=== PATIENT | female | born 1980 | race Caucasian/White ===

== ENCOUNTER → 2020-11-01 15:54 | Outpatient (BNVA) | payer BC, SELFPAY | PROVIDERS: PCP Internal Medicine; Referring Provider Internal Medicine; Visit Provider Nurse Practitioner | DX: Z76.89 Persons encountering health services in other specified circumstances (principal) ==

== ENCOUNTER 2021-01-25 07:08 | Outpatient (REF) | payer BC, SELFPAY ==
[2021-01-25 11:29] LABS: Hematocrit 40.6 % (37-47); Hemoglobin 13.5 g/dl (12.0-16.0); Mean Corpuscular HGB Conc 33.3 g/dl (31.0-35.0); Mean Corpuscular Hemoglobin 28.2 pg (27.0-33.0); Mean Corpuscular Volume 84.8 fL (80-98); Mean Platelet Volume 9.1 fL (9.4-12.3); Platelet Count 399 X10*3/uL (160-400); Red Blood Count 4.79 X10*6/uL (4.20-5.50); Red Cell Distribution Width 12.7 % (11.0-16.0); White Blood Count 7.1 X10*3/uL (4.8-10.8)
[2021-01-25 11:34] LABS: Glucose Urine UA NEG (NEG); Leukocyte Esterase Urine NEG (NEG); Nitrite Urine NEG (NEG); PH 7.5 (5.0-8.0); Urine Blood NEG (NEG); Urine Ketones NEG (NEG); Urine Protein NEG (NEG-TRACE)
[2021-01-25 11:39] LABS: Appearance Urine CLOUDY; Color Urine YELLOW
[2021-01-25 11:47] LABS: RBC Urine 0-2 /HPF (0); Squamous Epithelial Cell Urine 3+ /LPF; WBC Urine 0-2 /HPF (0-4)
[2021-01-25 11:55] LABS: Alanine Aminotransferase 22 U/L (0-31); Albumin Level 4.1 g/dL (3.5-5.0); Alkaline Phosphatase 72 U/L (39-117); Anion Gap 12 (12-20); Aspartate Amino Transferase 14 U/L (5-31); Bilirubin Total 0.5 mg/dL (0.0-1.0); Blood Urea Nitrogen 12 mg/dL (9-16); Calcium 8.7 mg/dL (8.4-10.2); Carbon Dioxide 26 mmol/L (22-29); Chloride 105 mmol/L (96-108); Cholesterol 183 mg/dL; Estimated Glomerular Filt Rate > 60; Glucose Fasting 90 mg/dL (60-99); HDL Cholesterol 41 mg/dL; LDL Cholesterol Calculated 126 mg/dl; Potassium 4.6 mmol/L (3.3-5.1); Sodium 138 mmol/L (135-145); Total Protein 6.8 g/dL (6.5-8.0); Triglycerides 82 mg/dL
[2021-01-25 12:00] LABS: Thyroid Stimulating Hormone 1.64 uIU/mL (0.32-4.0)
== END 2021-01-25 07:09 | disposition home or self-care (01) ==
LOC: HO.HMGCLDS 07:08
PROVIDERS: PCP Internal Medicine; Visit Provider Internal Medicine
DX: I10 Essential (primary) hypertension (principal); J45.909 Unspecified asthma, uncomplicated
CPT/HCPCS: 36415; 80053; 80061; 81001; 84443; 85027

== ENCOUNTER 2021-03-20 16:26 | Outpatient (REF) | payer BC, SELFPAY ==
--- NOTE | ~2021-03-20 | US_ITS ---
EXAMINATION: US RETROPERITONEAL LIMITED (RENAL ONLY) CLINICAL INFORMATION: Unspecified hydronephrosis. COMPARISON: Ultrasound abdomen 04/07/2020. Renal ultrasound 12/11/2017. TECHNIQUE: Real-time imaging of the kidneys. FINDINGS: RIGHT KIDNEY: 12.1 x 5.6 x 5.3 cm (SAG x AP x TRV). The kidney is normal in size, contour, and echogenicity. Renal cortical thickness is normal. No calculi or focal parenchymal lesions. There is mild right hydronephrosis. This is new or increased from previous abdominal ultrasound March 2020 LEFT KIDNEY: 12.0 x 5.3 x 4.5 cm (SAG x AP x TRV). The kidney is normal in size, contour, and echogenicity. Renal cortical thickness is normal. No calculi or focal parenchymal lesions. No hydronephrosis. US/US renal BI IMPRESSION: Mild right hydronephrosis.
== END 2021-03-20 16:27 | disposition home or self-care (01) ==
LOC: HO.US 16:26
PROVIDERS: PCP Internal Medicine; Visit Provider Internal Medicine
DX: N13.30 Unspecified hydronephrosis (principal)
CPT/HCPCS: 76775

== ENCOUNTER 2022-01-25 07:31 | Outpatient (REF) | payer BC, SELFPAY ==
[2022-01-25 11:52] LABS: Hematocrit 39.6 % (37.0-47.0); Hemoglobin 12.8 g/dl (12.0-16.0); Mean Corpuscular HGB Conc 32.3 g/dl (31.0-35.0); Mean Corpuscular Hemoglobin 27.6 pg (27.0-33.0); Mean Corpuscular Volume 85.3 fL (80.0-98.0); Mean Platelet Volume 9.2 fL (9.4-12.3); Platelet Count 385 X10*3/uL (160-400); Red Blood Count 4.64 X10*6/uL (4.20-5.50); Red Cell Distribution Width 12.6 % (11.0-16.0); White Blood Count 6.4 X10*3/uL (4.8-10.8)
[2022-01-25 12:06] LABS: Appearance Urine CLOUDY; Color Urine YELLOW; Glucose Urine UA NEG (NEG); Leukocyte Esterase Urine NEG (NEG); Nitrite Urine NEG (NEG); Specific Gravity - Urine 1.025 (1.005-1.025); Urine Blood TRACE (NEG); Urine Ketones NEG (NEG); Urine Protein NEG (NEG-TRACE)
[2022-01-25 12:08] LABS: Alanine Aminotransferase 11 U/L (0-31); Alkaline Phosphatase 67 U/L (39-117); Anion Gap 8 (12-20); Aspartate Amino Transferase 11 U/L (5-31); Bilirubin Total 0.5 mg/dL (0.0-1.0); Blood Urea Nitrogen 13 mg/dL (9-16); Calcium 8.7 mg/dL (8.4-10.2); Carbon Dioxide 26 mmol/L (22-29); Chloride 107 mmol/L (96-108); Cholesterol 154 mg/dL; Estimated Glomerular Filt Rate > 60; Glucose Fasting 97 mg/dL (60-99); HDL Cholesterol 38 mg/dL; LDL Cholesterol Calculated 102 mg/dl; Potassium 4.4 mmol/L (3.3-5.1); Sodium 137 mmol/L (135-145); Total Protein 6.6 g/dL (6.5-8.0); Triglycerides 73 mg/dL
[2022-01-25 12:25] LABS: Amorphous Sediment Urine 2+ /LPF; Bacteria Urine 1+ /LPF; RBC Urine 0-2 /HPF (0); Squamous Epithelial Cell Urine 3+ /LPF; WBC Urine 0-2 /HPF (0-4)
[2022-01-25 12:30] LABS: TSH reflex Free T4 1.17 uIU/mL (0.32-4.0)
== END 2022-01-25 07:32 | disposition home or self-care (01) ==
LOC: HO.HMGCLDS 07:31
PROVIDERS: Visit Provider Internal Medicine
DX: Z00.00 Encounter for general adult medical examination without abnormal findings (principal); I10 Essential (primary) hypertension
CPT/HCPCS: 36415; 80053; 80061; 81001; 84443; 85027

== ENCOUNTER → 2023-01-10 08:29 | Outpatient (BNVA) | payer BC, SELFPAY | PROVIDERS: PCP Internal Medicine; Visit Provider Student in an Organized Health Care Education/Training Program | DX: Z13.89 Encounter for screening for other disorder (principal) ==

== ENCOUNTER 2023-01-10 09:55 | Outpatient (REF) | payer BC, SELFPAY ==
--- NOTE | ~2023-01-10 | XR_ITS ---
EXAMINATION: XR SACROILIAC JOINTS CLINICAL INFORMATION: Arthropathic psoriasis. COMPARISON: None TECHNIQUE: AP and bilateral Judet views of the sacroiliac joints FINDINGS: Bones and soft tissues are normal. No fracture. Alignment is anatomic. Sacroiliac joint spaces are well-maintained without erosions or surrounding sclerosis. XR/XR sacroiliac joint min 3V IMPRESSION: Normal sacroiliac joints.
--- NOTE | ~2023-01-10 | XR_ITS ---
EXAMINATION: XR SHOULDER, LEFT CLINICAL INFORMATION: Arthropathic psoriasis. COMPARISON: None TECHNIQUE: AP external rotation, Grashey, scapular Y, and axillary views of the left shoulder. FINDINGS: Bony alignment and mineralization are normal. The glenohumeral joint is intact. A small accessory ossification center is seen at the lower glenoid margin. The acromioclavicular and coracoclavicular intervals are normal. There is coarse calcific tendinitis of the left rotator cuff insertion. No fracture or dislocation is seen. There is no foreign body. No bone erosion is noted. No left pneumothorax is seen. XR/XR shoulder LT min 2V IMPRESSION: 1. There is calcific tendinitis of the left rotator cuff insertion. 2. No fracture or dislocation is seen. 3. There is no abnormal bony erosive change. EXAMINATION: XR LUMBOSACRAL SPINE CLINICAL INFORMATION: Arthropathic psoriasis. COMPARISON: None TECHNIQUE: AP, bilateral oblique and lateral views of the lumbar spine and lateral view of the lumbosacral junction. FINDINGS: Vertebral body heights are normal. There is a mild thoracolumbar levoscoliosis. At T11-T12, there is mild anterior disc space narrowing, with slight vacuum disc phenomenon. The lumbar disc spaces are well-maintained. No acute fracture or spondylolisthesis is seen. There is mild anterior spondylosis at T11-T12, L3-L4 and L4-L5. The posterior elements are intact. The paravertebral soft tissues are unremarkable. IMPRESSION: 1. There is mild degenerative disc disease at T11-T12. 2. There is multi-level mild thoracolumbar spondylosis. 3. There is a mild thoracolumbar levoscoliosis.
--- NOTE | ~2023-01-10 | XR_ITS ---
EXAMINATION: XR HAND/WRIST, RIGHT XR HAND/WRIST, LEFT CLINICAL INFORMATION: Psoriatic arthritis. COMPARISON: None TECHNIQUE: PA, lateral, and oblique views of the each hand and wrist. FINDINGS: RIGHT HAND/WRIST: Bony alignment and mineralization are normal. There is a mild ulnar minus variance. No fracture or dislocation is seen. The joint spaces are maintained. There is minimal osteoarthritic change of the interphalangeal joint of the thumb and of the first carpometacarpal joint. No erosions or soft tissue calcifications. LEFT HAND/WRIST: Bony alignment and mineralization are normal. There is a mild ulnar minus variance. No fracture or dislocation is seen. The joint spaces are maintained. There is minimal osteoarthritic change of the interphalangeal joint of the thumb and of the first carpometacarpal joint. No erosions or soft tissue calcifications. XR/XR hand wrist LT IMPRESSION: There is minimal osteoarthritic change of the interphalangeal joints of the thumb and of the bilateral first carpometacarpal joints. No fracture or dislocation is seen. There is no abnormal bony erosive change.
--- NOTE | ~2023-01-10 | XR_ITS ---
EXAMINATION: XR HAND/WRIST, RIGHT XR HAND/WRIST, LEFT CLINICAL INFORMATION: Psoriatic arthritis. COMPARISON: None TECHNIQUE: PA, lateral, and oblique views of the each hand and wrist. FINDINGS: RIGHT HAND/WRIST: Bony alignment and mineralization are normal. There is a mild ulnar minus variance. No fracture or dislocation is seen. The joint spaces are maintained. There is minimal osteoarthritic change of the interphalangeal joint of the thumb and of the first carpometacarpal joint. No erosions or soft tissue calcifications. LEFT HAND/WRIST: Bony alignment and mineralization are normal. There is a mild ulnar minus variance. No fracture or dislocation is seen. The joint spaces are maintained. There is minimal osteoarthritic change of the interphalangeal joint of the thumb and of the first carpometacarpal joint. No erosions or soft tissue calcifications. XR/XR hand wrist RT IMPRESSION: There is minimal osteoarthritic change of the interphalangeal joints of the thumb and of the bilateral first carpometacarpal joints. No fracture or dislocation is seen. There is no abnormal bony erosive change.
--- NOTE | ~2023-01-10 | XR_ITS ---
EXAMINATION: XR SHOULDER, LEFT CLINICAL INFORMATION: Arthropathic psoriasis. COMPARISON: None TECHNIQUE: AP external rotation, Grashey, scapular Y, and axillary views of the left shoulder. FINDINGS: Bony alignment and mineralization are normal. The glenohumeral joint is intact. A small accessory ossification center is seen at the lower glenoid margin. The acromioclavicular and coracoclavicular intervals are normal. There is coarse calcific tendinitis of the left rotator cuff insertion. No fracture or dislocation is seen. There is no foreign body. No bone erosion is noted. No left pneumothorax is seen. XR/XR lumbar spine 4V min IMPRESSION: 1. There is calcific tendinitis of the left rotator cuff insertion. 2. No fracture or dislocation is seen. 3. There is no abnormal bony erosive change. EXAMINATION: XR LUMBOSACRAL SPINE CLINICAL INFORMATION: Arthropathic psoriasis. COMPARISON: None TECHNIQUE: AP, bilateral oblique and lateral views of the lumbar spine and lateral view of the lumbosacral junction. FINDINGS: Vertebral body heights are normal. There is a mild thoracolumbar levoscoliosis. At T11-T12, there is mild anterior disc space narrowing, with slight vacuum disc phenomenon. The lumbar disc spaces are well-maintained. No acute fracture or spondylolisthesis is seen. There is mild anterior spondylosis at T11-T12, L3-L4 and L4-L5. The posterior elements are intact. The paravertebral soft tissues are unremarkable. IMPRESSION: 1. There is mild degenerative disc disease at T11-T12. 2. There is multi-level mild thoracolumbar spondylosis. 3. There is a mild thoracolumbar levoscoliosis.
[2023-01-10 10:54] LABS: MANUAL DIFF FLAG NO
[2023-01-10 11:28] LABS: Basophils Percent Auto 0.5 % (0-2); Eosinophils Absolute Auto 0.1 X10*3/uL (0.0-0.4); Eosinophils Percent Auto 1.5 % (0-4); Hematocrit 42.6 % (37.0-47.0); Hemoglobin 14.1 g/dl (12.0-16.0); Imm Gran Abs Auto 0.01 X10*3/uL (0.00-0.03); Imm Gran Pct Auto 0.2 % (0.0-0.4); Lymphocytes Absolute Auto 2.7 X10*3/uL (1.2-4.9); Lymphocytes Percent Auto 43.6 % (20-40); Mean Corpuscular HGB Conc 33.1 g/dl (31.0-35.0); Mean Corpuscular Hemoglobin 27.6 pg (27.0-33.0); Mean Corpuscular Volume 83.4 fL (80.0-98.0); Mean Platelet Volume 8.9 fL (9.4-12.3); Monocytes Absolute Auto 0.3 X10*3/uL (0.1-1.2); Monocytes Percent Auto 4.5 % (2-11); Neutrophils Absolute Auto 3.1 x10*3/uL (2.0-8.3); Neutrophils Percent Auto 49.7 % (45-73); Platelet Count 426 X10*3/uL (160-400); Red Blood Count 5.11 X10*6/uL (4.20-5.50); Red Cell Distribution Width 12.4 % (11.0-16.0); White Blood Count 6.2 X10*3/uL (4.8-10.8)
[2023-01-10 11:58] LABS: Alanine Aminotransferase 16 U/L (0-31); Albumin Level 4.6 g/dL (3.5-5.0); Alkaline Phosphatase 75 U/L (39-117); Anion Gap 15 (12-20); Aspartate Amino Transferase 13 U/L (5-31); Bilirubin Total 0.6 mg/dL (0.0-1.0); Blood Urea Nitrogen 10 mg/dL (9-16); C Reactive Protein 0.45 mg/dL (< or = 0.50); Calcium 9.5 mg/dL (8.4-10.2); Carbon Dioxide 23 mmol/L (22-29); Chloride 107 mmol/L (96-108); Estimated Glomerular Filt Rate > 60; Glucose Random 89 mg/dL (60-115); Potassium 4.4 mmol/L (3.3-5.1); Sodium 141 mmol/L (135-145); Total Protein 7.3 g/dL (6.5-8.0)
[2023-01-10 12:04] LABS: Erythrocyte Sedimentation Rate 5 MM/HR (0-20)
[2023-01-10 14:27] LABS: Appearance Urine Cloudy; Color Urine Yellow; Glucose Urine UA Negative (Negative); Leukocyte Esterase Urine Negative (Negative); Nitrite Urine Negative (Negative); Specific Gravity - Urine 1.015 (1.005-1.025); Urine Blood Negative (Negative); Urine Ketones Negative (Negative); Urine Protein Negative (Neg-Trace)
[2023-01-10 14:33] LABS: Bacteria Urine 1+ (None Seen); Hyaline Casts Urine 0-2 /LPF (0-2); RBC Urine 0-2 /HPF (0-2); Squamous Epithelial Cell Urine >20 /HPF (0-2); WBC Urine 0-5 /HPF (0-5)
[2023-01-10 15:12] LABS: Creatinine Urine 85.27 mg/dL; Total Protein Urine Random < 7 mg/dL (<12)
[2023-01-11 07:01] LABS: HBS Num1 50.41 mIU/mL (0-7.99); HBc Num1 0.05 S/CO (0.00-0.79); HBsAGNum1 0.32 S/CO (0.00-0.99); Hepatitis A Antibody IgM 0.13 Index (0-0.79); Hepatitis B Core Antibody Nonreactive (Nonreactive); Hepatitis B Surface Antigen Negative (Negative); ~HepC Num1 0.06 S/CO (0.00-0.79); ~Hepatitis A Antibody IgM Nonreactive (Nonreactive); ~Hepatitis B Surface Antibody REACTIVE (Nonreactive); ~Hepatitis C Antibody Nonreactive (Nonreactive)
[2023-01-13 13:39] LABS: Anti Nuclear Antibody Screen NEGATIVE (NEGATIVE)
[2023-01-14 09:44] LABS: IgA 258 mg/dL (47-310); IgG 1117 mg/dL (600-1640); IgM 60 mg/dL (50-300)
[2023-01-14 13:15] LABS: Cyclic Citrullinated Peptide <16 UNITS
[2023-01-14 16:13] LABS: Anti DNA DS Antibody <1 IU/mL; Antibody to SS-A Antigen <1.0 NEG AI (<1.0 NEG); Antibody to SS-B Antigen <1.0 NEG AI (<1.0 NEG); SM/Ribonucleoprotein Ab <1.0 NEG AI (<1.0 NEG); Smith Protein <1.0 NEG AI (<1.0 NEG)
[2023-01-15 06:09] LABS: Complement C3 131 mg/dL (83-193)
[2023-01-15 13:58] LABS: DNAds, Crithidia Antibody Negative (Negative)
[2023-01-15 22:19] LABS: Prot Elec - Albumin 4.3 g/dL (3.8-4.8); Prot Elec - Alpha1 0.3 g/dL (0.2-0.3); Prot Elec - Alpha2 0.6 g/dL (0.5-0.9); Prot Elec - Beta 1 0.5 g/dL (0.4-0.6); Prot Elec - Beta 2 0.3 g/dL (0.2-0.5); Prot Elec - Gamma 1.1 g/dL (0.8-1.7); Prot Elec - Total Protein 7.1 g/dL (6.1-8.1)
[2023-01-16 18:49] LABS: HLA B27 Negative (Negative)
== END 2023-01-10 09:56 | disposition home or self-care (01) ==
LOC: HO.10HDL 09:55
PROVIDERS: PCP Internal Medicine; Visit Provider Student in an Organized Health Care Education/Training Program
DX: M32.9 Systemic lupus erythematosus, unspecified (principal); Z11.7 Encounter for testing for latent tuberculosis infection; Z11.59 Encounter for screening for other viral diseases; M45.9 Ankylosing spondylitis of unspecified sites in spine; L40.50 Arthropathic psoriasis, unspecified; M25.541 Pain in joints of right hand; Z72.89 Other problems related to lifestyle
CPT/HCPCS: 36415; 72110; 72202; 73030; 73110; 73130; 80053; 81001; 82784; 84156; 84165; 85025; 85652; 86038; 86039; 86140; 86160; 86200; 86225; 86235; 86255; 86334; 86481; 86704; 86706; 86709; 86803; 86812; 87340

== ENCOUNTER 2023-01-24 07:29 | Outpatient (REF) | payer BC, SELFPAY ==
[2023-01-24 11:46] LABS: Appearance Urine Cloudy; Color Urine Yellow; Glucose Urine UA Negative (Negative); Leukocyte Esterase Urine Negative (Negative); Nitrite Urine Negative (Negative); PH 5.5 (5.0-9.0); Specific Gravity - Urine 1.025 (1.005-1.025); Urine Blood Negative (Negative); Urine Ketones Negative (Negative); Urine Protein Negative (Neg-Trace)
[2023-01-24 11:50] LABS: Bacteria Urine None Seen (None Seen); Hyaline Casts Urine 0-2 /LPF (0-2); RBC Urine 0-2 /HPF (0-2); WBC Urine 0-5 /HPF (0-5)
[2023-01-24 11:59] LABS: Hematocrit 37.5 % (37.0-47.0); Hemoglobin 12.3 g/dl (12.0-16.0); Mean Corpuscular HGB Conc 32.8 g/dl (31.0-35.0); Mean Corpuscular Hemoglobin 27.8 pg (27.0-33.0); Mean Corpuscular Volume 84.7 fL (80.0-98.0); Platelet Count 404 X10*3/uL (160-400); Red Blood Count 4.43 X10*6/uL (4.20-5.50); Red Cell Distribution Width 12.9 % (11.0-16.0); White Blood Count 10.4 X10*3/uL (4.8-10.8)
[2023-01-24 12:15] LABS: Alanine Aminotransferase 11 U/L (0-31); Albumin Level 3.8 g/dL (3.5-5.0); Alkaline Phosphatase 54 U/L (39-117); Anion Gap 10 (12-20); Aspartate Amino Transferase 8 U/L (5-31); Bilirubin Total 0.5 mg/dL (0.0-1.0); Blood Urea Nitrogen 18 mg/dL (9-16); Calcium 8.6 mg/dL (8.4-10.2); Carbon Dioxide 24 mmol/L (22-29); Chloride 109 mmol/L (96-108); Cholesterol 165 mg/dL; Estimated Glomerular Filt Rate > 60; Glucose Fasting 94 mg/dL (60-99); HDL Cholesterol 43 mg/dL; LDL Cholesterol Calculated 105 mg/dl; Potassium 4.1 mmol/L (3.3-5.1); Sodium 139 mmol/L (135-145); Triglycerides 88 mg/dL
== END 2023-01-24 07:30 | disposition home or self-care (01) ==
LOC: HO.HMGCLDS 07:29
PROVIDERS: PCP Internal Medicine; Visit Provider Internal Medicine
DX: Z00.00 Encounter for general adult medical examination without abnormal findings (principal); I10 Essential (primary) hypertension
CPT/HCPCS: 36415; 80053; 80061; 81001; 85027

== ENCOUNTER → 2023-02-07 10:40 | Outpatient (BNVA) | payer BC, SELFPAY | PROVIDERS: PCP Internal Medicine; Visit Provider Student in an Organized Health Care Education/Training Program | DX: Z13.89 Encounter for screening for other disorder (principal) ==

== ENCOUNTER 2023-04-02 07:25 | Outpatient (REF) | payer BC, SELFPAY ==
[2023-04-02 11:10] LABS: MANUAL DIFF FLAG NO
[2023-04-02 11:35] LABS: Basophils Percent Auto 0.6 % (0-2); Eosinophils Absolute Auto 0.1 X10*3/uL (0.0-0.4); Eosinophils Percent Auto 1.8 % (0-4); Hematocrit 39.5 % (37.0-47.0); Hemoglobin 13.1 g/dl (12.0-16.0); Imm Gran Abs Auto 0.02 X10*3/uL (0.00-0.03); Imm Gran Pct Auto 0.3 % (0.0-0.4); Lymphocytes Absolute Auto 2.6 X10*3/uL (1.2-4.9); Lymphocytes Percent Auto 38.8 % (20-40); Mean Corpuscular HGB Conc 33.2 g/dl (31.0-35.0); Mean Corpuscular Hemoglobin 27.6 pg (27.0-33.0); Mean Corpuscular Volume 83.3 fL (80.0-98.0); Mean Platelet Volume 9.2 fL (9.4-12.3); Monocytes Absolute Auto 0.4 X10*3/uL (0.1-1.2); Monocytes Percent Auto 5.3 % (2-11); Neutrophils Absolute Auto 3.5 x10*3/uL (2.0-8.3); Neutrophils Percent Auto 53.2 % (45-73); Platelet Count 424 X10*3/uL (160-400); Red Blood Count 4.74 X10*6/uL (4.20-5.50); Red Cell Distribution Width 13.1 % (11.0-16.0); White Blood Count 6.6 X10*3/uL (4.8-10.8)
[2023-04-02 12:10] LABS: Alanine Aminotransferase 11 U/L (0-31); Alkaline Phosphatase 72 U/L (39-117); Anion Gap 10 (12-20); Aspartate Amino Transferase 9 U/L (5-31); Bilirubin Total 0.6 mg/dL (0.0-1.0); Blood Urea Nitrogen 10 mg/dL (9-16); C Reactive Protein 0.47 mg/dL (< or = 0.50); Calcium 9.1 mg/dL (8.4-10.2); Carbon Dioxide 24 mmol/L (22-29); Chloride 108 mmol/L (96-108); Estimated Glomerular Filt Rate > 60; Glucose Random 109 mg/dL (60-115); Potassium 4.1 mmol/L (3.3-5.1); Sodium 138 mmol/L (135-145); Total Protein 6.5 g/dL (6.5-8.0)
[2023-04-02 12:14] LABS: Erythrocyte Sedimentation Rate 8 MM/HR (0-20)
== END 2023-04-02 07:26 | disposition home or self-care (01) ==
LOC: HO.HMGCLDS 07:25
PROVIDERS: PCP Internal Medicine; Visit Provider Student in an Organized Health Care Education/Training Program
DX: M06.9 Rheumatoid arthritis, unspecified (principal)
CPT/HCPCS: 36415; 80053; 85025; 85652; 86140

== ENCOUNTER → 2023-04-03 09:31 | Outpatient (BNVA) | payer BC, SELFPAY | PROVIDERS: PCP Internal Medicine; Visit Provider Student in an Organized Health Care Education/Training Program ==

== ENCOUNTER 2023-05-13 07:27 | Outpatient (REF) | payer BC, SELFPAY ==
[2023-05-15 23:29] LABS: TS Negative Control Passed; TS Panel A 0; TS Panel B 0; TS Positive Control Passed; TSpotTB Negative (Negative)
== END 2023-05-13 07:28 | disposition home or self-care (01) ==
LOC: HO.LAB 07:27
PROVIDERS: PCP Internal Medicine; Visit Provider Internal Medicine Rheumatology
DX: Z11.1 Encounter for screening for respiratory tuberculosis (principal); Z79.60 Long term (current) use of unspecified immunomodulators and immunosuppressants
CPT/HCPCS: 36415; 86481

== ENCOUNTER → 2023-06-07 15:53 | Outpatient (BNVA) | payer BC, SELFPAY | PROVIDERS: PCP Internal Medicine; Visit Provider Internal Medicine Rheumatology ==

== ENCOUNTER 2023-06-20 08:27 | Outpatient (AMB) | payer BC, SELFPAY ==
--- NOTE | 2023-06-20 08:43 | A.OFFPC_ITS ---
Vital Signs 06/20/23 08:44 Height 5 ft 5 in Weight 172 lb BMI 28.6 BP 122/86 Blood Pressure Location Rt brachial Position Sitting Pulse 90 Pulse Source Pulse Oximeter Pulse Oximetry (%) 100 Oxygen Delivery Method Room Air Intake Visit Reasons: 6 week follow up HTN Allergies methotrexate Allergy (Intermediate, Verified 06/20/23 08:44) Rash adhesive Allergy (Unknown, Verified 06/20/23 08:44) Rash erythromycin base [ERYTHROMYCIN BASE] Allergy (Unknown, Verified 06/20/23 08:44) Hives peach Allergy (Unknown, Verified 06/20/23 08:44) Anaphylaxis latex Adverse Reaction (Verified 06/20/23 08:44) Hives lisinopril Adverse Reaction (Verified 06/20/23 08:44) Cough Medication List - Last Reconciled 06/20/23 by Mariah Abbott MD albuterol sulfate 90 mcg/actuation (ProAir HFA) 2 puffs inhalation Q4-6H PRN albuterol sulfate 2.5 mg (0.5 mL) inhalation Q6H PRN cetirizine (Zyrtec) 10 mg PO DAILY PRN cyclosporine 0.05% (Restasis) 1 drp ophthalmic (eye) Q12H drospirenone (contraceptive) (Slynd) 1 tab PO DAILY etanercept (Enbrel Mini) 50 mg subcut QWEEK olmesartan 20 mg PO DAILY sumatriptan succinate (Imitrex) take 1 tab at onset of headache; if no relief may repeat 1 tab after at least 2 hrs; max = 4 tabs/24 hr PO Tobacco use date assessed: 04/26/23 HPI 6 week follow up HTN HPI Details Pt presents for f/u HTN. Pt started Enbrel for RA, feels better, taking less NSAIDs PFSH Medical History (Updated 06/20/23 @ 17:26 by Mariah Abbott MD) Annual physical exam Anxiety Chronic asthma Diverticulosis FHx: colonic polyps HTN (hypertension) Hydronephrosis of right kidney Migraine Seasonal allergies Tinnitus of left ear Surgical History H/O breast biopsy History of bunionectomy Family History Father HTN (hypertension) Substance use disorder Mother Breast cancer Bladder cancer Cancer of kidney Mental health disorder Maternal Grandmother Colon cancer, Onset Age: 80 Daughter Andrzej's thyroiditis Social History Housing: House Alcohol intake: current Alcohol intake frequency: holidays/special occasions only Patient Tobacco Use Status: Former Tobacco user e-Cigarette/Vaping Use: Never Used service: No Current occupational status: employed 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 Anish Montanez, Linda Nathan, Gustavo Gramajo and colleagues, with an educational tonny from [employer]. Review of Systems Const All systems reviewed & are unremarkable except as noted in HPI and below Reports no additional complaints ENT Reports no additional complaints Card Reports no additional complaints Resp Reports no additional complaints GI Reports no additional complaints Physical exam (Primary Care) Vital Signs: Last Vital Signs Pulse 90 06/20/23 08:44 BP 122/86 06/20/23 08:44 Pulse Ox 100 06/20/23 08:44 Oxygen Delivery Method Room Air 06/20/23 08:44 BMI result Body Mass Index 28.6 Tobacco/Smoking Status: Tobacco use Status Tobacco use date assessed 04/26/23 06/20/23 08:48 Patient Tobacco Use Status Former Tobacco user 06/20/23 08:48 e-Cigarette/Vaping Use Never Used 06/20/23 08:48 Thrive Assessment: Date of Thrive Assessment Date Thrive assessed 04/26/23 06/20/23 08:48 Const General: no acute distress HENMT Head: Yes normal to inspection Mouth: Normal oral and palatal mucosa present Neck Neck: Yes no lymphadenopathy and Yes supple Resp Effort & Inspection: normal respiratory effort Auscultation: clear to auscultation bilaterally Cardio Rhythm: regular rhythm Heart sounds: S1 normal heart sound present and S2 normal heart sound present Assessment and Plan Assessment & Plan (1) HTN (hypertension): Comment: BP goal less than 130/80 Code(s): I10 - Essential (primary) hypertension Plan: con Amlodipine (2) Chronic asthma: Comment: exercise induced, Proair prn Code(s): J45.909 - Unspecified asthma, uncomplicated (3) Seronegative arthritis: Comment: dx 02/07 MTX started 02/07 someffectiveness but developed fatigue & diffuse skin rash Code(s): M13.80 - Other specified arthritis, unspecified site Plan: f/u Rheumatology (4) Migraine: Comment: imitex prn Code(s): G43.909 - Migraine, unspecified, not intractable, without status migrainosus Orders: Orders Comprehensive [place]. Panel Fast 6 Months I10 - Essential (primary) hypertension, J45.909 - Unspecified asthma, uncomplicated Lipid Panel 6 Months I10 - Essential (primary) hypertension, J45.909 - Unspecified asthma, uncomplicated Complete Blood Count Auto Diff 6 Months I10 - Essential (primary) hypertension, J45.909 - Unspecified asthma, uncomplicated Medications: New amlodipine 2.5 mg PO DAILY 90 tabs 3RF Discontinued olmesartan Discontinued Reason: Doctor's Order 20 mg PO DAILY 30 tabs 1RF Coding Level of Care Code Est Pt Level 4 (64822) Diagnoses HTN (hypertension) I10 Chronic asthma J45.909 Seronegative arthritis M13.80 Migraine G43.909
[2023-06-20 08:44] VITALS: BP 122/86; PULSE 90; O2SAT 100; BMI 28.6
== END 2023-06-20 12:44 | disposition home or self-care (01) ==
PROVIDERS: PCP Internal Medicine; Visit Provider Internal Medicine
DX: I10 Essential (primary) hypertension (principal); J45.909 Unspecified asthma, uncomplicated; M13.80 Other specified arthritis, unspecified site; G43.909 Migraine, unspecified, not intractable, without status migrainosus
CPT/HCPCS: 99214

== ENCOUNTER 2023-07-04 07:29 | Outpatient (AMB) | payer BC, SELFPAY ==
--- NOTE | 2023-07-04 07:30 | A.OFFVIS_ITS ---
Intake Vital Signs 07/04/23 07:31 Height 5 ft 5 in Weight 173 lb 15.115 oz BMI 28.9 BP 160/84 H Blood Pressure Location Rt brachial Position Sitting Pulse 86 Pulse Source Pulse Oximeter Temp 97 F Temp Source Skin Pulse Oximetry (%) 98 Oxygen Delivery Method Room Air Intake Visit Reasons: RA Intake Note: Here for RA follow up. 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 Required: No Accompanied by: Self / Same As Patient Allergies methotrexate Allergy (Intermediate, Verified 07/04/23 07:35) Rash adhesive Allergy (Unknown, Verified 07/04/23 07:35) Rash erythromycin base [ERYTHROMYCIN BASE] Allergy (Unknown, Verified 07/04/23 07:35) Hives peach Allergy (Unknown, Verified 07/04/23 07:35) Anaphylaxis latex Adverse Reaction (Verified 07/04/23 07:35) Hives lisinopril Adverse Reaction (Verified 07/04/23 07:35) Cough Medication List - Last Reconciled 07/04/23 by Dariel Borrego MD albuterol sulfate 90 mcg/actuation (ProAir HFA) 2 puffs inhalation Q4-6H PRN albuterol sulfate 2.5 mg (0.5 mL) inhalation Q6H PRN amlodipine 2.5 mg PO DAILY cetirizine (Zyrtec) 10 mg PO DAILY PRN cyclosporine 0.05% (Restasis) 1 drp ophthalmic (eye) Q12H drospirenone (contraceptive) (Slynd) 1 tab PO DAILY etanercept (Enbrel Mini) 50 mg subcut QWEEK sumatriptan succinate (Imitrex) take 1 tab at onset of headache; if no relief may repeat 1 tab after at least 2 hrs; max = 4 tabs/24 hr PO HPI HPI Comments History of Present Illness Details 42-year-old female with seronegative arthritis returns for follow-up. It took a while for the Enbrel to get approved for her. She has been using the Enbrel for about 1 month. She states that the injections do hurt. Icing helps. She does the injections in her thighs and arms. The arm in particular is more painful. She feels that she has little improvement in her overall joint pain. She went for physical therapy for her left shoulder which did not provide much relief and the physical therapist suggested a steroid injection. Patient is requesting a steroid injection for her left shoulder today. She was evaluated by an ornamental bronze worker for dry eyes and was prescribed Restasis which are helping. She states that she has had dry mouth for years. Initial history: This is a 42-year-old female with a past medical history of hypertension, asthma presents for evaluation of multiple joint pains. Condition started 2-3 years ago with bilateral foot pain. In the interim patient broke 1 of her metatarsal bones of her right foot when she accidentally stubbed her toe running after her dog. Her foot was in a boot for some time. However patient also had plantar fasciitis s/p multiple steroid injections. She also had spontaneous Achilles tendinitis affecting her left ankle. She denies any preceding trauma. This was treated with ibuprofen and Voltaren gel. She mentions getting numerous imaging studies of her ankles and feet by her social services. Patient continues to have bilateral ankle and foot pain mostly at her MTPs. Over the last few months she has been having pain in both hands usually at the MCPs the pain is generally worse at night but is also worse in the morning when she wakes up. Over the last couple of months she noticed some puffiness of her fingers, difficulty putting her rings on. Also over the last few months she has been having pain in her tailbone worse with activity. She has been taking ibuprofen about 600 mg nightly mostly to treat her back pain. She denies any skin rashes, no history of psoriasis. No history of uveitis or IBD. She had a colonoscopy in 2021 which showed diverticulosis, unremarkable otherwise. Recent labs showed borderline positive rheumatoid factor. [facility] Medical History Annual physical exam Anxiety Chronic asthma Diverticulosis FHx: colonic polyps HTN (hypertension) Hydronephrosis of right kidney Migraine Seasonal allergies Tinnitus of left ear Surgical History H/O breast biopsy History of bunionectomy Family History Father HTN (hypertension) Substance use disorder Mother Breast cancer Bladder cancer Cancer of kidney Mental health disorder Maternal Grandmother Colon cancer, Onset Age: 80 Daughter Andrzej's thyroiditis Social History Housing: House Alcohol intake: current Alcohol intake frequency: holidays/special occasions only Patient Tobacco Use Status: Former Tobacco user e-Cigarette/Vaping Use: Never Used service: No Current occupational status: employed 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 Cognitive needs: No Hearing needs: No Vision needs: Yes Review of Systems Eyes Reports dry eyes ENT Reports dry mouth Musc Reports arthralgias, Reports limited range of motion and Reports stiffness Physical Exam Vital Signs: Last Vital Signs Temp 97 F 07/04/23 07:31 Pulse 86 07/04/23 07:31 BP 160/84 H 07/04/23 07:31 Pulse Ox 98 07/04/23 07:31 Oxygen Delivery Method Room Air 07/04/23 07:31 BMI result Body Mass Index 28.9 Const General: cooperative and healthy appearing Nutritional Appearance: overweight Orientation/consciousness: patient oriented x3 Limitations: no limitations HEENT Head: Yes normocephalic and Yes atraumatic Mouth: moist mucous membranes Resp Effort & Inspection: normal respiratory effort and able to speak in complete sentences Skin Other: Fading rash on her right forearm Neuro General: patient oriented x3 Extrem Other: Positive empty can test left shoulder Bilateral wrist tenderness to palpation Right wrist pain with full extension Right 3rd MCP tenderness Negative MCP squeeze test bilaterally Left wrist tenderness to palpation and pain with full flexion and extension In right foot 2nd MTP tenderness Left 2nd MTP tenderness Office Procedures Joint Injection/Drain Joint Injection/Drain Primary Site: left shoulder Prep: site was prepped using sterile technique Injected: 40 mg of, Kenalog and other (2 mL of 1% lidocaine) Approach Used: posterolateral Procedure: The patient tolerated the procedure well Coding Details: With the patient's consent the left shoulder was prepped with ChloraPrep and alcohol. Under a topical ethyl chloride spray the left subacromial space was injected with 40 mg of triamcinolone and 2 cc of 1% lidocaine. The patient tolerated the procedure without any acute adverse effects. 94475 - Large joint Procedure code (CPT) selection complete Assessment & Plan Assessment & Plan (1) Seronegative arthritis: Comment: dx 02/07 MTX started 02/07 someffectiveness but developed fatigue & diffuse skin rash Enbrel 06/09 partially effective Code(s): M13.80 - Other specified arthritis, unspecified site Plan: This is a 42-year-old female with seronegative arthritis returns for follow-up. Patient just started Enbrel about a month ago. States that the Enbrel injections hurt especially when given in the arm. I advised patient to inject in the thighs. Patient mentions some improvement. There are less tender joints upon evaluation today. Continue Enbrel 50 mg once weekly. Follow-up in 10 weeks. Infectious screening hepatitis panel and T spot -ve 2022 Labs before next visit in 10 weeks (2) Rotator cuff arthropathy of left shoulder: Code(s): M12.812 - Other specific arthropathies, not elsewhere classified, left shoulder Plan: Physical therapy was not helpful. With patient's consent left shoulder was injected with Kenalog today for subacromial bursitis Plan I spent 26 minutes reviewing patient's chart, evaluating patient, ordering diagnostic workup, counseling patient and documenting in the chart Orders: Orders Comprehensive Met. Panel 10 Weeks M13.80 - Other specified arthritis, unspecified site C Reactive Protein 10 Weeks M13.80 - Other specified arthritis, unspecified site Complete Blood Count Auto Diff 10 Weeks M13.80 - Other specified arthritis, unspecified site Erythrocyte Sedimentation Rate 10 Weeks M13.80 - Other specified arthritis, unspecified site AMB Joint Injection/Aspiration Today M12.812 - Other specific arthropathies, not elsewhere classified, left shoulder Coding Level of Care Code Est Pt Level 4 (83851) Diagnoses Seronegative arthritis M13.80 Rotator cuff arthropathy of left shoulder M12.812 CPT Codes Coding - 84508 Large joint: 29092 - Large joint ([id number])
[2023-07-04 07:31] VITALS: BP 160/84; PULSE 86; TEMP 36.1; O2SAT 98; BMI 28.9
== END 2023-07-04 08:14 | disposition home or self-care (01) ==
PROVIDERS: PCP Internal Medicine; Visit Provider Student in an Organized Health Care Education/Training Program
DX: M05.79 Rheumatoid arthritis with rheumatoid factor of multiple sites without organ or systems involvement (principal); M75.52 Bursitis of left shoulder; M12.812 Other specific arthropathies, not elsewhere classified, left shoulder
CPT/HCPCS: 20610; 99214

== ENCOUNTER → 2023-07-04 07:29 | Outpatient (BNVA) | payer BC, SELFPAY | PROVIDERS: PCP Internal Medicine; Visit Provider Student in an Organized Health Care Education/Training Program | DX: M12.812 Other specific arthropathies, not elsewhere classified, left shoulder (principal); M13.80 Other specified arthritis, unspecified site; Z79.899 Other long term (current) drug therapy | CPT/HCPCS: 20610; J3301 ==

== ENCOUNTER 2023-08-30 07:39 | Outpatient (REF) | payer BC, SELFPAY ==
[2023-08-30 11:54] LABS: MANUAL DIFF FLAG NO
[2023-08-30 12:03] LABS: Basophils Percent Auto 0.8 % (0-2); Eosinophils Absolute Auto 0.1 X10*3/uL (0.0-0.4); Eosinophils Percent Auto 1.3 % (0-4); Hematocrit 41.3 % (37.0-47.0); Hemoglobin 13.8 g/dl (12.0-16.0); Imm Gran Abs Auto 0.01 X10*3/uL (0.00-0.03); Imm Gran Pct Auto 0.2 % (0.0-0.4); Lymphocytes Absolute Auto 2.4 X10*3/uL (1.2-4.9); Mean Corpuscular HGB Conc 33.4 g/dl (31.0-35.0); Mean Corpuscular Hemoglobin 28.2 pg (27.0-33.0); Mean Corpuscular Volume 84.5 fL (80.0-98.0); Mean Platelet Volume 9.2 fL (9.4-12.3); Monocytes Absolute Auto 0.3 X10*3/uL (0.1-1.2); Monocytes Percent Auto 5.2 % (2-11); Neutrophils Absolute Auto 2.4 x10*3/uL (2.0-8.3); Neutrophils Percent Auto 46.5 % (45-73); Platelet Count 410 X10*3/uL (160-400); Red Blood Count 4.89 X10*6/uL (4.20-5.50); Red Cell Distribution Width 12.6 % (11.0-16.0); White Blood Count 5.2 X10*3/uL (4.8-10.8)
[2023-08-30 12:41] LABS: Erythrocyte Sedimentation Rate 6 MM/HR (0-20)
[2023-08-30 12:44] LABS: Alanine Aminotransferase 16 U/L (0-31); Albumin Level 4.2 g/dL (3.5-5.0); Alkaline Phosphatase 61 U/L (39-117); Anion Gap 12 (12-20); Aspartate Amino Transferase 15 U/L (5-31); Bilirubin Total 0.4 mg/dL (0.0-1.0); Blood Urea Nitrogen 8 mg/dL (9-16); C Reactive Protein 0.41 mg/dL (< or = 0.50); Calcium 9.1 mg/dL (8.4-10.2); Carbon Dioxide 22 mmol/L (22-29); Chloride 110 mmol/L (96-108); Estimated Glomerular Filt Rate > 60; Glucose Random 104 mg/dL (60-115); Sodium 140 mmol/L (135-145); Total Protein 7.1 g/dL (6.5-8.0)
[2023-09-03 06:43] LABS: Rubella IgG Antibody 2.06 Index
== END 2023-08-30 07:40 | disposition home or self-care (01) ==
LOC: HO.HMGCLDS 07:39
PROVIDERS: Absent Provider Student in an Organized Health Care Education/Training Program; PCP Internal Medicine; Visit Provider Internal Medicine
DX: Z00.00 Encounter for general adult medical examination without abnormal findings (principal); M13.80 Other specified arthritis, unspecified site; Z79.899 Other long term (current) drug therapy
CPT/HCPCS: 36415; 80053; 85025; 85652; 86140; 86735; 86762; 86765; 86787

== ENCOUNTER 2023-09-10 07:34 | Outpatient (REF) | payer BC, SELFPAY ==
--- NOTE | ~2023-09-10 | XR_ITS ---
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 TECHNIQUE: AP, lateral, and oblique views of the right foot. FINDINGS: There is no evidence of fracture or dislocation. There are mild changes of osteoarthritis of the first metatarsophalangeal joint. There is soft tissue swelling seen medially. There is small plantar calcaneal spur. XR/XR foot RT min 3V IMPRESSION: Mild degenerative changes as a first metatarsophalangeal joint and small plantar calcaneal spur
--- NOTE | ~2023-09-10 | XR_ITS ---
EXAMINATION: XR FOOT, LEFT CLINICAL INFORMATION: Pain, arthritis COMPARISON: 06/09/2012 TECHNIQUE: AP, lateral, and oblique views of the left foot. FINDINGS: There is no evidence of fracture or dislocation. There are prominent plantar calcaneal spurs. No ossicle seen in the medial malleolus again. Soft tissues are unremarkable. XR/XR foot LT min 3V IMPRESSION: No fracture seen. Plantar calcaneal spur.
== END 2023-09-10 07:35 | disposition home or self-care (01) ==
LOC: HO.XRAY 07:34
PROVIDERS: PCP Internal Medicine; Visit Provider Student in an Organized Health Care Education/Training Program
DX: M12.812 Other specific arthropathies, not elsewhere classified, left shoulder (principal); M13.80 Other specified arthritis, unspecified site; Z71.85 Encounter for immunization safety counseling
CPT/HCPCS: 20610; 73630

== ENCOUNTER 2023-09-10 07:34 | Outpatient (AMB) | payer BC, SELFPAY ==
--- NOTE | 2023-09-10 07:38 | A.OFFVIS_ITS ---
Intake Vital Signs 09/10/23 07:39 Height 5 ft 5 in BMI Reason not done Patient refused/unable BP 138/80 Blood Pressure Location Lt brachial Position Sitting Pulse 98 Pulse Source Pulse Oximeter Temp 97.9 F Temp Source Skin Pulse Oximetry (%) 98 Oxygen Delivery Method Room Air Comment 175 per pt Intake Visit Reasons: RA Intake Note: Pt presents today for follow up and test results. Continues on Enbrel once weekly. c/o right foot pain, ? x-ray. [employer] Required: No Accompanied by: Self / Same As Patient Allergies methotrexate Allergy (Intermediate, Verified 09/10/23 07:40) Rash adhesive Allergy (Unknown, Verified 09/10/23 07:40) Rash erythromycin base [ERYTHROMYCIN BASE] Allergy (Unknown, Verified 09/10/23 07:40) Hives peach Allergy (Unknown, Verified 09/10/23 07:40) Anaphylaxis latex Adverse Reaction (Verified 09/10/23 07:40) Hives lisinopril Adverse Reaction (Verified 09/10/23 07:40) Cough Medication List - Last Reconciled 09/10/23 by Dariel Borrego MD albuterol sulfate 90 mcg/actuation (ProAir HFA) 2 puffs inhalation Q4-6H PRN albuterol sulfate 2.5 mg (0.5 mL) inhalation Q6H PRN amlodipine 2.5 mg PO DAILY cetirizine (Zyrtec) 10 mg PO DAILY PRN cyclosporine 0.05% (Restasis) 1 drp ophthalmic (eye) Q12H drospirenone (contraceptive) (Slynd) 1 tab PO DAILY etanercept (Enbrel Mini) 50 mg subcut QWEEK prednisone Take 3 Tabs by mouth once daily with breakfast for 1 week then 2 tabs daily for 1 week then 1 tab daily for 1 week then 1/2 tab daily for 1 week then stop sumatriptan succinate (Imitrex) take 1 tab at onset of headache; if no relief may repeat 1 tab after at least 2 hrs; max = 4 tabs/24 hr PO HPI HPI Comments History of Present Illness Details 43-year-old female with seronegative art hritis returns for follow-up. She has been on Enbrel consistently for 4 months now. States that she feels much less joint pain and stiffness overall. However over the last week she has been having right foot pain. She denies any trauma or overuse. States that steroid injection for left shoulder helped her for at least 2 months, but the pain started coming back about a month ago. Requesting another injection if possible Initial history: This is a 42-year-old female with a past medical history of hypertension, asthma presents for evaluation of multiple joint pains. Condition started 2-3 years ago with bilateral foot pain. In the interim patient broke 1 of her metatarsal bones of her right foot when she accidentally stubbed her toe running after her dog. Her foot was in a boot for some time. However patient also had plantar fasciitis s/p multiple steroid injections. She also had spontaneous Achilles tendinitis affecting her left ankle. She denies any preceding trauma. This was treated with ibuprofen and Voltaren gel. She mentions getting numerous imaging studies of her ankles and feet by her engineering group leader. Patient continues to have bilateral ankle and foot pain mostly at her MTPs. Over the last few months she has been having pain in both hands usually at the MCPs the pain is generally worse at night but is also worse in the morning when she wakes up. Over the last couple of months she noticed some puffiness of her fingers, difficulty putting her rings on. Also over the last few months she has been having pain in her tailbone worse with activity. She has been taking ibuprofen about 600 mg nightly mostly to treat her back pain. She denies any skin rashes, no history of psoriasis. No history of uveitis or IBD. She had a colonoscopy in 2021 which showed diverticulosis, unremarkable otherwise. Recent labs showed borderline positive rheumatoid factor. [facility] Medical History Diverticulosis Tinnitus of left ear FHx: colonic polyps Annual physical exam Hydronephrosis of right kidney Migraine Anxiety Seasonal allergies Chronic asthma HTN (hypertension) Surgical History History of bunionectomy H/O breast biopsy Family History Father HTN (hypertension) Substance use disorder Mother Breast cancer Bladder cancer Cancer of kidney Mental health disorder Maternal Grandmother Colon cancer, Onset Age: 80 Daughter Andrzej's thyroiditis Social History Housing: House Alcohol intake: current Alcohol intake frequency: holidays/special occasions only Patient Tobacco Use Status: Former Tobacco user e-Cigarette/Vaping Use: Never Used service: No Current occupational status: employed 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 Cognitive needs: No Hearing needs: No Vision needs: Yes Review of Systems Musc Reports arthralgias, Reports limited range of motion and Reports stiffness Physical Exam Vital Signs: Last Vital Signs Temp 97.9 F 09/10/23 07:39 Pulse 98 09/10/23 07:39 BP 138/80 09/10/23 07:39 Pulse Ox 98 09/10/23 07:39 Oxygen Delivery Method Room Air 09/10/23 07:39 Const General: cooperative and healthy appearing Nutritional Appearance: overweight Orientation/consciousness: patient oriented x3 Limitations: no limitations HEENT Head: Yes normocephalic and Yes atraumatic Mouth: moist mucous membranes Resp Effort & Inspection: normal respiratory effort and able to speak in complete sentences Neuro General: patient oriented x3 Extrem Other: Positive empty can test left shoulder Left wrist pain with full flexion and extension Mild prominence of left ulnar styloid with minimal tenderness Left index Heberden's node mildly tender Negative MCP squeeze test bilaterally Left wrist tenderness to palpation and pain with full flexion and extension Right 3rd and 4th MTP tenderness Left 2nd through 5th MTP tenderness Positive MTP squeeze test bilaterally Office Procedures Joint Injection/Drain Joint Injection/Drain Primary Site: left shoulder Prep: site was prepped using sterile technique and ethochloride spray was applied Injected: 40 mg of, Kenalog and other (2 mL of 1% lidocaine) Approach Used: posterolateral Procedure: The patient tolerated the procedure well Coding Details: With the patient's consent the left shoulder was prepped with ChloraPrep and alcohol. Under a topical ethyl chloride spray the left subacromial space was injected with 40 mg of triamcinolone and 2 cc of 1% lidocaine. The patient tolerated the procedure without any acute adverse effects. - Large joint Procedure code (CPT) selection complete Results Reviewed Results Reviewed: Labs 10/2022? CRP normal? RF 16.5 (<14) negative on repeat Uric acid 3.3? Sed rate 17 NEGRITA screen negative Lyme screen negative Right foot MRI 10/27/2020? Bones/joints: Findings no evidence of acute fracture.? There is marrow edema in the base of the 2nd metatarsal and the medial cuneiform, marginating the 2nd tarsometatarsal joint.? This has the appearance of mild to moderate arthritic changes.? Superimposed stress injury/bone contusion could be considered in the appropriate clinical circumstance.? There is [id number] 3rd TMT, mild 4th TMT arthritis.? Moderate 1st MTP joint arthritis.? Degenerative cyst in the distal 2nd metatarsal head.? Mild hallux/tibial sesamoid degeneration. Muscles/tendons:? Visualized tendons are intact.? No tenosynovitis Visualized plantar aponeurosis appears unremarkable.? Dorsal subcutaneous edema Assessment & Plan Assessment & Plan (1) Seronegative arthritis: Comment: dx 02/07 MTX started 02/07 someffectiveness but developed fatigue & diffuse skin rash Enbrel 06/09 partially effective Code(s): M13.80 - Other specified arthritis, unspecified site Plan: This is a 42-year-old female with seronegative arthritis returns for follow-up. On Enbrel consistently for 4 months now. Feeling much better overall with less joint pain and stiffness, except for right foot pain that started about a week ago. Will prescribe prednisone taper, to start in 3 days, if no improvement by next visit, will consider adding DMARD such as SSZ, leflunomide Continue Enbrel 50 mg once weekly. Infectious screening hepatitis panel and T spot -ve 2022 Labs before next visit in 3 months (2) Rotator cuff arthropathy of left shoulder: Code(s): M12.812 - Other specific arthropathies, not elsewhere classified, left shoulder Plan: Physical therapy was not helpful. Injection for left shoulder subacromial bursitis done 05/2023 was quite helpful for at least 2 months, patient with recurring pain today. With patient's consent, left shoulder subacromial bursitis was injected today. (3) Immunization counseling: Code(s): Z71.85 - Encounter for immunization safety counseling Plan: Patient already received flu vaccine for this season. Advised patient to get the new COVID booster after prednisone taper is complete Plan I spent 36 minutes reviewing patient's chart, evaluating patient, ordering diagnostic workup, counseling patient and documenting in the chart Orders: Orders XR foot LT min 3V Today M13.80 - Other specified arthritis, unspecified site XR foot RT min 3V Today M13.80 - Other specified arthritis, unspecified site Complete Blood Count Auto Diff 3 Months M13.80 - Other specified arthritis, unspecified site Comprehensive Met. Panel 3 Months M13.80 - Other specified arthritis, unspecified site C Reactive Protein 3 Months M13.80 - Other specified arthritis, unspecified site AMB Joint Injection/Aspiration Today M12.812 - Other specific arthropathies, not elsewhere classified, left shoulder Erythrocyte Sedimentation Rate 3 Months M13.80 - Other specified arthritis, unspecified site Medications: Changed From prednisone Take 3 Tabs by mouth once daily with breakfast for 1 week then 2 tabs daily for 1 week then 1 tab daily for 1 week then stop 42 tabs 0RF To prednisone Take 3 Tabs by mouth once daily with breakfast for 1 week then 2 tabs daily for 1 week then 1 tab daily for 1 week then 1/2 tab daily for 1 week then stop 46 tabs 0RF Coding Level of Care Code Est Pt Level 4 (29477) Diagnoses Seronegative arthritis M13.80 Rotator cuff arthropathy of left shoulder M12.812 Immunization counseling Z71.85 CPT Codes Coding - 50667 Large joint: 92142 - Large joint ([id number])
[2023-09-10 07:39] VITALS: BP 138/80; PULSE 98; TEMP 36.6; O2SAT 98
== END 2023-09-10 08:09 | disposition home or self-care (01) ==
PROVIDERS: PCP Internal Medicine; Visit Provider Student in an Organized Health Care Education/Training Program
DX: M13.80 Other specified arthritis, unspecified site (principal); M12.812 Other specific arthropathies, not elsewhere classified, left shoulder; Z71.85 Encounter for immunization safety counseling
CPT/HCPCS: 20610; 99214

== ENCOUNTER 2023-10-25 08:02 | Outpatient (AMB) | payer BC, SELFPAY ==
--- NOTE | 2023-10-25 08:16 | AM.OFFWIN_ITS ---
Intake Vital Signs 10/25/23 08:17 Height 5 ft 5 in BP 132/80 Blood Pressure Location Lt brachial Position Sitting Pulse 80 Pulse Source Pulse Oximeter Temp 97.9 F Temp Source Temporal Artery Scan Pulse Oximetry (%) 98 Intake Visit Reasons: EST/ear ache and sius pressure (lobby masked) Intake Note: pt is here for c/o ear ache and sinus pressure Patient Tobacco Use Status: Former Tobacco user Allergies methotrexate Allergy (Intermediate, Verified 10/25/23 08:17) Rash adhesive Allergy (Unknown, Verified 10/25/23 08:17) Rash erythromycin base [ERYTHROMYCIN BASE] Allergy (Unknown, Verified 10/25/23 08:17) Hives peach Allergy (Unknown, Verified 10/25/23 08:17) Anaphylaxis latex Adverse Reaction (Verified 10/25/23 08:17) Hives lisinopril Adverse Reaction (Verified 10/25/23 08:17) Cough Do you need a note to return to daycare/school/sports/work: Yes HPI HPI Comments History of Present Illness Details This is a 43-year-old female with past medical history significant for mild persistnent asthma who presents to the office today for sick visit. Patient complaining of viral URI symptoms including sinus/nasal congestion, rhinorrhea, bilateral otalgia, wheezing, and dry cough x 1 week. She denies fevers or chills. She does report some mild shortness of breath and has been her albuterol inhaler more often than usual. [facility] Medical History Diverticulosis Tinnitus of left ear FHx: colonic polyps Annual physical exam Hydronephrosis of right kidney Migraine Anxiety Seasonal allergies Chronic asthma HTN (hypertension) Surgical History History of bunionectomy H/O breast biopsy Family History Father HTN (hypertension) Substance use disorder Mother Breast cancer Bladder cancer Cancer of kidney Mental health disorder Maternal Grandmother Colon cancer, Onset Age: 80 Daughter Andrzej's thyroiditis Social History Housing: House Alcohol intake: current Alcohol intake frequency: holidays/special occasions only Patient Tobacco Use Status: Former Tobacco user e-Cigarette/Vaping Use: Never Used service: No Current occupational status: employed 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 Cognitive needs: No Hearing needs: No Vision needs: Yes Review of Systems Const All systems reviewed & are unremarkable except as noted in HPI and below Reports no additional complaints Eyes Reports no additional complaints ENT Reports no additional complaints Card Reports no additional complaints Resp Reports no additional complaints GI Reports no additional complaints Reports no additional complaints Musc Reports no additional complaints Skin/Breast Reports system reviewed and no additional complaints, except as documented Neuro Reports no additional complaints Psych Reports no additional complaints Endo Reports no additional complaints Luc/Lymph Reports no additional complaints Aller/Immun Reports no additional complaints Physical Exam Const Other: Vital signs reviewed. Constitutional: Non-toxic appearing. No acute distress. Well-developed and well-nourished. HEENT: Normocephalic and atraumatic. Tympanic membranes without erythema, edema, or bulging bilaterally. External auditory canals without erythema or edema bilaterally. Moist mucous membranes. No pharyngeal erythema or exudates. Skin: Warm and dry. No rashes or lesions noted. Neck: Full and painless range of motion. No cervical lymphadenopathy. Cardio: Regular rate and rhythm. No murmurs, gallops, or rubs. No lower extremity edema. No JVD. Pulmonary: No respiratory distress. No accessory muscle usage. Scant end- expiratory wheezing throughout. Gastrointestinal: Soft, nontender, and nondistended in all 4 quadrants. Musculoskeletal: Normal range of motion in joints throughout the body. No deformity or other signs of injury. Neuro: Alert and oriented x4. Cranial nerves 2-12 grossly intact. No focal deficits appreciated. Psych: Normal mood and affect. Assessment & Plan Assessment & Plan (1) Acute bronchitis: Code(s): J20.9 - Acute bronchitis, unspecified Plan This is a 43-year-old female with past history significant for mild intermittent asthma who presented to the office complaining of mild shortness of breath and wheezing in the setting of viral URI symptoms to 1 week. On full examination, she has scant and expiratory wheezing throughout. Vital signs are see, her physical exam is otherwise benign, and she is overall nontoxic appearing. History and physical consistent with an acute bronchitis likely in the setting of viral URI versus bacterial pain is. Patient sent home on p.o. prednisone 40 mg daily x5 days and PO Augmentin twice daily x7 days, and refill of her albuterol inhaler. She was advised to follow-up here or proceed to the emergency if she were to develop severe worsening symptoms. Patient verbalizes her understanding and she was in agreement with the plan. Medications: New amoxicillin-pot clavulanate 875-125 mg 1 tab PO BID 14 tabs 0RF prednisone 40 mg (2 x 20 mg) PO DAILY 10 tabs 0RF Refilled albuterol sulfate 90 mcg/actuation (ProAir HFA) 2 puffs inhalation Q4-6H PRN 6.7 grams 0RF shortness of breath or wheezing albuterol sulfate 2.5 mg (0.5 mL) inhalation Q6H PRN 20 mL 0RF shortness of breath or wheezing Coding Level of Care Code Est Pt Level 3 (77889) Diagnoses Acute bronchitis J20.9
[2023-10-25 08:17] VITALS: BP 132/80; PULSE 80; TEMP 36.6; O2SAT 98
== END 2023-10-25 08:44 | disposition home or self-care (01) ==
PROVIDERS: PCP Internal Medicine; Visit Provider Physician Assistant Medical
DX: J20.9 Acute bronchitis, unspecified (principal)
CPT/HCPCS: 99213

== ENCOUNTER 2023-12-06 14:06 | Outpatient (REF) | payer BC, SELFPAY ==
[2023-12-06 16:09] LABS: MANUAL DIFF FLAG NO
[2023-12-06 16:24] LABS: Basophils Percent Auto 0.4 % (0-2); Eosinophils Absolute Auto 0.1 X10*3/uL (0.0-0.4); Eosinophils Percent Auto 0.9 % (0-4); Hematocrit 38.2 % (37.0-47.0); Hemoglobin 13.1 g/dl (12.0-16.0); Imm Gran Abs Auto 0.02 X10*3/uL (0.00-0.03); Imm Gran Pct Auto 0.3 % (0.0-0.4); Lymphocytes Percent Auto 40.3 % (20-40); Mean Corpuscular HGB Conc 34.3 g/dl (31.0-35.0); Mean Corpuscular Volume 81.6 fL (80.0-98.0); Mean Platelet Volume 9.1 fL (9.4-12.3); Monocytes Absolute Auto 0.3 X10*3/uL (0.1-1.2); Monocytes Percent Auto 3.8 % (2-11); Neutrophils Percent Auto 54.3 % (45-73); Platelet Count 400 X10*3/uL (160-400); Red Blood Count 4.68 X10*6/uL (4.20-5.50); White Blood Count 7.4 X10*3/uL (4.8-10.8)
[2023-12-06 16:36] LABS: Alanine Aminotransferase 13 U/L (0-31); Albumin Level 4.1 g/dL (3.5-5.0); Alkaline Phosphatase 68 U/L (39-117); Anion Gap 10 (12-20); Aspartate Amino Transferase 12 U/L (5-31); Bilirubin Total 0.3 mg/dL (0.0-1.0); Blood Urea Nitrogen 9 mg/dL (9-16); C Reactive Protein 0.43 mg/dL (< or = 0.50); Calcium 8.9 mg/dL (8.4-10.2); Carbon Dioxide 26 mmol/L (22-29); Chloride 106 mmol/L (96-108); Estimated Glomerular Filt Rate > 60; Glucose Random 119 mg/dL (60-115); Potassium 3.4 mmol/L (3.3-5.1); Sodium 139 mmol/L (135-145); Total Protein 7.1 g/dL (6.5-8.0)
[2023-12-06 17:11] LABS: Erythrocyte Sedimentation Rate 9 MM/HR (0-20)
== END 2023-12-06 14:07 | disposition home or self-care (01) ==
LOC: HO.HMGCLDS 14:06
PROVIDERS: PCP Internal Medicine; Visit Provider Student in an Organized Health Care Education/Training Program
DX: M13.80 Other specified arthritis, unspecified site (principal)
CPT/HCPCS: 36415; 80053; 85025; 85652; 86140

== ENCOUNTER 2023-12-11 07:39 | Outpatient (AMB) | payer BC, SELFPAY ==
--- NOTE | 2023-12-11 07:39 | MHC.OFFVIS ---
Intake Vital Signs 12/11/23 07:40 Height 5 ft 5 in BMI Reason not done Patient refused/unable BP 122/88 Blood Pressure Location Lt brachial Position Sitting Pulse 68 Pulse Source Pulse Oximeter Temp 97.4 F Temp Source Skin Pulse Oximetry (%) 98 Oxygen Delivery Method Room Air Intake Visit Reasons: RA Intake Note: Patient last seen 09/10/23 presents today for follow up and test results. Allergies methotrexate Allergy (Intermediate, Verified 12/11/23 07:42) Rash adhesive Allergy (Unknown, Verified 12/11/23 07:42) Rash erythromycin base [ERYTHROMYCIN BASE] Allergy (Unknown, Verified 12/11/23 07:42) Hives peach Allergy (Unknown, Verified 12/11/23 07:42) Anaphylaxis latex Adverse Reaction (Verified 12/11/23 07:42) Hives lisinopril Adverse Reaction (Verified 12/11/23 07:42) Cough Medication List - Last Reconciled 12/11/23 by Dariel Borrego MD albuterol sulfate 90 mcg/actuation (ProAir HFA) 2 puffs inhalation Q4-6H PRN albuterol sulfate 2.5 mg (0.5 mL) inhalation Q6H PRN amlodipine 2.5 mg PO DAILY cetirizine (Zyrtec) 10 mg PO DAILY PRN cyclosporine 0.05% (Restasis) 1 drp ophthalmic (eye) Q12H drospirenone (contraceptive) (Slynd) 1 tab PO DAILY Enbrel Mini (etanercept) 50 mg subcut QWEEK NS sumatriptan succinate (Imitrex) take 1 tab at onset of headache; if no relief may repeat 1 tab after at least 2 hrs; max = 4 tabs/24 hr PO HPI HPI Comments History of Present Illness Details 43-year-old female with seronegative arthritis returns for follow-up. Patient stated that since last visit she had an episode of bronchitis that took a few weeks to resolve. She needed antibiotics and steroids. She held Enbrel for about 4 weeks. She got COVID about a month ago and was out of work for a while. She restarted Enbrel 4 days ago. She stated that while off Enbrel she is about 50% worse with her generalized joint pains including her feet and hands. She feels much better when on steroids. She states that she continues to have left shoulder pain and achiness, pain with any activities above her head. States that steroid injections helped but they last 2-3 months. She also failed physical therapy. She continues to have bilateral feet pain and hand pain, the pain in her feet is worse. She takes ibuprofen 600 mg daily. She states that she feels cold all the time. Her core and extremities feel cold. She denies any color change of her fingers or toes. Advised patient to follow-up with her PCP Initial history: This is a 42-year-old female with a past medical history of hypertension, asthma presents for evaluation of multiple joint pains. Condition started 2-3 years ago with bilateral foot pain. In the interim patient broke 1 of her metatarsal bones of her right foot when she accidentally stubbed her toe running after her dog. Her foot was in a boot for some time. However patient also had plantar fasciitis s/p multiple steroid injections. She also had spontaneous Achilles tendinitis affecting her left ankle. She denies any preceding trauma. This was treated with ibuprofen and Voltaren gel. She mentions getting numerous imaging studies of her ankles and feet by her promotional marketing analyst. Patient continues to have bilateral ankle and foot pain mostly at her MTPs. Over the last few months she has been having pain in both hands usually at the MCPs the pain is generally worse at night but is also worse in the morning when she wakes up. Over the last couple of months she noticed some puffiness of her fingers, difficulty putting her rings on. Also over the last few months she has been having pain in her tailbone worse with activity. She has been taking ibuprofen about 600 mg nightly mostly to treat her back pain. She denies any skin rashes, no history of psoriasis. No history of uveitis or IBD. She had a colonoscopy in 2021 which showed diverticulosis, unremarkable otherwise. Recent labs showed borderline positive rheumatoid factor. [facility] Medical History Diverticulosis Tinnitus of left ear FHx: colonic polyps Annual physical exam Hydronephrosis of right kidney Migraine Anxiety Seasonal allergies Chronic asthma HTN (hypertension) Surgical History History of bunionectomy H/O breast biopsy Family History Father HTN (hypertension) Substance use disorder Mother Breast cancer Bladder cancer Cancer of kidney Mental health disorder Maternal Grandmother Colon cancer, Onset Age: 80 Daughter Andrzej's thyroiditis Social History Housing: House Alcohol intake: current Alcohol intake frequency: holidays/special occasions only Patient Tobacco Use Status: Former Tobacco user e-Cigarette/Vaping Use: Never Used service: No Current occupational status: employed 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 Cognitive needs: No Hearing needs: No Vision needs: Yes Review of Systems Musc Reports arthralgias, Reports limited range of motion and Reports stiffness Physical Exam Vital Signs: Last Vital Signs Temp 97.4 F 12/11/23 07:40 Pulse 68 12/11/23 07:40 BP 122/88 12/11/23 07:40 Pulse Ox 98 12/11/23 07:40 Oxygen Delivery Method Room Air 12/11/23 07:40 Const General: cooperative and healthy appearing Nutritional Appearance: overweight Orientation/consciousness: patient oriented x3 Limitations: no limitations HEENT Head: Yes normocephalic and Yes atraumatic Mouth: moist mucous membranes Resp Effort & Inspection: normal respiratory effort and able to speak in complete sentences Neuro General: patient oriented x3 Extrem Other: Positive empty can test left shoulder Left wrist pain with full flexion and extension Mild prominence of left ulnar styloid with overlying swelling minimal tenderness Left index Heberden's node mildly tender Few tender PIPs an DIPs both hands Negative MCP squeeze test bilaterally Left wrist tenderness to palpation and pain with full flexion and extension Bilateral ankle tenderness to palpation without significant swelling Few tender MTPs bilaterally Results Reviewed Results Reviewed: Labs 10/2022? CRP normal? RF 16.5 (<14) negative on repeat Uric acid 3.3? Sed rate 17 NEGRITA screen negative Lyme screen negative Right foot MRI 10/27/2020? Bones/joints: Findings no evidence of acute fracture.? There is marrow edema in the base of the 2nd metatarsal and the medial cuneiform, marginating the 2nd tarsometatarsal joint.? This has the appearance of mild to moderate arthritic changes.? Superimposed stress injury/bone contusion could be considered in the appropriate clinical circumstance.? There is [id number] 3rd TMT, mild 4th TMT arthritis.? Moderate 1st MTP joint arthritis.? Degenerative cyst in the distal 2nd metatarsal head.? Mild hallux/tibial sesamoid degeneration. Muscles/tendons:? Visualized tendons are intact.? No tenosynovitis Visualized plantar aponeurosis appears unremarkable.? Dorsal subcutaneous edema Assessment & Plan Assessment & Plan (1) Seronegative arthritis: Comment: dx 02/07 MTX started 02/07 someffectiveness but developed fatigue & diffuse skin rash Enbrel 06/09 partially effective Code(s): M13.80 - Other specified arthritis, unspecified site Plan: This is a 42-year-old female with seronegative arthritis returns for follow-up. Over the last 3 months patient had an episode of bronchitis requiring steroids and antibiotics and an episode of COVID. She held her Enbrel for at least 6 weeks in total. She just restarted it 4 days ago. She feels about 50% better while on Enbrel. Feels much better on steroids. Continue Enbrel 50 mg once weekly. Patient takes ibuprofen 600 mg daily. Advised patient to try to lower her ibuprofen use and substitute it with Tylenol. If patient continues to have significant foot pain, will consider ordering an MRI of most symptomatic foot Infectious screening hepatitis panel and T spot -ve 2022 Labs before next visit in 3 months (2) Rotator cuff arthropathy of left shoulder: Code(s): M12.812 - Other specific arthropathies, not elsewhere classified, left shoulder Plan: Patient failed PT. Steroid injections were for 2-3 months but symptoms recur. Will refer patient to orthopedics (3) Long-term use of immunosuppressant medication: Code(s): Z79.60 - buttermaker continuous churn (current) use of unspecified immunomodulators and immunosuppressants Plan: Patient aware of risks of Enbrel. Patient is aware to hold Enbrel for any signs of infection or fever Plan I spent 36 minutes reviewing patient's chart, evaluating patient, ordering diagnostic workup, counseling patient and documenting in the chart Orders: Orders C Reactive Protein 3 Months M13.80 - Other specified arthritis, unspecified site, Z79.60 - alf (current) use of unspecified immunomodulators and immunosuppressants Complete Blood Count Auto Diff 3 Months M13.80 - Other specified arthritis, unspecified site, Z79.60 - buttermaker continuous churn (current) use of unspecified immunomodulators and immunosuppressants Comprehensive Met. Panel 3 Months M13.80 - Other specified arthritis, unspecified site, Z79.60 - alf (current) use of unspecified immunomodulators and immunosuppressants Erythrocyte Sedimentation Rate 3 Months M13.80 - Other specified arthritis, unspecified site, Z79.60 - buttermaker continuous churn (current) use of unspecified immunomodulators and immunosuppressants Referrals Orthopedics Referral M12.812 - Other specific arthropathies, not elsewhere classified, left shoulder Coding Level of Care Code Est Pt Level 4 (23621) Diagnoses Seronegative arthritis M13.80 Rotator cuff arthropathy of left shoulder M12.812 Long-term use of immunosuppressant medication Z79.60
[2023-12-11 07:40] VITALS: BP 122/88; PULSE 68; TEMP 36.3; O2SAT 98
== END 2023-12-11 08:08 | disposition home or self-care (01) ==
LOC: HO.RHE 07:39
PROVIDERS: PCP Internal Medicine; Visit Provider Student in an Organized Health Care Education/Training Program
DX: M13.80 Other specified arthritis, unspecified site (principal); M12.812 Other specific arthropathies, not elsewhere classified, left shoulder; Z79.60 Long term (current) use of unspecified immunomodulators and immunosuppressants
CPT/HCPCS: 99214

== ENCOUNTER → 2023-12-11 07:39 | Outpatient (BNVA) | payer BC, SELFPAY | PROVIDERS: PCP Internal Medicine; Visit Provider Student in an Organized Health Care Education/Training Program ==

== ENCOUNTER 2023-12-21 09:10 | Outpatient (AMB) | payer BC, SELFPAY ==
--- NOTE | 2023-12-21 09:14 | AM.OFFWIN_ITS ---
Intake Vital Signs 12/21/23 09:17 Height 5 ft 5 in BMI Reason not done Patient refused/unable BP 126/80 Blood Pressure Location Lt brachial Position Sitting Pulse 74 Pulse Source Pulse Oximeter Temp 97.8 F Temp Source Oral Pulse Oximetry (%) 98 Intake Visit Reasons: EP congestion cough sinus earache Intake Note: pt is here for c.o of possible sinus infection Patient Tobacco Use Status: Former Tobacco user Allergies methotrexate Allergy (Intermediate, Verified 12/21/23 09:18) Rash adhesive Allergy (Unknown, Verified 12/21/23 09:18) Rash erythromycin base [ERYTHROMYCIN BASE] Allergy (Unknown, Verified 12/21/23 09:18) Hives peach Allergy (Unknown, Verified 12/21/23 09:18) Anaphylaxis latex Adverse Reaction (Verified 12/21/23 09:18) Hives lisinopril Adverse Reaction (Verified 12/21/23 09:18) Cough Do you need a note to return to daycare/school/sports/work: No HPI HPI Comments History of Present Illness Details This is a 43-year-old female who presented to the walk-in clinic complaining of persistent cough with yellow sputum, chest/nasal/sinus congestion, rhinorrhea, and postnasal drip in the setting of positive COVID-19 test on 11/29/2023. Patient states her symptoms were actually improving but then worsened in the past 1 week. She denies any fevers. She denies any chest pain or shortness of breath. She denies any abdominal pain or nausea/vomiting/diarrhea. [facility] Medical History Diverticulosis Tinnitus of left ear FHx: colonic polyps Annual physical exam Hydronephrosis of right kidney Migraine Anxiety Seasonal allergies Chronic asthma HTN (hypertension) Surgical History History of bunionectomy H/O breast biopsy Family History Father HTN (hypertension) Substance use disorder Mother Breast cancer Bladder cancer Cancer of kidney Mental health disorder Maternal Grandmother Colon cancer, Onset Age: 80 Daughter Andrzej's thyroiditis Social History Housing: House Alcohol intake: current Alcohol intake frequency: holidays/special occasions only Patient Tobacco Use Status: Former Tobacco user e-Cigarette/Vaping Use: Never Used service: No Current occupational status: employed 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 Cognitive needs: No Hearing needs: No Vision needs: Yes Review of Systems Const All systems reviewed & are unremarkable except as noted in HPI and below Reports no additional complaints Eyes Reports no additional complaints ENT Reports no additional complaints Card Reports no additional complaints Resp Reports no additional complaints GI Reports no additional complaints Reports no additional complaints Musc Reports no additional complaints Skin/Breast Reports system reviewed and no additional complaints, except as documented Neuro Reports no additional complaints Psych Reports no additional complaints Endo Reports no additional complaints Luc/Lymph Reports no additional complaints Aller/Immun Reports no additional complaints Physical Exam Vital Signs: Last Vital Signs Temp 97.8 F 12/21/23 09:17 Pulse 74 12/21/23 09:17 BP 126/80 12/21/23 09:17 Pulse Ox 98 12/21/23 09:17 Const Other: Vital signs reviewed. Constitutional: Non-toxic appearing. No acute distress. Well-developed and well-nourished. HEENT: Normocephalic and atraumatic. There is minimal effusion behind bilateral tympanic membranes but tympanic membranes are not erythematous, bulging, or edematous. External auditory canals without erythema or edema bilaterally. Moist mucous membranes. No pharyngeal erythema or exudates. Skin: Warm and dry. No rashes or lesions noted. Neck: Full and painless range of motion. No cervical lymphadenopathy. Cardio: Regular rate and rhythm. No murmurs, gallops, or rubs. No lower extremity edema. No JVD. Pulmonary: No respiratory distress. No accessory muscle usage. Clear to auscultation bilaterally without wheezing, crackles, or rhonchi. Gastrointestinal: Soft, nontender, and nondistended in all 4 quadrants. Musculoskeletal: Normal range of motion in joints throughout the body. No deformity or other signs of injury. Neuro: Alert and oriented x4. Cranial nerves 2-12 grossly intact. No focal deficits appreciated. Psych: Normal mood and affect. Assessment & Plan Assessment & Plan (1) Acute rhinosinusitis: Code(s): J01.90 - Acute sinusitis, unspecified Plan: This is a 43-year-old female who presented to the office with complaints of persistent and worsening chest/nasal/sinus congestion, productive cough, postnasal drip, and sore throat following recent diagnosis of COVID-19 in 11/28/2023. Given reports of double worsening of symptoms as well as productive cough and purulent nasal drainage, treat the patient with p.o. amoxicillin/clavulanate 875/125 mg twice daily x7 days. Recommended symptomatic management including rest, increased fluids, advil/tylenol for pain/fever, and over the counter throat lozenges/decongestants. Patient advised to follow up here or go to the emergency room for worsening/persistent symptoms such as fever/chills, worsening sputum production/purulence, chest pain, or shortness of breath. Medications: New amoxicillin-pot clavulanate 875-125 mg 1 tab PO BID 14 tabs 0RF Coding Level of Care Code Est Pt Level 3 (94917) Diagnoses Acute rhinosinusitis J01.90
[2023-12-21 09:17] VITALS: BP 126/80; PULSE 74; TEMP 36.6; O2SAT 98
== END 2023-12-21 09:55 | disposition home or self-care (01) ==
PROVIDERS: PCP Internal Medicine; Visit Provider Physician Assistant Medical
DX: J01.90 Acute sinusitis, unspecified (principal)
CPT/HCPCS: 99213

== ENCOUNTER 2023-12-24 07:29 | Outpatient (AMB) | payer BC, SELFPAY ==
[2023-12-24 07:49] VITALS: BP 120/80; PULSE 75; O2SAT 96
--- NOTE | 2023-12-24 07:49 | MHC.PC.OV ---
Vital Signs 12/24/23 07:49 BMI Reason not done Patient refused/unable BP 120/80 Blood Pressure Location Lt brachial Position Sitting Pulse 75 Pulse Source Pulse Oximeter Pulse Oximetry (%) 96 Oxygen Delivery Method Room Air Intake Visit Reasons: 6m follow up Allergies methotrexate Allergy (Intermediate, Verified 12/24/23 07:51) Rash adhesive Allergy (Unknown, Verified 12/24/23 07:51) Rash erythromycin base [ERYTHROMYCIN BASE] Allergy (Unknown, Verified 12/24/23 07:51) Hives peach Allergy (Unknown, Verified 12/24/23 07:51) Anaphylaxis latex Adverse Reaction (Verified 12/24/23 07:51) Hives lisinopril Adverse Reaction (Verified 12/24/23 07:51) Cough Medication List - Last Reconciled 12/24/23 by Mariah Abbott MD albuterol sulfate 90 mcg/actuation (ProAir HFA) 2 puffs inhalation Q4-6H PRN albuterol sulfate 2.5 mg (0.5 mL) inhalation Q6H PRN amlodipine 2.5 mg PO DAILY amoxicillin-pot clavulanate 875-125 mg 1 tab PO BID cetirizine (Zyrtec) 10 mg PO DAILY PRN cyclosporine 0.05% (Restasis) 1 drp ophthalmic (eye) Q12H drospirenone (contraceptive) (Slynd) 1 tab PO DAILY Enbrel Mini (etanercept) 50 mg subcut QWEEK NS sumatriptan succinate (Imitrex) take 1 tab at onset of headache; if no relief may repeat 1 tab after at least 2 hrs; max = 4 tabs/24 hr PO Tobacco use date assessed: 12/24/23 Dental Screening Dental Screen Date: 12/24/23 Did you have a dental visit in the last 12 months?: Yes Did you have a dental problem in the last 6 months where you did not have access to dental care?: No Was dental information given to patient?: Patient has dentist HPI 6m follow up HPI Details Pt presents for f/u HTN, stable on Amlodipine. Patient complains of being under lot of stress related to her family and work. She denies depression but reports insomnia and chronic anxiety. patient follows up with carburetor repairer for RA and has been taking Enbrel. [facility] Medical History Diverticulosis Tinnitus of left ear FHx: colonic polyps Annual physical exam Hydronephrosis of right kidney Migraine Anxiety Seasonal allergies Chronic asthma HTN (hypertension) Surgical History History of bunionectomy H/O breast biopsy Family History Father HTN (hypertension) Substance use disorder Mother Breast cancer Bladder cancer Cancer of kidney Mental health disorder Maternal Grandmother Colon cancer, Onset Age: 80 Daughter Andrzej's thyroiditis Social History Housing: House Alcohol intake: current Alcohol intake frequency: holidays/special occasions only Patient Tobacco Use Status: Former Tobacco user e-Cigarette/Vaping Use: Never Used service: No Current occupational status: employed 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 1. Little interest or pleasure in doing things: several days 2. Feeling down, depressed, or hopeless: several days 3. Trouble falling or staying asleep, or sleeping too much: nearly every day 4. Feeling tired or having little energy: not at all 5. Poor appetite or overeating: not at all 6. Feeling bad about yourself - or that you are a failure or have let yourself or your family down: several days 7. Trouble concentrating on things, such as reading the newspaper or watching television: several days 8. Moving or speaking so slowly that other people could have noticed. Or the opposite - being so fidgety or restless that you have been moving around a lot more than usual: not at all 9. Thoughts that you would be better off or of hurting yourself in some way: not at all Total score: 7 Depression Screening Interpretation: Negative Depression Screening Done: Yes Source: Developed by Drs. Anish Montanez, Linda Nathan, Gustavo Gramajo and colleagues, with an educational tonny from [employer]. Thrive Questionnaire Date Thrive assessed: 12/24/23 I am a: Patient What is your living situation today?: I have a steady place to live Within the past 12 months, did the food you bought not last and you didn't have the money to get more?: Never true Within the past 12 months, did you worry whether your food would run out before you got money to buy more?: Never true Do you have trouble paying for medicines?: No Do you have trouble getting transportation to medical appointments?: No Do you have trouble paying your heating and electricity bill?: No Do you have trouble taking care of your child, family member or friend?: No Do you have trouble with day-to-day activities such as bathing, preparing meals, shopping, managing finances, etc.?: No Are you currently unemployed and looking for a job?: No Are you interested in more education?: No THRIVE Score: 0 AUDIT C Alcohol Use Questionnaire (AUDIT-C) 1. How often do you have a drink containing alcohol?: 2-4 times a month 2. How many drinks containing alcohol do you have on a typical day when you are drinking?: 1 or 2 3. How often do you have six or more drinks on one occasion?: Never Total Score: 2 MARLO-7 AMB Questionnaire MARLO-7 Date MARLO - 7 assessed: 12/24/23 Feeling nervous, anxious, or on edge: 2 = More than half the days Not being able to stop or control worryin = Several days Worrying too much about different things: 1 = Several days Trouble relaxin = More than half the days Being so restless that it is hard to sit still: 1 = Several days Becoming easily annoyed or irritable: 3 = Nearly every day Feeling afraid as if something awful might happen: 1 = Several days Total MARLO-7 score (0-4 normal; 5-9 mild; 10-14 moderate; 15-21 severe): 11 Source: Developed by Drs. Anish Montanez, Linda Nathan, Gustavo Gramajo and colleagues, with an educational tonny from [employer]. Review of Systems Const All systems reviewed & are unremarkable except as noted in HPI and below Eyes Reports no additional complaints ENT Reports no additional complaints Card Reports no additional complaints Resp Reports no additional complaints GI Reports no additional complaints Reports no additional complaints Musc Reports no additional complaints Physical exam (Primary Care) Vital Signs: Last Vital Signs Pulse 75 12/24/23 07:49 BP 130/90 H 12/24/23 07:49 Pulse Ox 96 12/24/23 07:49 Oxygen Delivery Method Room Air 12/24/23 07:49 Tobacco/Smoking Status: Tobacco use Status Tobacco use date assessed 12/24/23 12/24/23 07:53 Patient Tobacco Use Status Former Tobacco user 12/24/23 07:53 e-Cigarette/Vaping Use Never Used 12/24/23 07:53 PHQ-9: PHQ-9 Score PHQ-9: Total score 7 12/24/23 08:07 Depression Screening Interpretation: Negative Thrive Assessment: Date of Thrive Assessment Date Thrive assessed 12/24/23 12/24/23 08:04 Const General: no acute distress HENMT Head: Yes normal to inspection Throat: Yes posterior oropharynx normal Neck Neck: Yes no lymphadenopathy Resp Effort & Inspection: normal respiratory effort Auscultation: clear to auscultation bilaterally Cardio Rhythm: regular rhythm Heart sounds: S1 normal heart sound present and S2 normal heart sound present GI Inspection: Yes normal to inspection Palpation (GI): Soft to palpation Percussion: Yes normal to percussion Auscultation: normal bowel sounds Assessment and Plan Assessment & Plan (1) HTN (hypertension): Comment: BP goal less than 130/80 Code(s): I10 - Essential (primary) hypertension Plan: Continue amlodipine increase physical activity low-sodium diet discussed with the patient (2) Fatigue: Code(s): R53.83 - Other fatigue Plan: Patient will return for blood work, stress management discussed with the patient regular physical activity was recommended (3) Hx of colonoscopy: Comment: 09/08 normal, repeat ? 5-10 yrs Code(s): Z98.890 - Other specified postprocedural states (4) Seronegative arthritis: Comment: dx 02/07 MTX started 02/07 someffectiveness but developed fatigue & diffuse skin rash Enbrel 06/09 partially effective Code(s): M13.80 - Other specified arthritis, unspecified site Plan: Follow-up with rheumatology Orders: Orders TSH reflex Free T4 Today I10 - Essential (primary) hypertension, R53.83 - Other fatigue Hemoglobin A1c Today I10 - Essential (primary) hypertension, R53.83 - Other fatigue Medications: New sertraline (Zoloft) 25 mg PO DAILY 30 tabs 2RF Coding Level of Care Code Est Pt Prev Care 40-64y(09709) Diagnoses HTN (hypertension) I10 Fatigue R53.83 Hx of colonoscopy Z98.890 Seronegative arthritis M13.80
== END 2023-12-24 10:05 | disposition home or self-care (01) ==
PROVIDERS: PCP Internal Medicine; Visit Provider Internal Medicine
DX: I10 Essential (primary) hypertension (principal); R53.83 Other fatigue; Z98.890 Other specified postprocedural states; M13.80 Other specified arthritis, unspecified site
CPT/HCPCS: 99214

== ENCOUNTER 2023-12-24 08:14 | Outpatient (REF) | payer BC, SELFPAY ==
[2023-12-24 11:48] LABS: Estimated Average Glucose 100 mg/dL; Hemoglobin A1c % 5.1 % (<6.0)
[2023-12-24 13:00] LABS: TSH reflex Free T4 1.15 uIU/mL (0.32-4.0)
== END 2023-12-24 08:15 | disposition home or self-care (01) ==
LOC: HO.HMGCLDS 08:14
PROVIDERS: PCP Internal Medicine; Visit Provider Internal Medicine
DX: I10 Essential (primary) hypertension (principal); R53.83 Other fatigue
CPT/HCPCS: 36415; 83036; 84443

== ENCOUNTER 2024-01-01 07:53 | Outpatient (AMB) | payer BC, SELFPAY ==
--- NOTE | 2024-01-01 07:56 | A.OFFVIS_ITS ---
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 Patient reports that she has had pain for quite some time now, recently worsening. She has had cortisone injections done with Dr. Borrego , most recent was in August, these injections only helped for about a month. She has pain with all activity, particularly reaching and lifting. She has tried tylenol, ibuprofen, lidocane patches and icy hot with little to no relief. Denies numbness and tingling in the hand Allergies methotrexate Allergy (Intermediate, Verified 12/24/23 07:51) Rash adhesive Allergy (Unknown, Verified 12/24/23 07:51) Rash erythromycin base [ERYTHROMYCIN BASE] Allergy (Unknown, Verified 12/24/23 07:51) Hives peach Allergy (Unknown, Verified 12/24/23 07:51) Anaphylaxis latex Adverse Reaction (Verified 12/24/23 07:51) Hives lisinopril Adverse Reaction (Verified 12/24/23 07:51) Cough HPI [employer] PRODUCER-Left shoulder pain HPI Details 43-year-old right hand dominant female bowen siegel presents to the office today for evaluation of left shoulder pain for about a year. She was seen by Dr. Borrego in rheumatology who gave her cortisone injections with the most recent being in August which provided her relief for only about a month. She currently states she has worsening pain in her left shoulder which is aggravated at night and with all activities especially with reaching and lifting. She denies any numbness or tingling in her hand. She has tried Tylenol, ibuprofen, lidocaine patches and icy hot with minimal relief. She had also tried physical therapy which worsened her pain. 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 [facility] Medical History (Updated 01/01/24 @ 08:30 by Otf Lee PA-C) Diverticulosis Tinnitus of left ear FHx: colonic polyps Annual physical exam Hydronephrosis of right kidney Migraine Anxiety Seasonal allergies Chronic asthma HTN (hypertension) Surgical History (Updated 01/01/24 @ 08:01 by Piedad Wu CMA) Hx of tonsillectomy Hx of adenoidectomy History of bunionectomy H/O breast biopsy Family History Father HTN (hypertension) Substance use disorder Mother Breast cancer Bladder cancer Cancer of kidney Mental health disorder Maternal Grandmother Colon cancer, Onset Age: 80 Daughter Andrzej's thyroiditis Social History Housing: House Alcohol intake: current Alcohol intake frequency: holidays/special occasions only Patient Tobacco Use Status: Former Tobacco user e-Cigarette/Vaping Use: Never Used service: No Current occupational status: employed 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 Cognitive needs: No Hearing needs: No Vision needs: Yes Review of Systems Const All systems reviewed & are unremarkable except as noted in HPI and below Physical Exam Const General: cooperative, healthy appearing, comfortable, no acute distress, well developed and alert Orientation/consciousness: patient oriented x3 HEENT Head: Yes normal to inspection, Yes normocephalic and Yes atraumatic Eyes General: appearance normal, both eyes and all related structures Resp Effort & Inspection: normal respiratory effort and able to speak in complete sentences Cardio Rate: regular rate Peripheral pulses: Peripheral pulses 2+ throughout GI Palpation (GI): Soft to palpation Skin Lesions: no lesions Rashes: no rashes Neuro General: patient oriented x3 Extrem Other: Left shoulder normal to inspection. Tenderness over the bicipital groove and along the deltoid region of the shoulder. Forward flexion to 175, external rotation to 90, internal rotation to S1. 5/5 RTC strength. Positive Prather. NVI. Results Reviewed Results Reviewed: xrays of the left shoulder 01/10/23 IMPRESSION: 1. There is calcific tendinitis of the left rotator cuff insertion. 2. No fracture or dislocation is seen. 3. There is no abnormal bony erosive change. Assessment & Plan Assessment & Plan (1) Calcific tendonitis of left shoulder: Code(s): M75.32 - Calcific tendinitis of left shoulder Plan She has tried and failed all conservative treatments which include physical therapy and injections therefore, an MRI of the left shoulder has been ordered to further evaluate the integrity of the RTC. We also discussed surgical options which may be excision of calcium, subacromial decompression or even RTC repair. I did explain that she will see us back once the scan is complete to review her options. Orders: Orders MR shoulder RT wo con Today M75.32 - Calcific tendinitis of left shoulder Patient Instructions: Scribed for Otf Lee PA-C, by Jun Motta, medical insurance coder, on 01/01/2024 at 8:00 AM EST. I, Otf Lee PA-C, have personally reviewed and agree with the information entered by the scribe. Coding Level of Care Code New Pt Level 3 (02420) Diagnoses Calcific tendonitis of left shoulder M75.32
== END 2024-01-01 08:39 | disposition home or self-care (01) ==
PROVIDERS: PCP Internal Medicine; Visit Provider Physician Assistant
DX: M75.32 Calcific tendinitis of left shoulder (principal)
CPT/HCPCS: 99203

== ENCOUNTER → 2024-01-01 07:53 | Outpatient (BNVA) | payer BC, SELFPAY | PROVIDERS: PCP Internal Medicine; Visit Provider Physician Assistant ==

== ENCOUNTER 2024-01-17 18:50 | Outpatient (REF) | payer BC, SELFPAY ==
--- NOTE | ~2024-01-17 | MR_ITS ---
EXAMINATION: MR SHOULDER WITHOUT CONTRAST, LEFT CLINICAL INFORMATION: Chronic left shoulder pain. Decreased range of motion. COMPARISON: Left shoulder radiographs dated 01/10/2023. TECHNIQUE: MRI of the shoulder without contrast was performed on a high-field scanner. FINDINGS: ROTATOR CUFF: Lobulated low T1/low T2 signal within the junctional fibers measuring approximately 1.2 x 1.0 cm (AP x ML). Mild adjacent soft tissue edema. Findings are consistent with calcific tendinitis. No rotator cuff tendon tear. No muscle atrophy or fatty infiltration. BICEPS: Intact. CORACOACROMIAL ARCH: The undersurface of the acromion is curved with no subacromial spur. [id number]-[id number] acromioclavicular osteoarthritis. Trace edema within the subacromial-subdeltoid bursa, consistent with minimal bursitis. LABRUM/CAPSULE: No displaced labral tear. Intact joint capsule. GLENOHUMERAL JOINT/MARROW: Unremarkable. MR/MR shoulder LT wo con IMPRESSION: 1. Findings consistent with calcific tendinitis within the junctional fibers of the supraspinatus tendon with mild adjacent soft tissue edema. No rotator cuff tendon tear. 2. Severe acromioclavicular osteoarthritis. 3. Minimal subacromial-subdeltoid bursitis.
== END 2024-01-17 18:51 | disposition home or self-care (01) ==
LOC: HO.MRI 18:50
PROVIDERS: PCP Internal Medicine; Visit Provider Physician Assistant
DX: S46.002A Unspecified injury of muscle(s) and tendon(s) of the rotator cuff of left shoulder, initial encounter (principal)
CPT/HCPCS: 73221

== ENCOUNTER 2024-02-06 14:57 | Outpatient (AMB) | payer BC, SELFPAY ==
--- NOTE | 2024-02-06 15:03 | A.OFFVIS_ITS ---
Intake Intake Visit Reasons: OV - LT Shld MRI follow up Intake Note: Valerie a 43 year old right hand dominant female presents today for an MRI review of left shoulder. Patient reports constant pain that is making it difficult to sleep at night. She had an injection done on 09/10/[address] Borrego and is requesting to repeat injection as last one provided her with some relief. Allergies methotrexate Allergy (Intermediate, Verified 02/06/24 15:11) Rash adhesive Allergy (Unknown, Verified 02/06/24 15:11) Rash erythromycin base [ERYTHROMYCIN BASE] Allergy (Unknown, Verified 02/06/24 15:11) Hives peach Allergy (Unknown, Verified 02/06/24 15:11) Anaphylaxis latex Adverse Reaction (Verified 02/06/24 15:11) Hives lisinopril Adverse Reaction (Verified 02/06/24 15:11) Cough HPI OV - LT Shld MRI follow up HPI Details 43-year-old right hand dominant female bowen siegel returns to the office today for an MRI review of left shoulder. She states she has constant pain in her left shoulder making it difficult to sleep at night. She had her last injection on 09/10/[address] Borrego which provided her mild relief,, but once it wears off she has significant limitations. [facility] Medical History (Updated 01/01/24 @ 08:30 by Otf Lee PA-C) Diverticulosis Tinnitus of left ear FHx: colonic polyps Annual physical exam Hydronephrosis of right kidney Migraine Anxiety Seasonal allergies Chronic asthma HTN (hypertension) Surgical History Hx of tonsillectomy Hx of adenoidectomy History of bunionectomy H/O breast biopsy Family History Father HTN (hypertension) Substance use disorder Mother Breast cancer Bladder cancer Cancer of kidney Mental health disorder Maternal Grandmother Colon cancer, Onset Age: 80 Daughter Andrzej's thyroiditis Social History Housing: House Alcohol intake: current Alcohol intake frequency: holidays/special occasions only Patient Tobacco Use Status: Former Tobacco user e-Cigarette/Vaping Use: Never Used service: No Current occupational status: employed 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 Cognitive needs: No Hearing needs: No Vision needs: Yes Review of Systems Const All systems reviewed & are unremarkable except as noted in HPI and below Physical Exam Const General: cooperative, healthy appearing, comfortable, no acute distress, well developed and alert Orientation/consciousness: patient oriented x3 HEENT Head: Yes normal to inspection, Yes normocephalic and Yes atraumatic Eyes General: appearance normal, both eyes and all related structures Resp Effort & Inspection: normal respiratory effort and able to speak in complete sentences Cardio Rate: regular rate Peripheral pulses: Peripheral pulses 2+ throughout GI Palpation (GI): Soft to palpation Skin Lesions: no lesions Rashes: no rashes Neuro General: patient oriented x3 Extrem Other: Left shoulder normal to inspection. Tenderness over the bicipital groove and along the deltoid region of the shoulder. Forward flexion to 175, external rotation to 90, internal rotation to S1. 5/5 RTC strength. Positive Prather. NVI. Office Procedures Joint Injection/Drain Joint Injection/Drain Primary Site: left shoulder (ac joint) Prep: site was prepped using aseptic technique, ethochloride spray was applied and injection warnings given Injected: 40 mg of, DepoMedrol, with 1 mL of and 1% plain lidocaine Procedure: The patient tolerated the procedure well and there was some relief with the local anesthesia Coding - Small Joint Procedure code (CPT) selection complete Results Reviewed Results Reviewed: MRI left shoulder IMPRESSION: 1. Findings consistent with calcific tendinitis within the junctional fibers of the supraspinatus tendon with mild adjacent soft tissue edema. No rotator cuff tendon tear. 2. Severe acromioclavicular osteoarthritis. 3. Minimal subacromial-subdeltoid bursitis. Assessment & Plan Assessment & Plan (1) Calcific tendonitis of left shoulder: Code(s): M75.32 - Calcific tendinitis of left shoulder Plan: Dr Willis was available to see the patient with me today. We discussed the extent of the findings on MRI along with options available. We discussed the benefits of PT an injections.We discussed effects of terminal superintendent steroid use on healthy RTC tendon. At this time she did proceed with an ac joint injection to determine if this was the true source of her pain, she will begin with PT to help with her shoulder mechanicsc. She will see me back in 6 weeks if her symptoms persist or worsen, otherwise, prn . Orders: Orders PT Evaluation and Treatment 02/06/24 M75.32 - Calcific tendinitis of left shoulder Coding Level of Care Code Est Pt Level 3 (15534) Diagnoses Calcific tendonitis of left shoulder M75.32 CPT Codes Coding - 26656 - Small joint: 73943 - Small Joint ([id number])
== END 2024-02-06 16:06 | disposition home or self-care (01) ==
PROVIDERS: PCP Internal Medicine; Visit Provider Physician Assistant
DX: M75.32 Calcific tendinitis of left shoulder (principal)
CPT/HCPCS: 20610; 99213

== ENCOUNTER → 2024-02-06 14:57 | Outpatient (BNVA) | payer BC, SELFPAY | PROVIDERS: PCP Internal Medicine; Visit Provider Physician Assistant | DX: M75.32 Calcific tendinitis of left shoulder (principal) | CPT/HCPCS: 20610; J1040 ==

== ENCOUNTER 2024-03-06 13:32 | Outpatient (REF) | payer BC, SELFPAY ==
[2024-03-06 16:08] LABS: MANUAL DIFF FLAG NO
[2024-03-06 16:34] LABS: Basophils Absolute Auto 0.1 X10*3/uL (0.0-0.2); Basophils Percent Auto 0.6 % (0-2); Eosinophils Absolute Auto 0.1 X10*3/uL (0.0-0.4); Hematocrit 40.6 % (37.0-47.0); Hemoglobin 13.5 g/dl (12.0-16.0); Imm Gran Abs Auto 0.03 X10*3/uL (0.00-0.03); Imm Gran Pct Auto 0.4 % (0.0-0.4); Lymphocytes Absolute Auto 2.6 X10*3/uL (1.2-4.9); Mean Corpuscular HGB Conc 33.3 g/dl (31.0-35.0); Mean Corpuscular Hemoglobin 28.1 pg (27.0-33.0); Mean Corpuscular Volume 84.6 fL (80.0-98.0); Mean Platelet Volume 9.2 fL (9.4-12.3); Monocytes Absolute Auto 0.5 X10*3/uL (0.1-1.2); Monocytes Percent Auto 6.1 % (2-11); Neutrophils Absolute Auto 4.6 x10*3/uL (2.0-8.3); Neutrophils Percent Auto 58.9 % (45-73); Platelet Count 404 X10*3/uL (160-400); Red Cell Distribution Width 12.5 % (11.0-16.0); White Blood Count 7.9 X10*3/uL (4.8-10.8)
[2024-03-06 17:06] LABS: Erythrocyte Sedimentation Rate 7 MM/HR (0-20)
[2024-03-06 17:35] LABS: Alanine Aminotransferase 14 U/L (0-31); Alkaline Phosphatase 78 U/L (39-117); Anion Gap 11 (12-20); Aspartate Amino Transferase 10 U/L (5-31); Bilirubin Total 0.2 mg/dL (0.0-1.0); Blood Urea Nitrogen 11 mg/dL (9-16); C Reactive Protein 0.47 mg/dL (< or = 0.50); Calcium 8.6 mg/dL (8.4-10.2); Carbon Dioxide 25 mmol/L (22-29); Chloride 109 mmol/L (96-108); Estimated Glomerular Filt Rate > 60; Glucose Random 105 mg/dL (60-115); Sodium 141 mmol/L (135-145)
== END 2024-03-06 13:33 | disposition home or self-care (01) ==
LOC: HO.HMGCLDS 13:32
PROVIDERS: PCP Internal Medicine; Visit Provider Student in an Organized Health Care Education/Training Program
DX: M13.80 Other specified arthritis, unspecified site (principal); Z79.60 Long term (current) use of unspecified immunomodulators and immunosuppressants
CPT/HCPCS: 36415; 80053; 85025; 85652; 86140

== ENCOUNTER 2024-03-12 07:39 | Outpatient (AMB) | payer BC, SELFPAY ==
--- NOTE | 2024-03-12 07:44 | MHC.OFFVIS ---
Vital Signs 03/12/24 07:45 BMI Reason not done Patient refused/unable BP 126/80 Blood Pressure Location Rt brachial Position Sitting Pulse 82 Pulse Source Pulse Oximeter Pulse Oximetry (%) 99 Oxygen Delivery Method Room Air Intake Visit Reasons: SpA Intake Note: Patient last seen 12/11/23 presents today for follow up and test results. Still continues to have bl feet pain Skill Training Program Coordinator Required: No Allergies methotrexate Allergy (Intermediate, Verified 03/12/24 07:48) Rash adhesive Allergy (Unknown, Verified 03/12/24 07:48) Rash erythromycin base [ERYTHROMYCIN BASE] Allergy (Unknown, Verified 03/12/24 07:48) Hives peach Allergy (Unknown, Verified 03/12/24 07:48) Anaphylaxis latex Adverse Reaction (Verified 03/12/24 07:48) Hives lisinopril Adverse Reaction (Verified 03/12/24 07:48) Cough Medication List - Last Reconciled 03/12/24 by Dariel Borrego MD albuterol sulfate 90 mcg/actuation (ProAir HFA) 2 puffs inhalation Q4-6H PRN albuterol sulfate 2.5 mg (0.5 mL) inhalation Q6H PRN amlodipine 2.5 mg PO DAILY amoxicillin-pot clavulanate 875-125 mg 1 tab PO BID cetirizine (Zyrtec) 10 mg PO DAILY PRN cyclosporine 0.05% (Restasis) 1 drp ophthalmic (eye) Q12H drospirenone (contraceptive) (Slynd) 1 tab PO DAILY Enbrel Mini (etanercept) 50 mg subcut QWEEK NS sertraline (Zoloft) 25 mg PO DAILY sumatriptan succinate (Imitrex) take 1 tab at onset of headache; if no relief may repeat 1 tab after at least 2 hrs; max = 4 tabs/24 hr PO HPI Comments Details: 43-year-old female with seronegative arthritis returns for follow-up. She remains on Enbrel weekly. She was evaluated by Orthopedics last month and had a left shoulder MRI which showed severe AC joint arthritis as well as rotator cuff tendonitis. She received left AC joint steroid injection which provided some relief. And she was referred to physical therapy. She states that her feet have been doing better over the last month or so. She has been walking more. She has been having bilateral hip pain. Initial history: This is a 42-year-old female with a past medical history of hypertension, asthma presents for evaluation of multiple joint pains. Condition started 2-3 years ago with bilateral foot pain. In the interim patient broke 1 of her metatarsal bones of her right foot when she accidentally stubbed her toe running after her dog. Her foot was in a boot for some time. However patient also had plantar fasciitis s/p multiple steroid injections. She also had spontaneous Achilles tendinitis affecting her left ankle. She denies any preceding trauma. This was treated with ibuprofen and Voltaren gel. She mentions getting numerous imaging studies of her ankles and feet by her director of restaurants. Patient continues to have bilateral ankle and foot pain mostly at her MTPs. Over the last few months she has been having pain in both hands usually at the MCPs the pain is generally worse at night but is also worse in the morning when she wakes up. Over the last couple of months she noticed some puffiness of her fingers, difficulty putting her rings on. Also over the last few months she has been having pain in her tailbone worse with activity. She has been taking ibuprofen about 600 mg nightly mostly to treat her back pain. She denies any skin rashes, no history of psoriasis. No history of uveitis or IBD. She had a colonoscopy in 2021 which showed diverticulosis, unremarkable otherwise. Recent labs showed borderline positive rheumatoid factor. [facility] Medical History Diverticulosis Tinnitus of left ear FHx: colonic polyps Annual physical exam Hydronephrosis of right kidney Migraine Anxiety Seasonal allergies Chronic asthma HTN (hypertension) Surgical History Hx of tonsillectomy Hx of adenoidectomy History of bunionectomy H/O breast biopsy Family History Father HTN (hypertension) Substance use disorder Mother Breast cancer Bladder cancer Cancer of kidney Mental health disorder Maternal Grandmother Colon cancer, Onset Age: 80 Daughter Andrzej's thyroiditis Social History Housing: House Alcohol intake: current Alcohol intake frequency: holidays/special occasions only Patient Tobacco Use Status: Former Tobacco user e-Cigarette/Vaping Use: Never Used service: No Current occupational status: employed 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 Cognitive needs: No Hearing needs: No Vision needs: Yes Review of Systems Musc Reports arthralgias, Reports limited range of motion and Reports stiffness Physical Exam Vital Signs: Last Vital Signs Pulse 82 03/12/24 07:45 BP 126/80 03/12/24 07:45 Pulse Ox 99 03/12/24 07:45 Oxygen Delivery Method Room Air 03/12/24 07:45 Const General: cooperative and healthy appearing Nutritional Appearance: overweight Orientation/consciousness: patient oriented x3 Limitations: no limitations HEENT Head: Yes normocephalic and Yes atraumatic Mouth: moist mucous membranes Resp Effort & Inspection: normal respiratory effort and able to speak in complete sentences Neuro General: patient oriented x3 Extrem Other: No active synovitis both hands and wrists Negative MCP squeeze test bilaterally Bilateral 2nd through 5th MTP tenderness Bilateral trochanteric bursa area tenderness with negative Nhi's test Negative straight leg raise test bilaterally Results Reviewed Results Reviewed: Labs 10/2022? CRP normal? RF 16.5 (<14) negative on repeat Uric acid 3.3? Sed rate 17 NEGRITA screen negative Lyme screen negative Right foot MRI 10/27/2020? Bones/joints: Findings no evidence of acute fracture.? There is marrow edema in the base of the 2nd metatarsal and the medial cuneiform, marginating the 2nd tarsometatarsal joint.? This has the appearance of mild to moderate arthritic changes.? Superimposed stress injury/bone contusion could be considered in the appropriate clinical circumstance.? There is [id number] 3rd TMT, mild 4th TMT arthritis.? Moderate 1st MTP joint arthritis.? Degenerative cyst in the distal 2nd metatarsal head.? Mild hallux/tibial sesamoid degeneration. Muscles/tendons:? Visualized tendons are intact.? No tenosynovitis Visualized plantar aponeurosis appears unremarkable.? Dorsal subcutaneous edema MRI left shoulder 01/2024 IMPRESSION: 1. Findings consistent with calcific tendinitis within the junctional fibers of the supraspinatus tendon with mild adjacent soft tissue edema. No rotator cuff tendon tear. 2. Severe acromioclavicular osteoarthritis. 3. Minimal subacromial-subdeltoid bursitis. Assessment & Plan Assessment & Plan (1) Seronegative arthritis: Comment: dx 02/07 (one time borderline + RF) features of seronegative spondyloarthropathy MTX started 02/07 some effectiveness but developed fatigue & diffuse skin rash Enbrel 06/09 partially effective Code(s): M13.80 - Other specified arthritis, unspecified site Category: Medical Plan: This is a 43-year-old female with seronegative arthritis who returns for follow-up. Continues to have bilateral feet pain, diffuse MTP tenderness, but has improved over the last month or so, after left shoulder steroid injection. Continue Enbrel 50 mg weekly. Will consider doing an MRI of most symptomatic foot if her symptoms progressively worse to evaluate for active inflammatory arthritis Infectious screening hepatitis panel and T spot -ve 2022 Labs before next visit in 3 months (2) Rotator cuff arthropathy of left shoulder: Code(s): M12.812 - Other specific arthropathies, not elsewhere classified, left shoulder Category: Medical Plan: Recently evaluated by Orthopedics, had left shoulder MRI which showed severe AC joint arthritis as well as rotator cuff tendonitis. Received AC joint steroid injection and referred to PT. (3) Long-term use of immunosuppressant medication: Code(s): Z79.60 - custodial (current) use of unspecified immunomodulators and immunosuppressants Category: Medical Plan: Patient aware of risks of Enbrel. Patient is aware to hold Enbrel for any signs of infection or fever (4) Greater trochanteric bursitis of both hips: Code(s): M70.61 - Trochanteric bursitis, right hip; M70.62 - Trochanteric bursitis, left hip Category: Medical Plan: Discussed different treatment options such as home exercises, physical therapy or steroid injection. Patient opted for PT Plan I spent 40 minutes reviewing patient's chart, evaluating patient, ordering diagnostic workup, counseling patient and documenting in the chart Orders: Orders Comprehensive Met. Panel 3 Months M13.80 - Other specified arthritis, unspecified site PT Evaluation and Treatment Today M70.61 - Trochanteric bursitis, right hip, M70.62 - Trochanteric bursitis, left hip Complete Blood Count Auto Diff 3 Months M13.80 - Other specified arthritis, unspecified site C Reactive Protein 3 Months M13.80 - Other specified arthritis, unspecified site Erythrocyte Sedimentation Rate 3 Months M13.80 - Other specified arthritis, unspecified site Coding Level of Care Code Est Pt Level 5 (20372) Complex EM visit Add On G2211 Diagnoses Seronegative arthritis M13.80 Rotator cuff arthropathy of left shoulder M12.812 Long-term use of immunosuppressant medication Z79.60 Greater trochanteric bursitis of both hips M70.61; M70.62
[2024-03-12 07:45] VITALS: BP 126/80; PULSE 82; O2SAT 99
== END 2024-03-12 08:12 | disposition home or self-care (01) ==
PROVIDERS: PCP Internal Medicine; Visit Provider Student in an Organized Health Care Education/Training Program
DX: M13.80 Other specified arthritis, unspecified site (principal); M12.812 Other specific arthropathies, not elsewhere classified, left shoulder; Z79.60 Long term (current) use of unspecified immunomodulators and immunosuppressants; M70.61 Trochanteric bursitis, right hip; M70.62 Trochanteric bursitis, left hip
CPT/HCPCS: 99214; G2211

== ENCOUNTER → 2024-03-12 07:39 | Outpatient (BNVA) | payer BC, SELFPAY | PROVIDERS: PCP Internal Medicine; Visit Provider Student in an Organized Health Care Education/Training Program ==

== ENCOUNTER 2024-05-11 17:00 | Outpatient (RCR) | payer BC, SELFPAY ==
--- NOTE | 2024-03-25 18:02 | MHC.PT.EP ---
[facility] [employer] [place] Office [place] Office [place] Office [address] Esther Kerr [address] [phone] F: [phone] F: [phone] F: [phone] F: [phone] Physical Therapy Plan of Care Date of Evaluation: 03/25/24 Date of Surgery: N/A Diagnosis: calcific tendonitis left shoulder (RL) Assessment: pt is a 43 y/o female presenting to physical therapy w/ referring diagnosis of calcific tendinitis of left shoulder. Impairments include pain, decreased range of motion, decreased strength, impaired functional mobility, impaired postural awareness, and altered ambulation mechanics. pt is a good candidate for skilled PT due to age, potential remediation of impairments, typical disease/condition progression and prognosis, comorbidities, and motivation. pt would benefit from skilled PT intervention to provide a tailored strengthening and stretching exercise program, functional training, gait training, postural re-training, neuromuscular re-education, modalities as needed for pain, equipment safety demonstration. Frequency and Duration: The patient will be seen 2x/wk for 4 wks Short Term Goals: pt will be I w/ HEP to promote self-management of condition. pt will improve L shoulder flexion by at least 10 degrees to promote ease in reaching for objects on higher shelves. National Service Officer Goals: pt will report a statistically significant improvement in self-reported outcome measure, SPADI, to promote return to PLOF. 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 Treatment Plan: Modalities to reduce pain, spasms and effusion. Manual therapy to restore motion and function. Therapeutic exercise to improve strength and flexibility. Neuromuscular re-education for posture and balance. Therapeutic activities to return to functional activities of daily living. Electronically signed by: Nevin Arcos PT, DPT Please sign and return to therapist. Thank you for your referral.
--- NOTE | 2024-06-05 16:04 | MHC.PT.DC ---
[facility] [place] Office [place] [facility] [place] Office [address] Esther Kerr [address] [phone] F: [phone] F: [phone] F: [phone] F: [phone] Physical Therapy Discharge Report Diagnosis: calcific tendonitis left shoulder (RL) Date of Surgery: N/A Date of Evaluation: 03/25/24 Date of Discharge: 06/05/24 Treatments to Date: 10 Cancellations to Date: 2 No Shows to Date: 0 Discharge Status: Recommend MD Follow-up Discharge Summary: The patient overall has made minimal progress with physical therapy intervention at this time. She continues to have poor habitual posturing and severe AC joint osteoarthritis that are contributing to her symptoms. She was trialed with periscapular and rotator cuff strengthening. She made little progress towards her goals established at the initial evaluation. I will keep her chart open for the next three weeks while she continues with her home exercise program. If I do not hear from her in that time I will discharge her chart. I did recommend following up with the referring provider to determine next plan of action for pain management. Electronically signed by: Nevin Arcos PT, DPT Please sign and return to therapist. Thank you for your referral.
== END 2024-06-05 16:04 | disposition home or self-care (01) ==
LOC: HO.PT 17:00
PROVIDERS: PCP Internal Medicine; Visit Provider Physician Assistant
DX: M75.32 Calcific tendinitis of left shoulder (principal)
CPT/HCPCS: 97033; 97110; 97112; 97140; 97162; 97530

== ENCOUNTER 2024-05-12 10:16 | Outpatient (AMB) | payer BC, SELFPAY ==
[2024-05-12 10:17] VITALS: BP 130/90; PULSE 77; O2SAT 97
--- NOTE | 2024-05-12 10:17 | MHC.OFFWIV ---
Intake Vital Signs 05/12/24 10:17 Height 5 ft 5 in Weight 180 lb BMI 30.0 BP 130/90 H Blood Pressure Location Lt brachial Position Sitting Pulse 77 Pulse Source Pulse Oximeter Pulse Oximetry (%) 97 Oxygen Delivery Method Room Air Intake Visit Reasons: EP congestion tight chest Intake Note: pt is here for her c/o chest congestion for about 3 weeks. Pt states she has tried several OTC which have not helped much. Patient Tobacco Use Status: Former Tobacco user Allergies methotrexate Allergy (Intermediate, Verified 05/12/24 10:17) Rash adhesive Allergy (Unknown, Verified 05/12/24 10:17) Rash erythromycin base [ERYTHROMYCIN BASE] Allergy (Unknown, Verified 05/12/24 10:17) Hives peach Allergy (Unknown, Verified 05/12/24 10:17) Anaphylaxis latex Adverse Reaction (Verified 05/12/24 10:17) Hives lisinopril Adverse Reaction (Verified 05/12/24 10:17) Cough Do you need a note to return to daycare/school/sports/work: No HPI HPI Comments History of Present Illness Details Patient is a 43-year-old female with a past medical history of asthma who states she woke up this morning with chest pressure. She states she has had about a week of head congestion, some ear uncomfortableness and sore throat. She states she thought it was her allergies so she started taking an allergy pill daily which seemed to help a little bit. But she was concerned when she woke up this morning with chest pressure. She states she typically takes her ProAir as needed which she did this morning and that did not seem to help that feeling of pressure. She denies any shortness of breath or wheezing [facility] Medical History Diverticulosis Tinnitus of left ear FHx: colonic polyps Annual physical exam Hydronephrosis of right kidney Migraine Anxiety Seasonal allergies Chronic asthma HTN (hypertension) Surgical History Hx of tonsillectomy Hx of adenoidectomy History of bunionectomy H/O breast biopsy Family History Father HTN (hypertension) Substance use disorder Mother Breast cancer Bladder cancer Cancer of kidney Mental health disorder Maternal Grandmother Colon cancer, Onset Age: 80 Daughter Andrzej's thyroiditis Social History Housing: House Alcohol intake: current Alcohol intake frequency: holidays/special occasions only Patient Tobacco Use Status: Former Tobacco user e-Cigarette/Vaping Use: Never Used service: No Current occupational status: employed 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 Cognitive needs: No Hearing needs: No Vision needs: Yes Review of Systems Const All systems reviewed & are unremarkable except as noted in HPI and below Physical Exam Vital Signs: Last Vital Signs Pulse 77 05/12/24 10:17 BP 130/90 H 05/12/24 10:17 Pulse Ox 97 05/12/24 10:17 Oxygen Delivery Method Room Air 05/12/24 10:17 BMI result Body Mass Index 30.0 Const General: cooperative, healthy appearing, comfortable and no acute distress Orientation/consciousness: patient oriented x3 Limitations: no limitations HEENT Head: Yes normal to inspection Ears: external ears normal and TM's normal bilaterally General nose exam: Normal external nose present, Normal nares present and No nasal discharge present Face and sinus: Yes normal facial exam and Yes sinuses nontender Mouth: Normal oral and palatal mucosa present and moist mucous membranes Throat: Yes tonsils normal, Yes uvula midline, Yes posterior oropharynx abnormal (Erythema) and Yes cobblestoning Eyes General: appearance normal, both eyes and all related structures Neck Neck: Yes normal visual inspection Resp Effort & Inspection: normal respiratory effort, able to speak in complete sentences, no respiratory distress, not tachypneic, no tripod positioning and no use of accessory muscles Auscultation: clear to auscultation bilaterally Cardio Rate: regular rate Rhythm: regular rhythm Heart sounds: normal S1 and S2 Skin General skin exam: no rashes or lesions noted Neuro General: patient oriented x3 Extrem General: Yes normal to inspection and Yes no clubbing, cyanosis or edema Assessment & Plan Assessment & Plan (1) URI (upper respiratory infection): Code(s): J06.9 - Acute upper respiratory infection, unspecified Qualifiers: URI type: unspecified viral URI Qualified Code(s): J06.9 - Acute upper respiratory infection, unspecified Plan: will get CXR with hx of asthma, and new chest tightness, although VSS and good airmovement with CTA on exam. Plan see above Orders: Orders XR chest 2V Today R05.9 - Cough, unspecified Coding Level of Care Code Est Pt Level 3 (63441) Diagnoses Viral upper respiratory tract infection J06.9 URI type: unspecified viral URI
== END 2024-05-12 11:05 | disposition home or self-care (01) ==
PROVIDERS: PCP Internal Medicine; Visit Provider Physician Assistant
DX: J06.9 Acute upper respiratory infection, unspecified (principal)
CPT/HCPCS: 99213

== ENCOUNTER 2024-05-12 10:43 | Outpatient (REF) | payer BC, SELFPAY ==
--- NOTE | ~2024-05-12 | XR_ITS ---
EXAMINATION: XR CHEST CLINICAL INFORMATION: Cough, unspecified COMPARISON: CT scan abdomen and pelvis 05/17/2021 TECHNIQUE: 2 views of the chest were obtained. FINDINGS: No significant abnormality is noted involving the heart, lungs, mediastinum, bony thorax or soft tissues. Small right pericardial fat pad XR/XR chest 2V IMPRESSION: No acute cardiopulmonary disease.
== END 2024-05-12 10:44 | disposition home or self-care (01) ==
LOC: HO.HMGCX 10:43
PROVIDERS: PCP Internal Medicine; Visit Provider Physician Assistant
DX: R05.9 Cough, unspecified (principal)
CPT/HCPCS: 71046

== ENCOUNTER 2024-05-30 07:46 | Outpatient (REF) | payer BC, SELFPAY ==
[2024-05-30 07:58] LABS: MANUAL DIFF FLAG NO
[2024-05-30 09:11] LABS: Basophils Percent Auto 0.6 % (0-2); Eosinophils Absolute Auto 0.1 X10*3/uL (0.0-0.4); Eosinophils Percent Auto 1.8 % (0-4); Hematocrit 40.4 % (37.0-47.0); Hemoglobin 13.6 g/dl (12.0-16.0); Imm Gran Abs Auto 0.01 X10*3/uL (0.00-0.03); Imm Gran Pct Auto 0.2 % (0.0-0.4); Lymphocytes Absolute Auto 2.6 X10*3/uL (1.2-4.9); Lymphocytes Percent Auto 39.6 % (20-40); Mean Corpuscular HGB Conc 33.7 g/dl (31.0-35.0); Mean Corpuscular Hemoglobin 28.6 pg (27.0-33.0); Mean Corpuscular Volume 85.1 fL (80.0-98.0); Mean Platelet Volume 9.1 fL (9.4-12.3); Monocytes Absolute Auto 0.3 X10*3/uL (0.1-1.2); Monocytes Percent Auto 4.8 % (2-11); Neutrophils Absolute Auto 3.5 x10*3/uL (2.0-8.3); Platelet Count 417 X10*3/uL (160-400); Red Blood Count 4.75 X10*6/uL (4.20-5.50); Red Cell Distribution Width 12.2 % (11.0-16.0); White Blood Count 6.6 X10*3/uL (4.8-10.8)
[2024-05-30 09:54] LABS: Erythrocyte Sedimentation Rate 6 MM/HR (0-20)
[2024-05-30 10:31] LABS: Alanine Aminotransferase 17 U/L (0-31); Albumin Level 4.1 g/dL (3.5-5.0); Alkaline Phosphatase 68 U/L (39-117); Anion Gap 10 (12-20); Aspartate Amino Transferase 13 U/L (5-31); Bilirubin Total 0.4 mg/dL (0.0-1.0); Blood Urea Nitrogen 10 mg/dL (9-16); C Reactive Protein 0.39 mg/dL (< or = 0.50); Calcium 8.6 mg/dL (8.4-10.2); Carbon Dioxide 25 mmol/L (22-29); Chloride 108 mmol/L (96-108); Cholesterol 166 mg/dL (<200); Estimated Glomerular Filt Rate > 60; Glucose Fasting 96 mg/dL (60-99); Glucose Random 95 mg/dL (60-115); HDL Cholesterol 40 mg/dL (>40); LDL Cholesterol Calculated 112 mg/dL (<100); Potassium 4.1 mmol/L (3.3-5.1); Sodium 139 mmol/L (135-145); Triglycerides 72 mg/dL (<150)
== END 2024-05-30 07:47 | disposition home or self-care (01) ==
LOC: HO.LAB 07:46
PROVIDERS: Absent Provider Internal Medicine; PCP Internal Medicine; Visit Provider Student in an Organized Health Care Education/Training Program
DX: I10 Essential (primary) hypertension (principal); J45.909 Unspecified asthma, uncomplicated; M13.80 Other specified arthritis, unspecified site
CPT/HCPCS: 36415; 80053; 80061; 85025; 85652; 86140

== ENCOUNTER 2024-06-02 08:01 | Outpatient (AMB) | payer BC, SELFPAY ==
--- NOTE | 2024-06-02 08:09 | MHC.PC.OV ---
Vital Signs 06/02/24 08:10 Height 5 ft 5 in Weight 180 lb BMI 30.0 BP 120/82 Blood Pressure Location Rt brachial Position Sitting Pulse 90 Pulse Source Pulse Oximeter Pulse Oximetry (%) 99 Oxygen Delivery Method Room Air Intake Visit Reasons: PE Intake Note: Pt is here today for PE. Allergies methotrexate Allergy (Intermediate, Verified 06/02/24 08:12) Rash adhesive Allergy (Unknown, Verified 06/02/24 08:12) Rash erythromycin base [ERYTHROMYCIN BASE] Allergy (Unknown, Verified 06/02/24 08:12) Hives peach Allergy (Unknown, Verified 06/02/24 08:12) Anaphylaxis latex Adverse Reaction (Verified 06/02/24 08:12) Hives lisinopril Adverse Reaction (Verified 06/02/24 08:12) Cough Medication List - Last Reconciled 06/02/24 by Mariah Abbott MD albuterol sulfate 90 mcg/actuation (ProAir HFA) 2 puffs inhalation Q4-6H PRN albuterol sulfate 2.5 mg (0.5 mL) inhalation Q6H PRN amlodipine 2.5 mg PO DAILY cetirizine (Zyrtec) 10 mg PO DAILY PRN cyclosporine 0.05% (Restasis) 1 drp ophthalmic (eye) Q12H drospirenone (contraceptive) (Slynd) 1 tab PO DAILY Enbrel Mini (etanercept) 50 mg subcut QWEEK NS sumatriptan succinate (Imitrex) take 1 tab at onset of headache; if no relief may repeat 1 tab after at least 2 hrs; max = 4 tabs/24 hr PO Tobacco use date assessed: 06/02/24 Dental Screening Dental Screen Date: 12/24/23 HPI PE HPI Details Pt presents for PE. She complains of chronic frequent bowel movements for a few months worse for the last month. Patient denies abdominal pain nausea vomiting hematochezia melena. She noticed certain foods can trigger more frequent bowel movements and diarrhea. She had a negative colonoscopy 2 years ago but would like to go back to the GI. Patient complains of persistent left shoulder pain. She had cortisone injections tried physical therapy without long-term improvement. She would like to have a 2nd opinion. [facility] Medical History Diverticulosis Tinnitus of left ear FHx: colonic polyps Annual physical exam Hydronephrosis of right kidney Migraine Anxiety Seasonal allergies Chronic asthma HTN (hypertension) Surgical History Hx of tonsillectomy Hx of adenoidectomy History of bunionectomy H/O breast biopsy Family History Father HTN (hypertension) Substance use disorder Mother Breast cancer Bladder cancer Cancer of kidney Mental health disorder Maternal Grandmother Colon cancer, Onset Age: 80 Daughter Andrzej's thyroiditis Social History Housing: House Alcohol intake: current Alcohol intake frequency: holidays/special occasions only Patient Tobacco Use Status: Former Tobacco user e-Cigarette/Vaping Use: Never Used service: No Current occupational status: employed 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 1. Little interest or pleasure in doing things: several days 2. Feeling down, depressed, or hopeless: several days 3. Trouble falling or staying asleep, or sleeping too much: more than half the days 4. Feeling tired or having little energy: more than half the days 5. Poor appetite or overeating: not at all 6. Feeling bad about yourself - or that you are a failure or have let yourself or your family down: not at all 7. Trouble concentrating on things, such as reading the newspaper or watching television: more than half the days 8. Moving or speaking so slowly that other people could have noticed. Or the opposite - being so fidgety or restless that you have been moving around a lot more than usual: not at all 9. Thoughts that you would be better off or of hurting yourself in some way: not at all Total score: 8 Depression Screening Interpretation: Negative Depression Screening Done: Yes Source: Developed by Drs. Anish Montanez, Linda Nathan, Gustavo Gramajo and colleagues, with an educational tonny from [employer]. Thrive Questionnaire Date Thrive assessed: 06/02/24 I am a: Patient What is your living situation today?: I have a steady place to live Within the past 12 months, did the food you bought not last and you didn't have the money to get more?: Never true Within the past 12 months, did you worry whether your food would run out before you got money to buy more?: Never true Do you have trouble paying for medicines?: No Do you have trouble getting transportation to medical appointments?: No Do you have trouble paying your heating and electricity bill?: No Do you have trouble taking care of your child, family member or friend?: No Do you have trouble with day-to-day activities such as bathing, preparing meals, shopping, managing finances, etc.?: No Are you currently unemployed and looking for a job?: No Are you interested in more education?: No Please select the resources that you would like help with: Housing/Senior Living Currently or been in a relationship where the following occur: No concerns reported THRIVE Score: 0 AUDIT C Alcohol Use Questionnaire (AUDIT-C) 1. How often do you have a drink containing alcohol?: Monthly or less 2. How many drinks containing alcohol do you have on a typical day when you are drinking?: 1 or 2 3. How often do you have six or more drinks on one occasion?: Never Total Score: 1 MARLO-7 AMB Questionnaire MARLO-7 Date MARLO - 7 assessed: 06/02/24 Feeling nervous, anxious, or on edge: 3 = Nearly every day Not being able to stop or control worryin = Several days Worrying too much about different things: 1 = Several days Trouble relaxin = Several days Being so restless that it is hard to sit still: 1 = Several days Becoming easily annoyed or irritable: 3 = Nearly every day Feeling afraid as if something awful might happen: 1 = Several days Total MARLO-7 score (0-4 normal; 5-9 mild; 10-14 moderate; 15-21 severe): 11 Source: Developed by Drs. Anish Montanez, Linda Nathan, Gustavo Gramajo and colleagues, with an educational tonny from [employer] Review of Systems Const All systems reviewed & are unremarkable except as noted in HPI and below Reports no additional complaints Eyes Reports no additional complaints ENT Reports no additional complaints Card Reports no additional complaints Resp Reports no additional complaints GI Reports no additional complaints Reports no additional complaints Physical exam (Primary Care) Vital Signs: Last Vital Signs Pulse 90 06/02/24 08:10 BP 120/82 06/02/24 08:10 Pulse Ox 99 06/02/24 08:10 Oxygen Delivery Method Room Air 06/02/24 08:10 BMI result Body Mass Index 30.0 Tobacco/Smoking Status: Tobacco use Status Tobacco use date assessed 06/02/24 06/02/24 08:15 Patient Tobacco Use Status Former Tobacco user 06/02/24 08:10 e-Cigarette/Vaping Use Never Used 06/02/24 08:10 PHQ-9: PHQ-9 Score PHQ-9: Total score 8 06/02/24 08:15 Depression Screening Interpretation: Negative Thrive Assessment: Date of Thrive Assessment Date Thrive assessed 06/02/24 06/02/24 08:15 Currently or been in a relationship where the following occur: No concerns reported Const General: no acute distress HENMT Head: Yes normal to inspection Ears: hearing grossly normal bilaterally General nose exam: Normal external nose present Face and sinus: Yes normal facial exam Mouth: Normal oral and palatal mucosa present Throat: Yes posterior oropharynx normal Eyes General: appearance normal, both eyes and all related structures Neck Neck: Yes no lymphadenopathy and Yes supple Resp Effort & Inspection: normal respiratory effort Auscultation: clear to auscultation bilaterally Cardio Rhythm: regular rhythm Heart sounds: S1 normal heart sound present and S2 normal heart sound present GI Inspection: Yes normal to inspection Palpation (GI): Soft to palpation Percussion: Yes normal to percussion Auscultation: normal bowel sounds Assessment and Plan Assessment & Plan (1) Calcific tendonitis of left shoulder: Code(s): M75.32 - Calcific tendinitis of left shoulder Plan: Referred to Dr. Banks for 2nd opinion (2) Seronegative arthritis: Comment: dx 02/07 Enbrel 06/09 partially effective, f/u Dr. Hughes Code(s): M13.80 - Other specified arthritis, unspecified site Plan: [facility] (3) IBS (irritable bowel syndrome): Code(s): K58.9 - Irritable bowel syndrome without diarrhea Plan: Patient was advised to monitor her foot intake and related symptoms. She will continue probiotics was advised to take fiber supplement and will be referred back to GI per patient's request (4) Annual physical exam: Code(s): Z00.00 - Encounter for general adult medical examination without abnormal findings Plan: Well-balanced diet regular physical activity discussed with the patient she is up-to-date with mammogram and Pap smear by per diem interpreter (5) Chronic asthma: Comment: exercise induced, Proair prn Code(s): J45.909 - Unspecified asthma, uncomplicated Plan: Continue albuterol p.r.n. (6) HTN (hypertension): Comment: BP goal less than 130/80 Code(s): I10 - Essential (primary) hypertension Plan: Continue amlodipine Orders: Orders Comprehensive [place]. Panel Fast 1 Year I10 - Essential (primary) hypertension, Z00.00 - Encounter for general adult medical examination without abnormal findings TSH reflex Free T4 1 Year I10 - Essential (primary) hypertension, Z00.00 - Encounter for general adult medical examination without abnormal findings Vitamin D 25-OH Total 1 Year I10 - Essential (primary) hypertension, Z00.00 - Encounter for general adult medical examination without abnormal findings Complete Blood Count Auto Diff 1 Year I10 - Essential (primary) hypertension, Z00.00 - Encounter for general adult medical examination without abnormal findings Lipid Panel 1 Year I10 - Essential (primary) hypertension, Z00.00 - Encounter for general adult medical examination without abnormal findings UA w Microscopic 1 Year I10 - Essential (primary) hypertension, Z00.00 - Encounter for general adult medical examination without abnormal findings Referrals Orthopedics Referral M75.32 - Calcific tendinitis of left shoulder Medications: Refilled amlodipine 2.5 mg PO DAILY 90 tabs 3RF Coding Level of Care Code Est Pt Prev Care 40-64y(37991) Diagnoses Calcific tendonitis of left shoulder M75.32 Seronegative arthritis M13.80 IBS (irritable bowel syndrome) K58.9 Annual physical exam Z00.00 Chronic asthma J45.909 HTN (hypertension) I10
[2024-06-02 08:10] VITALS: BP 120/82; PULSE 90; O2SAT 99
== END 2024-06-02 08:59 | disposition home or self-care (01) ==
PROVIDERS: PCP Internal Medicine; Visit Provider Internal Medicine
DX: M75.32 Calcific tendinitis of left shoulder (principal); M13.80 Other specified arthritis, unspecified site; K58.9 Irritable bowel syndrome, unspecified; Z00.00 Encounter for general adult medical examination without abnormal findings; J45.909 Unspecified asthma, uncomplicated; I10 Essential (primary) hypertension
CPT/HCPCS: 99396

== ENCOUNTER 2024-06-11 07:42 | Outpatient (AMB) | payer BC, SELFPAY ==
--- NOTE | 2024-06-11 07:43 | MHC.OFFVIS ---
Vital Signs 06/11/24 07:46 Height 5 ft 5 in Weight 180 lb BMI 30.0 BP 120/82 Blood Pressure Location Rt brachial Position Sitting Pulse 83 Pulse Source Pulse Oximeter Pulse Oximetry (%) 97 Oxygen Delivery Method Room Air Intake Visit Reasons: RA Intake Note: Patient presents for RA. Allergies methotrexate Allergy (Intermediate, Verified 06/11/24 07:45) Rash adhesive Allergy (Unknown, Verified 06/11/24 07:45) Rash erythromycin base [ERYTHROMYCIN BASE] Allergy (Unknown, Verified 06/11/24 07:45) Hives peach Allergy (Unknown, Verified 06/11/24 07:45) Anaphylaxis latex Adverse Reaction (Verified 06/11/24 07:45) Hives lisinopril Adverse Reaction (Verified 06/11/24 07:45) Cough Medication List - Last Reconciled 06/11/24 by Dariel Borrego MD albuterol sulfate 90 mcg/actuation (ProAir HFA) 2 puffs inhalation Q4-6H PRN albuterol sulfate 2.5 mg (0.5 mL) inhalation Q6H PRN amlodipine 2.5 mg PO DAILY cetirizine (Zyrtec) 10 mg PO DAILY PRN cyclosporine 0.05% (Restasis) 1 drp ophthalmic (eye) Q12H drospirenone (contraceptive) (Slynd) 1 tab PO DAILY Enbrel Mini (etanercept) 50 mg subcut QWEEK NS sumatriptan succinate (Imitrex) take 1 tab at onset of headache; if no relief may repeat 1 tab after at least 2 hrs; max = 4 tabs/24 hr PO HPI Comments Details: 43-year-old female with seronegative arthritis returns for follow-up. She remains on Enbrel weekly. She had another round of PT for her left shoulder without much relief. She will see a shoulder specialist sometime soon. She continues to have joint aches No significant joint swelling. Pain on the outside of both hips worse on the left. She also has bilateral pain. Initial history: This is a 42-year-old female with a past medical history of hypertension, asthma presents for evaluation of multiple joint pains. Condition started 2-3 years ago with bilateral foot pain. In the interim patient broke 1 of her metatarsal bones of her right foot when she accidentally stubbed her toe running after her dog. Her foot was in a boot for some time. However patient also had plantar fasciitis s/p multiple steroid injections. She also had spontaneous Achilles tendinitis affecting her left ankle. She denies any preceding trauma. This was treated with ibuprofen and Voltaren gel. She mentions getting numerous imaging studies of her ankles and feet by her marine electrician. Patient continues to have bilateral ankle and foot pain mostly at her MTPs. Over the last few months she has been having pain in both hands usually at the MCPs the pain is generally worse at night but is also worse in the morning when she wakes up. Over the last couple of months she noticed some puffiness of her fingers, difficulty putting her rings on. Also over the last few months she has been having pain in her tailbone worse with activity. She has been taking ibuprofen about 600 mg nightly mostly to treat her back pain. She denies any skin rashes, no history of psoriasis. No history of uveitis or IBD. She had a colonoscopy in 2021 which showed diverticulosis, unremarkable otherwise. Recent labs showed borderline positive rheumatoid factor. [facility] Medical History Diverticulosis Tinnitus of left ear FHx: colonic polyps Annual physical exam Hydronephrosis of right kidney Migraine Anxiety Seasonal allergies Chronic asthma HTN (hypertension) Surgical History Hx of tonsillectomy Hx of adenoidectomy History of bunionectomy H/O breast biopsy Family History Father HTN (hypertension) Substance use disorder Mother Breast cancer Bladder cancer Cancer of kidney Mental health disorder Maternal Grandmother Colon cancer, Onset Age: 80 Daughter Andrzej's thyroiditis Social History Housing: House Alcohol intake: current Alcohol intake frequency: holidays/special occasions only Patient Tobacco Use Status: Former Tobacco user e-Cigarette/Vaping Use: Never Used service: No Current occupational status: employed 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 Cognitive needs: No Hearing needs: No Vision needs: Yes Review of Systems Musc Reports arthralgias, Reports limited range of motion and Reports stiffness Physical Exam Vital Signs: Last Vital Signs Pulse 83 06/11/24 07:46 BP 120/82 06/11/24 07:46 Pulse Ox 97 06/11/24 07:46 Oxygen Delivery Method Room Air 06/11/24 07:46 BMI result Body Mass Index 30.0 Const General: cooperative and healthy appearing Nutritional Appearance: overweight Orientation/consciousness: patient oriented x3 Limitations: no limitations HEENT Head: Yes normocephalic and Yes atraumatic Mouth: moist mucous membranes Resp Effort & Inspection: normal respiratory effort and able to speak in complete sentences Auscultation: clear to auscultation bilaterally Cardio Rate: regular rate Rhythm: regular rhythm Skin General skin exam: no rashes or lesions noted Neuro General: patient oriented x3 Extrem Other: No active synovitis both hands and wrists, mild osteoarthritic changes Negative MCP squeeze test bilaterally Mildly limited left shoulder abduction Positive empty can test on the left Bilateral trochanteric bursa area tenderness with negative Nhi's test Bilateral knee crepitus Right 2nd and 3rd MTP tenderness Left 3rd and 4th MTP tenderness Results Reviewed Results Reviewed: Labs 10/2022? CRP normal? RF 16.5 (<14) negative on repeat Uric acid 3.3? Sed rate 17 NEGRITA screen negative Lyme screen negative Right foot MRI 10/27/2020? Bones/joints: Findings no evidence of acute fracture.? There is marrow edema in the base of the 2nd metatarsal and the medial cuneiform, marginating the 2nd tarsometatarsal joint.? This has the appearance of mild to moderate arthritic changes.? Superimposed stress injury/bone contusion could be considered in the appropriate clinical circumstance.? There is [id number] 3rd TMT, mild 4th TMT arthritis.? Moderate 1st MTP joint arthritis.? Degenerative cyst in the distal 2nd metatarsal head.? Mild hallux/tibial sesamoid degeneration. Muscles/tendons:? Visualized tendons are intact.? No tenosynovitis Visualized plantar aponeurosis appears unremarkable.? Dorsal subcutaneous edema MRI left shoulder 01/2024 IMPRESSION: 1. Findings consistent with calcific tendinitis within the junctional fibers of the supraspinatus tendon with mild adjacent soft tissue edema. No rotator cuff tendon tear. 2. Severe acromioclavicular osteoarthritis. 3. Minimal subacromial-subdeltoid bursitis. Assessment & Plan Assessment & Plan (1) Seronegative arthritis: Comment: dx 02/07 Enbrel 06/09 effective Code(s): M13.80 - Other specified arthritis, unspecified site Category: Medical Plan: This is a 43-year-old female with seronegative arthritis who returns for follow-up. Remains on Enbrel 50 mg weekly . She states that she has been feeling much better overall since she was started on Enbrel she continues to have multiple joint aches. On exam patient has generalized osteoarthritis. I could not appreciate any swollen joints. Inflammatory markers have been persistently normal. I believe at this stage the inflammatory component of her arthritis is well controlled with Enbrel. Majority of her symptoms are mechanical and degenerative Continue Enbrel 50 mg weekly. Infectious screening hepatitis panel and T spot -ve 2022 Follow-up in 4 months. No need for blood work (2) Rotator cuff arthropathy of left shoulder: Code(s): M12.812 - Other specific arthropathies, not elsewhere classified, left shoulder Category: Medical Plan: left shoulder MRI which showed severe AC joint arthritis as well as rotator cuff tendonitis. She just completed another round of PT which was only minimally helpful. 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 Patient is aware to hold Enbrel for any signs of infection or fever (4) Greater trochanteric bursitis of both hips: Code(s): M70.61 - Trochanteric bursitis, right hip; M70.62 - Trochanteric bursitis, left hip Category: Medical Plan: Patient wanted to do PT for her hips when she was doing PT for shoulder, she was told that this was not allowed and she had to come back for PT. patient could not afford it. At this time I advised patient to do home exercises for greater trochanteric pain syndrome. If no improvement in a few weeks advised patient to call the office for bilateral trochanteric bursitis steroid injections Plan I spent 30 minutes reviewing patient's chart, evaluating patient, counseling patient and documenting in the chart Coding Level of Care Code Est Pt Level 4 (28766) Diagnoses Seronegative arthritis M13.80 Rotator cuff arthropathy of left shoulder M12.812 Long-term use of immunosuppressant medication Z79.60 Greater trochanteric bursitis of both hips M70.61; M70.62
[2024-06-11 07:46] VITALS: BP 120/82; PULSE 83; O2SAT 97
== END 2024-06-11 08:10 | disposition home or self-care (01) ==
PROVIDERS: PCP Internal Medicine; Visit Provider Student in an Organized Health Care Education/Training Program
DX: M13.80 Other specified arthritis, unspecified site (principal); M12.812 Other specific arthropathies, not elsewhere classified, left shoulder; Z79.60 Long term (current) use of unspecified immunomodulators and immunosuppressants; M70.61 Trochanteric bursitis, right hip; M70.62 Trochanteric bursitis, left hip
CPT/HCPCS: 99214

== ENCOUNTER → 2024-06-11 07:42 | Outpatient (BNVA) | payer BC, SELFPAY | PROVIDERS: PCP Internal Medicine; Visit Provider Student in an Organized Health Care Education/Training Program ==

== ENCOUNTER 2024-06-29 08:12 | Outpatient (AMB) | payer BC, SELFPAY ==
--- NOTE | 2024-06-29 08:13 | AM.OFFWIN_ITS ---
Intake Vital Signs 06/29/24 08:14 Height 5 ft 5 in Weight 178 lb BMI 29.6 BP 120/80 Blood Pressure Location Rt brachial Position Sitting Pulse 70 Pulse Source Pulse Oximeter Temp 98.7 F Temp Source Oral Pulse Oximetry (%) 97 Oxygen Delivery Method Room Air Intake Visit Reasons: EP LT ear, sore throat Intake Note: Patient here for sore throat and left ear pain which has been going on since Saturday and lost voice on saturday. Patient Tobacco Use Status: Former Tobacco user Allergies methotrexate Allergy (Intermediate, Verified 06/29/24 08:15) Rash adhesive Allergy (Unknown, Verified 06/29/24 08:15) Rash erythromycin base [ERYTHROMYCIN BASE] Allergy (Unknown, Verified 06/29/24 08:15) Hives peach Allergy (Unknown, Verified 06/29/24 08:15) Anaphylaxis latex Adverse Reaction (Verified 06/29/24 08:15) Hives lisinopril Adverse Reaction (Verified 06/29/24 08:15) Cough Do you need a note to return to daycare/school/sports/work: No HPI EP LT ear, sore throat HPI Details This note is constructed using voice recognition software. While every effort has been made to ensure accuracy, integrated marketing intern errors may have been included. The patient is a 43 year old female who presents to the clinic today with 6 day history left-sided ear pain, and 3 day history of laryngitis. She has tested for COVID 3 times including today all of been negative. She has had no fever, chills, cough, shortness of breath, or pharyngitis. She has been taking her rinb-iif-oytsbom allergy medication and Nasonex without relief. She finds that her voice is better when she has had a hot steamy shower. [facility] Medical History Diverticulosis Tinnitus of left ear FHx: colonic polyps Annual physical exam Hydronephrosis of right kidney Migraine Anxiety Seasonal allergies Chronic asthma HTN (hypertension) Surgical History Hx of tonsillectomy Hx of adenoidectomy History of bunionectomy H/O breast biopsy Family History Father HTN (hypertension) Substance use disorder Mother Breast cancer Bladder cancer Cancer of kidney Mental health disorder Maternal Grandmother Colon cancer, Onset Age: 80 Daughter Andrzej's thyroiditis Social History Housing: House Alcohol intake: current Alcohol intake frequency: holidays/special occasions only Patient Tobacco Use Status: Former Tobacco user e-Cigarette/Vaping Use: Never Used service: No Current occupational status: employed 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 Cognitive needs: No Hearing needs: No Vision needs: Yes Review of Systems Const All systems reviewed & are unremarkable except as noted in HPI and below Physical Exam Vital Signs: Last Vital Signs Temp 98.7 F 06/29/24 08:14 Pulse 70 06/29/24 08:14 BP 120/80 06/29/24 08:14 Pulse Ox 97 06/29/24 08:14 Oxygen Delivery Method Room Air 06/29/24 08:14 BMI result Body Mass Index 29.6 Const General: cooperative, healthy appearing, comfortable and no acute distress Orientation/consciousness: patient oriented x3 Limitations: no limitations HEENT Head: Yes normal to inspection Ears: hearing grossly normal bilaterally, external ears normal, TM normal on the right and TM abnormal bulging on the right and with fluid behind the TM on the right; not erythematous General nose exam: Normal external nose present, Normal nares present and No nasal discharge present Face and sinus: Yes normal facial exam and Yes sinuses nontender Mouth: Normal oral and palatal mucosa present and moist mucous membranes Throat: Yes tonsils normal, Yes uvula midline and Yes posterior oropharynx abnormal (Erythema) Eyes General: appearance normal, both eyes and all related structures Neck Neck: Yes normal visual inspection Resp Effort & Inspection: normal respiratory effort, able to speak in complete sentences, Actively coughing, no respiratory distress, not tachypneic, no tripod positioning and no use of accessory muscles Auscultation: clear to auscultation bilaterally Cardio Jugular venous distension: no JVD Rate: regular rate Rhythm: regular rhythm Heart sounds: S1 normal heart sound present, S2 normal heart sound present, no click, no gallops, no murmurs and no rubs Skin General skin exam: no rashes or lesions noted, elasticity normal and turgor normal Neuro General: patient oriented x3 Extrem General: Yes normal to inspection and Yes no clubbing, cyanosis or edema Results AMB Rapid Strep AMB Rapid Strep Negative Last Edit by LEBRON Gomes on 06/29/24 08:25 Results Reviewed Results Reviewed: Laboratory Last Values Strep Scn Rapid Clinic Negative 06/29/24 08:23 Assessment & Plan Assessment & Plan (1) Otitis media: Code(s): H66.90 - Otitis media, unspecified, unspecified ear Qualifiers: Otitis media type: suppurative Chronicity: acute Laterality: left Recurrence: non-recurrent Spontaneous tympanic membrane rupture: without spontaneous rupture Qualified Code(s): H66.002 - Acute suppurative otitis media without spontaneous rupture of ear drum, left ear Plan: Antimicrobial therapy ordered. Supportive measures including hydration and humidification, advised trial of toqs-xdc-nmhmomu Mucinex for thinning of secretions. Advised follow up as needed. Plan See above for full details and plan. Orders: Orders AMB Rapid Strep Screen Today Coco Mar PA-C Z13.9 - Encounter for screening, unspecified Medications: New amoxicillin-pot clavulanate 875-125 mg 1 tab PO BID 10 days 20 tabs 0RF Isabela Weir NP Coding Level of Care Code Est Pt Level 3 (39869) Diagnoses Non-recurrent acute suppurative otitis media of left ear without spontaneous rupture of tympanic membrane H66.002 Otitis media type: suppurative Chronicity: acute Laterality: left Recurrence: non-recurrent Spontaneous tympanic membrane rupture: without spontaneous rupture
[2024-06-29 08:14] VITALS: BP 120/80; PULSE 70; TEMP 37.1; O2SAT 97; BMI 29.6
--- OUTSIDE RECORDS SUMMARY | 2024-06-29 08:15 | XMS_ITS | Continuity of Care Document ---
Author Organization [facility] Address [address] [place] [id number]- Care Team Providers Care Forest Resource Specialist Name Role Phone Mariah Abbott MD Primary Care Physician [phone] [place] [facility] [place] - 02/24/[address] [address]- Encounter Diagnosis Ovarian cyst(Final) - 02/24/21 Discharge Disposition: A-D/C Home Attending Physician: Jon Velez MD Admitting Physician: Jon Velez MD Referring Physician: Not on Staff, Referring MD Allergies, Adverse Reactions, Alerts Substance Reaction Severity Status erythromycin unknown Active Latex Adhesive felt Active Other Food Allergy peaches-hives Active Medications Amlodipine By Mouth, Daily, 0 Refills, Maintenance, 02/22/21 18:49:00 EDT, Partial fill upon patient request if the prescription is for a schedule II opioid drug. Start Date: 02/22/21 Status: Ordered ondansetron 4 mg oral tablet, disintegrating 1 tablet = 4 mg, By Mouth, Every 8 hours, PRN Nausea & Vomiting, # 10 tablet, 0 Refills, Maintenance, 02/24/21 16:58:00 EDT, Tablet, [facility]/pharmacy #[id number], Partial fill upon patient request if the prescription is for a schedule II opioid drug. Start Date: 02/24/21 Status: Ordered Singulair By Mouth, Daily, 0 Refills, Maintenance, 02/22/21 18:48:00 EDT, Partial fill upon patient request if the prescription is for a schedule II opioid drug. Start Date: 02/22/21 Status: Ordered ZyrTEC 10 mg oral tablet 1 tablet = 10 mg, By Mouth, Daily, 0 Refills, Maintenance, 02/22/21 18:50:00 EDT, Partial fill uponpatient request if the prescription is for a schedule II opioid drug. Start Date: 02/22/21 Status: Ordered Procedures Procedure Date Related Diagnosis Body Site Status Bilateral inguinal hernia repair Completed Bunionectomy Completed Tonsillectomy and adenoidectomy Completed Results Orders for Microbiology Reports Name Date Wet Prep 02/24/21 Microbiology Reports TEST:Wet Prep STATUS:Auth (Verified) BODY SITE: SOURCE:VAGINA COLLECTED DATE/TIME:02/24/21 2:25 PM Wet Prep SPECIMEN DESCRIPTION : VAGINAL SPECIMEN SPECIAL REQUESTS : NONE DIRECT EXAM : 1+ WHITE BLOOD CELLS NO TRICHOMONAS,YEAST,OR CLUE CELLS OBSERVED REPORT STATUS : FINAL 02/24/2021 Vital Signs Most recent to oldest [Reference Range]: 1 2 3 Oxygen Saturation [94-100 %] 100 % (02/24/21 5:32 PM) 98 % (02/24/21 2:50 PM) 99 % (02/24/21 11:43 AM) Pulse Rate [55-90 bpm] 74 bpm (02/24/21 5:32 PM) 77 bpm (02/24/21 2:50 PM) 83 bpm (02/24/21 11:43 AM) Blood Pressure [90-138/55-84 mm Hg] 133/95mm Hg (02/24/21 5:32 PM) 137/81mm Hg (02/24/21 2:50 PM) 142/89mm Hg *H* (02/24/21 11:43 AM) Respiratory Rate [16-30 br/min] 16 br/min (02/24/21 5:32 PM) 18 br/min (02/24/21 2:50 PM) 16 br/min (02/24/21 11:43 AM) Temperature [96.8-100.4 DegF] 98.0 DegF (02/24/21 2:50 PM) 97.5 DegF (02/24/21 11:43 AM) 98.0 DegF (02/24/21 6:18 AM) Liters per Minute 0 L/min (02/24/21 2:50 PM) Mode of Delivery (Oxygen) Room air (02/24/21 5:32 PM) Room air (02/24/21 2:50 PM) Room air (02/24/21 11:43 AM) Blood pressure sites Arm, right (02/24/21 5:32 PM) Arm, right (02/24/21 2:50 PM) Arm, right (02/24/21 11:43 AM) Temperature Route Oral (02/24/21 2:50 PM) Oral (02/24/21 11:43 AM) Oral (02/24/21 6:18 AM) Social History Social History Type Response Smoking Status Never (less than 100 in lifetime) entered on: 02/24/21 Sex
--- OUTSIDE RECORDS SUMMARY | 2024-06-29 08:15 | XMS_ITS | Continuity of Care Document ---
Author Organization [facility] ter Address [address] [place] [id number]- Care Team Providers Care Hooker Up Name Role Phone Mariah Abbott MD Primary Care Physician Encounter [facility] [place] Date(s): 08/12/23 - 10/03/[address] [id number] Attending Physician: Teagan Corcoran NP Admitting Physician: Nilo AGUILAR, Teagan Lagos Referring Physician: Teaagn Corcoran NP Allergies, Adverse Reactions, Alerts Substance Reaction Severity [...] 0 Refills, Maintenance, 02/24/21 16:58:00 EDT, Tablet, [facility]/pharmacy #[id number], Partial fill upon patient request if the [...] a schedule II opioid drug. Start Date: 4/7/21 Status: Ordered Social History Social History Type Response Smoking Status Never (less than 100 in lifetime) entered on: 02/24/21 Sex Patient Care team information Care Team Personnel Name: Mariah Abbott MD Position: [facility] Physician - Primary Care Member Role: PCP Address: Address: [address] [place] [address]- Care Team Related Persons Name: TIARRA AIKEN Address: home [address] [place] [address] Name: TIARRA AIKEN Address: home [address] [id number] Name: SHAHAB BECKER Address: home [address] [place] [id number]
--- OUTSIDE RECORDS SUMMARY | 2024-06-29 08:15 | XMS_ITS | Continuity of Care Document ---
Author Organization [facility] ter Address [address] [place] [address]- Care Team Providers Care Core Drill Operator Helper Name Role Phone Mariah Abbott MD Primary Care Physician [phone] Encounter [facility] [place] Date(s): 02/22/21 - 02/22/[address] [address]- Discharge Disposition: A-D/C Walkout Attending Physician: Not on Staff, Attending MD Admitting Physician: Not on Staff, Admitting MD Referring Physician: Not on Staff, Referring MD Allergies, Adverse Reactions, Alerts Substance Reaction Severity Status erythromycin unknown Active Other Food Allergy peaches-hives Active Medications Amlodipine By Mouth, Daily, 0 Refills, Maintenance, 02/22/21 18:49:00 EDT, Partial fill upon patient request if the prescription is for a schedule II opioid drug. Start Date: 02/22/21 Status: Ordered Singulair By Mouth, Daily, 0 [...] opioid drug. Start Date: 02/22/21 Status: Ordered Vital Signs Most recent to oldest [Reference Range]: 1 2 Oxygen Saturation [94-100 %] 99 % (02/22/21 5:59 PM) 100 % (02/22/21 5:02 PM) Pulse Rate [55-90 bpm] 89 bpm (02/22/21 5:59 PM) 97 bpm *H* (02/22/21 5:02 PM) Blood Pressure [90-138/55-84 mm Hg] 145/ 88mm Hg *H* (02/22/21 5:59 PM) Respiratory Rate [16-30 br/min] 20 br/mi n (02/22/21 5:59 PM) 15 br/min *L* (02/22/21 5:02 PM) Temperature [96.8-100.4 DegF] 98.1 DegF (02/22/21 5:59 PM) Mode of Delivery (Oxygen) Room air (02/22/21 5:59 PM) Blood pressure sites Arm, right (02/22/21 5:59 PM) Temperature Route Oral (02/22/21 5:59 PM)
--- OUTSIDE RECORDS SUMMARY | 2024-06-29 08:15 | XMS_ITS | Continuity of Care Document ---
Author Organization [facility] ter Address [address] [place] [address]- Care Team Providers Care Ground Crewman Mission Support Name Role Phone Mariah Abbott MD Primary Care Physician [phone] Encounter [facility] [place] Date(s): 08/01/22 - 09/19/[address] [address] Attending Physician: Teagan Corcoran NP Admitting Physician: Teagan Corcoran NP Referring Physician: Teagan Corcoran NP Allergies, Adverse Reactions, Alerts Substance [...] 0 Refills, Maintenance, 02/24/21 16:58:00 EDT, Tablet, [facility]/pharmacy #[id number], Partial fill upon patient request if the [...] opioid drug. Start Date: 02/22/21 Status: Ordered Social History Social History Type Response Smoking Status Never (less than 100 in lifetime) entered on: 02/24/21 Sex Patient Care team information Personnel Name: Mariah Abbott MD Address: Address: [address] [place], [place] [address]
--- OUTSIDE RECORDS SUMMARY | 2024-06-29 08:15 | XMS_ITS ---
Author Organization [facility] Address [address] [place] [address] Care Team Providers Care Singer Songwriter Name Role Phone Mariah bAbott MD Primary Care Provider Unavaila ble Komal Rockwell Unavailable [phone] REASON FOR VISIT Rheumatology Encounters Encounter Location Date Provider Diagnosis [facility] [address] [place] [address] 04/22/2023 Komal Rockwell PLAN OF TREATMENT No Information
--- OUTSIDE RECORDS SUMMARY | 2024-06-29 08:15 | XMS_ITS ---
[facility] Organization [facility] Address [address] [facility] [place] [address] Care Team Providers Care Publicity Director Name Role Phone Mariah Abbott MD Primary Care Provider Unavaila ble Black, Komal Unavailable [phone] ALLERGIES Allergen (clinical drug ingredient) Drug/Non Drug Allergy documented on EMR Reaction Allergy Type Onset Date Status Erythrocin Unknown Drug Allergy Active Adhesive possible allergy Allergy Active Latex Latex possible allergy Allergy Active methotrexate Methotrexate rash Drug Allergy A ctive REASON FOR VISIT Foot pain MEDICATIONS Medication SIG (Take, Route, Frequency, Duration) Notes Start Date End Date Status Omeprazole 20 MG Orally Not -Taking Fluconazole 150 MG Orally N ot-Taking EpiPen Not-Taking LORazepam 0.5 MG Orally Not -Taking predniSONE 20 MG Orally for 1 week Not-Taking ProAir HFA 108 (90 Base) MCG/ACT Inhalation Not-Taking Lisinopril 20 MG Orally Not -Taking Claritin 10 MG Orally Not-T aking Breo Ellipta Not-Pedro ing Diclofenac Sodium 50 MG 1 tablet Orally Twice a day for 30 day(s) 06/16/2020 Not-Taking Diclofenac Sodium 50 MG 1 tablet as needed Orally Twice a day for 30 days 07/16/2022 Not-Taking Singulair 10 MG Orally Not- Taking ASO Ankle/Foot Stablizing AFO As directed Wear Daily for as needed 07/16/2022 Active Meloxicam 15 MG 1 tablet Orally Once a day for 30 day(s) 12/15/2020 Not-Taking Walking Boot/Pneumatic As directed Wear Daily for Until further notice 05/16/2020 Not-Taking Flonase Active Physical Therapy 3-4x per week for 3-4 weeks 10/05/2019 Active amLODIPine Besylate 2.5 MG 1 tablet Orally Once a day for 30 day(s) Active ZyrTEC Active Slynd 4 MG 1 tablet Orally Once a day for 30 day(s) Control Active SOCIAL HISTORY Tobacco Use: Social History Observation Description Date Details (start date - stop date) Former Smoker NA - NA Sex Assigned At : Social History Observation Description Sex Assigned At Unknown Tobacco Use/Smoking Question Answer Notes Are you a: former smoker Additional Findings: Tobacco Non-User Current no n-smoker Alcohol Screen Question Answer Notes Did you have a drink contain ing alcohol in the past year? Yes How often did you have a dri nk containing alcohol in the past year? 2 to 3 times a week (3 points) Points 3 Interpretation Positive Tobacco use other than smoking: Question Answer Notes Are you an other tobacco user? No PROBLEMS Problem Type ICD Code Onset Dates Problem Status W/U Status Risk SNOMED Code Notes Problem Rheumatoid arthritis without rheumatoid factor, 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) Active confirmed 761410696 VITAL SIGNS Height 64 in 04/22/2023 Weight 175 lbs 04/22/2023 BMI 30.04 kg/m2 04/22/2023 Encounters Encounter Location Date Provider Diagnosis [facility] [address] [address] 04/22/2023 Komal Black Arthralgia of left foot M25.572 ; Rheumatoid arthritis involving multiple sites with positive rheumatoid factor M05.79 ; Arthralgia of right foot M25.571 ; Metatarsalgia, left foot M77.42 ; Metatarsalgia, right foot M77.41 ; Primary osteoarthritis, left ankle and foot M19.072 ; Primary osteoarthritis, right ankle and foot M19.071 and Seronegative arthritis M13.80 ASSESSMENTS Encounter Date Diagnosis Assessment Notes Treatment Notes Treatment Clinical Notes 04/22/2023 Arthralgia of left foot (ICD-10 - M25.572) 04/22/2023 Rheumatoid arthritis involving multiple sites with positive rheumatoid factor (ICD-10 - M05.79) 04/22/2023 Arthralgia of right foot (ICD-10 - M25.571) 04/22/2023 Metatarsalgia, left foot (ICD-10 - M77.42) 04/22/2023 Metatarsalgia, right foot (ICD-10 - M77.41) 04/22/2023 Primary osteoarthritis, left ankle and foot (ICD-10 - M19.072) 04/22/2023 Primary osteoarthritis, right ankle and foot (ICD-10 - M19.071) 04/22/2023 Seronegative arthritis (ICD-10 - M13.80) PLAN OF TREATMENT Next Appt Details Follow Up: 2 Months, Reason: Progress Notes * Examination Category Sub-Category Detail Notes Neurological SENSORY: Neurological exa m reveals intact sensorium, pain sensation normal, vibration sensation intact, pinprick sensation is normal in the lower extremities, pt denies, anesthesia, burning, paresthesia, tingling, B/L BABINSKI REFLEX: TINEL'S COMPRESSION: DEEP TENDON REFLEXES: Dermatologic SKIN FINDINGS: Skin exam reveal s normal color, texture, elasticity, and turgor. There are no masses, nor excrescences. The interspaces are clear, B/L Orthopedic FOOT MORPHOLOGY: Cont. Pain on p alpation midfoot b/l FOOTWEAR: MPJ PATHOLOGY: Cont. Pain, swelling , and inflammation to dorsal MPJ(s) 1-5 b/l MPJ pain with ROM B/L TAILOR'S BUNION: Enlarged, painful, p rominent, inflammed 5th Metatarsal Base, LEFT MUSCLE STRENGTH: 5/5 all groups in a symmetrical fashion , B/L General Examination GENERAL APPEARANCE: pleasant , alert, well nourished, well developed, well hydrated, with good attention to hygene/body habitus, and in no acute distress ORIENTED: person,place, and ti me Vascular DP PULSES: 2/4, B/L PT PULSES: 2/4, B/L CAPILLARY FILL TIME: 3 secs. per digit, B/L SKIN TEMPERTURE GRADIENT OF THE LOWER EXTERMITIES: warm to cool, proximal to distal, B/L HAIR GROWTH/TEXTURE/ELASTICITY/TURGOR: n ormal, B/L EDEMA: no edema History and Physical Notes * HPI (History of Present Illness) Category Sub-Category Detail Notes Foot Pain Nature: aching, tenderne ss, sharp Location: B/L Duration: several years Onset: unknown, denies trau ma Course: worse Aggravated: standing, walking, w eather changes Treatments: medication ( NSAID'S - Diclofenac sodium, Motrin ), improves condition but can cause upset stomach, volteran gel occasional.Pt was evaluated by [employer] and was started on Methotexate and had an reaction (rash) to the medication and is presently awaiting approval for Enbrel Severity/Quality: moderate Misc: Rheumatology notes i n chart
--- OUTSIDE RECORDS SUMMARY | 2024-06-29 08:15 | XMS_ITS ---
Author Organization [facility] Address [address] [place] [address] Care Team Providers Care Assembler Motor Vehicle Name Role Phone Mariah Abbott MD Primary Care Provider Unavaila ble Black, Komal Unavailable [phone] ALLERGIES Allergen (clinical drug ingredient) Drug/Non Drug Allergy documented on EMR Reaction Allergy Type Onset Date Status Erythrocin Unknown Drug Allergy Active Adhesive possible allergy Allergy Active Latex Latex possible allergy Allergy Active methotrexate Methotrexate rash Drug Allergy A ctive REASON FOR VISIT PCP - 06/2023, Foot pain MEDICATIONS Medication SIG (Take, Route, Frequency, Duration) Notes Start Date End Date Status LORazepam 0.5 MG Orally Not -Taking EpiPen Not-Taking ProAir HFA 108 (90 Base) MCG/ACT Inhalation Not-Taking Claritin 10 MG Orally Not-T aking Lisinopril 20 MG Orally Not -Taking Breo Ellipta Not-Pedro ing Walking Boot/Pneumatic As directed Wear Daily for Until further notice 05/16/2020 Not-Taking Meloxicam 15 MG 1 tablet Orally Once a day for 30 day(s) 12/15/2020 Not-Taking Singulair 10 MG Orally Not- Taking Diclofenac Sodium 50 MG 1 tablet Orally Twice a day for 30 day(s) 06/16/2020 Not-Taking Diclofenac Sodium 50 MG 1 tablet as needed Orally Twice a day for 30 days 07/16/2022 Not-Taking ASO Ankle/Foot Stablizing AFO As directed Wear Daily for as needed 07/16/2022 Active Flonase Active Physical Therapy 3-4x per week for 3-4 weeks 10/05/2019 Active ZyrTEC Active Restasis 0.05 % 1 drop into affected eye Ophthalmic Twice a day Active Etanercept 50 MG/ML as directed Subcutaneous Active predniSONE 20 MG Orally for 1 week Not-Taking amLODIPine Besylate 2.5 MG 1 tablet Orally Once a day for 30 day(s) Active Slynd 4 MG 1 tablet Orally Once a day for 30 day(s) Control Active Fluconazole 150 MG Orally N ot-Taking Omeprazole 20 MG Orally Not -Taking SOCIAL HISTORY Tobacco Use: Social History Observation [...] W/U Status Risk SNOMED Code Notes Problem Seronegative arthritis (M13.80) Active confirmed Seronegative arthritis (832312315) VITAL SIGNS Height 5ft 5in in 08/01/2023 Weight 173 lbs 08/01/2023 BMI 28.79 kg/m2 08/01/2023 Encounters Encounter Location Date Provider Diagnosis [facility] [address] [place] [address] 08/01/2023 Komal Black Arthralgia of left foot M25.572 [...] Assessment Notes Treatment Notes Treatment Clinical Notes 08/01/2023 Arthralgia of left foot (ICD-10 - M25.572) 08/01/2023 Rheumatoid arthritis involving multiple sites with positive rheumatoid factor (ICD-10 - M05.79) 08/01/2023 Arthralgia of right foot (ICD-10 - M25.571) 08/01/2023 Metatarsalgia, left foot (ICD-10 - M77.42) 08/01/2023 Metatarsalgia, right foot (ICD-10 - M77.41) 08/01/2023 Primary osteoarthritis, left ankle and foot (ICD-10 - M19.072) 08/01/2023 Primary osteoarthritis, right ankle and foot (ICD-10 - M19.071) 08/01/2023 Seronegative arthritis (ICD-10 - M13.80) PLAN OF TREATMENT Next Appt Details Follow Up: prn, Reason: Progress Notes * Examination Category Sub-Category Detail Notes Neurological SENSORY: Neurological exa m reveals intact sensorium, pain sensation normal, vibration sensation intact, pinprick sensation is normal in the lower extremities, pt denies, anesthesia, burning, paresthesia, tingling, B/L BABINSKI REFLEX: TINEL'S COMPRESSION: DEEP TENDON REFLEXES: Dermatologic SKIN FINDINGS: Orthopedic FOOT MORPHOLOGY: Less Pain on pa lpation midfoot b/l FOOTWEAR: MPJ PATHOLOGY: Reduced Pain, swelli ng, and inflammation to dorsal MPJ(s) 1-5 b/l MPJ pain with ROM B/L TAILOR'S BUNION: Enlarged, less painf ul, prominent, reduced inflammation 5th Metatarsal Base, LEFT MUSCLE STRENGTH: 5/5 all groups in a symmetrical fashion , B/L General Examination GENERAL APPEARANCE: pleasant , alert, well nourished, well developed, well hydrated, with good attention to hygene/body habitus, and in no acute distress ORIENTED: person,place, and ti me Vascular DP PULSES: 2/4, B/L PT PULSES: 2/4, B/L History and Physical Notes * HPI (History of Present Illness) Category Sub-Category Detail Notes Foot Pain Nature: aching, tenderne ss, sharp Location: B/L Duration: several years Onset: unknown, denies sridhar chen Course: improved , at 40 % Aggravated: standing, walking, w eather changes Treatments: medication ( NSAID'S - Diclofenac sodium, Motrin ), improves condition but can cause upset stomach, volteran gel occasional.Pt was evaluated by [employer] and was started on Methotexate and had an reaction (rash) to the medication .Pt is on Enbrel and is able to walk without extreme pain Severity/Quality: moderate
--- OUTSIDE RECORDS SUMMARY | 2024-06-29 08:16 | XMS_ITS | Patient Health Record ---
Author Organization [facility] Address [address] [place] [address] Care Team Providers Care Software Applications Designer Name Role Phone Mariah Abbott MD Primary Care Provider Unavaila rosaura Black, Komal Unavailable [phone] ALLERGIES Allergen (clinical drug ingredient) Drug/Non Drug Allergy documented on EMR Reaction Allergy Type Onset Date Status Erythrocin Unknown Drug Allergy Active Adhesive possible allergy Allergy Active Latex Latex possible allergy Allergy Active methotrexate Methotrexate rash Drug Allergy A ctive REASON FOR REFERRAL No Information MEDICATIONS Medication SIG (Take, Route, Frequency, Duration) Notes Start Date End Date Status Restasis 0.05 % 1 drop into affected eye Ophthalmic Twice a day Active Breo Ellipta Not-Pedro ing Etanercept 50 MG/ML as directed Subcutaneous Active Walking Boot/Pneumatic As directed Wear Daily for Until further notice 05/16/2020 Not-Taking Meloxicam 15 MG 1 tablet Orally Once a day for 30 day(s) 12/15/2020 Not-Taking predniSONE 20 MG Orally for 1 week Not-Taking Singulair 10 MG Orally Not- Taking Fluconazole 150 MG Orally N ot-Taking Diclofenac Sodium 50 MG 1 tablet as needed Orally Twice a day for 30 days 07/16/2022 Not-Taking Omeprazole 20 MG Orally Not -Taking ASO Ankle/Foot Stablizing AFO As directed Wear Daily for as needed 07/16/2022 Active LORazepam 0.5 MG Orally Not -Taking Flonase Active EpiPen Not-Taking Physical Therapy 3-4x per week for 3-4 weeks 10/05/2019 Active ProAir HFA 108 (90 Base) MCG/ACT Inhalation Not-Taking ZyrTEC Active Claritin 10 MG Orally Not-T aking amLODIPine Besylate 2.5 MG 1 tablet Orally Once a day for 30 day(s) Active Lisinopril 20 MG Orally Not -Taking Diclofenac Sodium 50 MG 1 tablet Orally Twice a day for 30 day(s) 06/16/2020 Not-Taking Slynd 4 MG 1 tablet Orally Once a day for 30 day(s) Control Active IMMUNIZATIONS Vaccine Route Administration Date Status Comme nts COVID-19 Pfizer BioNTech Vaccine Unknown 10/04/2021 Administered First Dose: 11/24/20 Second Dose: 12/13/2020 SOCIAL HISTORY Tobacco Use: Social History Observation [...] 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) Active confirmed [id number] Problem Primary osteoarthritis, right ankle and foot (M19.071) Active confirmed Localized, primary osteoarthritis of the ankle and/or foot (578313759) Problem Primary osteoarthritis, left ankle and foot (M19.072) Active confirmed Localized, primary osteoarthritis of the ankle and/or foot (791263610) Problem Rheumatoid arthritis involving multiple sites with positive rheumatoid factor (M05.79) Active confirmed 895863701 Problem Seronegative arthritis (M13.80) Active confirmed Seronegative arthritis (444443213) VITAL SIGNS Height 5ft 5in in 08/01/2023 Weight 173 lbs 08/01/2023 BMI 28.79 kg/m2 08/01/2023 Encounters Encounter Location Date Provider Diagnosis [facility] [address] [place] [address] 08/01/2023 Komal Black Arthralgia of left foot [...] arthritis (ICD-10 - M13.80) PLAN OF TREATMENT Pending Test Test Name Order Date MRI : Foot, right 10/24/2020 *Uric Acid, Serum 10/22/2022 *Sedimentation Rate-Westergren 2 *Sedimentation Rate-Naplesergren 0 Rheumatoid Arthritis Factor 07/11/2020 NEGRITA w/Reflex 10/22/2022 NEGRITA Comprehensive Panel 07/11/2020 X ray : Foot, left 3V 07/23/2019 30950 I&D ABSCESS- SIMPLE,SINGLE 021 , [id number]/INJECT, JOINT/BURSA 1 50,[id number] TENDON SHEATH/LIGAMENT 1 50,[id number] TENDON SHEATH/LIGAMENT 0 07/23/2019 CRP 07/11/2020 Insurance Providers Payer Name Payer Address Payer Phone Subscriber Number Group Number Insured Name Patient Relationship to Insured Coverage Start Date Coverage End Date [facility] [address] [place] [address] [id number] Valerie Barron Self - patient is the insured MEDICAL (GENERAL) HISTORY Medical History History ICD Code Hypertension asthma Seasonal allergies Bipolar disorder Plantar fasciitis back pain migraines GERD chicken pox Surgical History Surgery Date(Month/Year) hernia age 7 adenoids/tonsils age 15 right bunion surgeries 2x
== END 2024-06-29 09:23 | disposition home or self-care (01) ==
PROVIDERS: PCP Internal Medicine; Visit Provider Registered Nurse
DX: Z13.9 Encounter for screening, unspecified (principal); H66.002 Acute suppurative otitis media without spontaneous rupture of ear drum, left ear
CPT/HCPCS: 87880; 99213

== ENCOUNTER 2024-07-04 09:20 | Outpatient (AMB) | payer BC, SELFPAY ==
--- NOTE | 2024-07-04 10:00 | MHC.OFFWIV ---
Intake Vital Signs 07/04/24 10:02 Height 5 ft 5 in Weight 178 lb BMI 29.6 BP 134/90 H Blood Pressure Location Rt brachial Position Sitting Pulse 102 H Pulse Source Pulse Oximeter Temp 98.4 F Temp Source Oral Pulse Oximetry (%) 99 Oxygen Delivery Method Room Air Intake Visit Reasons: EP LT ear pain/not better Patient Tobacco Use Status: Former Tobacco user Allergies methotrexate Allergy (Intermediate, Verified 07/04/24 10:01) Rash adhesive Allergy (Unknown, Verified 07/04/24 10:01) Rash erythromycin base [ERYTHROMYCIN BASE] Allergy (Unknown, Verified 07/04/24 10:01) Hives peach Allergy (Unknown, Verified 07/04/24 10:01) Anaphylaxis latex Adverse Reaction (Verified 07/04/24 10:01) Hives lisinopril Adverse Reaction (Verified 07/04/24 10:01) Cough Do you need a note to return to daycare/school/sports/work: No HPI EP LT ear pain/not better HPI Details pt c/o LT ear pain. Started Sunday 06/24. Seen in walk-in 06/29. Not improving. Now lost voice and has had low grade fevers. Cold sweats, productive cough PFSH Medical History Diverticulosis Tinnitus of left ear FHx: colonic polyps Annual physical exam Hydronephrosis of right kidney Migraine Anxiety Seasonal allergies Chronic asthma HTN (hypertension) Surgical History Hx of tonsillectomy Hx of adenoidectomy History of bunionectomy H/O breast biopsy Family History Father HTN (hypertension) Substance use disorder Mother Breast cancer Bladder cancer Cancer of kidney Mental health disorder Maternal Grandmother Colon cancer, Onset Age: 80 Daughter Andrzej's thyroiditis Social History Housing: House Alcohol intake: current Alcohol intake frequency: holidays/special occasions only Patient Tobacco Use Status: Former Tobacco user e-Cigarette/Vaping Use: Never Used service: No Current occupational status: employed 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 Cognitive needs: No Hearing needs: No Vision needs: Yes Review of Systems Const Details: See HPI Physical Exam Vital Signs: Last Vital Signs Temp 98.4 F 07/04/24 10:02 Pulse 102 H 07/04/24 10:02 BP 134/90 H 07/04/24 10:02 Pulse Ox 99 07/04/24 10:02 Oxygen Delivery Method Room Air 07/04/24 10:02 BMI result Body Mass Index 29.6 Const General: no acute distress and well developed Nutritional Appearance: well nourished Orientation/consciousness: patient oriented x3 HEENT Head: Yes normocephalic and Yes atraumatic Eyes General: appearance normal, both eyes and all related structures Pupils: Equal, round and reactive pupils present EOM: EOMs intact bilaterally Resp Other: Lungs clear to auscultation bilaterally Effort & Inspection: normal respiratory effort Auscultation: clear to auscultation bilaterally Cardio Rate: regular rate Rhythm: regular rhythm Heart sounds: S1 normal heart sound present, S2 normal heart sound present, no gallops, no murmurs and no rubs Neuro General: patient oriented x3 and gait normal Cranial nerves: Yes Equal, round and reactive pupils present Psych Affect: normal affect Assessment & Plan Assessment & Plan (1) Left otitis media: Code(s): H66.92 - Otitis media, unspecified, left ear Plan: She has been Augmentin but still has infection Switched to levofloxacin Warm saltwater gargles Rest and fluids Follow-up with PCP if improving Medications: New levofloxacin 750 mg PO DAILY 7 days 7 tabs 0RF Coding Level of Care Code Est Pt Level 3 (73684) Diagnoses Left otitis media H66.92
[2024-07-04 10:02] VITALS: BP 134/90; PULSE 102; TEMP 36.9; O2SAT 99; BMI 29.6
== END 2024-07-04 11:41 | disposition home or self-care (01) ==
PROVIDERS: PCP Internal Medicine; Visit Provider Family Medicine
DX: H66.92 Otitis media, unspecified, left ear (principal)
CPT/HCPCS: 99213

== ENCOUNTER 2024-10-28 15:35 | Outpatient (AMB) | payer BC, SELFPAY ==
--- NOTE | 2024-10-28 15:44 | MHC.OFFVIS ---
Vital Signs 10/28/24 15:46 Height 5 ft 5 in Weight 178 lb BMI 29.6 BP 130/80 Blood Pressure Location Rt brachial Position Sitting Pulse 83 Pulse Source Pulse Oximeter Pulse Oximetry (%) 97 Oxygen Delivery Method Room Air Intake Visit Reasons: RA/CM Intake Note: Patient presents for RA. Allergies methotrexate Allergy (Intermediate, Verified 10/28/24 15:47) Rash adhesive Allergy (Unknown, Verified 10/28/24 15:47) Rash erythromycin base [ERYTHROMYCIN BASE] Allergy (Unknown, Verified 10/28/24 15:47) Hives peach Allergy (Unknown, Verified 10/28/24 15:47) Anaphylaxis latex Adverse Reaction (Verified 10/28/24 15:47) Hives lisinopril Adverse Reaction (Verified 10/28/24 15:47) Cough Medication List - Last Reconciled 10/28/24 by Dariel Borrego MD albuterol sulfate 90 mcg/actuation (ProAir HFA) 2 puffs inhalation Q4-6H PRN albuterol sulfate 2.5 mg (0.5 mL) inhalation Q6H PRN amlodipine 2.5 mg PO DAILY cetirizine (Zyrtec) 10 mg PO DAILY PRN cyclosporine 0.05% (Restasis) 1 drp ophthalmic (eye) Q12H drospirenone (contraceptive) (Slynd) 1 tab PO DAILY Enbrel Mini (etanercept) 50 mg subcut QWEEK NS sumatriptan succinate (Imitrex) take 1 tab at onset of headache; if no relief may repeat 1 tab after at least 2 hrs; max = 4 tabs/24 hr PO HPI Comments Details: 44-year-old female with seronegative arthritis returns for follow-up. She had left shoulder arthroscopic surgery on October 07. She states that she had rotator cuff repair as well as shaving off of her arthritis . She is recovering well so far. She had to hold her Enbrel perioperatively and just started this a few days ago. She states that over the last few months she has had double ear infection that requires a couple round of antibiotics and she also had a toe paronychia that required antibiotics. She states that Enbrel generally helps her hands and feet by about 70%. She is concerned about the frequency of infections. She is currently off of work. 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 Her joint pains are much better overall now that she is not as active. Initial history: This is a 42-year-old female with a past medical history of hypertension, asthma presents for evaluation of multiple joint pains. Condition started 2-3 years ago with bilateral foot pain. In the interim patient broke 1 of her metatarsal bones of her right foot when she accidentally stubbed her toe running after her dog. Her foot was in a boot for some time. However patient also had plantar fasciitis s/p multiple steroid injections. She also had spontaneous Achilles tendinitis affecting her left ankle. She denies any preceding trauma. This was treated with ibuprofen and Voltaren gel. 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 Patient continues to have bilateral ankle and foot pain mostly at her MTPs. Over the last few months she has been having pain in both hands usually at the MCPs the pain is generally worse at night but is also worse in the morning when she wakes up. Over the last couple of months she noticed some puffiness of her fingers, difficulty putting her rings on. Also over the last few months she has been having pain in her tailbone worse with activity. She has been taking ibuprofen about 600 mg nightly mostly to treat her back pain. She denies any skin rashes, no history of psoriasis. No history of uveitis or IBD. She had a colonoscopy in 2021 which showed diverticulosis, unremarkable otherwise. Recent labs showed borderline positive rheumatoid factor. [facility] Medical History Diverticulosis Tinnitus of left ear FHx: colonic polyps Annual physical exam Hydronephrosis of right kidney Migraine Anxiety Seasonal allergies Chronic asthma HTN (hypertension) Surgical History History of shoulder surgery Hx of tonsillectomy Hx of adenoidectomy History of bunionectomy H/O breast biopsy Family History Father HTN (hypertension) Substance use disorder Mother Breast cancer Bladder cancer Cancer of kidney Mental health disorder Maternal Grandmother Colon cancer, Onset Age: 80 Daughter Andrzej's thyroiditis Social History Housing: House Alcohol intake: current Alcohol intake frequency: holidays/special occasions only Patient Tobacco Use Status: Former Tobacco user e-Cigarette/Vaping Use: Never Used service: No Current occupational status: employed 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 Cognitive needs: No Hearing needs: No Vision needs: Yes Female Reproductive History Menstrual Total pregnancies: 2 Number of Living Children: 2 Review of Systems Musc Reports arthralgias and Reports stiffness Physical Exam Vital Signs: Last Vital Signs Pulse 83 10/28/24 15:46 BP 130/80 10/28/24 15:46 Pulse Ox 97 10/28/24 15:46 Oxygen Delivery Method Room Air 10/28/24 15:46 BMI result Body Mass Index 29.6 Const General: cooperative and healthy appearing Nutritional Appearance: overweight Orientation/consciousness: patient oriented x3 Limitations: no limitations HEENT Head: Yes normocephalic and Yes atraumatic Mouth: moist mucous membranes Resp Effort & Inspection: normal respiratory effort and able to speak in complete sentences Cardio Rate: regular rate Rhythm: regular rhythm Skin General skin exam: no rashes or lesions noted Neuro General: patient oriented x3 Extrem Other: No active synovitis both hands and wrists, mild osteoarthritic changes Negative MCP squeeze test bilaterally Left shoulder in a sling No Trochanteric bursa area tenderness bilaterally today Results Reviewed Results Reviewed: Labs 10/2022? CRP normal? RF 16.5 (<14) negative on repeat Uric acid 3.3? Sed rate 17 NEGRITA screen negative Lyme screen negative Right foot MRI 10/27/2020? Bones/joints: Findings no evidence of acute fracture.? There is marrow edema in the base of the 2nd metatarsal and the medial cuneiform, marginating the 2nd tarsometatarsal joint.? This has the appearance of mild to moderate arthritic changes.? Superimposed stress injury/bone contusion could be considered in the appropriate clinical circumstance.? There is [id number] 3rd TMT, mild 4th TMT arthritis.? Moderate 1st MTP joint arthritis.? Degenerative cyst in the distal 2nd metatarsal head.? Mild hallux/tibial sesamoid degeneration. Muscles/tendons:? Visualized tendons are intact.? No tenosynovitis Visualized plantar aponeurosis appears unremarkable.? Dorsal subcutaneous edema MRI left shoulder 01/2024 IMPRESSION: 1. Findings consistent with calcific tendinitis within the junctional fibers of the supraspinatus tendon with mild adjacent soft tissue edema. No rotator cuff tendon tear. 2. Severe acromioclavicular osteoarthritis. 3. Minimal subacromial-subdeltoid bursitis. Assessment & Plan Assessment & Plan (1) Seronegative arthritis: Comment: dx 02/07 MTX caused rash Enbrel 06/09 effective Code(s): M13.80 - Other specified arthritis, unspecified site Category: Medical Plan: This is a 44-year-old female with seronegative arthritis who returns for follow-up. She remains on Enbrel weekly. Patient has had multiple infections over the last few months including a double ear infection that required a couple of rounds of antibiotic and an episode of paronychia that required antibiotics. We discussed holding Enbrel. Patient stated that Enbrel has helped the pains in her hands and feet by about 70%. She is worried about discontinuing it. Advised patient to do the Enbrel injection every 2 weeks and monitor for infections and musculoskeletal symptoms. If patient continues to get infections then Enbrel needs to be discontinued and substituted with a different DMARD. If Enbrel injection every 2 weeks is in adequate, different DMARDs should be considered. Advised patient to take pictures of any swollen joints Labs before next visit in 3 months (2) Rotator cuff arthropathy of left shoulder: Code(s): M12.812 - Other specific arthropathies, not elsewhere classified, left shoulder Category: Medical Plan: S/p arthroscopic surgery 09/2024 (3) Long-term use of immunosuppressant medication: Code(s): Z79.60 - intermediate accountant (current) use of unspecified immunomodulators and immunosuppressants Category: Medical Plan: Patient aware of risks of Enbrel. Patient is aware to hold Enbrel for any signs of infection or fever (4) Greater trochanteric bursitis of both hips: Code(s): M70.61 - Trochanteric bursitis, right hip; M70.62 - Trochanteric bursitis, left hip Category: Medical Plan: Not symptomatic at this time as patient is off of work. I provided patient with a printout of home exercises Plan I spent 25 minutes reviewing patient's chart, evaluating patient, ordering diagnostic workup, counseling patient and documenting in the chart Orders: Orders Complete Blood Count Auto Diff 3 Months M13.80 - Other specified arthritis, unspecified site T Spot TB 3 Months Z11.7 - Encounter for testing for latent tuberculosis infection Hepatitis A,B,C Profile 3 Months Z11.59 - Encounter for screening for other viral diseases Comprehensive Met. Panel 3 Months M13.80 - Other specified arthritis, unspecified site C Reactive Protein 3 Months M13.80 - Other specified arthritis, unspecified site Erythrocyte Sedimentation Rate 3 Months M13.80 - Other specified arthritis, unspecified site Medications: Discontinued amoxicillin-pot clavulanate 875-125 mg Discontinued Reason: Patient Completed Course 1 tab PO BID 10 days 20 tabs 0RF levofloxacin Discontinued Reason: Patient Completed Course 750 mg PO DAILY 7 days 7 tabs 0RF fluconazole Discontinued Reason: Patient Completed Course 150 mg PO Q3D 2 tabs 0RF doxycycline hyclate Discontinued Reason: Patient Completed Course 100 mg PO BID 20 tabs 0RF Coding Level of Care Code Est Pt Level 4 (03163) Diagnoses Seronegative arthritis M13.80 Rotator cuff arthropathy of left shoulder M12.812 Long-term use of immunosuppressant medication Z79.60 Greater trochanteric bursitis of both hips M70.61; M70.62
[2024-10-28 15:46] VITALS: BP 130/80; PULSE 83; O2SAT 97; BMI 29.6
--- OUTSIDE RECORDS SUMMARY | 2024-10-29 03:03 | XMS_ITS ---
Author Organization [facility] Address [address] [place] [address] Care Team Providers Care General Operations Manager Name Role Phone Mariah Abbott MD Primary Care Provider Unavaila ble Black, Komal Unavailable [phone] Allergies Allergen (clinical drug ingredient) Drug/Non Drug Allergy documented on EMR Reaction Allergy Type Onset Date Status Erythrocin Unknown Drug Allergy Active Adhesive possible allergy Allergy Active Latex Latex possible allergy Allergy Active methotrexate Methotrexate rash Drug Allergy A ctive REASON FOR VISIT PCP - 06/2023, Foot pain Medications Medication SIG (Take, Route, Frequency, Duration) Notes [...] ot-Taking Omeprazole 20 MG Orally Not -Taking Social History Tobacco Use: Social History Observation Description Date Details (start date - stop date) Former Smoker NA - NA Tobacco Use/Smoking Question Answer Notes Are you [...] Are you an other tobacco user? No Problems Problem Type SNOMED Code ICD Code Onset Dates Problem Status W/U Status Risk Notes Problem Seronegative arthritis (375640281) Seronegative arthritis (M13.80) Active confirmed Vital Signs Height 5ft 5in in 08/01/2023 Weight 173 lbs 08/01/2023 BMI 28.79 kg/m2 08/01/2023 Encounters Encounter Location Date Provider Diagnosis [facility] [address] [place] [address] 08/01/2023 Komal Black Arthralgia of left foot M25.572 ; Rheumatoid arthritis involving multiple sites with positive rheumatoid factor M05.79 ; Arthralgia of right foot M25.571 ; Metatarsalgia, left foot M77.42 ; Metatarsalgia, right foot M77.41 ; Primary osteoarthritis, left ankle and foot M19.072 ; Primary osteoarthritis, right ankle and foot M19.071 and Seronegative arthritis M13.80 Assessments Encounter Date Diagnosis (ICD Code) Assessment Notes Treatment Notes Treatment Clinical Notes Section Notes 08/01/2023 Arthralgia of left foot (ICD-10 [...] M19.071) 08/01/2023 Seronegative arthritis (ICD-10 - M13.80) Plan Of Treatment Next Appt Details Follow Up: prn, Reason: Progress Notes * Valerie BARRONDOB: 0 (42 yo F)Acc No.[id number]:08/01/2023 Progress Note Patient:?Valerie Barron Provider:?Komal Rockwell DPM :1980???Age:42 Y???Sex:Female D ate:08/01/2023 Address:[address] [place], [place] [id number] Pcp:Mariah Abbott MD Subjective: * Chief Complaints: * ???PCP - 06/2023Foot pain * HPI: ???Foot Pain:?Nature:?aching, tenderness, sharp.?Location:?B/L.?Duration:?several years.?Onset:?unknown, denies trauma.?Course:?improved , at? 40?%.?Aggrevated:?standing, walking, weather changes.?Treatments:?medication ( NSAID'S- Diclofenac sodium,?Motrin ), improves condition but can cause upset stomach, volteran gel occasional.Pt was evaluated by General Operator and was started on Methotexate and had an reaction (rash) to the medication .Pt is on Enbrel and is able to walk without extreme pain.?Severity/Quality:?moderate.? * ROS:?General/Constitutional:?Nausea?denies.?Vomiting?denies.?Hunger Thirst?denies.?Loss appetite?denies.?Chills?denies.?Fatigue?denies.?Fever?denies.?Night Sweats?denies.?Unexplained weight loss?denies.?Unexplained weight gain?denies.?HEENTM:?Dentures?denies.?Dizziness?denies.?Glasses/contacts?admits.?Retinopathy?de nies.?Blurred/double vision?denies.?TMJ?denies.?Discharge/drainage?denies.?Implants?denies.?Sore throat?denies.?Dental implants?denies.?Hard of hearing ?denies.?Difficulty chewing/swallowing/speaking?denies.?Nose bleeds?denies.?Sore mouth?denies.?Respiratory:?On Oxygen?denies.?Pneumonia/pleurisy?denies.?Bronchitis?denies.?Emphysema?denies.?C oughing?denies.?Cough blood?denies.?Shortness of breath?denies.?Wheezing?denies.?Cardiovascular:?Pacemaker?denies.?MVP?denies.?WPW?denies.?CHF?denies.?Heart attack?denies.?Septal defect?denies.?Rapid beat?denies.?Chest pain ?denies.?Atrial Fib.?denies.?Murmur/Palpitations?denies.?Gastrointestinal:?Hemorrhoids?denies.?Stomach/Abdominal pain?denies.?Dark blood stool?denies.?Irritable bowel ?denies.?Constipation?denies.?Diarrhea?denies.?Hematology:?Swelling?denies.?Clots?denies.?Varicose Veins?denies.?Bruising?denies.?Bleeding problem?denies.?Genitourinary:?Blood urine?denies.?Frequent/Painfu/urination/bladder control?denies.?Kidney stones?denies.?Infection (UTI)?denies.?Nephropathy?denies.?sex trans dis (STD)?denies.?Prostate?denies.?Musculoskeletal:?Hammertoes?denies.?Bunions?denies.?Back Pain?admits.?Muscle Cramps/ Resting?denies.?Muscle cramps / walking?denies.?Generalized aches and pains?denies.?Weakness?denies.?Integ.:?Waters?denies.?Scars?denies.?Corns/calluses?denies.?Ingrown nails?admits.?Painful nails?admits.?Open Sores?denies.?Rashes?denies.?Neurologic:?Difficulty sleeping?denies.?Brain disorder?denies.?Numbness?denies.?Balance trouble?denies.?Confusion?denies.?Fainting/blackouts?denies.?Tingling?denies.?Tr emors?denies.? * Medical History:? * Surgical History:?hernia age 7adenoids/tonsils age 15right bunion surgeries 2x * Hospitalization/Major Diagno stic Procedure:?Denies Past Hospitalization * Family History:?Mother: konstantin e, cancer, kidney/liver disease.?Father: alive, foot problems, hypertension.? * Social History:?Tobacco Use:?Tobacco Use/Smoking?Are you a:?former smoker ?Additional Findings: Tobacco Non-User?Current non-smoker ?Tobacco use other than smoking?Are you an other tobacco user??No ???Drugs/Alcohol:?Drugs?Have you used drugs other than those for medical reasons in the past 12 months??No ?Alcohol Screen?Did you have a drink containing alcohol in the past year??Yes ?How often did you have a drink containing alcohol in the past year??2 to 3 times a week (3 points) ?Points?3 ?Interpretation?Positive ???Miscellaneous:?Caffeine: yes, frequency:, 1-2 cups per day. ?Children: yes, 2. ?Exercise: yes, walking everyday , rowing machine. ?Marital status: . 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 * Medications:?TakingEtanercep t 50 MG/ML Solution Auto-injector as directed Subcutaneous Restasis 0.05 % Emulsion 1 drop into affected eye Ophthalmic Twice a daySlynd 4 MG Tablet 1 tablet Orally Once a day, Notes: ControlamLODIPine Besylate 2.5 MG Tablet 1 tablet Orally Once a dayZyrTEC Physical Therapy 3-4x per week for 3-4 weeks Flonase ASO Ankle/Foot Stablizing AFO As directed Wear DailyTaking Etanercept 50 MG/ML Solution Auto-injector as directed Subcutaneous Taking Restasis 0.05 % Emulsion 1 drop into affected eye Ophthalmic Twice a dayTaking Slynd 4 MG Tablet 1 tablet Orally Once a day, Notes: ControlTaking amLODIPine Besylate 2.5 MG Tablet 1 tablet Orally Once a dayTaking ZyrTEC Taking Physical Therapy 3-4x per week for 3-4 weeks Taking Flonase Taking ASO Ankle/Foot Stablizing AFO As directed Wear DailyNot-Taking/PRNDiclofenac Sodium 50 MG Tablet Delayed Release 1 tablet as needed Orally Twice a daySingulair 10 MG Tablet Orally Meloxicam 15 MG Tablet 1 tablet Orally Once a dayWalking Boot/Pneumatic As directed Wear DailyBreo Ellipta Diclofenac Sodium 50 MG Tablet Delayed Release 1 tablet Orally Twice a dayLisinopril 20 MG Tablet Orally Claritin 10 MG Tablet Orally ProAir HFA 108 (90 Base) MCG/ACT Aerosol Solution Inhalation EpiPen LORazepam 0.5 MG Tablet Orally Omeprazole 20 MG Tablet Delayed Release Orally Fluconazole 150 MG Tablet Orally predniSONE 20 MG Tablet Orally for 1 weekMedication List reviewed and reconciled with the patientNot-Taking/PRN Diclofenac Sodium 50 MG Tablet Delayed Release 1 tablet as needed Orally Twice a dayNot-Taking/PRN Singulair 10 MG Tablet Orally Not- Taking/PRN Meloxicam 15 MG Tablet 1 tablet Orally Once a dayNot-Taking/PRN Walking Boot/Pneumatic As directed Wear DailyNot-Taking/PRN Breo Ellipta Not-Taking/PRN Diclofenac Sodium 50 MG Tablet Delayed Release 1 tablet Orally Twice a dayNot-Taking/PRN Lisinopril 20 MG Tablet Orally Not-Taking/PRN Claritin 10 MG Tablet Orally Not-Taking/PRN ProAir HFA 108 (90 Base) MCG/ACT Aerosol Solution Inhalation Not-Taking/PRN EpiPen Not-Taking/PRN LORazepam 0.5 MG Tablet Orally Not- Taking/PRN Omeprazole 20 MG Tablet Delayed Release Orally Not-Taking/PRN Fluconazole 150 MG Tablet Orally Not-Taking/PRN predniSONE 20 MG Tablet Orally for 1 weekMedication List reviewed and reconciled with the patient * Allergies:?ErythrocinLatex: possible allergyAdhesive: possible allergyMethotrexate: rashyes[Allergies Verified] Objective: * Vitals:?Ht: 5ft 5in, Wt:173, BMI:28.79, Shoe size: 8.5-9, Ht-cm: 165.1 cm, Wt- k.47 kg. * Examination: ???General Examination: ?GENERAL APPEARANCE:?pleasant, alert, well nourished, well developed, well hydrated, with good attention to hygene/body habitus, and in no acute distress.?ORIENTED:?person,place, and time.?Neurological: ?SENSORY:?Neurological exam reveals intact sensorium, pain sensation normal, vibration sensation intact, pinprick sensation is normal in the lower extremities, pt denies, anesthesia, burning, paresthesia, tingling, B/L.?Vascular: ?DP PULSES:?2/4, B/L.?PT PULSES:?2/4, B/L.?Orthopedic: ?MUSCLE STRENGTH:?5/5 all groups in a symmetrical fashion , B/L.?FOOT MORPHOLOGY:?Less Pain on palpation midfoot b/l.?TAILOR'S BUNION:? Enlarged, less painful, prominent, reduced inflammation ?5th Metatarsal Base, LEFT.?MPJ PATHOLOGY:?Reduced Pain, swelling, and inflammation to dorsal MPJ(s) 1-5 b/l MPJ pain with ROM B/L.? Assessment: * Assessment: 1.?Arthralgia of left foot - M25.572, ,Chronic problem, Stable (1=3,2=4)?2.?Rheumatoid arthritis involving multiple sites with positive rheumatoid factor - M05.79 (Primary)?3. Arthralgia of right foot - M25.571, ,Chronic problem, Stable (1=3,2=4)?4.?Metatarsalgia, left foot - M77.42?5.?Metatarsalgia, right foot - M77.41?6.?Primary osteoarthritis, left ankle and foot - M19.072?7.?Primary osteoarthritis, right ankle and foot - M19.071?8.?Seronegative arthritis - M13.80? Plan: * Treatment: * Procedure Codes:? * Preventive Medicine:? ??Counseling:?Discussion:?-13: Office or other outpatient visit for the evaluation and management of an established patient, which required a medically appropriate history and/or examination and LOW level of DECISION MAKING for: 1 STABLE ACUTE UNCOMPLICATED PROBLEM, 2 OR MORE MINOR PROBLEMS, OR 1 STABLE CHRONIC PROBLEM, THAT POSE(S) A LOW RISK FOR MORBIDITY/MORTALITY. The visit on the day of the encounter encompassed interpreting the data and educating the patient as to the nature of their condition, treatment options available according to their individual PMH, meds, allergies, and overall health/living conditions, as well as any potential risks or complications that may occur from a failure to adhere to, and participate in, the recommended course of therapy. The discussion included a complete verbal, and/or written explanation of the examination results, any x-rays taken, the proposed diagnosis, and outline of the treatment plan. A schedule for future care needs was also explained. The patient verbalized an understanding of the instructions at this time and agreed to be an active participant in their treatment. If the patient should think of any questions or concerns after the visit, I have encouraged the patient to call the office, Discussed other tx options for the patients condition,We discussed topical medications as needed we discussed injection therapy again however due to pts decrease in pain we elected to continue with present treatment plan and pt will call as needed..? * Follow Up:?prn * Images: * Sign off status: Completed true * Provider:?Komal Rockwell DPM Date:?2022 Generated for Norman dixon/Abdon/Warren on:?10/29/2024 03:03 AM EST History and Physical Notes * HPI (History of Present Illness) Category Sub-Category Detail Notes Category Not es Foot Pain Nature: aching, tenderness, sharp Location: B/L Duration: several years Onset: unknown, denies trau ma Course: improved , at 40 % Aggravated: standing, walking, w eather changes Treatments: medication ( NSAID'S - Diclofenac sodium, Motrin ), improves condition but can cause upset stomach, volteran gel occasional.Pt was evaluated by General Operator and was started on Methotexate and had an reaction (rash) to the medication .Pt is on Enbrel and is able to walk without extreme pain Severity/Quality: moderate Examination Category Sub-Category Detail Notes Category Not es Neurological SENSORY: Neurological exa m reveals intact sensorium, pain sensation normal, vibration sensation intact, pinprick sensation is normal in the lower extremities, pt denies, anesthesia, burning, paresthesia, tingling, B/L BABINSKI REFLEX: TINEL'S COMPRESSION: DEEP TENDON REFLEXES: Dermatologic SKIN FINDINGS: Orthopedic FOOT MORPHOLOGY: Less Pain on palpation m idfoot b/l FOOTWEAR: MPJ PATHOLOGY: Reduced Pain, swelli [...] ORIENTED: person,place, and ti me Vascular DP PULSES(B): 2/4, B/L PT PULSES(B): 2/4, B/L
--- OUTSIDE RECORDS SUMMARY | 2024-10-29 03:03 | XMS_ITS | Patient Health Record ---
[facility] Organization [facility] Address [address] [place] [address] Care Team Providers Care Flatbed Owner Operator Name Role Phone Mariah Abbott MD Primary Care Provider Unavaila rosaura Black, Komal Unavailable [phone] Allergies Allergen (clinical drug ingredient) Drug/Non Drug Allergy documented on EMR Reaction Allergy Type Onset Date Status Erythrocin Unknown Drug Allergy Active Adhesive possible allergy Allergy Active Latex Latex possible allergy Allergy Active methotrexate Methotrexate rash Drug Allergy A ctive Reason For Referral No Information Medications Medication SIG (Take, Route, Frequency, Duration) [...] a day for 30 day(s) Control Active Immunizations Vaccine Route Administration Date Status Comme nts COVID-19 Pfizer BioNTech Vaccine Unknown 10/04/2021 Administered First Dose: 11/24/20 Second Dose: 12/13/2020 Social History Tobacco Use: Social History Observation [...] Problem Status W/U Status Risk Notes Problem 525442134 Rheumatoid arthritis without rheumatoid factor, 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) Active confirmed Problem Localized, primary osteoarthritis of the ankle and/or foot (542445979) Primary osteoarthritis, right ankle and foot (M19.071) Active confirmed Problem Localized, primary osteoarthritis of the ankle and/or foot (303487434) Primary osteoarthritis, left ankle and foot (M19.072) Active confirmed Problem 632351804 Rheumatoid arthritis involving multiple sites with positive rheumatoid factor (M05.79) Active confirmed Problem Seronegative arthritis (503117420) Seronegative arthritis (M13.80) Active confirmed Plan Of Treatment Pending Test Test Name Order Date MRI : Foot, right 10/24/2020 *Uric Acid, Serum 10/22/2022 *Sedimentation Rate-Westergren 2 *Sedimentation Rate-Westergren 0 Rheumatoid Arthritis Factor 07/11/2020 NEGRITA w/Reflex 10/22/2022 NEGRITA Comprehensive Panel 07/11/2020 X ray : Foot, left 3V 07/23/2019 67151 I&D ABSCESS- SIMPLE,SINGLE 021 , [id number]/INJECT, JOINT/BURSA 1 ,[id number] TENDON SHEATH/LIGAMENT 0 07/23/201986823,[id number] TENDON SHEATH/LIGAMENT 1 CRP 07/11/2020 Insurance Providers Payer Name Payer Address Payer Phone Subscriber Number Group Number Insured Name Patient Relationship to Insured Coverage Start Date Coverage End Date [facility] [address] [place] [address] [phone] [id number] Valerie Barron Self - patient is the insured Medical (General) History Medical History History ICD Code Hypertension asthma Seasonal allergies Bipolar disorder Plantar fasciitis back pain migraines GERD chicken pox Surgical History Surgery Date(Month/Year) hernia age 7 adenoids/tonsils age 15 right bunion surgeries 2x
== END 2024-10-28 16:20 | disposition home or self-care (01) ==
PROVIDERS: PCP Internal Medicine; Visit Provider Student in an Organized Health Care Education/Training Program
DX: M13.80 Other specified arthritis, unspecified site (principal); M12.812 Other specific arthropathies, not elsewhere classified, left shoulder; Z79.60 Long term (current) use of unspecified immunomodulators and immunosuppressants; M70.61 Trochanteric bursitis, right hip; M70.62 Trochanteric bursitis, left hip
CPT/HCPCS: 99214

== ENCOUNTER 2025-01-13 08:28 | Outpatient (AMB) | payer BC, SELFPAY ==
[2025-01-13 08:47] VITALS: BP 128/70; PULSE 91; RESP 16; TEMP 36.8; O2SAT 99; BMI 30.4
--- NOTE | 2025-01-13 08:47 | AM.OFFWIN_ITS ---
Intake Vital Signs 01/13/25 08:47 Height 5 ft 5 in Weight 183 lb BMI 30.4 BP 128/70 Blood Pressure Location Rt brachial Position Sitting Respiration 16 Pulse 91 Pulse Source Pulse Oximeter Temp 98.3 F Temp Source Oral Pulse Oximetry (%) 99 Oxygen Delivery Method Room Air Intake Visit Reasons: EP pain on LT ear, headache, cough Patient Tobacco Use Status: Former Tobacco user Allergies methotrexate Allergy (Intermediate, Verified 01/13/25 08:51) Rash adhesive Allergy (Unknown, Verified 01/13/25 08:51) Rash erythromycin base [ERYTHROMYCIN BASE] Allergy (Unknown, Verified 01/13/25 08:51) Hives peach Allergy (Unknown, Verified 01/13/25 08:51) Anaphylaxis latex Adverse Reaction (Verified 01/13/25 08:51) Hives lisinopril Adverse Reaction (Verified 01/13/25 08:51) Cough HPI HPI Comments History of Present Illness Details She presents to office with 1.5 werks of symptoms Ear L side pain is steady 5/10 + congestion, sinus pressure [place] pulsing in L ear + cough and using inhaler which helps No phlegm No fever but + chills Minimal scratchy throat PFSH Medical History Diverticulosis Tinnitus of left ear FHx: colonic polyps Annual physical exam Hydronephrosis of right kidney Migraine Anxiety Seasonal allergies Chronic asthma HTN (hypertension) Surgical History History of shoulder surgery Hx of tonsillectomy Hx of adenoidectomy History of bunionectomy H/O breast biopsy Family History Father HTN (hypertension) Substance use disorder Mother Breast cancer Bladder cancer Cancer of kidney Mental health disorder Maternal Grandmother Colon cancer, Onset Age: 80 Daughter Andrzej's thyroiditis Social History Housing: House Alcohol intake: current Alcohol intake frequency: holidays/special occasions only Patient Tobacco Use Status: Former Tobacco user e-Cigarette/Vaping Use: Never Used service: No Current occupational status: employed 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 Cognitive needs: No Hearing needs: No Vision needs: Yes Review of Systems Const Reports chills, Denies fever(s) and Denies headache(s) Eyes Denies change in vision ENT Denies dizziness, Reports otalgia, Reports facial pain, Denies headache(s), Reports nasal congestion, Reports sinus pain, Reports sinus pressure, Reports sore throat (scratchy) and Denies throat swelling Card Denies chest pain and Denies dyspnea Resp Denies change in phlegm color, Reports cough and Denies dyspnea GI Denies abdominal pain Musc Denies myalgias Skin/Breast Denies rash Neuro Denies dizziness and Denies headache(s) Aller/Immun Denies throat swelling Physical Exam Vital Signs: Last Vital Signs Temp 98.3 F 01/13/25 08:47 Pulse 91 01/13/25 08:47 Resp 16 01/13/25 08:47 BP 128/70 01/13/25 08:47 Pulse Ox 99 01/13/25 08:47 Oxygen Delivery Method Room Air 01/13/25 08:47 BMI result Body Mass Index 30.4 General: Non-toxic, NAD. Speaking full sentences. Skin: Warm dry throughout Eye: EOMI HENT: Airway patent. Uvula midline. No pharyngeal erythema or edema. No HOT STRIP MILL SUPERVISOR. + maxillary sinus pain to palpation bilaterally. Bilateral canals clear. TM non- erythematous, non-bulging but + fluid noted bilaterally. No TM perforation or hemotympanum noted. Respiratory: CTA bilaterally. No wheezes, rales or rhonchi Cardiac: RRR. No murmur MSK: Full ROM extremities. Neurology: Alert. No aphasia or facial droop. Gait without abnormality Psych: Good mood and affect Assessment & Plan Assessment & Plan (1) Maxillary sinusitis: Code(s): J32.0 - Chronic maxillary sinusitis Qualifiers: Chronicity: acute Recurrence: non-recurrent Qualified Code(s): J01.00 - Acute maxillary sinusitis, unspecified Plan: Augmentin with food Continue antihistamine use Albuterol PRN Lungs CTA; no concern PNA F/U with PCP with concerns All questions answered at time of discharge Medications: New amoxicillin-pot clavulanate 875-125 mg 1 tab PO BID 14 tabs 0RF Coding Level of Care Code Est Pt Level 3 (78885) Diagnoses Acute non-recurrent maxillary sinusitis J01.00 Chronicity: acute Recurrence: non-recurrent
--- OUTSIDE RECORDS SUMMARY | 2025-01-13 08:59 | XMS_ITS ---
Author Organization [facility] Address [address] [place] [address] Care Team Providers Care Greige Goods Marker Name Role Phone Mariah Abbott MD Primary Care Provider Unavaila ble Black, Komal Unavailable [phone] Allergies Allergen (clinical drug ingredient) Drug/Non Drug [...] W/U Status Risk Notes Problem Seronegative arthritis (233701980) Seronegative arthritis (M13.80) Active confirmed Vital Signs Height 5ft 5in in 08/01/2023 Weight 173 lbs 08/01/2023 BMI 28.79 kg/m2 08/01/2023 Encounters Encounter Location Date Provider Diagnosis [facility] [address] [place] [address] 08/01/2023 Komal Black Arthralgia of left foot [...] * Valerie BARRONDOB: 0 (42 yo F)Acc No.[id number]:08/01/2023 Progress Note Patient:?Valerie Barron Provider:?Komal Rockwell DPM :1980???Age:42 Y???Sex:Female D ate:08/01/2023 Address:[address] [place], [place] [id number] Pcp:Mariah Abbott MD Subjective: * Chief Complaints: * ???PCP - 06/2023Foot pain * HPI: ???Foot Pain:?Nature:?aching, tenderness, sharp.?Location:?B/L.?Duration:?several years.?Onset:?unknown, denies trauma.?Course:?improved , at? 40?%.?Aggrevated:?standing, walking, weather changes.?Treatments:?medication ( NSAID'S- Diclofenac sodium,?Motrin ), improves condition but can cause upset stomach, volteran gel occasional.Pt was evaluated by Project Scientist and was started on Methotexate and had [...] Rockwell DPM Date:?2022 Generated for Norman dixon/Abdon/Warren on:?01/13/2025 08:59 AM EST History and Physical Notes * [...] stomach, volteran gel occasional.Pt was evaluated by Project Scientist and was started on Methotexate and had [...] ORIENTED: person,place, and ti me Vascular DP PULSES (B): 2/4, B/L PT PULSES (B): 2/4, B/L
--- OUTSIDE RECORDS SUMMARY | 2025-01-13 08:59 | XMS_ITS | Patient Health Record ---
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) Active confirmed Problem Localized, primary osteoarthritis of the ankle and/or foot (980691090) Primary osteoarthritis, right ankle and foot (M19.071) Active confirmed Problem Localized, primary osteoarthritis of the ankle and/or foot (621438627) Primary osteoarthritis, left ankle and foot (M19.072) Active confirmed Problem 549243584 Rheumatoid arthritis involving multiple sites with positive rheumatoid factor (M05.79) Active confirmed Problem Seronegative arthritis (148333660) Seronegative arthritis (M13.80) Active confirmed Plan Of Treatment Pending Test Test Name Order Date MRI : Foot, right 10/24/2020 *Uric Acid, Serum 10/22/2022 *Sedimentation Rate-Westergren 2 *Sedimentation Rate-Westergren 0 Rheumatoid Arthritis Factor 07/11/2020 NEGRITA w/Reflex 10/22/2022 NEGRITA Comprehensive Panel 07/11/2020 X ray : Foot, left 3V 07/23/2019 [id number] I&D ABSCESS- SIMPLE,SINGLE 021 , [id number]/INJECT, JOINT/BURSA 1 ,[id number] TENDON SHEATH/LIGAMENT 0 07/23/201933762,G2446-ULE TENDON SHEATH/LIGAMENT 1 CRP 07/11/2020 Insurance Providers Payer Name Payer Address Payer Phone Subscriber Number Group Number Insured Name Patient Relationship to Insured Coverage Start Date Coverage End Date [facility] [address] [place] [address] [id number] Valerie Barron Self - patient is the insured Medical (General) History Medical History History ICD Code Hypertension asthma Seasonal allergies Bipolar disorder Plantar fasciitis back pain migraines GERD chicken pox Surgical History Surgery Date(Month/Year) hernia age 7 adenoids/tonsils age 15 right bunion surgeries 2x
--- OUTSIDE RECORDS SUMMARY | 2025-01-13 08:59 | XMS_ITS | Clinical Summary ---
Author Organization [address] Address [address] [place] [address] Phone Care Team Providers Care Director Of Fundraising Name Role Phone Mariah Abbott MD Primary Care Provider [phone] Allergies Active Allergy Reactions Criticality Noted Date Comments Adhesive Tape-Silicones 04/22/2019 No reaction documented Erythromycin 01/16/2010 No reaction documented Methotrexate 03/27/2023 Medications ALBUTEROL SULFATE INHL Inhale into the lungs. Active amLODIPine (NORVASC) 2.5 mg tablet Take 1 tablet (2.5 mg total) by mouth 1 (one) time each day. 03/11/2023 Active amLODIPine (NORVASC) 5 mg tablet Take 1 tablet (5 mg total) by mouth 1 (one) time each day. 03/09/2020 Active benzonatate (TESSALON) 100 mg capsule Take 100 mg by mouth 3 times daily as needed. Active cetirizine (ZyrTEC) 10 mg tablet Take 1 tablet (10 mg total) by mouth. 02/22/2021 Active drospirenone, contraceptive, (Slynd) 4 mg (28) tablet Take by mouth. Active etanercept (EnbreL Mini) 50 mg/mL (1 mL) injection cartridge 12/27/2023 Active fluconazole (DIFLUCAN) 150 mg tablet Take 150 mg by mouth once. Active fluticasone furoate-vilante roL (BREO ELLIPTA) 100-25 mcg/dose inhaler Inhale into the lungs. Active folic acid (FOLVITE) 1 mg tablet Take 1 tablet (1,000 mcg total) by mouth 1 (one) time each day. 02/07/2023 Active sertraline (ZOLOFT) 25 mg tablet Take 1 tablet (25 mg total) by mouth 1 (one) time each day. 12/24/2023 Active PREDNISONE ORAL Take 10 mg by mouth. Active dicyclomine (BENTYL) 10 mg capsuleIndicati ons:Irritable bowel syndrome (IBS) TAKE 1 CAPSULE BY MOUTH THREE TIMES A DAY NEEDED 270 capsule 3 10/20/2024 Active Active Problems Problem Noted Date Diagnosed Date Asthma 09/07/2024 Hypertension 09/07/2024 Kidney stones 09/07/2024 Migraine, unspecified, not i ntractable, without status migrainosus 06/14/2016 Esophageal reflux 01/23/2016 Lumbar radiculopathy 01/26/2013 Allergic rhinitis 09/05/2011 Surgical History Surgery Date Site/Laterality Comments OTHER SURGICAL HISTORY 04/10/2019 Right PROCEDURE: BREAST MASS CORE BIOPSY SPCMN PATHOLGY EXAM; COMMENT: benign TONSILLECTOMY PROCEDURE: HISTORICAL TONSILLECTOMY; COMMENT: and adenoidectomy FOOT SURGERY PROCEDURE: HISTORICAL FOOT SURGERY; COMMENT: bunions Medical History Medical History Date Comments Hypertension DX:Hypertension Asthma DX:Asthma Kidney stones DX:Kidney stones At high risk for breast cancer 04/01/2019 D X:At high risk for breast cancer; COMMENT: Krunal lifetime risk > 20%; mother at 47, maternal aunt in 60's and paternal aunt in 70's, paternal grandmother in 60's, paternal great grandmother; Genetics testing x2 negative for patient; 03/2019 s/p right breast biopsy negative Esophageal reflux 01/23/2016 DX:Esophageal reflux Lumbar radiculopathy 01/26/2013 DX:Lumbar r adiculopathy Migraine, unspecified, not intractable, without status migrainosus 06/14/2016 DX:Migraine, unspecified, no t intractable, without status migrainosus Allergic rhinitis 09/05/2011 DX:Allergic rh initis Family History Medical History Relation Name Comments Breast cancer Aunt 1 maternal 60's Uterine cancer Aunt 2 maternal 60's Breast cancer Aunt 3 paternal 70's Colon cancer Maternal Grandmother 80's Breast cancer Mother Other: kidney cancer Mother Breast cancer Other great GM Breast cancer Paternal Grandmother 60's Relation Name Status Comments Aunt 1 maternal Alive in her 60s Aunt 2 maternal Alive in her 60s Aunt 3 paternal Alive in her 70s Maternal Grandmother in her 80s Mother Alive age 47 Other great GM Alive Paternal Grandmother in her 60s Social History Tobacco Use Types Packs/Day Years Used Date Smoking Tobacco: Former Cigarettes Q uit: 11/18/2005 Smokeless Tobacco: Never Alcohol Use Standard Drinks/Week Comments No 0 (1 standard drink = 0.6 oz pur e alcohol) Comments Unknown Sex and Gender Information Value Date Recorded Sex Assigned at Not on file Legal Sex Female 2:35 AM EST Gender Identity Not on file Sexual Orientation Not on file Obstetrics History Last Filed Vital Signs Vital Sign Reading Time Taken Comments Blood Pressure 131/86 07/22/2024 4:06 PM EDT Pulse 77 07/22/2024 4:06 PM EDT Temperature - - Respiratory Rate - - Oxygen Saturation - - Inhaled Oxygen Concentration - - Weight 78.9 kg (174 lb) 03/27/2023 4:11 PM EDT Height - - Body Mass Index - - Plan of Treatment Upcoming Encounters Date Type Department Care Team (Late st Contact Info) Description 01/20/2025 4:00 PM EST Office Visit [facility] [address] [place] [phone] Valerie Braswell MD [address] [place] [address] Health Maintenance Due Date Last Done Comments Breast Cancer Screening 1980 COVID-19 Vaccine (#1) 1985 DTaP,Tdap,and Td Vaccines (1 - Tdap) 1999 Hepatitis B Vaccines (1 of 3 - 19+ 3-dose series) 1999 Pneumococcal Vaccine: Pediat rics (0 to 5 Years) and At-Risk Patients (6 to 64 Years) (1 of 2 - PCV) 1999 Cervical Cancer Screening: P ap Smear 2001 Cholesterol Screening (Lipid Panel) 10/27/2022 Depression Screening 10/27/2022 HIV Screening 10/27/2022 Hepatitis C Screening 10/27/2022 Social Influencers of Health Screening 10/27/2022 Hypertension/CHF/CAD Annual BMP Blood Test 11/03/2022 Influenza Vaccine (#1) 2024 HIB Vaccines Aged Out No longer eligi ble based on patient's age to complete this topic HPV Vaccines Aged Out No longer eligi ble based on patient's age to complete this topic Hepatitis A Vaccines Aged Out No long er eligible based on patient's age to complete this topic IPV Vaccines Aged Out No longer eligi ble based on patient's age to complete this topic MMR Vaccines Aged Out No longer eligi ble based on patient's age to complete this topic Meningococcal ACWY Vaccine Aged Out N o longer eligible based on patient's age to complete this topic Meningococcal B Vacine Aged Out No lo nger eligible based on patient's age to complete this topic RSV Immunization Patients Un louis 20 months Aged Out No longer eligible b ased on patient's age to complete this topic Varicella Vaccines Aged Out No longer eligible based on patient's age to complete this topic Insurance [facility] Care Teams Director Of Fundraising Relationship Specialty Start Date End Date Mariah Abbott MD PCP - General 04/06/11
== END 2025-01-13 09:06 | disposition home or self-care (01) ==
PROVIDERS: PCP Internal Medicine; Visit Provider Physician Assistant
DX: J01.00 Acute maxillary sinusitis, unspecified (principal)

== ENCOUNTER → 2025-01-13 08:28 | Outpatient (BNVA) | payer BC, SELFPAY | PROVIDERS: PCP Internal Medicine ==

== ENCOUNTER 2025-01-22 10:38 | Outpatient (REF) | payer BC, SELFPAY ==
--- OUTSIDE RECORDS SUMMARY | 2025-01-22 12:00 | XMS_ITS ---
Author Organization [facility] Address [address] [place] [address] Care Team Providers Care Plastic Injection Mold Maker Name Role Phone Mariah Abbott MD Primary Care Provider Unavaila ble Black, Komal Unavailable [phone] Allergies Allergen (clinical drug ingredient) Drug/Non Drug [...] W/U Status Risk Notes Problem Seronegative arthritis (686627489) Seronegative arthritis (M13.80) Active confirmed Vital Signs Height 5ft 5in in 08/01/2023 Weight 173 lbs 08/01/2023 BMI 28.79 kg/m2 08/01/2023 Encounters Encounter Location Date Provider Diagnosis [facility] [address] [place] [address] 08/01/2023 Komal Black Arthralgia of left foot [...] * Valerie BARRONDOB: 0 (42 yo F)Acc No.[id number]:08/01/2023 Progress Note Patient:?Valerie Barron Provider:?Komal Rockwell DPM :1980???Age:42 Y???Sex:Female D ate:08/01/2023 Address:[address] [place], [place] [id number] Pcp:Mariah Abbott MD Subjective: * Chief Complaints: * ???PCP - 06/2023Foot pain * HPI: ???Foot Pain:?Nature:?aching, tenderness, sharp.?Location:?B/L.?Duration:?several years.?Onset:?unknown, denies trauma.?Course:?improved , at? 40?%.?Aggrevated:?standing, walking, weather changes.?Treatments:?medication ( NSAID'S- Diclofenac sodium,?Motrin ), improves condition but can cause upset stomach, volteran gel occasional.Pt was evaluated by Wood Barrel Reconditioner and was started on Methotexate and had [...] Rockwell DPM Date:?2022 Generated for Norman dixon/Abdon/Warren on:?01/22/2025 12:00 PM EST History and Physical Notes * HPI [...] stomach, volteran gel occasional.Pt was evaluated by Wood Barrel Reconditioner and was started on Methotexate and had [...]
--- OUTSIDE RECORDS SUMMARY | 2025-01-22 12:00 | XMS_ITS | Patient Health Record ---
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) Active confirmed Problem Localized, primary osteoarthritis of the ankle and/or foot (161935982) Primary osteoarthritis, right ankle and foot (M19.071) Active confirmed Problem Localized, primary osteoarthritis of the ankle and/or foot (648975948) Primary osteoarthritis, left ankle and foot (M19.072) Active confirmed Problem 404594140 Rheumatoid arthritis involving multiple sites with positive rheumatoid factor (M05.79) Active confirmed Problem Seronegative arthritis (157641738) Seronegative arthritis (M13.80) Active confirmed Plan Of Treatment Pending Test Test Name Order Date MRI : Foot, right 10/24/2020 *Uric Acid, Serum 10/22/2022 *Sedimentation Rate-Westergren 2 *Sedimentation Rate-Westergren 0 Rheumatoid Arthritis Factor 07/11/2020 NEGRITA w/Reflex 10/22/2022 NEGRITA Comprehensive Panel 07/11/2020 X ray : Foot, left 3V 07/23/2019 85389 I&D ABSCESS- SIMPLE,SINGLE 021 , [id number]/INJECT, JOINT/BURSA 1 ,[id number] TENDON SHEATH/LIGAMENT 0 07/23/201962489,[id number]-OIA TENDON SHEATH/LIGAMENT 1 CRP 07/11/2020 Insurance Providers Payer Name Payer Address Payer Phone Subscriber Number Group Number Insured Name Patient Relationship to Insured Coverage Start Date Coverage End Date [facility] [address] [place] [address] [phone] [id number] Valerie Barron Self - patient is the insured Medical (General) History Medical History History ICD Code Hypertension asthma Seasonal allergies Bipolar disorder Plantar fasciitis back pain migraines GERD chicken pox Surgical History Surgery Date(Month/Year) hernia age 7 adenoids/tonsils age 15 right bunion surgeries 2x
--- OUTSIDE RECORDS SUMMARY | 2025-01-22 12:00 | XMS_ITS | Encounter Summary ---
Author Organization [facility] Address [address] [place] [address] Care Team Providers Care Destination Specialist Name Role Phone Mariah Abbott MD Primary Care Provider [phone] Encounter Details Date Type Department Care Team (Late st Contact Info) Description 01/20/2025 Telephone Breast Care Center [facility] [address] [place] [phone] Valerie Braswell MD [address] [place] [address] Social History Tobacco Use Types Packs/Day Years [...] on file Sexual Orientation Not on file Travel History Travel Start Travel End [place] 12/19/2024 12/25/2024 documented as of this encounter Progress Notes * Valerie Braswell MD - 01/20/2025 5:13 PM EST Please obtain mammogram and right breast [facility]. thanks documented in this encounter Plan of Treatment Upcoming Encounters Date Type Department Care Team (Late st Contact Info) Description 08/04/2025 4:00 PM EDT Office Visit [facility] [place] [address] [place] [address] Valerie Braswell MD [address] [place] [address] documented as of this encounter Visit Diagnoses Not on filedocumented in this encounter Care Teams Destination Specialist Relationship Specialty Start Date End Date Mariah Abbott MD PCP - General 04/06/11 documented as of this encounter
--- OUTSIDE RECORDS SUMMARY | 2025-01-22 12:00 | XMS_ITS | Encounter Summary ---
Author Organization [facility] Address [address] [place] [address] Care Team Providers Care [employer] Team Leader Name Role Phone Mariah Abbott MD Primary Care Provider [phone] Reason for Referral * Imaging (Routine) - Pending Review Specialty Diagnoses / Procedures Referred By Contel t Referred To Contact Radiology Diagnoses At high risk for breast cancer Dense breast tissue Family history of breast cancer in first degree relative Mass of right breast, unspecified quadrant Procedures MR Breast wo and w Contrast bilat Valerie Kennedy MD [address] [facility] [address] [place] [address] Phone: tel: fax: [facility] [address] [place] [address] Phone: tel: Referral ID Status Reason Start Date Expiration Date V isits Requested Visits Authorized [id number] Pending Review 01/20/2025 01/20/2026 1 1 Reason for Visit * Reason Comments Follow-up Encounter Details Date Type Department Care Team ([facility] st Contact Info) Description 01/20/2025 4:00 PM EST Office Visit [facility] [address] [facility] [address] [place] [address] Valerie Kennedy MD [address] [place] [id number] At high risk for breast cancer (Primary Dx); Dense breast tissue; Family history of breast cancer in first degree relative; Mass of right breast, unspecified quadrant Social History Tobacco Use Types Packs/Day Years [...] file Travel History Travel Start Travel End [place] 12/19/2024 12/25/2024 documented as of this encounter Last Filed Vital Signs Vital Sign Reading Time Taken Comments Blood Pressure 163/92 01/20/2025 4:17 PM EST Pulse 91 01/20/2025 4:17 PM EST Temperature 37 ??C (98.6 ??F) 01/20/2025 4:17 PM EST Respiratory Rate - - Oxygen Saturation - - Inhaled Oxygen Concentration - - Weight - - Height - - Body Mass Index - - documented in this encounter Progress Notes * Valerie Kennedy MD - 01/20/2025 4:00 PM EST Reason for visit: Follow-up visit / High risk for breast cancer Summary of Breast Cancer Risk Factor Assessment Personal history: OCP use x12 years. Menses 15. She is premenopausal. G2, P2. First child delivered at age 26. Recently started low dose estrogen patch for perimenopause sxs. Tissue density C on MRI 12/2023. Biopsy history: Image guided biopsy 10/2020 of the left upper inner quadrant with findings of fibroadenoma. Image guided biopsy of the right breast 11/01/2021 with reactive lymph node. Image guided biopsy of the right breast 08/29/2023 (8:00) with findings of fibroadenoma. Family history: - Mother and maternal aunt with breast cancers. - PGM and PGGM with breast cancers. - Family history of colon cancer. - Father from pancreatic cancer 08/2024 age 72. Genetics: Prior negative BRCA 1/2 testing. Previous risk modeling/calculations: Patient data was evaluated with the Breast Cancer Risk Assessment Tool (Bere model; NCI/NSABP): 5 year risk 3.2% (general population 0.7%) Lifetime risk 26.2% (general population 12.2%) Risk reduction chemoprophylaxis: N/A HPI: This is a very pleasant 44 yr.-year-old patient who is evaluated due to high risk for breast cancer. She is unaccompanied in the office. She has no breast related concerns. She denies any changes skin of the breast, palpable mass, nipple discharge. Chronically inverted left nipple. She has inflammatory arthritis. Recent rotator cuff surgery. Walks for exercise. There have been no additional interval changes in past medical/surgical history, medications, social history, or family medical history (except as documented below). Please refer to EMR or my prior note for additional details. ROS The following symptom list was reviewed with the patient: GENERAL: fevers, chills, sweats, change in weight, fatigue or malaise HEENT: changes in hearing or vision, nasal problems NECK: lumps, goiter, or significant neck swelling RESPIRATORY: cough, wheezing, shortness of breath, pleuritic chest pain CARDIOVASCULAR: chest pain, leg swelling or palpitations BREAST (females): lumps, discharge, pain or change in skin GI: abdominal discomfort, blood in stools or black stools : dysuria, frequency or incontinence ACCOUNTING BOOKKEEPER (females): abnormal vaginal bleeding or abnormal vaginal discharge MUSCULOSKELETAL: joint pain or swelling, back pain, or muscle pain SKIN: lesions, rash or itching PSYCH: sleep disturbance or depression HEMATOLOGY: prolonged bleeding, easy bruisability or swollen nodes ENDOCRINE: cold or heat intolerance, polyuria, polydipsia or goiter NEURO: persistent headache, syncope, seizures, weakness or numbness The patient reported the following as positive: See HPI; none. ACTIVE MEDICATIONS: Medication list was reviewed/updated with the patient. Outpatient Medications Marked as Taking for the 01/20/25 encounter (Office Visit) with Valerie Kennedy MD Medication Sig Dispense Refill ALBUTEROL SULFATE INHL Inhale into the lungs. amLODIPine (NORVASC) 2.5 mg tablet Take 1 tablet (2.5 mg total) by mouth 1 (one) time each day. cetirizine (ZyrTEC) 10 mg tablet Take 1 tablet (10 mg total) by mouth. drospirenone, contraceptive, (Slynd) 4 mg (28) tablet Take by mouth. estradioL (VIVELLE-DOT) 0.025 mg/[address] 1 patch on the skin 2 (two) times a week. etanercept (EnbreL Mini) 50 mg/mL (1 mL) injection cartridge sertraline (ZOLOFT) 25 mg tablet Take 1 tablet (25 mg total) by mouth 1 (one) time each day. ALLERGIES: Allergies Allergen Reactions Adhesive Tape-Silicones No reaction documented Erythromycin No reaction documented Methotrexate PHYSICAL EXAM: Visit Vitals BP (!) 163/92 Pulse 91 Temp 37 ??C (98.6 ??F) (Temporal) Smoking Status Former GENERAL: Awake, alert, and in no acute distress. EYES: Pupils equal, round. Anicteric sclera. NECK: Thyroid midline and without palpable mass, non-tender, no goiter. LUNGS: Unlabored breathing. CBE: The exam procedure was described and informed consent was obtained. Examined in supine position. Grossly normal breast symmetry. Overall appearance of skin, nipples, and areolas is without erythema, induration, peau d???orange, nipple retraction, or ulceration. No nipple discharge. Fibroglandular tissue throughout both breasts. No appreciable mass. No overlying skin or vascular abnormality. LYMPH NODES: Axillary, clavicular, and cervical lymph node basins without palpable abnormality. EXTREMITIES: Warm, well-perfused, no pretibial edema. SKIN: No rash or lesions noted. NEURO: Alert and oriented x3, motor and sensory grossly intact. This is to document that Valerie Barron was given the opportunity to have a cosmetic chemist present during a sensitive examination at today's visit. She declined this offer of a cosmetic chemist. LABS: No additional pertinent labs. IMAGING: The following images were personally reviewed, including reports and associated films. Findings were discussed with the patient. 01/06/2024 MR Breast WWO Contr CAD BL Impression: 1. Biopsy-proven benign right breast masses, similar to the recent mammographic findings. 2. Probably benign, subcentimeter unbiopsied nodule in the posterior 9:00 position, reported on the 2022 screening mammogram and subsequent right breast ultrasound, has a similar enhancement pattern to the biopsied fibroadenomas and can be followed with mammography and sonography as outlined in the ultrasound report from 08/02/23 ([facility], [place], [place]). 3. No evidence of malignancy is seen in the left breast. No significant change. BIRADS: BI-RADS 3: Probably Benign Finding - Initial Short-Interval Follow-up Suggested (follow-up right mammogram and ultrasound for unbiopsied, probably benign right breast nodule, as reported previously) ................................................................................ ............................................................. ASSESSMENT & PLAN: The patient is at high risk for breast cancer due to personal and family history. There are no worrisome constitutional symptoms. Benign clinical breast exam. Recommendations: * Annual screening mammography. Will obtain mammogram and u/s reports from [facility]. * Biannual clinical breast exam. These will be performed in our office. * Monthly SBE. * Heart healthy diet. * Moderate daily exercise (30 minutes 5x per week). * Annual screening bilateral breast MRI. We discussed the risks/benefits of screening breast MRI. Benefits include potential detection of small breast cancers at an earlier size/stage, improved radiographic visualization of dense breast parenchyma and/or areas of prior scarring/surgery/biopsy. Risks of screening breast MRI include potential for false positive results, potential need for biopsy, need for IV, contrast reaction, cost. Patient in agreement with testing. * Genetic consultation / testing has been completed. Could consider expanded panel (prior BRCA 1/2 only per patient). * Medical oncology consultation regarding chemoprophylaxis could be considered. It was a pleasure seeing Valerie Barron at the [facility] today. The patient has been instructed to call with any additional questions or concerns. Valerie Kennedy MD, MS, FACS [facility] A Member of [employer] [facility] W [phone] F [phone] [address] [place] [address] [email or web address] documented in this encounter Plan of Treatment Upcoming Encounters Date Type Department Care Team (Late st Contact Info) Description 08/04/2025 4:00 PM EDT Office Visit [facility] [address] [facility] [address] [place] [address] Valerie Kennedy MD [address] [facility] [address] [place] [address] Scheduled Orders Name Type Priority Associated Diagnoses Orde r Schedule MR Breast wo and w Contrast bilat Imaging Routine At high risk for breast cancer Dense breast tissue Family history of breast cancer in first degree relative Mass of right breast, unspecified quadrant Expected: 01/20/2025, Expires: 01/20/2026 documented as of this encounter Visit Diagnoses Diagnosis At high risk for breast cancer- Primary Dense breast tissue Family history of breast cancer in first degree relative Family history of malignant neoplasm of breast Mass of right breast, unspecified quadrant documented in this encounter Discontinued Medications Medication Sig Discontinue Reason Start Date End Da te dicyclomine (BENTYL) 10 mg capsuleIndications:Irrit able bowel syndrome (IBS) TAKE 1 CAPSULE BY MOUTH THREE TIMES A DAY NEEDED 10/20/2024 01/20/2025 benzonatate (TESSALON) 100 mg capsule Take 100 mg by mouth 3 times daily as needed. 01/20/2025 fluconazole (DIFLUCAN) 150 mg tablet Take 150 mg by mouth once. 01/20/2025 PREDNISONE ORAL Take 10 mg by mouth. 01/20/2025 fluticasone furoate-vilanteroL (BREO ELLIPTA) 100-25 mcg/dose inhaler Inhale into the lungs. 01/20/2025 documented as of this encounter Historical Medications * This list may reflect changes made after this encounter. estradioL (VIVELLE-DOT) 0.025 mg/[address] 1 patch on the skin 2 (two) times a week. 12/15/2024 added in this encounter Care Teams [employer] Team Leader Relationship Specialty Start Date End Date Mariah Abbott MD PCP - General 04/06/11 documented as of this encounter
--- OUTSIDE RECORDS SUMMARY | 2025-01-22 12:00 | XMS_ITS | Clinical Summary ---
Author Organization [facility] [address] [facility] Address [address] [place] [address] Phone Care Team Providers Care Educational Paraprofessional Name Role Phone Mariah Abbott MD Primary Care Provider [phone] Allergies Active Allergy Reactions Criticality Noted Date Comments Adhesive Tape-Silicones 04/22/2019 No reaction documented Erythromycin 01/16/2010 No reaction documented Methotrexate 03/27/2023 Medications ALBUTEROL SULFATE INHL Inhale into the lungs. Active amLODIPine (NORVASC) 2.5 mg tablet Take 1 tablet (2.5 mg total) by mouth 1 (one) time each day. 3 Active amLODIPine (NORVASC) 5 mg tablet Take 1 tablet (5 mg total) by mouth 1 (one) time each day. 0 Active cetirizine (ZyrTEC) 10 mg tablet Take 1 tablet (10 mg total) by mouth. 1 Active drospirenone, contraceptive, (Slynd) 4 mg (28) tablet Take by mouth. Active etanercept (EnbreL Mini) 50 mg/mL (1 mL) injection cartridge 4 Active folic acid (FOLVITE) 1 mg tablet Take 1 tablet (1,000 mcg total) by mouth 1 (one) time each day. 3 Active sertraline (ZOLOFT) 25 mg tablet Take 1 tablet (25 mg total) by mouth 1 (one) time each day. 4 Active estradioL (VIVELLE-DOT) 0.025 mg/[address] 1 patch on the skin 2 (two) times a week. 5 Active benzonatate (TESSALON) 100 mg capsule Take 100 mg by mouth 3 times daily as needed. 01/21/20 25 Discontinued fluconazole (DIFLUCAN) 150 mg tablet Take 150 mg by mouth once. 01/21/20 25 Discontinued fluticasone furoate-vilant Marc (BREO ELLIPTA) 100-25 mcg/dose inhaler Inhale into the lungs. 01/21/20 Discontinued PREDNISONE ORAL Take 10 mg by mouth. 01/21/20 Discontinued dicyclomine (BENTYL) 10 mg capsuleIndicat ions:Irritable bowel syndrome (IBS) TAKE 1 CAPSULE BY MOUTH THREE TIMES A DAY NEEDED 270 capsule 3 4 01/21/20 25 Discontinued Active Problems Problem Noted Date Diagnosed Date Asthma 09/07/2024 Hypertension 09/07/2024 Kidney stones 09/07/2024 Migraine, unspecified, not i ntractable, without status migrainosus 06/14/2016 Esophageal reflux 01/23/2016 Lumbar radiculopathy 01/26/2013 Allergic rhinitis 09/05/2011 Encounters Date Type Department Care Team Description 01/20/2025 4:00 PM EST Office Visit Breast [address] [phone] Valerie Braswell MD At high risk for breast cancer (Primary Dx); Dense breast tissue; Family history of breast cancer in first degree relative; Mass of right breast, unspecified quadrant 01/20/[address] [phone] Valerie Braswell MD from Last 3 Months Surgical History Surgery Date Site/Laterality Comments OTHER [...] Travel History Travel Start Travel End [place] 12/19/2024 12/25/2024 Obstetrics History Last Filed Vital Signs Vital [...] PM EDT Office Visit [facility] [address] [place] [phone] Valerie Braswell MD [address] [facility] [address] [place] [address] Health Maintenance Due Date Last Done Comments Breast Cancer Screening 1980 Hepatitis B Vaccines (1 of 3 - 19+ 3-dose series) 1999 Pneumococcal Vaccine: Pediatrics (0 to 5 Years) and At-Risk Patients (6 to 64 Years) (1 of 2 - PCV) 1999 Cervical Cancer Screening: Pap Smear 2001 DTaP,Tdap,and Td Vaccines (2 - Td or Tdap) 06/05/2022 06/05/2012 Cholesterol Screening (Lipid Panel) 10/27/2022 Depression Screening 10/27/2022 HIV Screening 10/27/2022 Hepatitis C Screening 10/27/2022 Social Influencers of Health Screening 10/27/2022 Hypertension/CHF/CAD Annual BMP Blood Test 11/03/2022 COVID-19 Vaccine ( season) 2024 10/04/2021, 12/13/2020, 11/22/2020 Influenza Vaccine Completed 09/13/2024, , 08/18/2018, Additional history exists HIB Vaccines Aged Out No longer eligi [...] to complete this topic RSV Immunization Patients Under 20 months Aged Out No longer eligible based on patient's age to complete this topic Varicella Vaccines Aged Out No longer eligible based on patient's age to complete this topic Insurance [facility] Care Teams Educational Paraprofessional Relationship Specialty Start Date End Date Mariah Abbott MD PCP - General 04/06/11
[2025-01-22 13:26] LABS: MANUAL DIFF FLAG NO
[2025-01-22 13:32] LABS: Basophils Percent Auto 0.6 % (0-2); Eosinophils Absolute Auto 0.1 X10*3/uL (0.0-0.4); Eosinophils Percent Auto 0.9 % (0-4); Hematocrit 39.1 % (37.0-47.0); Hemoglobin 12.8 g/dl (12.0-16.0); Imm Gran Abs Auto 0.01 X10*3/uL (0.00-0.03); Imm Gran Pct Auto 0.1 % (0.0-0.4); Lymphocytes Absolute Auto 2.8 X10*3/uL (1.2-4.9); Lymphocytes Percent Auto 39.7 % (20-40); Mean Corpuscular HGB Conc 32.7 g/dl (31.0-35.0); Mean Corpuscular Hemoglobin 27.5 pg (27.0-33.0); Mean Corpuscular Volume 84.1 fL (80.0-98.0); Mean Platelet Volume 8.9 fL (9.4-12.3); Monocytes Absolute Auto 0.4 X10*3/uL (0.1-1.2); Monocytes Percent Auto 5.8 % (2-11); Neutrophils Absolute Auto 3.7 x10*3/uL (2.0-8.3); Neutrophils Percent Auto 52.9 % (45-73); Platelet Count 450 X10*3/uL (160-400); Red Blood Count 4.65 X10*6/uL (4.20-5.50); Red Cell Distribution Width 12.5 % (11.0-16.0)
[2025-01-22 13:56] LABS: Alanine Aminotransferase 30 U/L (0-31); Alkaline Phosphatase 72 U/L (39-117); Anion Gap 8 (12-20); Aspartate Amino Transferase 23 U/L (5-31); Bilirubin Total 0.3 mg/dL (0.0-1.0); Blood Urea Nitrogen 12 mg/dL (9-16); C Reactive Protein 0.64 mg/dL (< or = 0.50); Calcium 8.6 mg/dL (8.4-10.2); Carbon Dioxide 23 mmol/L (22-29); Chloride 110 mmol/L (96-108); Estimated Glomerular Filt Rate > 60; Glucose Random 87 mg/dL (60-115); Potassium 4.3 mmol/L (3.3-5.1); Sodium 137 mmol/L (135-145); Total Protein 7.4 g/dL (6.5-8.0)
[2025-01-22 14:11] LABS: Erythrocyte Sedimentation Rate 7 MM/HR (0-20)
[2025-01-23 08:41] LABS: HBS Num1 23.74 mIU/mL (0-7.99); HBc Num1 0.06 S/CO (0.00-0.79); HBsAGNum1 0.46 S/CO (0.00-0.99); Hepatitis A Antibody IgM 0.14 Index (0-0.79); Hepatitis B Core Antibody Nonreactive (Nonreactive); Hepatitis B Surface Antigen Negative (Negative); ~HepC Num1 0.09 S/CO (0.00-0.79); ~Hepatitis A Antibody IgM Nonreactive (Nonreactive); ~Hepatitis B Surface Antibody REACTIVE (Nonreactive); ~Hepatitis C Antibody Nonreactive (Nonreactive)
[2025-01-25 17:27] LABS: TS Negative Control Passed; TS Panel A 0; TS Panel B 0; TS Positive Control Passed; TSpotTB Negative (Negative)
== END 2025-01-22 10:39 | disposition home or self-care (01) ==
LOC: HO.HMGCLDS 10:38
PROVIDERS: PCP Internal Medicine; Visit Provider Student in an Organized Health Care Education/Training Program
DX: M13.80 Other specified arthritis, unspecified site (principal); Z11.7 Encounter for testing for latent tuberculosis infection; Z11.59 Encounter for screening for other viral diseases
CPT/HCPCS: 36415; 80053; 85025; 85652; 86140; 86481; 86704; 86706; 86709; 86803; 87340

== ENCOUNTER 2025-01-27 15:26 | Outpatient (AMB) | payer BC, SELFPAY ==
[2025-01-27 15:30] VITALS: BP 124/70; PULSE 94; O2SAT 96
--- NOTE | 2025-01-27 15:30 | MHC.OFFVIS ---
Vital Signs 01/27/25 15:30 Height 5 ft 5 in BMI Reason not done Patient refused/unable BP 124/70 Blood Pressure Location Lt brachial Position Sitting Pulse 94 Pulse Source Pulse Oximeter Pulse Oximetry (%) 96 Oxygen Delivery Method Room Air Intake Visit Reasons: RA Intake Note: Patient last seen by Doctor Dariel Borrego on 10/28/24. Presents today for RA follow up and test results. Allergies methotrexate Allergy (Intermediate, Verified 01/27/25 15:32) Rash adhesive Allergy (Unknown, Verified 01/27/25 15:32) Rash erythromycin base [ERYTHROMYCIN BASE] Allergy (Unknown, Verified 01/27/25 15:32) Hives peach Allergy (Unknown, Verified 01/27/25 15:32) Anaphylaxis latex Adverse Reaction (Verified 01/27/25 15:32) Hives lisinopril Adverse Reaction (Verified 01/27/25 15:32) Cough Medication List - Last Reconciled 01/27/25 by Dariela Collier MD albuterol sulfate 90 mcg/actuation (ProAir HFA) 2 puffs inhalation Q4-6H PRN albuterol sulfate 2.5 mg (0.5 mL) inhalation Q6H PRN amlodipine 2.5 mg PO DAILY amoxicillin-pot clavulanate 875-125 mg 1 tab PO BID cetirizine (Zyrtec) 10 mg PO DAILY PRN cyclosporine 0.05% (Restasis) 1 drp ophthalmic (eye) Q12H drospirenone (contraceptive) (Slynd) 1 tab PO DAILY Enbrel Mini (etanercept) 50 mg subcut QWEEK NS estradiol transdermal sumatriptan succinate (Imitrex) take 1 tab at onset of headache; if no relief may repeat 1 tab after at least 2 hrs; max = 4 tabs/24 hr PO HPI Comments Details: Patient is a 44-year-old female with asthma, hypertension, migraine headaches, IBS, polyarticular osteoarthritis, and seronegative inflammatory arthritis here today for follow up. Interval History: Patient last seen 10/28/[address] Borrego. At that time she was following up after having left shoulder arthroscopic surgery for her rotator cuff repair as well as shaving off her arthritis . She held her Enbrel perioperatively. However she was expressing concern about the frequency of infections while she was on Enbrel. The plan at that time was to space out the Enbrel injections to every 2 weeks with the plan to consider a different DMARD if she continues to get recurrent infections. Since decrease in frequency of Enbrel she has noticed increased joint pain and swelling. Prolonged AM stiffness up to 1-2 hours. Rheumatologic History: Seronegative rheumatoid arthritis dx 02/07 MTX caused rash Enbrel 06/09 effective Initial history: This is a 42-year-old female with a past medical history of hypertension, asthma presents for evaluation of multiple joint pains. Condition started 2-3 years ago with bilateral foot pain. In the interim patient broke 1 of her metatarsal bones of her right foot when she accidentally stubbed her toe running after her dog. Her foot was in a boot for some time. However patient also had plantar fasciitis s/p multiple steroid injections. She also had spontaneous Achilles tendinitis affecting her left ankle. She denies any preceding trauma. This was treated with ibuprofen and Voltaren gel. She mentions getting numerous imaging studies of her ankles and feet by her seismograph operator helper. Patient continues to have bilateral ankle and foot pain mostly at her MTPs. Over the last few months she has been having pain in both hands usually at the MCPs the pain is generally worse at night but is also worse in the morning when she wakes up. Over the last couple of months she noticed some puffiness of her fingers, difficulty putting her rings on. Also over the last few months she has been having pain in her tailbone worse with activity. She has been taking ibuprofen about 600 mg nightly mostly to treat her back pain. She denies any skin rashes, no history of psoriasis. No history of uveitis or IBD. She had a colonoscopy in 2021 which showed diverticulosis, unremarkable otherwise. Recent labs showed borderline positive rheumatoid factor. Current Rheumatology Medication(s): Enbrel 50mg SC every 2 weeks [facility] Medical History Diverticulosis Tinnitus of left ear FHx: colonic polyps Annual physical exam Hydronephrosis of right kidney Migraine Anxiety Seasonal allergies Chronic asthma HTN (hypertension) Surgical History History of shoulder surgery Hx of tonsillectomy Hx of adenoidectomy History of bunionectomy H/O breast biopsy Family History Father HTN (hypertension) Substance use disorder Mother Breast cancer Bladder cancer Cancer of kidney Mental health disorder Maternal Grandmother Colon cancer, Onset Age: 80 Daughter Andrzej's thyroiditis Social History Housing: House Alcohol intake: current Alcohol intake frequency: holidays/special occasions only Patient Tobacco Use Status: Former Tobacco user e-Cigarette/Vaping Use: Never Used service: No Current occupational status: employed 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 +ve for dry eyes GI: Denies nausea, vomiting, diarrhea, abdominal pain, change in BM Pulm: Denies SOB, HARDWICK, hemoptysis, wheezing Cards: Denies chest pain, palpitations Skin: Denies Raynaud's, rash, nail changes, photosensitivity, DEVELOPMENT PROFESSIONAL: Denies headaches, weakness, paresthesias, recurrent falls MSK: as per HPI All other systems reviewed and are unremarkable except noted above Physical Exam Vital Signs: Last Vital Signs Pulse 94 01/27/25 15:30 BP 124/70 01/27/25 15:30 Pulse Ox 96 01/27/25 15:30 Oxygen Delivery Method Room Air 01/27/25 15:30 Vital signs reviewed Physical Examination CONSTITUITIONAL Patient alert and cooperative. Well appearing and in no apparent painful distress HEENT Conjunctiva and sclera clear. ?Pupils equal round and reactive to light. ?No lymphadenopathy. ? CHEST/RESPIRATORY SYSTEM Normal respiratory effort and able to speak in complete sentences. ?Clear to auscultation bilaterally. ?No crackles, rales, rhonchi, wheezes heard. CARDIAC SYSTEM Regular rate and rhythm. ?S1 and S2 heard no murmurs. ?Radial pulses intact bilaterally MSK Hands: ?Good active directory systems administrator strength bilaterally. No deformities noted. ?No synovitis noted to the MCPs, PIPs or DIPs. ?Mild TTP of the MCPs Wrists: ?Full range of motion at the wrists without pain. ?No tenderness to palpation or synovitis noted to the wrists. Elbows: Full range of motion without pain. No tenderness, weakness, swelling, increased warmth or erythema. Shoulders: Full range of motion without pain. No tenderness, weakness, swelling, increased warmth or erythema. Hips: Full range of motion without pain. Hip bursa: No tenderness to palpation Knees: ?Full range of motion. ?No tenderness, swelling, increased warmth or erythema.?Bilateral crepitations felt Ankles: Full range of motion. ?No tenderness, swelling, increased warmth or erythema.? Feet: ?Negative squeeze test but mild TTP of the 2nd and 3rd MTPs bilaterally Tender points:?No tenderness to palpation of the bilateral trapezius, supraspinatus, greater trochanters, anterior costochondral junctions, bilateral gluteal areas, bilateral suboccipital muscle insertions SKIN Skin intact without rashes. Results Reviewed Results Reviewed: Laboratory Tests 05/30/24 01/22/25 07:57 10:41 WBC 7.0 RBC 4.65 Hgb 12.8 Hct 39.1 MCV 84.1 Plt Count 450 H ESR 7 Sodium 137 Potassium 4.3 Chloride 110 H Carbon Dioxide 23 BUN 12 Creatinine 0.62 AST 23 ALT 30 Alkaline Phosphatase 72 C-Reactive Protein 0.39 0.64 H Total Protein 7.4 Albumin 4.0 Infectious serologies 01/22/25 10:41 Hepatitis A IgM Ab Nonreactive Hep Bs Antigen Negative Hep Bs Antibody REACTIVE Hep B Core Total Ab Nonreactive Hepatitis C Ab (EIA) Nonreactive TB Test (T-Spot) Com Negative Immunology labs 07/11/20 01/10/23 09:27 10:00 Rheumatoid Factor < 15.0 Cycl Citrul Peptide IgG <16 NEGRITA Screen NEGATIVE HLA-B27 Negative Assessment & Plan Assessment & Plan (1) Seronegative arthritis: Comment: dx 02/07 MTX caused rash Enbrel 06/09 effective Code(s): M13.80 - Other specified arthritis, unspecified site Category: Medical Plan: #Seronegative RA Patient is a 44-year-old female with seronegative rheumatoid arthritis here today for follow up. The after last visit she decrease the frequency of her Enbrel from every week to every 2 weeks. This was met with worsening of her joint pain and a.m. stiffness. This was also confirmed by increased inflammatory markers on repeat blood work. While she may have a series of infections they have not been serous infection such as pneumonia or sepsis. I discussed this with the patient and she is willing to continue with Enbrel every week. If she starts to get more serious infections we can consider changing her medication to abatacept Plan - Restart Enbrel 50mg every week SC - RTC 4 months - Labs before visit: CBC, CMP, ESR, CRP (2) Encounter for monitoring of etanercept therapy: Code(s): Z51.81 - Encounter for therapeutic drug level monitoring; Z79.620 - manager adobe (current) use of immunosuppressive biologic Plan: #Long-term Use of TNF Inhibitors: Etanercept Discussed with the patient the benefits and risks of TNF inhibitors for the management of the rheumatic condition Benefits include reduce pain, maintenance of remission and reduction of flares as well as ?progression of the disease Risks include injection sites/infusion reactions, serious infections (such as bacterial infections, opportunistic infections), malignancy, delaminating syndromes, autoimmune phenomena, CHF exacerbations, palmar plantar psoriasis and cytopenias Recommended rotating injection sites, and holding medication during and for up to 1 week after resolution of a febrile illness or open skin wound Plan I spent 33 minutes reviewing the record and labs, taking a history, examining the patient, discussing the treatment plan, ordering diagnostic work up and documenting in the medical record Orders: Orders Complete Blood Count Auto Diff 4 Months M13.80 - Other specified arthritis, unspecified site Comprehensive Met. Panel 4 Months M13.80 - Other specified arthritis, unspecified site C Reactive Protein 4 Months M13.80 - Other specified arthritis, unspecified site Erythrocyte Sedimentation Rate 4 Months M13.80 - Other specified arthritis, unspecified site Medications: Refilled Enbrel Mini (etanercept) 50 mg subcut QWEEK 4 mL 4RF NS M13.80 - Other specified arthritis, unspecified site Coding Level of Care Code Est Pt Level 4 (08402) Complex EM visit Add On G2211 Diagnoses Seronegative arthritis M13.80 Encounter for monitoring of etanercept therapy Z51.81; Z79.620
--- OUTSIDE RECORDS SUMMARY | 2025-01-27 18:10 | XMS_ITS | Encounter Summary ---
Author Organization [facility] Address [address] [place] [address] Care Team Providers Care Cane Feeder Name Role Phone Mariah Abbott MD Primary Care Provider [phone] Encounter Details Date Type Department Care Team (Late st Contact Info) Description 01/20/2025 Telephone Breast Care [facility] [address] [place] [phone] Valerie Braswell MD [address] [place] [address] Social History Tobacco Use Types Packs/Day Years [...] on file Sexual Orientation Not on file documented as of this encounter Progress Notes * Valerie Braswell MD - 01/20/2025 5:13 PM EST Please obtain mammogram and right breast u/s from [facility]. thanks documented in this encounter Plan of Treatment Upcoming Encounters Date Type Department Care Team (Late st Contact Info) Description 08/04/2025 4:00 PM EDT Office Visit [facility] [place] [address] [place] [phone] Valerie Braswell MD [address] [place] [address] documented as of this encounter Visit Diagnoses Not on filedocumented in this encounter Care Teams Cane Feeder Relationship Specialty Start Date End Date Mariah Abbott MD PCP - General 04/06/11 documented as of this encounter
--- OUTSIDE RECORDS SUMMARY | 2025-01-27 18:10 | XMS_ITS | Clinical Summary ---
Author Organization [facility] [address] [facility] Address [address] [place] [address] Phone Care Team Providers Care Instrument Lens Grinder Apprentice Name Role Phone Mariah Abbott MD Primary Care Provider [phone] Allergies Active Allergy Reactions Criticality Noted Date [...] 01/20/2025 4:00 PM EST Office Visit Breast [address] [phone] Valerie Braswell MD At high risk for breast cancer (Primary Dx); Dense breast tissue; Family history of breast cancer in first degree relative; Mass of right breast, unspecified quadrant 01/20/[address] [phone] Valerie Braswell MD from Last 3 Months [...] PM EDT Office Visit Breast Care Center [facility] [address] [place] [phone] Valerie Braswell MD [address] [place] [address] Health Maintenance Due Date Last Done Comments [...] patient's age to complete this topic Insurance [facility] Care Teams Instrument Lens Grinder Apprentice Relationship Specialty Start Date End Date Mariah Abbott MD PCP - General 04/06/11
--- OUTSIDE RECORDS SUMMARY | 2025-01-27 18:10 | XMS_ITS | Patient Health Record ---
[facility] Address [address] [address] Care Team Providers Care Wharf Helper Name Role Phone Mariah Abbott MD Primary Care Provider Unavaila rosaura Black, Komal Unavailable [phone] Allergies Allergen (clinical drug ingredient) Drug/Non Drug [...] Problem Status W/U Status Risk Notes Problem 272918809 Rheumatoid arthritis without rheumatoid factor, 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) Active confirmed Problem Localized, primary osteoarthritis of the ankle and/or foot (768232747) Primary osteoarthritis, right ankle and foot (M19.071) Active confirmed Problem Localized, primary osteoarthritis of the ankle and/or foot (751082020) Primary osteoarthritis, left ankle and foot (M19.072) Active confirmed Problem 938506794 Rheumatoid arthritis involving multiple sites with positive rheumatoid factor (M05.79) Active confirmed Problem Seronegative arthritis (445285898) Seronegative arthritis (M13.80) Active confirmed Plan Of Treatment Pending Test Test Name Order Date MRI : Foot, right 10/24/2020 *Uric Acid, Serum 10/22/2022 *Sedimentation Rate-Westergren 2 *Sedimentation Rate-Westergren 0 Rheumatoid Arthritis Factor 07/11/2020 NEGRITA w/Reflex 10/22/2022 NEGRITA Comprehensive Panel 07/11/2020 X ray : Foot, left 3V 07/23/2019 19266 I&D ABSCESS- SIMPLE,SINGLE 021 , L5280-PRSCL/INJECT, JOINT/BURSA 1 ,[id number] TENDON SHEATH/LIGAMENT 0 07/23/201921700,U8478-INE TENDON SHEATH/LIGAMENT 1 CRP 07/11/2020 Insurance Providers Payer Name Payer Address Payer Phone Subscriber Number Group Number Insured Name Patient Relationship to Insured Coverage Start Date Coverage End Date [facility] [address] [place] [address] [phone] [id number] Valerie Barron Self - patient is the insured Medical (General) History Medical History History ICD Code Hypertension asthma Seasonal allergies Bipolar disorder Plantar fasciitis back pain migraines GERD chicken pox Surgical History Surgery Date(Month/Year) hernia age 7 adenoids/tonsils age 15 right bunion surgeries 2x
--- OUTSIDE RECORDS SUMMARY | 2025-01-27 18:10 | XMS_ITS ---
Author Organization [facility] Address [address] [place] [address] Care Team Providers Care Aviation Operations Specialist Name Role Phone Mariah Abbott MD Primary Care Provider Unavaila ble Black, Komal Unavailable [phone] Allergies Allergen (clinical drug ingredient) Drug/Non Drug [...] W/U Status Risk Notes Problem Seronegative arthritis (149510807) Seronegative arthritis (M13.80) Active confirmed Vital Signs Height 5ft 5in in 08/01/2023 Weight 173 lbs 08/01/2023 BMI 28.79 kg/m2 08/01/2023 Encounters Encounter Location Date Provider Diagnosis [facility] [place] [address] [place] [address] 08/01/2023 Komal Black Arthralgia of left foot [...] * Valerie BARRONDOB: 0 (42 yo F)Acc No.[id number]:08/01/2023 Progress Note Patient:?Valerie Barron Provider:?Komal Rockwell DPM :1980???Age:42 Y???Sex:Female D ate:08/01/2023 Address:[address] [place], [place] [id number] Pcp:Mariah Abbott MD Subjective: * Chief Complaints: * ???PCP - 06/2023Foot pain * HPI: ???Foot Pain:?Nature:?aching, tenderness, sharp.?Location:?B/L.?Duration:?several years.?Onset:?unknown, denies trauma.?Course:?improved , at? 40?%.?Aggrevated:?standing, walking, weather changes.?Treatments:?medication ( NSAID'S- Diclofenac sodium,?Motrin ), improves condition but can cause upset stomach, volteran gel occasional.Pt was evaluated by Pharmacy Operations Specialist and was started on Methotexate and had [...] Rockwell DPM Date:?2022 Generated for Norman dixon/Abdon/Warren on:?01/27/2025 06:10 PM EDT History and Physical Notes * HPI (History [...] stomach, volteran gel occasional.Pt was evaluated by Pharmacy Operations Specialist and was started on Methotexate and had [...]
--- OUTSIDE RECORDS SUMMARY | 2025-01-27 18:10 | XMS_ITS | Encounter Summary ---
Author Organization [facility] Address [address] [place] [address] Care Team Providers Care Transfer Coordinator Name Role Phone Mariah Abbott MD Primary Care Provider [phone] Reason for Referral * Imaging (Routine) - Pending Review Specialty Diagnoses / Procedures Referred By Contel t Referred To Contact Radiology Diagnoses At high risk for breast cancer Dense breast tissue Family history of breast cancer in first degree relative Mass of right breast, unspecified quadrant Procedures MR Breast wo and w Contrast bilat Valerie Kennedy MD [address] [facility] [address] [place] [address] Phone: tel: fax: [facility] [address] [place] [address] Phone: tel: Referral ID Status Reason Start Date Expiration Date V isits Requested Visits Authorized [id number] Pending Review 01/20/2025 01/20/2026 1 1 Reason for Visit * Reason Comments Follow-up Encounter Details Date Type Department Care Team ([facility] st Contact Info) Description 01/20/2025 4:00 PM EST Office Visit [facility] [address] [place] [address] Valerie Kennedy MD [address] [place] [address] At high risk for breast cancer (Primary [...] on file documented as of this encounter Last Filed [...] black stools : dysuria, frequency or incontinence FASHION DESIGN PROFESSOR (females): abnormal vaginal bleeding or abnormal vaginal [...] was given the opportunity to have a economic development director present during a sensitive examination at today's visit. She declined this offer of a economic development director. LABS: No additional pertinent labs. IMAGING: The [...] outlined in the ultrasound report from 08/02/23 ([facility], [place], [place]). 3. No evidence of malignancy is [...] Will obtain mammogram and u/s reports from [facility]. * Biannual clinical breast exam. These [...] considered. It was a pleasure seeing Valerie Weathers Beatrice at the Surgery Clinic today. The patient has been instructed to call with any additional questions or concerns. Valerie Kennedy MD, MS, FACS Surgery [facility] A Member of [employer] [facility] W [phone] F [phone] [address] [place] [address] [email or web address] documented in this encounter Plan of Treatment Upcoming Encounters Date Type Department Care Team (Late st Contact Info) Description 08/04/2025 4:00 PM EDT Office Visit [facility] [address] [place] [phone] Valerie Kennedy MD [address] [place] [address] Scheduled Orders Name Type Priority Associated Diagnoses [...] 12/15/2024 added in this encounter Care Teams Transfer Coordinator Relationship Specialty Start Date End Date Mariah Abbott MD PCP - General 04/06/11 documented as of this encounter
== END 2025-01-27 16:11 | disposition home or self-care (01) ==
LOC: HO.RHE 15:27
PROVIDERS: PCP Internal Medicine; Visit Provider Student in an Organized Health Care Education/Training Program
DX: M13.80 Other specified arthritis, unspecified site (principal); Z51.81 Encounter for therapeutic drug level monitoring; Z79.620 Long term (current) use of immunosuppressive biologic
CPT/HCPCS: 99214

== ENCOUNTER → 2025-01-27 15:26 | Outpatient (BNVA) | payer BC, SELFPAY | PROVIDERS: PCP Internal Medicine; Visit Provider Student in an Organized Health Care Education/Training Program ==

== ENCOUNTER 2025-02-24 15:28 | Outpatient (AMB) | payer BC, SELFPAY ==
--- NOTE | 2025-02-24 15:28 | A.OFFVIS_ITS ---
Intake Visit Reasons: IBS r/s 02/19/25 Intake Note: Valerie presents as a telehealth today. CC: She states that she has been having IBS symptoms - ;ots of upset stomach and diarrhea. Consistent bleeding when she has a BM. Every time she has a BM she has blood in her stool. She states that it changes between how much but it is every time she goes to the bathroom. She notices even when she goes urin - she was told she had some diverticulitis and internal hemorrhoids. 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 Pt was prev established with [facility] and had a colonoscopy 2 years ago. At that time was told re diverticulosis, hemorrhoids. Also has heartburn. DOes nto think had colon bx done to r/o microscopic colitis. Reports has had issues with rectal bleeding for many years now but more recently feels like happening almost every time. CBC remains stable. BMs are solid and in small lumps fluctuates with mushy BMs. Has to go frequently. No rectal pressure, palpable lump. COUNTS INCLUDE 234 BEDS AT THE [facility] Medical History Diverticulosis Tinnitus of left ear FHx: colonic polyps Annual physical exam Hydronephrosis of right kidney Migraine Anxiety Seasonal allergies Chronic asthma HTN (hypertension) Surgical History History of shoulder surgery Hx of tonsillectomy Hx of adenoidectomy History of bunionectomy H/O breast biopsy Family History (Updated 02/24/25 @ 15:29 by SETH Byrne) Father HTN (hypertension) Substance use disorder Mother Breast cancer Bladder cancer Cancer of kidney Mental health disorder Colon polyp Maternal Grandmother Colon cancer, Onset Age: 80 Daughter Andrzej's thyroiditis Sister Colon polyp Social History Housing: House Alcohol intake: current Alcohol intake frequency: holidays/special occasions only Patient Tobacco Use Status: Former Tobacco user e-Cigarette/Vaping Use: Never Used service: No Current occupational status: employed 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 Differential for chronic diarrhea includes celiac disease, malabsorption, hyperthyroidism. Had normal colonoscopy 2 years ago, but does not exclude small bowel Crohn's. In addition, unclear if she had biopsies done to rule out microscopic colitis. Plan: -labs and stool testing ordered as below -will also get records from [facility] regarding her recent colo 2. Rectal bleeding likely secondary to hemorrhoids as has been previously determined. Plan: -- Avoid constipation and straining. Can take OTC senna or miralax to manage constipation. - avoid lifting heavy weights - increase hydration and fiber intake - Topical hydrocort x 10-14 days - no red flags to warrant urgent colo at this time but can be considered if sx persist despite the above or bleeding worsens. 3. GERD: Longstanding issue. Has only been taking OTC Tums due to reservations regarding long-term use of PPI. Plan: -start famotidine 20 mg at bedtime-take daily for 6-8 weeks, and can then take p.r.n. thereafter -barium swallow Follow-up in 2 months Orders: Orders [place] barium swallow 02/24/25 K21.9 - Gastro-esophageal reflux disease without esophagitis Immunoglobulin A 02/24/25 K52.9 - Noninfective gastroenteritis and colitis, unspecified TSH reflex Free T4 02/24/25 K52.9 - Noninfective gastroenteritis and colitis, unspecified C Reactive Protein 02/24/25 K52.9 - Noninfective gastroenteritis and colitis, unspecified Complete Blood Count no Diff 02/24/25 K52.9 - Noninfective gastroenteritis and colitis, unspecified Comprehensive Met. Panel 02/24/25 K52.9 - Noninfective gastroenteritis and colitis, unspecified Transglutaminase IgA 02/24/25 K52.9 - Noninfective gastroenteritis and colitis, unspecified Calprotectin, Fecal 02/24/25 K52.9 - Noninfective gastroenteritis and colitis, unspecified Medications: New hydrocortisone 2.5% 1 appl MA BEDTIME PRN 30 grams 0RF hemorrhoids 14 days famotidine (Pepcid) 20 mg PO BEDTIME 90 tabs 0RF Coding Level of Care Code Tele New Pt Level 4 (22081) Diagnoses Chronic diarrhea K52.9 GERD (gastroesophageal reflux disease) K21.9
--- OUTSIDE RECORDS SUMMARY | 2025-02-24 17:24 | XMS_ITS | Clinical Summary ---
Author Organization [facility] [address] Address [address] [place] [address] Phone Care Team Providers Care Postal Service Clerk Name Role Phone Mariah Abbott MD Primary Care Provider [phone] Allergies Active Allergy Reactions Criticality Noted Date [...] 1 (one) time each day. 03/09/2020 Active cetirizine (ZyrTEC) 10 mg tablet Take 1 tablet (10 mg total) by mouth. 02/22/2021 Active drospirenone, contraceptive, (Slynd) 4 mg (28) tablet Take by mouth. Active etanercept (EnbreL Mini) 50 mg/mL (1 mL) injection cartridge 12/27/2023 Active folic acid (FOLVITE) 1 mg tablet Take 1 tablet (1,000 mcg total) by mouth 1 (one) time each day. 02/07/2023 Active sertraline (ZOLOFT) 25 mg tablet Take 1 tablet (25 mg total) by mouth 1 (one) time each day. 12/24/2023 Active estradioL (VIVELLE-DOT) 0.025 mg/[address] 1 patch on the skin 2 (two) times a week. 12/15/2024 Active Active Problems Problem Noted Date Diagnosed Date Asthma 09/07/2024 Hypertension 09/07/2024 Kidney stones 09/07/2024 Migraine, unspecified, not i ntractable, without status migrainosus 06/14/2016 Esophageal reflux 01/23/2016 Lumbar radiculopathy 01/26/2013 Allergic rhinitis 09/05/2011 Encounters Date Type Department Care Team Description 02/08/[address] [phone] Tiffanie Hou, RN Results 02/01/2025 9:11 AM EDT - 02/01/2025 11:59 PM EDT Hospital Encounter [address] [phone] At high risk for breast cancer; Dense breast tissue; Family history of breast cancer in first degree relative; Mass of right breast, unspecified quadrant Discharge Disposition: Home or Self Care 01/20/2025 4:00 PM EST Office Visit [address] [phone] Valerie Braswell MD At high risk for breast cancer (Primary Dx); Dense breast tissue; Family history of breast cancer in first degree relative; Mass of right breast, unspecified quadrant 01/20/[address] [phone] Valerie Braswell MD from Last 3 Months [...] PM EDT Office Visit [facility] [address] [place] [address] Valerie Braswell MD [address] [place] [address] Health Maintenance Due Date Last Done Comments [...] age to complete this topic Meningococcal B Vaccine Aged Out No l onger eligible based on patient's age to complete this topic RSV Immunization Patients Under 20 months Aged Out No longer eligible based on patient's age to complete this topic Varicella Vaccines Aged Out No longer eligible based on patient's age to complete this topic Procedures Procedure Name Priority Date/Time Associated Diagnosis Comments MR BREAST WO AND W CONTRAST BILAT Routine 02/01/2025 10:22 AM EDT At high risk for breast cancer Dense breast tissue Family history of breast cancer in first degree relative Mass of right breast, unspecified quadrant from Last 3 Months Results * MR Breast wo and w Contrast bilat (02/01/2025 10:22 AM EDT) Anatomical Region Laterality Modality Breast Bilateral Magnetic Resonan ce 02/01/2025 1:35 PM EDT Impressions 02/01/2025 2:50 PM EDT Moderate heterogeneous nonmass background enhancement. No suspicious interval change in 4 right breast masses 3 of which have undergone sampling. No suspicious interval change in a left breast mass which has undergone sampling. There are no new suspicious enhancing masses in either breast. Recommend continued imaging surveillance including annual high-risk screening MRI ?? ASSESSMENT: RIGHT BREAST: BI-RADS 2-benign LEFT BREAST: BI-RADS 2-benign RECOMMENDATIONS: Annual high-risk screening MRI Continue annual screening mammography Follow-up ultrasound as appropriate, based upon previous imaging. Please note that I do not have a mammogram more recent than 08/29/2023 for comparison -------- FINAL REPORT -------- Dictated By: Mohsen Malone Dictated Date: 02/01/2025 13:35 ET Assigned Physician: Mohsen Malone Reviewed and Electronically Signed By: Mohsen Malone Signed Date: 02/01/2025 14:50 ET Workstation ID: [id number] Transcribed By: Self Edit Transcribed Date: 02/01/2025 14:31 ET Narrative 02/01/2025 2:50 PM EDT EXAMINATION: MRI BREAST WITHOUT AND WITH CONTRAST, BILATERAL CLINICAL INFORMATION: Mass of right breast. ??The estimated lifetime risk of developing breast cancer is 26%. ??Family history of breast cancer in 1st degree relative. Image guided biopsy upper inner left breast October 2020-year-old in fibroadenoma. Image guided right breast biopsy 11/01/2021 with reactive lymph nodes diagnosis. Image guided biopsy right breast 08/29/2023 (8 o'clock position) yielding fibroadenoma COMPARISON: Portions of previous MRI 12/23/2023 PREVIOUS MAMMOGRAPHY (Non-diagnostic monitor review): The most recent mammogram available 08/29/2023 TECHNIQUE: Anatomic and fluid sensitive MR sequences were performed on a 3 [employer] platform system. ??Diffusion-weighted sequence was performed. A dynamic series was performed shortly before and after the IV administration of contrast. Subtracted imaging was reviewed. Color signal and kinetic analysis was performed on a dedicated software platform (Adaptive Planning) Imaging before and after the IV administration of contrast. Type of contrast: Dotarem Amount of contrast: 20 mL Volume of contrast discarded: 0 mL FINDINGS: FIBROGLANDULAR SIGNAL: There are heterogeneous areas of fibroglandular tissue ?? BACKGROUND PARENCHYMAL ENHANCEMENT: ??There is a moderate amount of background parenchymal enhancement SYMMETRY OF ENHANCEMENT: The background enhancement is symmetric ?? RIGHT BREAST: There are again demonstrated circumscribed right breast masses some of which have undergone image guided biopsy. Circumscribed T2 intense macrolobulated early enhancing mass 9 o'clock position 3.4 cm from nipple. ??Associated susceptibility artifact. 02/01/2025-1.2 cm (601/150) 12/23/2023-1.4 cm Circumscribed T2 intense oval early enhancing mass 9 o'clock position 9 cm from right nipple. ??Associated susceptibility artifact. 02/01/2025-1.2 cm (601/147) 12/23/2023-1.0 cm Circumscribed T2 intense early enhancing oval mass in the 8:30 position 5 cm from right nipple. ??Associated susceptibility artifact. 02/01/2025-0.4 cm 12/23/2023-0.4 cm Circumscribed oval T2 intense early enhancing mass anterior to the oval mass with associated biopsy site marker 02/01/2025-0.6 cm (601/140) 12/23/2023-0.8 cm Masses: There are no new suspicious right breast masses. ?? Nonmass enhancement: There are no suspicious areas of nonmass enhancement within the right breast ?? Enhancing foci: There are a few scattered nonspecific enhancing foci in the right breast. ?? Other: There are no suspicious additional findings in the right breast ?? Color signal and enhancement kinetics: There is persistent enhancement in 3 of the right breast masses. There is predominantly plateau-type enhancement within the biopsy-proven small lymph node. ?? LEFT BREAST: Oval T2 intense early enhancing mass 12 o'clock position 6 cm from left nipple. ??Associated susceptibility artifact 02/01/2025-0.6 cm (601/115) 12/23/2023-0.7 cm Masses: There are no new suspicious left breast masses. ?? Nonmass enhancement: There is moderate heterogeneous nonmass background enhancement. ?? Enhancing foci: The background enhancement could obscure enhancing foci. ??Overall pattern is similar to 12/23/2023 and 10/05/2021. ?? Other: There are no other suspicious left breast findings ?? Color signal and enhancement kinetics: There are no suspicious areas of color signal. There are no suspicious areas of washout kinetics. ??There is persistent enhancement within the previously biopsied mass. ?? VISUALIZED CHEST: ?? AXILLA: There are no enlarged axillary lymph nodes ?? VISUALIZED ABDOMEN: There are no suspicious findings in the visualized portions of the chest. There are no suspicious findings in the visualized portions of the abdomen ?? Procedure Note Mohsen Malone MD - 02/01/2025 EXAMINATION: MRI BREAST WITHOUT AND WITH CONTRAST, BILATERAL CLINICAL INFORMATION: Mass of right breast. The estimated lifetime risk of developing breastcancer is 26%. Family history of breast cancer in 1st degree relative. Image guided biopsy upper inner left breast October 2020-year-old infibroadenoma. Image guided right breast biopsy 11/01/2021 with reactive lymph nodesdiagnosis. Image guided biopsy right breast 08/29/2023 (8 o'clock position) yieldingfibroadenoma COMPARISON: Portions of previous MRI 12/23/2023 PREVIOUS MAMMOGRAPHY (Non-diagnostic monitor review): The most recentmammogram available 08/29/2023 TECHNIQUE: Anatomic and fluid sensitive MR sequences were performed on a 3 Teslaplatform system. Diffusion-weighted sequence was performed. A dynamicseries was performed shortly before and after the IV administration ofcontrast. Subtracted imaging was reviewed. Color signal and kinetic analysis was performed on a dedicated softwareplatform (Adaptive Planning) Imaging before and after the IV administration of contrast. Type of contrast: Dotarem Amount of contrast: 20 mL Volume of contrast discarded: 0 mL FINDINGS: FIBROGLANDULAR SIGNAL: There are heterogeneous areas of fibroglandulartissue BACKGROUND PARENCHYMAL ENHANCEMENT: There is a moderate amount ofbackground parenchymal enhancement SYMMETRY OF ENHANCEMENT: The background enhancement is symmetric RIGHT BREAST: There are again demonstrated circumscribed right breast masses some ofwhich have undergone image guided biopsy. Circumscribed T2 intense macrolobulated early enhancing mass 9 o'clock position 3.4 cm from nipple. Associated susceptibilityartifact. 02/01/2025-1.2 cm (601/150) 12/23/2023-1.4 cm Circumscribed T2 intense oval early enhancing mass 9 o'clock position 9 cmfrom right nipple. Associated susceptibility artifact. 02/01/2025-1.2 cm (601/147) 12/23/2023-1.0 cm Circumscribed T2 intense early enhancing oval mass in the 8:30 position 5cm from right nipple. Associated susceptibility artifact. 02/01/2025-0.4 cm 12/23/2023-0.4 cm Circumscribed oval T2 intense early enhancing mass anterior to the ovalmass with associated biopsy site marker 02/01/2025-0.6 cm (601/140) 12/23/2023-0.8 cm Masses: There are no new suspicious right breast masses. Nonmass enhancement: There are no suspicious areas of nonmass enhancementwithin the right breast Enhancing foci: There are a few scattered nonspecific enhancing foci inthe right breast. Other: There are no suspicious additional findings in the right breast Color signal and enhancement kinetics: There is persistent enhancement in3 of the right breast masses. There is predominantly plateau-type enhancement within the biopsy-provensmall lymph node. LEFT BREAST: Oval T2 intense early enhancing mass 12 o'clock position 6 cm from leftnipple. Associated susceptibility artifact 02/01/2025-0.6 cm (601/115) 12/23/2023-0.7 cm Masses: There are no new suspicious left breast masses. Nonmass enhancement: There is moderate heterogeneous nonmass backgroundenhancement. Enhancing foci: The background enhancement could obscure enhancing foci.Overall pattern is similar to 12/23/2023 and 10/05/2021. Other: There are no other suspicious left breast findings Color signal and enhancement kinetics: There are no suspicious areas ofcolor signal. There are no suspicious areas of washout kinetics. There ispersistent enhancement within the previously biopsied mass. VISUALIZED CHEST: AXILLA: There are no enlarged axillary lymph nodes VISUALIZED ABDOMEN: There are no suspicious findings in the visualizedportions of the chest. There are no suspicious findings in the visualizedportions of the abdomen IMPRESSION: Moderate heterogeneous nonmass background enhancement. No suspicious interval change in 4 right breast masses 3 of which haveundergone sampling. No suspicious interval change in a left breast mass which has undergonesampling. There are no new suspicious enhancing masses in either breast. Recommend continued imaging surveillance including annual high-riskscreening MRI ASSESSMENT: RIGHT BREAST: BI-RADS 2-benign LEFT BREAST: BI-RADS 2-benign RECOMMENDATIONS: Annual high-risk screening MRI Continue annual screening mammography Follow-up ultrasound as appropriate, based upon previous imaging. Please note that I do not have a mammogram more recent than 08/29/2023 forcomparison -------- FINAL REPORT -------- Dictated By: Mohsen Malone Dictated Date: 02/01/2025 13:35 ET Assigned Physician: Mohsen Malone Reviewed and Electronically Signed By: Mohsen Malone Signed Date: 02/01/2025 14:50 ET Workstation ID: [id number] Transcribed By: Self Edit Transcribed Date: 02/01/2025 14:31 ET Valerie Braswell MD IMG MRI PROCEDURES Emi l Result from Last 3 Months Insurance [facility] Care Teams Postal Service Clerk Relationship Specialty Start Date End Date Mariah Abbott MD PCP - General 04/06/11
--- OUTSIDE RECORDS SUMMARY | 2025-02-24 17:24 | XMS_ITS | Data Portability ---
Author Organization NADINE Camilo Melo [facility], [facility] [place] Address [address] [place] [address] Assessment Encounter Date Assessment Date Assessment LastModified by Organization Details LastModified Time 02/02/2025 02/02/2025 Assessment: Pt continues to demonstrate altered endrange flexion mechanics. Able to make full PROM in all directions except ER ROM. Plan: Continue PT @ 1-2x/wk to improve ROM and PS strength as tolerated. [email or web address] Not available 02/02/2025 20:10:05 02/04/2025 02/04/2025 Assessment: Pt continues to demonstrate altered endrange flexion mechanics. Able to make full PROM in all directions except ER ROM. Plan: Continue PT @ 1-2x/wk to improve ROM and PS strength as tolerated. [email or web address] Not available 02/04/2025 18:57:56 02/09/2025 02/09/2025 Assessment: Good steady progress. L UT Trigger point source of residual pain. Plan: Continue PT @ 1-2x/wk to improve ROM and PS strength as tolerated. Not available 02/09/2025 17:18:05 02/11/2025 02/11/2025 Assessment: Good steady progress. Improved L Scapular posture vs LV. Weak shoulder flexion, unable to lift 2 lbs 90 deg. Plan: Continue PT @ 1-2x/wk to improve ROM and PS strength as tolerated. Not available 02/11/2025 18:31:39 02/16/2025 02/16/2025 Assessment: Weak shoulder flexion. Plan: Continue PT @ 1-2x/wk to improve ROM and PS strength as tolerated. Not available 02/16/2025 18:48:37 Plan of Treatment Reminders Order Date Submit Date Provider Last Modified By Organization Details Last Modified Time Details Appointments PT FOLLOW-U P 2024 06:00P M Bill Arias DPT Not available Not available Not available PT FOLLOW-U P 2024 05:30P M Williamzachary Robisonjermaineri, GOVERNMENT AFFAIRS MANAGER Not available Not available Not available PT FOLLOW-U P 2024 06:00P M Bill Arias DPT Not available Not available Not available PT FOLLOW-U P 2024 05:00P M Bill Arias DPT Not available Not available Not available PT FOLLOW-U P 2024 04:30P M Willima Licea, GOVERNMENT AFFAIRS MANAGER Not available Not available Not available RECHECK 15 2024 04:00P M Vida Banks MD Not available Not available Not available Lab None recorded . Referral None recorded . Procedures None recorded . Surgeries None recorded . Imaging None recorded . Medication Orders None recorded . Patient TargetsNo targets recorded. Patient InstructionsNo instructions recorded. Reason for Referral None Reported. Procedures Surgical History Date Name Laterality Status Provider Name and Address Organization Details Recorded Time 4 68334 Therapeutic Exercise (1:1) completed William Licea, GOVERNMENT AFFAIRS MANAGER [address], [place], [address], [facility] 11/16/2024 13:06:18 4 53908: Hot or Cold Pack completed William Licea, GOVERNMENT AFFAIRS MANAGER [address], [place], [address], [facility] 11/16/2024 13:06:18 4 49763: Manual therapy completed William Quachri, GOVERNMENT AFFAIRS MANAGER [address], [place], [address], [facility] 11/16/2024 13:06:18 4 86052 Therapeutic Exercise (1:1) completed Bill Arias, DPT [address], [place], [address], [facility] 11/09/2024 21:04:41 4 03989: Hot or Cold Pack completed SAVANNAH IrizarryT [address], [place], [address], [facility] 11/09/2024 21:04:41 4 30579: Manual therapy completed SAVANNAH IrizarryT [address], [place], [address], [facility] 11/09/2024 21:04:41 4 30749 Therapeutic Exercise (1:1) completed SAVANNAH IrizarryT [address], [place], [address], [facility] 11/09/2024 20:28:20 4 37096: Hot or Cold Pack completed SAVANNAH IrizarryT [address], [place], [address], [facility] 11/06/2024 12:16:12 4 49802: Manual therapy completed SAVANNAH IrizarryT [address], [place], [address], [facility] 11/06/2024 12:16:12 4 14102 Therapeutic Exercise (1:1) completed William Licea, GOVERNMENT AFFAIRS MANAGER [address], [place], [address], [facility] 11/05/2024 12:45:16 4 05534: Hot or Cold Pack completed William Licea, GOVERNMENT AFFAIRS MANAGER [address], [place], [address], [facility] 11/05/2024 09:49:30 4 11673: Manual therapy completed William Licea, GOVERNMENT AFFAIRS MANAGER [address], [place], [address], [facility] 11/05/2024 12:45:21 4 78694 Therapeutic Exercise (1:1) completed Bill Arias DPT [address], [place], [address], [facility] 10/30/2024 16:22:55 4 30255: Hot or Cold Pack completed SAVANNAH IrizarryT [address], [place], [address], [facility] 10/30/2024 16:22:55 4 11068: Manual therapy completed SAVANNAH IrizarryT [address], [place], [address], [facility] 10/30/2024 16:22:55 4 35141 Therapeutic Exercise (1:1) completed Bill Arias DPT [address], [place], [address], [facility] 10/28/2024 19:22:26 4 92215: Hot or Cold Pack completed SAVANNAH IrizarryT [address], [place], [address], [facility] 10/28/2024 19:22:26 4 35433: Manual therapy completed Bill Arias DPT [address], [place], [address], [facility] 10/28/2024 19:22:26 4 96763 Therapeutic Exercise (1:1) completed William Licea, GOVERNMENT AFFAIRS MANAGER [address], [place], [address], [facility] 10/27/2024 15:30:08 4 20754: Hot or Cold Pack completed William Licea, GOVERNMENT AFFAIRS MANAGER [address], [place], [address], [facility] 10/27/2024 15:30:08 4 51707: Manual therapy completed William Licea, GOVERNMENT AFFAIRS MANAGER [address], [place], [address], [facility] 10/27/2024 15:30:08 4 61449 Therapeutic Exercise (1:1) completed Bill Arias DPT [address] [facility], [place], [address], [facility] 10/22/2024 10:03:31 4 01508: Hot or Cold Pack completed Bill Arias DPT [address] [facility], [place], [address], [facility] 10/22/2024 10:08:01 4 12072: Manual therapy completed Bill Arias DPT [address] [facility], [place], [address], [facility] 10/22/2024 10:08:27 4 60304 Therapeutic Exercise (1:1) completed Bill Arias DPT [address] [place] [address], [address], [facility] 10/21/2024 18:35:14 4 87259: Low complexity PT Eval completed Bill Arias DPT [address] [place] [address], [address], [facility] 10/21/2024 18:34:13 Imaging Results None recorded. Procedure Notes None recorded. Medical Equipment None Reported. Allergies Allergen ID Allergen Name Allergen Category Reaction Reaction Severity Criticality Documentation Date Start Date Code Code System Note Provider Name and Address Organization Details Recorded Time 797478 methotrex ate medicatio n rash Not available Not available 07/06/20242022 6851 RxNorm ALICE CUEVAS [facility], [facility] 4 08:22:43 056282 erythromy nate medicatio n Not available Not available Not available 07/06/2024 4053 RxNorm ALICE CUEVAS [facility] 08:22:43 060091 adhesive tape environme nt,medica tion rash Not available Not available 07/06/2024 86280 [facility] 4 08:22:43 953147 latex environme nt,medica tion rash Not available Not available 07/06/2024 77173 91 RxNorm ALICE CUEVAS [facility] 4 08:22:43 564276 peach food Not available Not available Not available 07/06/2024 40026 [facility] 4 13:23:12 Medications Name Sig Start Date Stop Date Status Note LastModified by Organization Details LastModified Time prednisone 10 mg tablet PLEASE SEE ATTACHED FOR DETAILED DIRECTION S 07/06 completed Not Available Not Available Not Available aspirin 325 mg tablet TAKE 1 TABLET BY MOUTH EVERY DAY FOR 14 DAYS 02/01 completed Not Available Not Available Not Available fluconazole 150 mg tablet 02/01 completed Not Available Not Available Not Available prednisone 20 mg tablet TAKE 2 TABLETS BY MOUTH EVERY DAY 07/06 completed Not Available Not Available Not Available penicillin V potassium 500 mg tablet TAKE 1 TABLET BY MOUTH TWICE A DAY FOR 7 DAYS 02/01 completed Not Available Not Available Not Available amlodipine 2.5 mg tablet TAKE 1 TABLET BY MOUTH DAILY active Not Available Not Available No t Available sulfamethox azole 800 mg-trimetho prim 160 mg tablet TAKE 1 TABLET BY MOUTH TWICE A DAY FOR 7 DAYS active Not Available Not Available No t Available ondansetron 8 mg disintegrat ing tablet DISSOLVE 1 TABLET IN MOUTH THREE TIMES DAILY NEEDED FOR NAUSEA 02/01 completed Not Available Not Available Not Available hydromorpho ne 2 mg tablet TAKE 1 TABLET BY MOUTH EVERY 4 HOURS FOR 7 DAYS 02/01 completed Not Available Not Available Not Available metronidazo le 0.75 % topical cream APPLY TO FACE, NECK, & CHEST 1-2 TIMES DAILY NEEDED active Not Available Not Available No t Available docusate sodium 100 mg capsule TAKE 1 CAPSULE BY MOUTH EVERY DAY NEEDED 02/01 completed Not Available Not Available Not Available sertraline 25 mg tablet TAKE 1 TABLET BY MOUTH EVERY DAY active Not Available Not Available No t Available levofloxaci n 750 mg tablet 02/01 completed Not Available Not Available Not Available scopolamine 1 mg over 3 days transdermal patch APPLY 1 PATCH EVERY 72 HOURS TRANSDERM ALLY NEEDED, FOR NAUSEA. 02/01 completed Not Available Not Available Not Available albuterol sulfate HFA 90 mcg/actuati on aerosol inhaler INHALE 2 PUFFS EVERY 4 TO 6 HOURS NEEDED FOR SHORTNESS OF BREATH OR FOR WHEEZE 02/01 completed Not Available Not Available Not Available doxycycline hyclate 100 mg tablet TAKE 1 TABLET BY MOUTH TWICE A DAY 09/28 completed Not Available Not Available Not Available dicyclomine 10 mg capsule TAKE 1 CAPSULE BY MOUTH THREE TIMES A DAY NEEDED active Not Available Not Available No t Available naproxen 500 mg tablet TAKE 1 TABLET BY MOUTH TWICE A DAY FOR 5 DAYS 02/01 completed Not Available Not Available Not Available amoxicillin 875 mg-potassiu m clavulanate 125 mg tablet TAKE 1 TABLET BY MOUTH TWICE A DAY 02/01 completed Not Available Not Available Not Available estradiol 0.025 mg/24 hr semiweekly transdermal patch APPLY 1 PATCH TRANSDERM ALLY TWICE A WEEK active Not Available Not Available No t Available amoxicillin -potassium clavulanate 1,000 mg-62.5 mg tablet,ext. rel 12hr 07/06 completed Not Available Not Available Not Available Restasis 0.05 % eye drops in a dropperette INSTILL 1 DROP INTO BOTH EYES TWICE A DAY active Not Available Not Available No t Available Pain Relief Extra Strength (acetaminop hen) 500 mg tablet TAKE 2 TABLETS BY MOUTH 3 TIMES A DAY 02/01 completed Not Available Not Available Not Available Zyrtec 10 mg capsule 1 capsule every day by oral route. active Not Available Not Available No t Available Flonase Allergy Relief 50 mcg/actuati on nasal spray,suspe nsion [place] 1 spray every day by nasal route. 02/01 completed Not Available Not Available Not Available Enbrel Mini 50 mg/mL (1 mL) subcutaneou s cartridge active Not Available Not Available Not Available Slynd 4 mg (28) tablet TAKE 1 TABLET BY MOUTH EVERY DAY FOR 84 DAYS active Not Available Not Available No t Available Vitals None Recorded Social History Question Answer Notes LastModified by Organizat ion Details LastModified Time Tobacco Smoking Status Former Smoker ALICE khan [place] [facility] 07/06/2024 08:22:45 How Many Times Per Week Do You Consume Alcohol? Less Than 1 Time Per Week Information not available 07/06/2024 Do You Or Have You Ever Used E-cigarettes Or Vape? Never Used Electronic Cigarettes Information not available 07/06/2024 When Did You Quit Smoking? 16+yearssincel talisha Information not available 07/06/2024 What Is Your Relationship Status? Information not available 07/06/2024 Do You Use Any Illicit Or Recreational Drugs? No Information not available 07/06/2024 Do You Or Have You Ever Used Any Other Forms Of Tobacco Or Nicotine? No Information not available 07/06/2024 Sex: Unknown Functional Status None recorded. Mental Status None recorded. Family History Nothing Reported. Medical History Condition Response Allergies/Hayfever Y Coronary Artery Disease N Breathing or lung disorders N Anxiety/Depression Y Emphysema N Nerve Disorders N Thyroid Problems N COPD N Pacemaker N Kidney/Bladder Problems N Anemia N Vascular Disease N Heart Trouble N Gastrointestinal Disease N Heart Attack (MD) N Cholesterol N Diabetes N Autoimmune disease Y Bleeding Disorder N Orthotics N Arthritis Y Seizures/Epilepsy N Blood Clot N AIDS/HIV N Congestive Heart Failure (CHF) N Acid Reflux (GERD) Y Cancer N Stroke N Asthma Y Circulation Problems N Peripheral Vascular Disease N Sleep Apnea N Hepatitis N Heart Disease N Rheumatoid Arthritis Y Arrhythmia N Pulmonary Embolism N Headaches Y Fibromyalgia N Hypertension Y Osteoporosis N Gynecological HistoryNo gynecological history recorded. Obstetrics History GPAL:G 0 P 0 0 0 0 Past Encounters Encounter ID Performer Location Encounter Start Date Encounter Closed Date Diagnosis/Indication Diagnosis SNOMED-CT Code Diagnosis ICD10 Code Diagnosis Note [id number] MD Richard Tripp [address] [place] [address] 07/06/2024 08:07:35 07/29/2024 10:56:47 Pain of left shoulder joint [id number] M25.512 Full thick ness rotator cuff tear 233545898 M75.629 [id number] MD Richard Tripp [address] [place] [address] 09/28/2024 14:16:14 10/27/2024 13:58:38 Calcific tendinitis of right shoulder [id number] 71008 M75.31 Pain of ri ght shoulder joint 4673932663 1738886 M25.414 [id number] MD Marek [facility] [address] [place] [address] 10/23/2024 09:28:22 11/23/2024 13:51:40 Follow-up orthopedic assessment [id number] Z47.89 [id number] Bill Arias DPT [facility] [address] [place] [address] 10/21/2024 13:59:00 10/21/2024 17:48:15 Rupture of rotator cuff of left shoulder [id number] [id number] M75.227 [id number] Bill Arias DPT [facility] [address] [place] [address] 10/22/2024 09:13:39 10/22/2024 10:53:09 Rupture of rotator cuff of left shoulder [id number] M75.575 [id number] Bill Arias DPT [facility] [address] [place] [address] 10/27/2024 12:56:20 10/27/2024 13:36:14 Rupture of rotator cuff of left shoulder [id number] M75.746 [id number] Bill Arias DPT [facility] [address] [place] [address] 10/29/2024 13:53:37 10/29/2024 15:02:35 Rupture of rotator cuff of left shoulder [id number] M75.472 [id number] Bill Arias [facility] [address] [place] [address] 11/03/2024 09:59:16 11/03/2024 10:22:20 Rupture of rotator cuff of left shoulder [id number] M75.297 [id number] Bill Arias DPT [facility] [address] [place] [address] 11/05/2024 11:54:53 11/05/2024 12:39:09 Rupture of rotator cuff of left shoulder [id number] M75.293 [id number] Bill Arias, DPT [facility] [address] [place] [address] 11/09/2024 12:52:41 11/10/2024 06:45:35 Rupture of rotator cuff of left shoulder [id number] M75.713 [id number] Bill Arias, DPT [facility] [address] [place] [address] 11/12/2024 09:30:37 11/12/2024 10:06:41 Rupture of rotator cuff of left shoulder [id number] M75.346 [id number] Aleksander Cruz , DPT [facility] [address] [place] [address] 11/16/2024 11:27:35 11/16/2024 12:04:35 Rupture of rotator cuff of left shoulder [id number] M75.767 [id number] Zeb Lopez, PT [facility] [address] [place] [address] 11/19/2024 16:23:31 11/19/2024 17:25:05 Rupture of rotator cuff of left shoulder [id number] [id number] M75.380 [id number] Bill Arias, DPT [facility] [address] [place] [address] 11/24/2024 12:57:06 11/24/2024 13:50:31 Rupture of rotator cuff of left shoulder 1261746134 [id number] M75.031 [id number] Bill Arias, DPT [facility] [address] [place] [address] 11/26/2024 12:56:44 11/26/2024 15:27:05 Rupture of rotator cuff of left shoulder [id number] M75.710 [id number] Bill Arias, DPT [facility] [address] [place] [address] 11/30/2024 13:57:12 11/30/2024 14:33:54 Rupture of rotator cuff of left shoulder [id number] M75.681 [id number] Bill Arias DPT [facility] [address] [place] [address] 12/02/2024 13:54:45 12/02/2024 14:23:50 Rupture of rotator cuff of left shoulder [id number] M75.640 [id number] Bill Arias DPT [facility] [address] [place] [address] 12/08/2024 12:56:05 12/08/2024 14:10:47 Rupture of rotator cuff of left shoulder [id number] M75.588 [id number] CLIFFORD [facility] [place] [address] 12/10/2024 08:59:46 01/08/2025 14:13:45 Nontraumatic complete rupture of rotator cuff of left shoulder 6599400925 [id number] M75.708 [id number] Bill Arias DPT [facility] [address] [place] [address] 12/10/2024 12:53:13 12/10/2024 13:39:28 Rupture of rotator cuff of left shoulder [id number] M75.260 [id number] Bill Arias DPT [facility] [address] [place] [address] 12/15/2024 12:56:10 12/15/2024 13:36:17 Rupture of rotator cuff of left shoulder [id number] M75.098 [id number] Bill Arias DPCarolina [facility] [address] [place] [address] 12/17/2024 12:57:10 12/17/2024 14:54:40 Rupture of rotator cuff of left shoulder [id number] M75.096 [id number] Bill Arias DPT [facility] [address] [place] [address] 12/29/2024 15:54:21 12/29/2024 17:03:39 Rupture of rotator cuff of left shoulder [id number] M75.497 [id number] Bill Arias, DPT [facility] [address] [place] [address] 12/31/2024 11:29:42 12/31/2024 12:20:10 Rupture of rotator cuff of left shoulder [id number] M75.141 [id number] Bill Arias, DPT [facility] [address] [place] [address] 01/05/2025 11:59:37 01/05/2025 12:37:14 Rupture of rotator cuff of left shoulder [id number] M75.677 [id number] Bill Arias DPT [facility] [address] [place] [address] 01/07/2025 11:57:40 01/07/2025 12:46:00 Rupture of rotator cuff of left shoulder [id number] M75.976 [id number] Bill Arias, DPT [facility] [address] [place] [address] 01/12/2025 16:26:27 01/12/2025 17:13:57 Rupture of rotator cuff of left shoulder [id number] M75.475 [id number] Bill Arias DPT [facility] [address] [place] [address] 01/14/2025 17:52:56 01/15/2025 06:20:32 Rupture of rotator cuff of left shoulder [id number] M75.788 [id number] Bill Arias, DPT [facility] [address] [place] [address] 01/19/2025 16:29:48 01/19/2025 17:07:55 Rupture of rotator cuff of left shoulder [id number] M75.040 [id number] Vida Banks MD [facility] [address] [facility] [address] [place] [address] 02/01/2025 13:02:24 02/15/2025 08:27:03 Follow-up orthopedic assessment [id number] Z47.89 [id number] Bill Arias, DPT [facility] [address] [place] [address] 01/21/2025 16:28:46 01/21/2025 16:59:25 Rupture of rotator cuff of left shoulder [id number] M75.055 [id number] Bill Arias DPT [facility] [address] [place] [address] 01/26/2025 17:27:24 01/26/2025 17:52:33 Rupture of rotator cuff of left shoulder [id number] M75.452 [id number] Bill Arias DPT [facility] [address] [place] [address] 01/28/2025 16:54:48 01/28/2025 17:56:53 Rupture of rotator cuff of left shoulder [id number] M75.984 [id number] Bill Arias, DPT [facility] [address] [place] [address] 02/02/2025 16:25:29 02/02/2025 17:08:37 Rupture of rotator cuff of left shoulder [id number] M75.694 [id number] Bill Arias DPT [facility] [address] [place] [address] 02/04/2025 16:26:14 02/04/2025 17:41:37 Rupture of rotator cuff of left shoulder [id number] M75.196 [id number] Bill Arias DPT [facility] [address] [place] [address] 02/09/2025 16:28:36 02/09/2025 17:22:04 Rupture of rotator cuff of left shoulder [id number] M75.975 [id number] Bill Arias, SANJUANITA [facility] [address] [place] [address] 02/11/2025 16:43:03 02/11/2025 17:01:17 Rupture of rotator cuff of left shoulder [id number] M75.840 [id number] Bill Arias DPT [facility] [address] [place] [address] 02/16/2025 16:20:54 02/16/2025 17:12:58 Rupture of rotator cuff of left shoulder [id number] M75.102 Health Concerns Section Related Observation LastModified by Organization Detai ls LastModified Time None Recorded Concern Status LastModified by Organization Details LastModified Time None Recorded Advance Directives Directive None Recorded Payers Encounter Date Sequence Insurance Name Policy Number Policy Iraheta Covered Member ID Iraheta Member ID Guarantor Name 02/02/2025 1 [place] [facility] [place] [place] [id number] Don A Beatrice [id number] Valerie Beatrice 02/04/2025 1 [place] [facility] [place] [place] [id number] Don A Beatrice [id number] Valerie Beatrice 02/09/2025 1 [place] [facility] [place] [place] [id number] Don A Beatrice [id number] Valerie Beatrice 02/11/2025 1 [place] [facility] [place] [place] [id number] Don A Beatrice [id number] Valerie Beatrice 02/16/2025 1 [place] [facility] [place] [place] [id number] Don A Beatrice [id number] Valerie Beatrice Notes Date Note Type Note Provider Name and Address Organization Details Recorded Time 02/02/2025 text/html Patient had a recheck with MD and happy with her progression and RTW at 02/08/25. Pt states feeling good with her shoulder today.Pains 0/10 at rest SAVANNAH IrizarryT [address], [place], [address], [facility] 02/02/2025 20:10:21 02/04/2025 text/html Patient had a recheck with MD and happy with her progression and RTW at 02/08/25. Pt states feeling good with her shoulder today.Pains 0/10 at rest SAVANNAH IrizarryT [address], [place], [address], [facility] 02/04/2025 18:58:08 02/09/2025 text/html Pt states no shoulder pain. Feeling more neck pain after driving back and forth from [place]. William Licea PTA [address], [place], [address], [facility] 02/09/2025 17:18:23 02/11/2025 text/html Pt states less neck pain after LV. William Licea PTA [address], [place], [address], [facility] 02/11/2025 18:32:24 02/16/2025 text/html Pt states less neck pain after LV. Shoulder still feels weak. William Licea PTA [address], [place], [address], [facility] 02/16/2025 18:48:54 OBGyn Episode No OBEpisode recorded.
--- OUTSIDE RECORDS SUMMARY | 2025-02-24 17:24 | XMS_ITS | Encounter Summary ---
Author Organization [facility] Address [address] [place] [address] Care Team Providers Care Solar Consultant Name Role Phone Mariah Abbott MD Primary Care Provider [phone] Encounter Details Date Type Department Care Team (Late st Contact Info) Description 01/20/2025 Telephone Breast Care Center [facility] [address] [place] [id number] Valerie Braswell MD [address] [place] [address] Social History Tobacco Use Types Packs/Day Years [...] Progress Notes * Valerie Braswell MD - 02/04/2025 9:07 AM EDT Have these reports been obtained from [facility]? * Valerie Braswell MD - 01/28/2025 9:29 AM EDT Please see message below, I don't see the images were obtained yet. * Valerie Braswell MD - 01/20/2025 5:13 PM EST Please obtain mammogram and right breast u/s from [facility]. thanks documented in this encounter Plan of Treatment Upcoming Encounters Date Type Department Care Team (Late st Contact Info) Description 08/04/2025 4:00 PM EDT Office Visit Breast Care [facility] [address] [place] [address] Valerie Braswell MD [address] [place] [address] documented as of this encounter Visit Diagnoses Not on filedocumented in this encounter Care Teams Solar Consultant Relationship Specialty Start Date End Date Mariah Abbott MD PCP - General 04/06/11 documented as of this encounter
== END 2025-02-24 18:58 | disposition home or self-care (01) ==
LOC: HO.HGI 15:28
PROVIDERS: PCP Internal Medicine; Visit Provider Internal Medicine
DX: K52.9 Noninfective gastroenteritis and colitis, unspecified (principal); K21.9 Gastro-esophageal reflux disease without esophagitis
CPT/HCPCS: 99203

== ENCOUNTER 2025-03-13 08:31 | Outpatient (REF) | payer BC, SELFPAY ==
[2025-03-13 11:26] LABS: Hematocrit 37.8 % (37.0-47.0); Hemoglobin 12.9 g/dl (12.0-16.0); Mean Corpuscular HGB Conc 34.1 g/dl (31.0-35.0); Mean Corpuscular Hemoglobin 28.1 pg (27.0-33.0); Mean Corpuscular Volume 82.4 fL (80.0-98.0); Mean Platelet Volume 9.5 fL (9.4-12.3); Platelet Count 386 X10*3/uL (160-400); Red Blood Count 4.59 X10*6/uL (4.20-5.50); Red Cell Distribution Width 12.4 % (11.0-16.0); White Blood Count 6.3 X10*3/uL (4.8-10.8)
[2025-03-13 12:36] LABS: Alanine Aminotransferase 18 U/L (0-31); Alkaline Phosphatase 66 U/L (39-117); Anion Gap 9 (12-20); Aspartate Amino Transferase 19 U/L (5-31); Bilirubin Total 0.4 mg/dL (0.0-1.0); Blood Urea Nitrogen 11 mg/dL (9-16); Calcium 8.6 mg/dL (8.4-10.2); Carbon Dioxide 22 mmol/L (22-29); Chloride 110 mmol/L (96-108); Estimated Glomerular Filt Rate > 60; Glucose Random 91 mg/dL (60-115); Potassium 3.9 mmol/L (3.3-5.1); Sodium 137 mmol/L (135-145); Total Protein 6.8 g/dL (6.5-8.0)
[2025-03-13 12:40] LABS: TSH reflex Free T4 1.02 uIU/mL (0.32-4.0)
[2025-03-15 14:23] LABS: Immunoglobulin A 287 mg/dL (47-310)
[2025-03-15 21:38] LABS: Transglutaminase IgA <1.0 U/mL
[2025-03-20 03:54] LABS: Calprotectin, Fecal 30 mcg/g
== END 2025-03-13 08:32 | disposition home or self-care (01) ==
LOC: HO.HMGCLDS 08:31
PROVIDERS: PCP Internal Medicine; Visit Provider Internal Medicine
DX: K52.9 Noninfective gastroenteritis and colitis, unspecified (principal)
CPT/HCPCS: 36415; 80053; 82784; 83993; 84443; 85027; 86140; 86364

== ENCOUNTER 2025-05-27 08:53 | Outpatient (REF) | payer BC, SELFPAY ==
--- NOTE | ~2025-05-27 | FL_ITS ---
EXAMINATION: XR FLUOROSCOPY ESOPHAGRAM CLINICAL INFORMATION: Worsening gastroesophageal reflux type symptoms. Burning in esophagus. COMPARISON: None TECHNIQUE: Fluoroscopic air contrast esophagram examination was performed utilizing standard techniques with thin and thick barium and effervescent granules. Numerous spot images were obtained. Several fluoroscopic image hold cine sequences were also obtained. FINDINGS: ESOPHAGRAM: Lateral cine images of the oropharynx and hypopharynx demonstrate normal swallow mechanism with normal epiglottic inversion and soft palate elevation. No laryngeal penetration, glottic or subglottic aspiration identified. No nasopharyngeal reflux present. Hypopharyngeal structures appear normal without evidence of mass or diverticulum. There was no significant cricopharyngeal achalasia. Dual and single contrast images of the esophagus demonstrate normal caliber, contour, and mucosal pattern. No evidence of stricture, mass, or ulcerations identified. Esophageal peristalsis was mildly disordered. No evidence of hiatus hernia. There was episodic gastroesophageal reflux to the level of the thoracic inlet. Dual contrast and single contrast images of the stomach demonstrated normal contour and mucosal pattern without evidence of mass, ulceration, or other abnormality. Normal rugal fold pattern. Contrast freely passed into the gastric antrum and duodenal bulb without delay. Single and air-contrast images of the duodenal bulb demonstrate no abnormality. The duodenal sweep has a normal appearance, course, and mucosal fold appearance. FLUOROSCOPY TIME: 2 minutes, 52 seconds Number of Spot Images:10 Number of cines obtained: 10 DOSE AREA PRODUCT: 2493 uGy-m2 (microgray-meter squared) FL/FL barium swallow with air IMPRESSION: 1. Mildly disordered esophageal peristalsis. 2. Gastroesophageal reflux present to the level of the thoracic inlet. 3. No hiatus hernia. 4. Otherwise normal appearing esophagus and stomach. Electronically signed by: Martell Cedeno MD 05/27/2025 10:20 AM EDT
--- OUTSIDE RECORDS SUMMARY | 2025-05-27 09:12 | XMS_ITS | Patient Health Record ---
Author Organization [facility] Address [address] [place] [address] Care Team Providers Care Scallop Dredger Name Role Phone Mariah Abbott MD Primary Care Provider Vin Royalmie Unavailable [phone] Allergies Allergen (clinical drug ingredient) Drug/Non Drug [...] Subcutaneous Active Walking Boot/Pneumatic As directed Wear Daily; Duration: Until further notice 05/16/2020 Not-Taking Meloxicam 15 MG 1 tablet Orally Once a day; Duration: 30 day(s) 12/15/2020 Not-Taking predniSONE 20 MG Orally for 1 week Not-Taking Singulair 10 MG Orally Not- Taking Fluconazole 150 MG Orally N ot-Taking Diclofenac Sodium 50 MG 1 tablet as needed Orally Twice a day; Duration: 30 days 07/16/2022 Not-Taking Omeprazole 20 MG Orally Not -Taking ASO Ankle/Foot Stablizing AFO As directed Wear Daily; Duration: as needed 07/16/2022 Active LORazepam 0.5 MG Orally Not -Taking Flonase Active EpiPen Not-Taking Physical Therapy 3-4x per week for 3-4 weeks 10/05/2019 Active ProAir HFA 108 (90 Base) MCG/ACT Inhalation Not-Taking ZyrTEC Active Claritin 10 MG Orally Not-T aking amLODIPine Besylate 2.5 MG 1 tablet Orally Once a day; Duration: 30 day(s) Active Lisinopril 20 MG Orally Not -Taking Diclofenac Sodium 50 MG 1 tablet Orally Twice a day; Duration: 30 day(s) 06/16/2020 Not-Taking Slynd 4 MG 1 tablet Orally Once a day; Duration: 30 day(s) Control Active Immunizations Vaccine Route [...] Problem Status W/U Status Risk Notes Problem Rheumatoid arthritis (51703845) Rheumatoid arthritis without rheumatoid factor, 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) Active confirmed Problem Localized, primary osteoarthritis of the ankle and/or foot (594657911) Primary osteoarthritis, right ankle and foot (M19.071) Active confirmed Problem Localized, primary osteoarthritis of the ankle and/or foot (396099356) Primary osteoarthritis, left ankle and foot (M19.072) Active confirmed Problem Rheumatoid arthritis (16004443) Rheumatoid arthritis involving multiple sites with positive rheumatoid factor (M05.79) Active confirmed Problem Seronegative arthritis (208265667) Seronegative arthritis (M13.80) Active confirmed Plan Of Treatment Pending Test Test Name Order Date MRI : Foot, right 10/24/2020 *Uric Acid, Serum 10/22/2022 *Sedimentation Rate-Westergren 2 *Sedimentation Rate-Westergren 0 Rheumatoid Arthritis Factor 07/11/2020 NEGRITA w/Reflex 10/22/2022 NEGRITA Comprehensive Panel 07/11/2020 X ray : Foot, left 3V 07/23/2019 18119 I&D ABSCESS- SIMPLE,SINGLE 021 , [id number]/INJECT, JOINT/BURSA 1 ,[id number] TENDON SHEATH/LIGAMENT 0 07/23/201920564,[id number] TENDON SHEATH/LIGAMENT 1 CRP 07/11/2020 Insurance Providers Payer Name Payer Address Payer Phone Subscriber Number Group Number Insured Name Patient Relationship to Insured Coverage Start Date Coverage End Date [facility] [address] [place] [address] [id number] Valerie Barron Self - patient is the insured Medical (General) History Medical History History ICD Code Hypertension asthma Seasonal allergies Bipolar disorder Plantar fasciitis back pain migraines GERD chicken pox Surgical History Surgery Date(Month/Year) hernia age 7 adenoids/tonsils age 15 right bunion surgeries 2x
--- OUTSIDE RECORDS SUMMARY | 2025-05-27 09:13 | XMS_ITS | Clinical Summary ---
Author Organization [facility] [address] [facility] Address [address] [place] [address] Phone Care Team Providers Care Irradiated Fuel Handler Name Role Phone Mariah Abbott MD Primary Care Provider [phone] Allergies Active Allergy Reactions Criticality Noted Date [...] Encounters Date Type Department Care Team Description 03/31/2025 Telephone Gastroenterology - [address] [place] [address] Mariah Mcconnell MD from Last 3 Months Surgical History Surgery Date Site/Laterality Comments OTHER SURGICAL HISTORY 04/10/2019 Right PROCEDURE: BREAST MASS CORE BIOPSY SPCMN PATHOLGY EXAM; COMMENT: benign TONSILLECTOMY PROCEDURE: HISTORICAL TONSILLECTOMY; COMMENT: and adenoidectomy FOOT SURGERY PROCEDURE: HISTORICAL FOOT SURGERY; COMMENT: hussein Medical History Medical History Date Comments Hypertension [...] 91 01/20/2025 4:17 PM EST Temperature 37 C (98.6 F) 01/20/2025 4:17 PM EST Respiratory Rate - - Oxygen Saturation - - Inhaled Oxygen Concentration - - Weight 78.9 kg (174 lb) 03/27/2023 4:11 PM EDT Height - - Body Mass Index - - Plan of Treatment Upcoming Encounters Date Type Department Care Team (Late st Contact Info) Description 08/04/2025 4:00 PM EDT Office Visit Breast Care Center [facility] [address] [place] [phone] Valerie Braswell MD [address] [place] [address] Health Maintenance Due Date Last Done Comments Breast Cancer Screening 1980 Hepatitis B Vaccines (1 of 3 - 19+ 3-dose series) 1999 Pneumococcal Vaccine: Pediatrics (0 to 5 Years) and At-Risk Patients (6 to 49 Years) (1 of 2 - PCV) 1999 Cervical Cancer Screening: Pap Smear 2001 DTaP,Tdap,and Td Vaccines (2 - Td or Tdap) 06/05/2022 06/05/2012 Cholesterol Screening (Lipid Panel) 10/27/2022 Depression Screening 10/27/2022 HIV Screening 10/27/2022 Hepatitis C Screening 10/27/2022 Social Influencers of Health Screening 10/27/2022 Hypertension/CHF/CAD Annual BMP Blood Test 11/03/2022 COVID-19 Vaccine ( season) 2024 10/04/2021, 12/13/2020, 11/22/2020 Influenza Vaccine (#1) 2025 , 08/14/2023, 08/18/2018, Additional history exists HIB Vaccines Aged [...] patient's age to complete this topic Insurance [facility] Care Teams Irradiated Fuel Handler Relationship Specialty Start Date End Date Mariah Abbott MD PCP - General 04/06/11
--- OUTSIDE RECORDS SUMMARY | 2025-05-27 09:13 | XMS_ITS | Data Portability ---
Author Organization NADINE Camilo Melo Kst[facility], [facility] [place], [place] Address [address] [place] [address] Assessment Encounter Date Assessment Date Assessment LastModified by Organization Details LastModified Time 03/02/2025 03/02/2025 Assessment: Initial tight PROM flexion, full after PROM. Weak throughout L RTC. Scapular elevation with 2 lb scaption. Plan: Continue PT @ 1-2x/wk to improve ROM and PS strength as tolerated. Not available 03/02/2025 18:41:20 03/09/2025 03/09/2025 Assessment: Patient continues to demonstrate mild tightness in flexion and ER ROM. Quick fatigues with strengthening exercises. Plan: Continue PT @ 1-2x/wk to improve ROM and PS strength as tolerated. [email or web address] Not available 03/09/2025 20:39:36 03/16/2025 03/16/2025 Assessment: Patient demonstrates ongoing weakness in PS strength. Pt able to reach full PROM in all directions but mild tightness in flexion and ER AROM remains. Plan: Review HEP for d/c next visit. Recheck with MD for updated orders. [email or web address] Not available 03/16/2025 19:28:02 03/23/2025 03/23/2025 Assessment: Full AROM. Minor L flexion/ Lower Trap strength vs R Plan: Reviewed L shld flexion and lower Trap weakness and advised exercises for pt to continue at home. Good results with PT. Not available 03/23/2025 17:40:32 Plan of Treatment Reminders Order Date Submit Date Provider Last Modified By Organization Details Last Modified Time Details Appointments None record ed. Lab None record ed. Referral None record ed. Procedures None record ed. Surgeries None record ed. Imaging None record ed. Medication Orders None record ed. Patient TargetsNo targets recorded. Patient InstructionsNo instructions recorded. Reason for Referral None Reported. Procedures Surgical History Date Name Laterality Status Provider Name and Address Organization Details Recorded Time 4 90166 Therapeutic Exercise (1:1) completed William Licea, HEALTH EDUCATION SPECIALIST [address], [place], [address], [facility] 11/16/2024 13:06:18 4 37859: Hot or Cold Pack completed William Licea, HEALTH EDUCATION SPECIALIST [address], [place], [address], [facility] 11/16/2024 13:06:18 4 76184: Manual therapy completed William Licea HEALTH EDUCATION SPECIALIST [address], [place], [address], [facility] 11/16/2024 13:06:18 4 08928 Therapeutic Exercise (1:1) completed Bill Arias DPT [address], [place], [address], [facility] 11/09/2024 21:04:41 4 47451: Hot or Cold Pack completed Bill Arias DPT [address], [place], [address], [facility] 11/09/2024 21:04:41 4 83591: Manual therapy completed Bill Arias DPT [address], [place], [address], [facility] 11/09/2024 21:04:41 4 91522 Therapeutic Exercise (1:1) completed Bill Arias DPT [address], [place], [address], [facility] 11/09/2024 20:28:20 4 23524: Hot or Cold Pack completed Bill Arias DPT [address], [place], [address], [facility] 11/06/2024 12:16:12 4 95963: Manual therapy completed Bill Arias DPT [address], [place], [address], [facility] 11/06/2024 12:16:12 4 15999 Therapeutic Exercise (1:1) completed William Licea, HEALTH EDUCATION SPECIALIST [address], [place], [address], [facility] 11/05/2024 12:45:16 4 78402: Hot or Cold Pack completed William Licea HEALTH EDUCATION SPECIALIST [address], [place], [address], [facility] 11/05/2024 09:49:30 4 51773: Manual therapy completed William Licea HEALTH EDUCATION SPECIALIST [address], [place], [address], [facility] 11/05/2024 12:45:21 4 36562 Therapeutic Exercise (1:1) completed Bill Arias DPT [address], [place], [address], [facility] 10/30/2024 16:22:55 4 11189: Hot or Cold Pack completed Blil Arias DPT [address], [place], [address], [facility] 10/30/2024 16:22:55 4 80620: Manual therapy completed Bill Arias DPT [address], [place], [address], [facility] 10/30/2024 16:22:55 4 61605 Therapeutic Exercise (1:1) completed Bill Arias DPT [address], [place], [address], [facility] 10/28/2024 19:22:26 4 18856: Hot or Cold Pack completed SAVANNAH IrizarryT [address], [place], [address], [facility] 10/28/2024 19:22:26 4 44912: Manual therapy completed SAVANNAH IrizarryT [address], [place], [address], [facility] 10/28/2024 19:22:26 4 73898 Therapeutic Exercise (1:1) completed William Licea, HEALTH EDUCATION SPECIALIST [address], [place], [address], [facility] 10/27/2024 15:30:08 4 54697: Hot or Cold Pack completed William Licea, HEALTH EDUCATION SPECIALIST [address], [place], [address], [facility] 10/27/2024 15:30:08 4 79708: Manual therapy completed William Licea, HEALTH EDUCATION SPECIALIST [address], [place], [address], [facility] 10/27/2024 15:30:08 4 24863 Therapeutic Exercise (1:1) completed Bill Arias DPT [address], [place], [address], [facility] 10/22/2024 10:03:31 4 70673: Hot or Cold Pack completed SAVANNAH IrizarryT [address], [place], [address], [facility] 10/22/2024 10:08:01 4 73160: Manual therapy completed SAVANNAH IrizarryT [address], [place], [address], [facility] 10/22/2024 10:08:27 4 50358 Therapeutic Exercise (1:1) completed SAVANNAH IrizarryT [address], [place], [address], [facility] 10/21/2024 18:35:14 4 37751: Low complexity PT Eval completed SAVANNAH IrizarryT [address], [place], [address], [facility] 10/21/2024 18:34:13 Imaging Results None recorded. Procedure Notes None recorded. Medical Equipment None Reported. Allergies Allergen ID Allergen Name Allergen Category Reaction Reaction Severity Criticality Documentation Date Start Date Code Code System Note Provider Name and Address Organization Details Recorded Time 684010 methotrex ate medicatio n rash Not available Not available 07/06/20242022 6851 RxNorm ALICE MASON [facility] 4 08:22:43 393408 erythromy nate medicatio n Not available Not available Not available 07/06/2024 4053 RxNorm ALICE MOCTEZUMAEIRO [facility], [facility] 4 08:22:43 719675 adhesive tape environme nt,medica tion rash Not available Not available 07/06/2024 04076 UNK ALICE MOCTEZUMAEIRO [facility] 4 08:22:43 936968 latex environme nt,medica tion rash Not available Not available 07/06/2024 52193 91 RxNorm ALICEROBERT CUEVAS [facility] 4 08:22:43 726856 peach food Not available Not available Not available 07/06/2024 46023 UNNanda MOCTEZUMAEIRO [facility] 4 13:23:12 Medications Name Sig Start Date [...] completed Not Available Not Available Not Available hydrocortis one 2.5 % topical cream with perineal applicator APPLY RECTALLY AT BEDTIME NEEDED FOR HEMORRHOI DS FOR 14 DAYS active Not Available Not Available No t Available hydromorpho ne 2 mg tablet TAKE 1 TABLET BY MOUTH EVERY 4 HOURS FOR 7 DAYS 02/01 completed Not Available Not Available Not Available famotidine 20 mg tablet TAKE 1 TABLET BY MOUTH EVERY DAY AT BEDTIME active Not Available Not Available No t Available metronidazo le 0.75 % topical cream APPLY TO FACE, NECK, & CHEST 1-2 TIMES DAILY NEEDED 03/31 completed Not Available Not Available Not Available docusate sodium 100 mg capsule TAKE 1 CAPSULE BY MOUTH EVERY DAY NEEDED 02/01 completed Not Available Not Available Not Available sertraline 25 mg tablet TAKE 1 TABLET BY MOUTH EVERY DAY 03/31 completed Not Available Not Available Not Available levofloxaci n 750 mg tablet 02/01 [...] Not Available Not Available Not Available estradiol 0.0375 mg/24 hr semiweekly transdermal patch APPLY 1 PATCH BY TRANSDERM AL ROUTE TWICE A WEEK active Not Available Not Available No t Available doxycycline hyclate 100 mg tablet TAKE [...] 1 PATCH TRANSDERM ALLY TWICE A WEEK 03/31 completed Not Available Not Available Not Available amoxicillin -potassium clavulanate 1,000 mg-62.5 mg [...] Relief 50 mcg/actuati on nasal spray,suspe nsion [place] 1 spray every day by nasal route. 02/01 completed Not Available Not Available Not Available Enbrel Mini 50 mg/mL (1 mL) subcutaneou s cartridge active Not Available Not Available Not Available Slynd 4 mg (28) tablet TAKE 1 TABLET BY MOUTH EVERY DAY FOR 84 DAYS active Not Available Not Available No t Available Vitals Date Recorded Body height Body mass index (BMI) Body weight Provider Name and Address Organization Details Last Updated DateTime 04/05/2025 165.1 cm 29.1 kg/m2 33450.66 g ALICE CUEVAS [facility] 04/05/2025 16:32:28 Social History Question Answer Notes LastModified by Organizat ion Details LastModified Time Tobacco Smoking Status Former Smoker ALCIE khan [place] - [place] [facility] 07/06/2024 08:22:45 When Did You Quit Smoking? 16+yearssinc elastcigaret te Information not available 07/06/2024 What Is Your Relationship Status? Information not available 07/06/2024 Sex: Unknown Functional Status Question Answer Note LastModified by Organizat ion Details LastModified Time How many times per week do you consume alcohol? Less than 1 time per week Information not available 07/06/2024 Do you use any illicit or recreational drugs? No Information not available 07/06/2024 Do you or have you ever used any other forms of tobacco or nicotine? No Information not available 07/06/2024 Do you or have you ever used e-cigarettes or vape? Never used electronic cigarettes Information not available 07/06/2024 Mental Status None recorded. Family History Nothing Reported. Medical History Condition Response Allergies/Hayfever Y Coronary Artery Disease N Breathing or lung disorders N Anxiety/Depression Y Emphysema N Nerve Disorders N Thyroid Problems N COPD N Pacemaker N Kidney/Bladder Problems N Anemia N Vascular Disease N Heart Trouble N Heart Attack ([place]) N Gastrointestinal Disease N Cholesterol N Diabetes N Autoimmune disease Y Bleeding Disorder N Orthotics N Seizures/Epilepsy N Arthritis Y Blood Clot N AIDS/HIV N Congestive Heart Failure (CHF) N Acid Reflux (GERD) Y Cancer N Stroke N Asthma Y Circulation Problems N Peripheral Vascular Disease N Sleep Apnea N Hepatitis N Heart Disease N Rheumatoid Arthritis Y Pulmonary Embolism N Arrhythmia N Headaches Y Fibromyalgia N Hypertension Y Osteoporosis N Gynecological HistoryNo gynecological history recorded. Obstetrics History GPAL:G 0 P 0 0 0 0 Past Encounters Encounter ID Performer Location Encounter Start Date Encounter Closed Date Diagnosis/Indication Diagnosis SNOMED-CT Code Diagnosis ICD10 Code Diagnosis Note [id number] MD Richard [facility] [address] [place] [address] 07/06/2024 08:07:35 07/29/2024 10:56:47 Pain of left shoulder joint 3217079034 [id number] M25.512 Full thick ness rotator cuff tear 730839418 M75.408 [id number] MD [facility] [address] floor [address] [place] [address] 09/28/2024 14:16:14 10/27/2024 13:58:38 Calcific tendinitis of right shoulder 7572097655 07718 M75.31 Pain of ri ght shoulder joint 4728342494 1664703 M25.616 [id number] MD [facility] [address] [place] [address] 10/23/2024 09:28:22 11/23/2024 13:51:40 Follow-up orthopedic assessment [id number] Z47.89 [id number] Bill Arias DPT [facility] [address] [place] [address] 10/21/2024 13:59:00 10/21/2024 17:48:15 Rupture of rotator cuff of left shoulder 4905319933 [id number] M75.570 [id number] Bill Arias DPT [facility] [address] [place] [address] 10/22/2024 09:13:39 10/22/2024 10:53:09 Rupture of rotator cuff of left shoulder 9964431406 [id number] M75.413 [id number] William Licea HEALTH EDUCATION SPECIALIST [facility] [address] [place] [address] 10/27/2024 12:56:20 10/27/2024 13:36:14 Rupture of rotator cuff of left shoulder 4239214318 [id number] M75.926 [id number] Bill Arias DPT [facility] [address] [place] [address] 10/29/2024 13:53:37 10/29/2024 15:02:35 Rupture of rotator cuff of left shoulder 3476857069 [id number] M75.367 [id number] Bill Arias DPT [facility] [address] [place] [address] 11/03/2024 09:59:16 11/03/2024 10:22:20 Rupture of rotator cuff of left shoulder 3374412030 [id number] M75.803 [id number] William Licea HEALTH EDUCATION SPECIALIST [facility] [address] [place] [address] 11/05/2024 11:54:53 11/05/2024 12:39:09 Rupture of rotator cuff of left shoulder 1210145230 [id number] M75.333 [id number] Bill Arias, DPT [facility] [address] [place] [address] 11/09/2024 12:52:41 11/10/2024 06:45:35 Rupture of rotator cuff of left shoulder 2436328665 [id number] M75.031 [id number] Bill Arias, DPT [facility] [address] [place] [address] 11/12/2024 09:30:37 11/12/2024 10:06:41 Rupture of rotator cuff of left shoulder 9548234176 [id number] M75.613 [id number] Williamzachary Robisonaguila, HEALTH EDUCATION SPECIALIST [facility] [address] [place] [address] 11/16/2024 11:27:35 11/16/2024 12:04:35 Rupture of rotator cuff of left shoulder 6087614293 [id number] M75.731 [id number] Rosa Loo, HEALTH EDUCATION SPECIALIST [facility] [address] [place] [address] 11/19/2024 16:23:31 11/19/2024 17:25:05 Rupture of rotator cuff of left shoulder 3856842292 [id number] M75.999 [id number] William Quachdurga, HEALTH EDUCATION SPECIALIST [facility] [address] [place] [address] 11/24/2024 12:57:06 11/24/2024 13:50:31 Rupture of rotator cuff of left shoulder 9727920373 [id number] M75.157 [id number] William Quachdurga, HEALTH EDUCATION SPECIALIST [facility] [address] [place] [address] 11/26/2024 12:56:44 11/26/2024 15:27:05 Rupture of rotator cuff of left shoulder 2058609694 [id number] M75.968 [id number] Bill Arias, DPT [facility] [address] [place] [address] 11/30/2024 13:57:12 11/30/2024 14:33:54 Rupture of rotator cuff of left shoulder 5062803076 [id number] M75.583 [id number] Bill Arias, DPT [facility] [address] [place] [address] 12/02/2024 13:54:45 12/02/2024 14:23:50 Rupture of rotator cuff of left shoulder 3239825990 [id number] M75.871 [id number] William Quachdurga, HEALTH EDUCATION SPECIALIST [facility] [address] [place] [address] 12/08/2024 12:56:05 12/08/2024 14:10:47 Rupture of rotator cuff of left shoulder 6515646684 [id number] M75.512 [id number] [facility] [address] [place] [address] 12/10/2024 08:59:46 01/08/2025 14:13:45 Nontraumatic complete rupture of rotator cuff of left shoulder 1891980220 [id number] M75.864 [id number] William Robisonaguila, HEALTH EDUCATION SPECIALIST [facility] [address] [place] [address] 12/10/2024 12:53:13 12/10/2024 13:39:28 Rupture of rotator cuff of left shoulder 2364259238 [id number] M75.658 [id number] Bill Arias DPT [facility] [address] [place] [address] 12/15/2024 12:56:10 12/15/2024 13:36:17 Rupture of rotator cuff of left shoulder [id number] M75.761 [id number] Bill Arias, DPT [facility] [address] [place] [address] 12/17/2024 12:57:10 12/17/2024 14:54:40 Rupture of rotator cuff of left shoulder 7464281797 [id number] M75.167 [id number] Williamzachary Robisonaguila, HEALTH EDUCATION SPECIALIST [facility] [address] [place] [address] 12/29/2024 15:54:21 12/29/2024 17:03:39 Rupture of rotator cuff of left shoulder 3573939698 [id number] M75.632 [id number] William Licea, HEALTH EDUCATION SPECIALIST [facility] [address] [place] [address] 12/31/2024 11:29:42 12/31/2024 12:20:10 Rupture of rotator cuff of left shoulder 5531535836 [id number] M75.134 [id number] Bill Arias, DPT [facility] [address] [place] [address] 01/05/2025 11:59:37 01/05/2025 12:37:14 Rupture of rotator cuff of left shoulder 6721083941 [id number] M75.700 [id number] Bill Arias DPT [facility] [address] [place] [address] 01/07/2025 11:57:40 01/07/2025 12:46:00 Rupture of rotator cuff of left shoulder 0141710525 [id number] M75.337 [id number] SAVANNAH IrizarryT [facility] [address] [place] [address] 01/12/2025 16:26:27 01/12/2025 17:13:57 Rupture of rotator cuff of left shoulder 5152523638 [id number] M75.024 [id number] Bill Arias DPT [facility] [address] [place] [address] 01/14/2025 17:52:56 01/15/2025 06:20:32 Rupture of rotator cuff of left shoulder 1186584238 [id number] M75.202 [id number] Bill Arias DPTiffany [facility] [address] [place] [address] 01/19/2025 16:29:48 01/19/2025 17:07:55 Rupture of rotator cuff of left shoulder [id number] M75.072 [id number] Vida Darren, MD [facility] [address] [facility] [address] [place] [address] 02/01/2025 13:02:24 02/15/2025 08:27:03 Follow-up orthopedic assessment [id number] Z47.89 [id number] Bill Arias, DPT [facility] [address] [place] [address] 01/21/2025 16:28:46 01/21/2025 16:59:25 Rupture of rotator cuff of left shoulder 5228331785 [id number] M75.920 [id number] Bill Arias DPT [facility] [address] [place] [address] 01/26/2025 17:27:24 01/26/2025 17:52:33 Rupture of rotator cuff of left shoulder 6055156309 [id number] M75.641 [id number] William Licea HEALTH EDUCATION SPECIALIST [facility] [address] [place] [address] 01/28/2025 16:54:48 01/28/2025 17:56:53 Rupture of rotator cuff of left shoulder 4779038474 [id number] M75.143 [id number] Bill Arias DPT [facility] [address] [place] [address] 02/02/2025 16:25:29 02/02/2025 17:08:37 Rupture of rotator cuff of left shoulder 6461302789 [id number] M75.218 [id number] Bill Arias DPT [facility] [address] [place] [address] 02/04/2025 16:26:14 02/04/2025 17:41:37 Rupture of rotator cuff of left shoulder 9639554033 [id number] M75.428 [id number] William Licea, HEALTH EDUCATION SPECIALIST [facility] [address] [place] [address] 02/09/2025 16:28:36 02/09/2025 17:22:04 Rupture of rotator cuff of left shoulder 4538567049 [id number] M75.925 [id number] William Licea, HEALTH EDUCATION SPECIALIST [facility] [address] [place] [address] 02/11/2025 16:43:03 02/11/2025 17:01:17 Rupture of rotator cuff of left shoulder [id number] M75.692 [id number] William Quachri, HEALTH EDUCATION SPECIALIST [facility] [address] [place] [address] 02/16/2025 16:20:54 02/16/2025 17:12:58 Rupture of rotator cuff of left shoulder [id number] M75.166 [id number] William Licea, HEALTH EDUCATION SPECIALIST [facility] [address] [place] [address] 02/25/2025 17:53:37 02/25/2025 18:07:56 Rupture of rotator cuff of left shoulder 4367014595 [id number] M75.006 [id number] William Licea, HEALTH EDUCATION SPECIALIST [facility] [address] [place] [address] 03/02/2025 17:27:50 03/02/2025 18:00:47 Rupture of rotator cuff of left shoulder [id number] M75.296 [id number] Bill Arias, DPT [facility] [address] [place] [address] 03/09/2025 17:53:23 03/09/2025 20:33:52 Rupture of rotator cuff of left shoulder [id number] M75.676 [id number] Bill Arias, DPT [facility] [address] [place] [address] 03/16/2025 16:55:19 03/17/2025 06:41:06 Rupture of rotator cuff of left shoulder [id number] M75.636 [id number] William Licea, HEALTH EDUCATION SPECIALIST [facility] [address] [place] [address] 03/23/2025 16:32:06 03/23/2025 17:56:49 Rupture of rotator cuff of left shoulder [id number] M75.493 [id number] MD [facility] [address] [facility] [address] [place] [address] 04/05/2025 16:03:04 04/13/2025 15:24:44 Follow-up orthopedic assessment [id number] Z47.89 Health Concerns Section Related Observation LastModified by Organization Detai ls LastModified Time None Recorded Concern Status LastModified by Organization Details LastModified Time None Recorded Advance Directives Directive None Recorded Payers Insurance Date Sequence Insurance Name Policy Number Policy Iraheta Covered Member ID Iraheta Member ID Guarantor Name 04/13/2025 1 [facility] [facility] [id number] Don Barron [id number] Valerie Barron Notes Date Note Type Note Provider Name and Address Organization Details Recorded Time 03/02/2025 text/html Pt reports 0/10 shld pain William Licea, HEALTH EDUCATION SPECIALIST [address], [place], [address], [facility] 03/02/2025 18:41:42 03/09/2025 text/html Pt arrives reporting feeling exhausted after work. No pain in her shoulder. Bill Arias DPT [address], [place], [address], [facility] 03/09/2025 20:40:10 03/16/2025 text/html Pt reports feeli ng very tired after work today but feeling good with her shoulder.Pains 0/10 at rest. Bill Arias DPT [address], [place], [address], [facility] 03/16/2025 19:28:35 03/23/2025 text/html Pt reports 0/10 pain. Feeling much better. William Licea HEALTH EDUCATION SPECIALIST [address], [place], [address], [facility] 03/23/2025 17:42:31 04/05/2025 text/html Surgery: Left shoulder calcium excision with subsequent 1+1 double row supraspinatus repair, SAD DCE, 10/07/2024 Interval History: The patient returns today in follow-up now approximately 6 months out from surgery as above. Doing fairly well. She has completed PT. She is happy with range of motion. Strength is improving with time. Minor aches and pains here and there. Occasional pops in the shoulder, but not painful. Pain levels continue to improve. No issues with incisions. No numbness or tingling in arm or hand. She is back at work with a 15-20lb lifting restriction; this is going fine. Past family, medical, social history and review of systems have been reviewed and updated on the medical history sheet saved to the patient's chart. A 12-point review of systems is negative x12 except as noted above and/or on the medical history sheet. Examination: Pleasant 44-year-old woman in no acute distress. On exam of the Left upper extremity, arthroscopic portal incisions are nicely healed. No significant swelling or bruising. No evidence for Eris deformity. Active forward elevation 175, passive 175; passive ER 70 with negative ER lag; IR L2. 5-/5 with ER, 5/5 with IR and empty can. No pain with cuff testing. Sensation intact in axillary and [facility] distributions. Fires EPL, FPL and intrinsics. Hand is warm and well perfused. 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 Doing fairly well thus far. Plan: I have encouraged the patient to continue with a slow and steady progression of strengthening activities, working up to higher reps before increasing the amount of weight or resistance. With day-to-day activities, may gradually increase what she is doing. Discussed the importance of listening to her body, stopping if there is pain. Also discussed the importance of good mechanics, including keeping weight close to the body, avoiding lifting an awkward positions with weight away from the body, and using slow controlled movements always. For occasional aches and pains, she can take zadl-cca-hgczphl medication such as Tylenol or anti-inflammatories as needed; risks and benefits of medication discussed. Should call with more persistent pain. We will leave follow up open ended at this point. However should symptoms worsen or fail to improve to the patient's satisfaction, she is encouraged to give the office a call to be seen back for further evaluation and management. With regard to work, we will allow her to return to full duties, though recommended continuing to be mindful with heavier lifting and patient transfers. [employer] speech recognition apartment community assistant manager software was used to create portions of this document. An attempt at proofreading has been made to minimize errors. Please call for corrections. Vida Banks MD [address] [place] [address] [address], [place], [address], [facility] 04/05/2025 16:59:09 OBGyn Episode No OBEpisode recorded.
== END 2025-05-27 08:54 | disposition home or self-care (01) ==
LOC: HO.XRAY 08:53
PROVIDERS: PCP Internal Medicine; Visit Provider Internal Medicine
DX: K21.9 Gastro-esophageal reflux disease without esophagitis (principal)
CPT/HCPCS: 74221

== ENCOUNTER → 2025-05-27 08:56 | Outpatient (BNV) | payer BC, SELFPAY | PROVIDERS: PCP Internal Medicine; Visit Provider Radiology Diagnostic Radiology | DX: K21.9 Gastro-esophageal reflux disease without esophagitis (principal) | CPT/HCPCS: 74221 ==

== ENCOUNTER 2025-06-05 09:06 | Outpatient (REF) | payer BC, SELFPAY ==
--- OUTSIDE RECORDS SUMMARY | 2025-06-05 09:08 | XMS_ITS | Data Portability ---
Author Organization NADINE Camilo Melo [facility], [facility] Address [address] [place] [address] Assessment Encounter Date Assessment Date Assessment LastModified [...] improve ROM and PS strength as tolerated. [email or web address] Not available 03/09/2025 20:39:36 03/16/2025 03/16/2025 Assessment: Patient demonstrates ongoing weakness in PS strength. Pt able to reach full PROM in all directions but mild tightness in flexion and ER AROM remains. Plan: Review HEP for d/c next visit. Recheck with MD for updated orders. [email or web address] Not available 03/16/2025 19:28:02 03/23/2025 03/23/2025 Assessment: [...] and Address Organization Details Recorded Time 4 40478 Therapeutic Exercise (1:1) completed William Licea, FAMILY LIFE COUNSELOR [address], [place], [address], [facility] 11/16/2024 13:06:18 4 50640: Hot or Cold Pack completed William Licea, FAMILY LIFE COUNSELOR [address], [place], [address], [facility] 11/16/2024 13:06:18 4 88666: Manual therapy completed William Licea FAMILY LIFE COUNSELOR [address], [place], [address], [facility] 11/16/2024 13:06:18 4 43452 Therapeutic Exercise (1:1) completed Bill Arias DPT [address], [place], [address], [facility] 11/09/2024 21:04:41 4 70779: Hot or Cold Pack completed Bill Arias DPT [address], [place], [address], [facility] 11/09/2024 21:04:41 4 06698: Manual therapy completed Bill Arias DPT [address], [place], [address], [facility] 11/09/2024 21:04:41 4 99768 Therapeutic Exercise (1:1) completed Bill Arias DPT [address], [place], [address], [facility] 11/09/2024 20:28:20 4 39260: Hot or Cold Pack completed Bill Arias DPT [address], [place], [address], [facility] 11/06/2024 12:16:12 4 92219: Manual therapy completed Bill Arias DPT [address], [place], [address], [facility] 11/06/2024 12:16:12 4 87247 Therapeutic Exercise (1:1) completed William Licea, FAMILY LIFE COUNSELOR [address], [place], [address], [facility] 11/05/2024 12:45:16 4 90518: Hot or Cold Pack completed William Licea FAMILY LIFE COUNSELOR [address], [place], [address], [facility] 11/05/2024 09:49:30 4 88575: Manual therapy completed William Licea FAMILY LIFE COUNSELOR [address], [place], [address], [facility] 11/05/2024 12:45:21 4 64006 Therapeutic Exercise (1:1) completed Bill Arias DPT [address], [place], [address], [facility] 10/30/2024 16:22:55 4 94609: Hot or Cold Pack completed Bill Arias DPT [address], [place], [address], [facility] 10/30/2024 16:22:55 4 23064: Manual therapy completed Bill Arias DPT [address], [place], [address], [facility] 10/30/2024 16:22:55 4 31944 Therapeutic Exercise (1:1) completed Bill Arias DPT [address], [place], [address], [facility] 10/28/2024 19:22:26 4 96520: Hot or Cold Pack completed SAVANNAH IrizarryT [address], [place], [address], [facility] 10/28/2024 19:22:26 4 12719: Manual therapy completed SAVANNAH IrizarryT [address], [place], [address], [facility] 10/28/2024 19:22:26 4 21280 Therapeutic Exercise (1:1) completed William Licea, FAMILY LIFE COUNSELOR [address], [place], [address], [facility] 10/27/2024 15:30:08 4 76489: Hot or Cold Pack completed William Licea, FAMILY LIFE COUNSELOR [address], [place], [address], [facility] 10/27/2024 15:30:08 4 31664: Manual therapy completed William Licea, FAMILY LIFE COUNSELOR [address], [place], [address], [facility] 10/27/2024 15:30:08 4 68248 Therapeutic Exercise (1:1) completed Bill Arias DPT [address], [place], [address], [facility] 10/22/2024 10:03:31 4 11011: Hot or Cold Pack completed SAVANNAH IrizarryT [address], [place], [address], [facility] 10/22/2024 10:08:01 4 81618: Manual therapy completed SAVANNAH IrizarryT [address], [place], [address], [facility] 10/22/2024 10:08:27 4 14994 Therapeutic Exercise (1:1) completed SAVANNAH IrizarryT [address], [place], [address], [facility] 10/21/2024 18:35:14 4 29215: Low complexity PT Eval completed SAVANNAH IrizarryT [address], [place], [address], [facility] 10/21/2024 18:34:13 Imaging Results None recorded. Procedure Notes None recorded. Medical Equipment None Reported. Allergies Allergen ID Allergen Name Allergen Category Reaction Reaction Severity Criticality Documentation Date Start Date Code Code System Note Provider Name and Address Organization Details Recorded Time 930626 methotrex ate medicatio n rash Not available Not available 07/06/20242022 6851 RxNorm ALICE MASON [facility] 4 08:22:43 952031 erythromy nate medicatio n Not available Not available Not available 07/06/2024 4053 RxNorm ALICE MOCTEZUMAEIRO [facility] 4 08:22:43 765711 adhesive tape environme nt,medica tion rash Not available Not available 07/06/2024 20822 UNK ALICE MOCTEZUMAEIRO [facility] 4 08:22:43 387465 latex environme nt,medica tion rash Not available Not available 07/06/2024 69119 91 RxNorm ALICEROBERT CUEVAS [facility] 4 08:22:43 082270 peach food Not available Not available Not available 07/06/2024 04245 UNNanda MOCTEZUMAEIRO [facility] 4 13:23:12 Medications Name Sig Start [...] Relief 50 mcg/actuati on nasal spray,suspe nsion [place] 1 spray every day by nasal route. [...] Updated DateTime 04/05/2025 165.1 cm 29.1 kg/m2 53493.66 g ALICE CUEVAS [facility] 04/05/2025 16:32:28 Social History Question Answer Notes LastModified by Organizat ion Details LastModified Time Tobacco Smoking Status Former Smoker ALICE khan [place] [facility] [place] [facility] 07/06/2024 08:22:45 When Did You Quit [...] Disease N Heart Trouble N Heart Attack ([place]) N Gastrointestinal Disease N Cholesterol N Diabetes [...] SNOMED-CT Code Diagnosis ICD10 Code Diagnosis Note [id number] MD Richard [facility] [address] [place] [address] 07/06/2024 08:07:35 07/29/2024 10:56:47 Pain of left shoulder joint 9964857042 0094323 M25.512 Full thick ness rotator cuff tear 098511339 M75.837 [id number] MD Richard [facility] [address] floor [address] [place] [address] 09/28/2024 14:16:14 10/27/2024 13:58:38 Calcific tendinitis of right shoulder 0340930550 67430 M75.31 Pain of ri ght shoulder joint 7902574440 0289850 M25.131 [id number] MD [facility] [address] [place] [address] 10/23/2024 09:28:22 11/23/2024 13:51:40 Follow-up orthopedic assessment [id number] Z47.89 [id number] Bill Arias DPT [facility] [address] [place] [address] 10/21/2024 13:59:00 10/21/2024 17:48:15 Rupture of rotator cuff of left shoulder [id number] [id number] M75.476 [id number] Bill Arias DPT [facility] [address] [place] [address] 10/22/2024 09:13:39 10/22/2024 10:53:09 Rupture of rotator cuff of left shoulder 1427487810 1109673 M75.645 [id number] William Licea FAMILY LIFE COUNSELOR [facility] [address] [place] [address] 10/27/2024 12:56:20 10/27/2024 13:36:14 Rupture of rotator cuff of left shoulder 1491083823 0610749 M75.867 [id number] Bill Arias DPT [facility] [address] [place] [address] 10/29/2024 13:53:37 10/29/2024 15:02:35 Rupture of rotator cuff of left shoulder 5400844177 6343030 M75.692 [id number] Bill Arias DPT [facility] [address] [place] [address] 11/03/2024 09:59:16 11/03/2024 10:22:20 Rupture of rotator cuff of left shoulder 7076976795 3250470 M75.049 [id number] William Licea FAMILY LIFE COUNSELOR [facility] [address] [place] [address] 11/05/2024 11:54:53 11/05/2024 12:39:09 Rupture of rotator cuff of left shoulder 0582799627 3676896 M75.186 [id number] Bill Arias, DPT [facility] [address] [place] [address] 11/09/2024 12:52:41 11/10/2024 06:45:35 Rupture of rotator cuff of left shoulder 5485262322 6163829 M75.262 [id number] Bill Arias, DPT [facility] [address] [place] [address] 11/12/2024 09:30:37 11/12/2024 10:06:41 Rupture of rotator cuff of left shoulder 2487143670 [id number] M75.487 [id number] Williamzachary Robisonaguila, FAMILY LIFE COUNSELOR [facility] [address] [place] [address] 11/16/2024 11:27:35 11/16/2024 12:04:35 Rupture of rotator cuff of left shoulder [id number] M75.701 [id number] Rosa Loo, FAMILY LIFE COUNSELOR [facility] [address] [place] [address] 11/19/2024 16:23:31 11/19/2024 17:25:05 Rupture of rotator cuff of left shoulder 8464777617 [id number] M75.666 [id number] William Quachdurga, FAMILY LIFE COUNSELOR [facility] [address] [place] [address] 11/24/2024 12:57:06 11/24/2024 13:50:31 Rupture of rotator cuff of left shoulder 3867056176 [id number] M75.978 [id number] William Quachdurga, FAMILY LIFE COUNSELOR [facility] [address] [place] [address] 11/26/2024 12:56:44 11/26/2024 15:27:05 Rupture of rotator cuff of left shoulder 9259496400 [id number] M75.072 [id number] Bill Arias, DPT [facility] [address] [place] [address] 11/30/2024 13:57:12 11/30/2024 14:33:54 Rupture of rotator cuff of left shoulder 6492651322 2862316 M75.810 [id number] Bill Arias, DPT [facility] [address] [place] [address] 12/02/2024 13:54:45 12/02/2024 14:23:50 Rupture of rotator cuff of left shoulder 3542611287 8677693 M75.554 [id number] William Quachdurga, FAMILY LIFE COUNSELOR [facility] [address] [place] [address] 12/08/2024 12:56:05 12/08/2024 14:10:47 Rupture of rotator cuff of left shoulder 0589786562 8146036 M75.749 [id number] [facility] [address] [place] [address] 12/10/2024 08:59:46 01/08/2025 14:13:45 Nontraumatic complete rupture of rotator cuff of left shoulder 9787760987 028362 M75.097 [id number] William Robisonaguila, FAMILY LIFE COUNSELOR [facility] [address] [place] [address] 12/10/2024 12:53:13 12/10/2024 13:39:28 Rupture of rotator cuff of left shoulder 4743841571 8197635 M75.496 [id number] Bill Arias DPT [facility] [address] [place] [address] 12/15/2024 12:56:10 12/15/2024 13:36:17 Rupture of rotator cuff of left shoulder [id number] [id number] M75.037 [id number] Bill Arias, DPT [facility] [address] [place] [address] 12/17/2024 12:57:10 12/17/2024 14:54:40 Rupture of rotator cuff of left shoulder 4407191639 6315804 M75.148 [id number] Williamzachary Robisonaguila, FAMILY LIFE COUNSELOR [facility] [address] [place] [address] 12/29/2024 15:54:21 12/29/2024 17:03:39 Rupture of rotator cuff of left shoulder [id number] [id number] M75.104 [id number] William Licea, FAMILY LIFE COUNSELOR [facility] [address] [place] [address] 12/31/2024 11:29:42 12/31/2024 12:20:10 Rupture of rotator cuff of left shoulder 8636816496 [id number] M75.297 [id number] Bill Arias, DPT [facility] [address] [place] [address] 01/05/2025 11:59:37 01/05/2025 12:37:14 Rupture of rotator cuff of left shoulder 1994433153 [id number] M75.356 [id number] Bill Arias DPT [facility] [address] [place] [address] 01/07/2025 11:57:40 01/07/2025 12:46:00 Rupture of rotator cuff of left shoulder 6677770253 [id number] M75.791 [id number] SAVANNAH IrizarryT [facility] [address] [place] [address] 01/12/2025 16:26:27 01/12/2025 17:13:57 Rupture of rotator cuff of left shoulder [id number] 3862712 M75.977 [id number] Bill Arias DPT [facility] [address] [place] [address] 01/14/2025 17:52:56 01/15/2025 06:20:32 Rupture of rotator cuff of left shoulder 0930646110 [id number] M75.297 [id number] Bill Arias DPTiffany [facility] [address] [place] [address] 01/19/2025 16:29:48 01/19/2025 17:07:55 Rupture of rotator cuff of left shoulder 5980444059 [id number] M75.940 [id number] Vida Darren, MD [facility] [address] [place] [address] 02/01/2025 13:02:24 02/15/2025 08:27:03 Follow-up orthopedic assessment [id number] Z47.89 [id number] Bill Arias, DPT [facility] [address] [place] [address] 01/21/2025 16:28:46 01/21/2025 16:59:25 Rupture of rotator cuff of left shoulder 1243054442 [id number] M75.223 [id number] Bill Arias DPT [facility] [address] [place] [address] 01/26/2025 17:27:24 01/26/2025 17:52:33 Rupture of rotator cuff of left shoulder 2598845460 [id number] M75.101 [id number] William Licea FAMILY LIFE COUNSELOR [facility] [address] [place] [address] 01/28/2025 16:54:48 01/28/2025 17:56:53 Rupture of rotator cuff of left shoulder [id number] [id number] M75.966 [id number] Bill Arias DPT [facility] [address] [place] [address] 02/02/2025 16:25:29 02/02/2025 17:08:37 Rupture of rotator cuff of left shoulder [id number] M75.348 [id number] Bill Arias DPT [facility] [address] [place] [address] 02/04/2025 16:26:14 02/04/2025 17:41:37 Rupture of rotator cuff of left shoulder 7833269963 [id number] M75.841 [id number] William Licea, FAMILY LIFE COUNSELOR [facility] [address] [place] [address] 02/09/2025 16:28:36 02/09/2025 17:22:04 Rupture of rotator cuff of left shoulder 1149394845 [id number] M75.971 [id number] William Licea, FAMILY LIFE COUNSELOR [facility] [address] [place] [address] 02/11/2025 16:43:03 02/11/2025 17:01:17 Rupture of rotator cuff of left shoulder 1098755006 [id number] M75.814 [id number] William Quachri, FAMILY LIFE COUNSELOR [facility] [address] [place] [address] 02/16/2025 16:20:54 02/16/2025 17:12:58 Rupture of rotator cuff of left shoulder 9859207780 [id number] M75.689 [id number] William Licea, FAMILY LIFE COUNSELOR [facility] [address] [place] [address] 02/25/2025 17:53:37 02/25/2025 18:07:56 Rupture of rotator cuff of left shoulder 2406435874 [id number] M75.848 [id number] William Licea, FAMILY LIFE COUNSELOR [facility] [address] [place] [address] 03/02/2025 17:27:50 03/02/2025 18:00:47 Rupture of rotator cuff of left shoulder 2936231267 [id number] M75.229 [id number] Bill Arias, DPT [facility] [address] [place] [address] 03/09/2025 17:53:23 03/09/2025 20:33:52 Rupture of rotator cuff of left shoulder [id number] [id number] M75.685 [id number] Bill Arias, DPT [facility] [address] [place] [address] 03/16/2025 16:55:19 03/17/2025 06:41:06 Rupture of rotator cuff of left shoulder [id number] [id number] M75.611 [id number] William Licea, FAMILY LIFE COUNSELOR [facility] [address] [place] [address] 03/23/2025 16:32:06 03/23/2025 17:56:49 Rupture of rotator cuff of left shoulder [id number] [id number] M75.483 [id number] MD [facility] [address] [facility] [address] [place] [address] 04/05/2025 16:03:04 04/13/2025 15:24:44 Follow-up orthopedic assessment [id number] Z47.89 Health Concerns Section Related Observation LastModified by Organization Detai ls LastModified Time None Recorded Concern Status LastModified by Organization Details LastModified Time None Recorded Advance Directives Directive None Recorded Payers Insurance Date Sequence Insurance Name Policy Number Policy Iraheta Covered Member ID Iraheta Member ID Guarantor Name 04/13/2025 1 [facility] [place] [id number] Don Barron [id number] Valerie Barron Notes Date Note Type Note Provider Name and Address Organization Details Recorded Time 03/02/2025 text/html Pt reports 0/10 shld pain William Licea, FAMILY LIFE COUNSELOR [address], [place], [address], [facility] 03/02/2025 18:41:42 03/09/2025 text/html Pt arrives reporting feeling exhausted after work. No pain in her shoulder. Bill Arias DPT [address], [place], [address], [facility] 03/09/2025 20:40:10 03/16/2025 text/html Pt reports feeli ng very tired after work today but feeling good with her shoulder.Pains 0/10 at rest. Bill Arias DPT [address], [place], [address], [facility] 03/16/2025 19:28:35 03/23/2025 text/html Pt reports 0/10 pain. Feeling much better. William Licea FAMILY LIFE COUNSELOR [address], [place], [address], [facility] 03/23/2025 17:42:31 04/05/2025 text/html [...] and well perfused. 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 [email or web address] speech recognition production ski repairer software was used to create portions of this document. An attempt at proofreading has been made to minimize errors. Please call for corrections. Vida Banks MD [address] [place] [address] [address], [place], [address], [facility] 04/05/2025 16:59:09 OBGyn Episode No OBEpisode recorded.
--- OUTSIDE RECORDS SUMMARY | 2025-06-05 09:08 | XMS_ITS | Patient Health Record ---
Author Organization [facility] Address [address] [place] [address] Care Team Providers Care Surg Nurse Name Role Phone Mariah Abbott MD Primary Care Provider Vin Royalmie Unavailable [phone] Allergies Allergen (clinical drug ingredient) Drug/Non Drug [...] W/U Status Risk Notes Problem Rheumatoid arthritis (31389361) Rheumatoid arthritis without rheumatoid factor, 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) Active confirmed Problem Localized, primary osteoarthritis of the ankle and/or foot (471175360) Primary osteoarthritis, right ankle and foot (M19.071) Active confirmed Problem Localized, primary osteoarthritis of the ankle and/or foot (280801171) Primary osteoarthritis, left ankle and foot (M19.072) Active confirmed Problem Rheumatoid arthritis (33026175) Rheumatoid arthritis involving multiple sites with positive rheumatoid factor (M05.79) Active confirmed Problem Seronegative arthritis (551740286) Seronegative arthritis (M13.80) Active confirmed Plan Of Treatment Pending Test Test Name Order Date MRI : Foot, right 10/24/2020 *Uric Acid, Serum 10/22/2022 *Sedimentation Rate-Westergren 2 *Sedimentation Rate-Westergren 0 Rheumatoid Arthritis Factor 07/11/2020 NEGRITA w/Reflex 10/22/2022 NEGRITA Comprehensive Panel 07/11/2020 X ray : Foot, left 3V 07/23/2019 66429 I&D ABSCESS- SIMPLE,SINGLE 021 , [id number]/INJECT, JOINT/BURSA 1 ,[id number] TENDON SHEATH/LIGAMENT 0 07/23/201964296,[id number] TENDON SHEATH/LIGAMENT 1 CRP 07/11/2020 Insurance Providers Payer Name Payer Address Payer Phone Subscriber Number Group Number Insured Name Patient Relationship to Insured Coverage Start Date Coverage End Date [facility] [address] [place] [address] [id number] Valerie Barron Self - patient is the insured Medical (General) History Medical History History ICD Code Hypertension asthma Seasonal allergies Bipolar disorder Plantar fasciitis back pain migraines GERD chicken pox Surgical History Surgery Date(Month/Year) hernia age 7 adenoids/tonsils age 15 right bunion surgeries 2x
--- OUTSIDE RECORDS SUMMARY | 2025-06-05 09:08 | XMS_ITS | Clinical Summary ---
Author Organization [facility] [address] [facility] Address [address] [place] [address] Phone Care Team Providers Care Process Improvement Consultant Name Role Phone Mariah Abbott MD Primary Care Provider [phone] Allergies Active Allergy Reactions Criticality Noted Date [...] [address] [place] [address] Mariah Mcconnell MD from Last [...] PM EDT Office Visit [facility] [address] [place] [id number] Valerie Braswell MD [address] [place] [address] Health Maintenance Due Date Last Done Comments [...] patient's age to complete this topic Insurance [facility] Care Teams Process Improvement Consultant Relationship Specialty Start Date End Date Mariah Abbott MD PCP - General 04/06/11
[2025-06-05 11:15] LABS: MANUAL DIFF FLAG NO
[2025-06-05 11:25] LABS: Hematocrit 37.2 % (37.0-47.0); Hemoglobin 12.7 g/dl (12.0-16.0); Imm Gran Abs Auto 0.01 X10*3/uL (0.00-0.03); Imm Gran Pct Auto 0.1 % (0.0-0.4); Lymphocytes Absolute Auto 2.6 X10*3/uL (1.2-4.9); Mean Corpuscular HGB Conc 34.1 g/dl (31.0-35.0); Mean Corpuscular Hemoglobin 27.9 pg (27.0-33.0); Mean Corpuscular Volume 81.8 fL (80.0-98.0); NRBC Abs Auto 0.000 X10*3/uL (0.0-0.012); NRBC Pct Auto 0.0 /100WBC (0.0-0.2); Platelet Count 399 X10*3/uL (160-400); Red Blood Count 4.55 X10*6/uL (4.20-5.50); White Blood Count 6.7 X10*3/uL (4.8-10.8)
[2025-06-05 11:33] LABS: Appearance Urine Clear; Glucose Urine UA Negative (Negative); PH 5.5 (5.0-9.0); Specific Gravity - Urine 1.015 (1.005-1.025)
[2025-06-05 11:44] LABS: Alanine Aminotransferase 22 U/L (0-31); Albumin Level 4.2 g/dL (3.5-5.0); Alkaline Phosphatase 73 U/L (39-117); Anion Gap 10 (12-20); Aspartate Amino Transferase 18 U/L (5-31); Blood Urea Nitrogen 10 mg/dL (9-16); Calcium 8.6 mg/dL (8.4-10.2); Carbon Dioxide 23 mmol/L (22-29); Chloride 109 mmol/L (96-108); Estimated Glomerular Filt Rate > 60; Potassium 4.2 mmol/L (3.3-5.1); Sodium 138 mmol/L (135-145); Total Protein 6.9 g/dL (6.5-8.0)
== END 2025-06-05 09:07 | disposition home or self-care (01) ==
LOC: HO.HMGCLDS 09:06
PROVIDERS: PCP Internal Medicine; Visit Provider Student in an Organized Health Care Education/Training Program
DX: Z00.00 Encounter for general adult medical examination without abnormal findings (principal); I10 Essential (primary) hypertension; M13.80 Other specified arthritis, unspecified site
CPT/HCPCS: 36415; 80053; 81001; 82306; 84443; 85025; 85652; 86140

== ENCOUNTER 2025-06-10 07:55 | Outpatient (REF) | payer BC, SELFPAY ==
--- NOTE | ~2025-06-10 | XR_ITS ---
EXAMINATION: XR FOOT, LEFT CLINICAL INFORMATION: M13.80 - Other specified arthritis, unspecified site COMPARISON: 09/10/2023. TECHNIQUE: AP, lateral, and oblique views of the left foot. FINDINGS: No fracture, dislocation, or suspicious bone lesion. Normal bone mineralization. Normal alignment. Joint spaces are preserved. No significant arthropathy. Normal plantar arch. There is a large plantar calcaneal spur. Soft tissues appear normal. XR/XR foot LT min 3V IMPRESSION: 1. No acute findings of the left foot. 2. Large plantar calcaneal spur. Electronically signed by: Martell Cedeno MD 06/10/2025 09:54 AM EDT
--- NOTE | ~2025-06-10 | XR_ITS ---
EXAMINATION: XR KNEE, LEFT CLINICAL INFORMATION: M13.80 - Other specified arthritis, unspecified site COMPARISON: None available. TECHNIQUE: Three views of the left knee. FINDINGS: No fracture, dislocation, or suspicious bone lesion. Normal bone mineralization. Normal alignment. Mild joint space narrowing medial and patellofemoral compartments. Normal patellar alignment without abnormal patellar tilt. No significant joint effusion. Soft tissues appear normal. XR/XR knee LT 3V IMPRESSION: 1. No acute bony abnormalities of the left knee. 2. Mild degenerative arthritis medial and patellofemoral compartments. Electronically signed by: Martell Cedeno MD 06/10/2025 09:59 AM EDT
--- NOTE | ~2025-06-10 | XR_ITS ---
EXAMINATION: XR KNEE, RIGHT CLINICAL INFORMATION: M13.80 - Other specified arthritis, unspecified site COMPARISON: None available. TECHNIQUE: Four views of the right knee. FINDINGS: No fracture, dislocation, or suspicious bone lesion. Normal bone mineralization. Normal alignment. Minimal joint space narrowing medial and patellofemoral compartments. Normal patellar alignment without abnormal patellar tilt. No significant joint effusion. Soft tissues appear normal. XR/XR knee RT 3V IMPRESSION: 1. No acute bony abnormalities of the right knee. 2. Very mild degenerative arthritis medial and patellofemoral compartments. Electronically signed by: Martell Cedeno MD 06/10/2025 09:58 AM EDT
--- NOTE | ~2025-06-10 | XR_ITS ---
EXAMINATION: XR FOOT, RIGHT CLINICAL INFORMATION: M13.80 - Other specified arthritis, unspecified site COMPARISON: 09/10/2023. TECHNIQUE: AP, lateral, and oblique views of the right foot. FINDINGS: No fracture, dislocation, or suspicious bone lesion. Normal bone mineralization. Normal alignment. Mild to moderate changes of osteoarthrosis in the first MTP joint, with probable changes of prior bunionectomy. Normal plantar arch. There is a tiny plantar calcaneal spur. Soft tissues appear normal. XR/XR foot RT min 3V IMPRESSION: 1. No acute findings of the right foot. 2. Mild to moderate changes of osteoarthrosis in the first MTP joint, with probable changes of prior bunionectomy. Electronically signed by: Martell Cedeno MD 06/10/2025 09:57 AM EDT
== END 2025-06-10 07:56 | disposition home or self-care (01) ==
LOC: HO.XRAY 07:55
PROVIDERS: PCP Internal Medicine; Visit Provider Student in an Organized Health Care Education/Training Program
DX: M06.00 Rheumatoid arthritis without rheumatoid factor, unspecified site (principal); M17.0 Bilateral primary osteoarthritis of knee; M19.042 Primary osteoarthritis, left hand; M19.041 Primary osteoarthritis, right hand; Z79.620 Long term (current) use of immunosuppressive biologic
CPT/HCPCS: 20610; 73562; 73630; J2003; J3300

== ENCOUNTER 2025-06-10 07:55 | Outpatient (AMB) | payer BC, SELFPAY ==
[2025-06-10 07:56] VITALS: BP 118/70; PULSE 86; O2SAT 98
--- NOTE | 2025-06-10 07:56 | A.OFFVIS_ITS ---
Vital Signs 06/10/25 07:56 Height 5 ft 5 in Weight 180 lb BMI 30.0 BP 118/70 Blood Pressure Location Lt brachial Position Sitting Pulse 86 Pulse Source Pulse Oximeter Pulse Oximetry (%) 98 Oxygen Delivery Method Room Air Intake Visit Reasons: RA Intake Note: Patient last seen by Doctor Dariela Collier on 01/27/25. Presents today for RA follow up and test results. Allergies methotrexate Allergy (Intermediate, Verified 02/24/25 15:28) Rash adhesive Allergy (Unknown, Verified 02/24/25 15:28) Rash erythromycin base (ERYTHROMYCIN BASE) Allergy (Unknown, Verified 02/24/25 15:28) Hives peach Allergy (Unknown, Verified 02/24/25 15:28) Anaphylaxis latex Adverse Reaction (Verified 02/24/25 15:28) Hives lisinopril Adverse Reaction (Verified 02/24/25 15:28) Cough Medication List - Last Reconciled 06/10/25 by Dariela Collier MD albuterol sulfate 90 mcg/actuation (ProAir HFA) 2 puffs inhalation Q4-6H PRN albuterol sulfate 2.5 mg (0.5 mL) inhalation Q6H PRN alcaftadine 0.25% (Lastacaft Once Daily Relief) 1 drp ophthalmic (eye) DAILY PRN amlodipine 2.5 mg PO DAILY cetirizine (Zyrtec) 10 mg PO DAILY PRN cyclosporine 0.05% (Restasis) 1 drp ophthalmic (eye) Q12H drospirenone (contraceptive) (Slynd) 1 tab PO DAILY Enbrel Mini (etanercept) 50 mg subcut QWEEK NS estradiol transdermal famotidine 20 mg PO BEDTIME hydrocortisone 2.5% 1 appl IA BEDTIME PRN 14 days HPI Comments Details: Patient is a 44-year-old female with asthma, hypertension, migraine headaches, IBS, polyarticular osteoarthritis, and seronegative inflammatory arthritis here today for follow up. Interval History: Patient last seen 01/27/25 with me - Tried to decrease Enbrel to every 2 weeks but this was associated with worsening sx - Increased Enbrel back to every week Today, - Does not feel that increasing the Enbrel back to weekly was much more effective - Still complains of achy joints involving hands, knees and feet - Does note the AM stiffness has gotten better but overall still feels achy - She attibuted some of this to starting work again - Unsure if during the period of 05/2023 - 09/2023 if she had good relief from the Enbrel Rheumatologic History: Seronegative rheumatoid arthritis dx 02/07 MTX caused rash Enbrel 06/09 effective Initial history: This is a 42-year-old female with a past medical history of hy pertension, asthma presents for evaluation of multiple joint pains. Condition started 2-3 years ago with bilateral foot pain. In the interim patient broke 1 of her metatarsal bones of her right foot when she accidentally stubbed her toe running after her dog. Her foot was in a boot for some time. However patient also had plantar fasciitis s/p multiple steroid injections. She also had spontaneous Achilles tendinitis affecting her left ankle. She denies any preceding trauma. This was treated with ibuprofen and Voltaren gel. She mentions getting numerous imaging studies of her ankles and feet by her thread winder. Patient continues to have bilateral ankle and foot pain mostly at her MTPs. Over the last few months she has been having pain in both hands usually at the MCPs the pain is generally worse at night but is also worse in the morning when she wakes up. Over the last couple of months she noticed some puffiness of her fingers, difficulty putting her rings on. Also over the last few months she has been having pain in her tailbone worse with activity. She has been taking ibuprofen about 600 mg nightly mostly to treat her back pain. She denies any skin rashes, no history of psoriasis. No history of uveitis or IBD. She had a colonoscopy in 2021 which showed diverticulosis, unremarkable otherwise. Recent labs showed borderline positive rheumatoid factor. Current Rheumatology Medication(s): Enbrel 50mg SC every week [facility] Medical History Diverticulosis Tinnitus of left ear FHx: colonic polyps Annual physical exam Hydronephrosis of right kidney Migraine Anxiety Seasonal allergies Chronic asthma HTN (hypertension) Surgical History History of shoulder surgery Hx of tonsillectomy Hx of adenoidectomy History of bunionectomy H/O breast biopsy Family History (Updated 02/24/25 @ 15:29 by SETH Byrne) Father HTN (hypertension) Substance use disorder Mother Breast cancer Bladder cancer Cancer of kidney Mental health disorder Colon polyp Maternal Grandmother Colon cancer, Onset Age: 80 Daughter Andrzej's thyroiditis Sister Colon polyp Social History Housing: House Alcohol intake: current Alcohol intake frequency: holidays/special occasions only Patient Tobacco Use Status: Former Tobacco user e-Cigarette/Vaping Use: Never Used service: No Current occupational status: employed 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 Cognitive needs: No Hearing needs: No Vision needs: Yes Review of Systems Const Details: Review of Systems Constitutional: Denies fever, chills, weight loss ENT: Denies vision changes, eye pain or eye redness, dental caries, dry mouth GI: Denies nausea, vomiting, diarrhea, abdominal pain, change in BM Pulm: Denies SOB, HARDWICK, hemoptysis, wheezing Cards: Denies chest pain, palpitations Skin: Denies Raynaud's, rash, nail changes, photosensitivity, ENAMEL APPLIER: Denies headaches, weakness, paresthesias, recurrent falls MSK: as per HPI All other systems reviewed and are unremarkable except noted above Physical Exam Exam Exam: Vital signs reviewed Physical Examination CONSTITUITIONAL Patient alert and cooperative. Well appearing and in no apparent painful distress MSK Hands * Right Hand: Able to make a fist. No swelling. TTP of the 3rd MCP and base of the thumb * Left Hand: Able to make a fist. No swelling. TTP of the 3rd MCP and base of the thumb Wrists * Right Wrist: Full ROM. 70 degrees of wrist flexion, 80 degrees of wrist extension. No swelling or TTP * Left Wrist: Full ROM. 70 degrees of wrist flexion, 80 degrees of wrist extension. No swelling or TTP Elbows * Right Elbow: Full ROM. No swelling or TTP. No TTP of the medial and lateral epicondyles * Left Elbow: Full ROM. No swelling or TTP. No TTP of the medial and lateral epicondyles Shoulders * Right shoulder: Full ROM. No swelling noted. No TTP of the AC joint, subacromial bursa or posterior shoulder * Left shoulder: Full ROM. No swelling noted. No TTP of the AC joint, subacromial bursa or posterior shoulder Knees * Right knee: Full ROM. No swelling noted. TTP of the knee joint line * Left knee: Full ROM. No swelling noted. TTP of the knee joint line * Crepitations felt bilaterally Ankles * Right ankle: Good ankle dorsiflexion and plantar flexion. No swelling. No TTP of the ankle joint * Left ankle: Good ankle dorsiflexion and plantar flexion. No swelling. No TTP of the ankle joint Feet * Right foot: Negative squeeze test. TTP of the first MTP * Left foot: Negative squeeze test Tender points? * No tenderness to palpation of the bilateral trapezius, supraspinatus, anterior costochondral junctions, bilateral suboccipital muscle insertions SKIN No rashes Vital Signs: Last Vital Signs Pulse 86 06/10/25 07:56 BP 118/70 06/10/25 07:56 Pulse Ox 98 06/10/25 07:56 Oxygen Delivery Method Room Air 06/10/25 07:56 BMI result Body Mass Index 30.0 Office Procedures AMB Joint Injection/Aspiration Joint Injection/Aspiration Details: Procedure was explained to the patient and informed consent was obtained. ? Risks associated with the procedure were discussed with the patient including but not limited to bleeding, infection, drug reactions and reactions to the topical anesthetic. Patient made aware of signs to look out for infectious complications. The area of interest was identified and confirmed with patient. ?This was subsequently cleaned with chlorhexidine x 2. ? The area was then anesthetized using ethyl chloride spray. 40 mg Kenalog with 1 cc 1% lidocaine was injected without issue. ?Minimal to no bleeding. ?Patient tolerated procedure. Primary Site: right knee Prep: site was prepped using aseptic technique and ethochloride spray was applied Injected: 40 mg of, Kenalog, with 1 mL of and 1% plain lidocaine Approach Used: anterior Procedure: The patient tolerated the procedure well Coding 41564 - Large joint Procedure code (CPT) selection complete AMB Joint Injection/Aspiration Joint Injection/Aspiration Details: Procedure was explained to the patient and informed consent was obtained. ? Risks associated with the procedure were discussed with the patient including but not limited to bleeding, infection, drug reactions and reactions to the topical anesthetic. Patient made aware of signs to look out for infectious complications. The area of interest was identified and confirmed with patient. ?This was subsequently cleaned with chlorhexidine x 2. ? The area was then anesthetized using ethyl chloride spray. 40 mg Kenalog with 1 cc 1% lidocaine was injected without issue. ?Minimal to no bleeding. ?Patient tolerated procedure. Primary Site: left knee Prep: site was prepped using aseptic technique and ethochloride spray was applied Injected: 40 mg of, Kenalog, with 1 mL of, 1% plain lidocaine and in the joint Approach Used: anterior Procedure: The patient tolerated the procedure well Coding 60536 - Large joint Procedure code (CPT) selection complete Office Meds lidocaine (PF) 10 mg/mL (1 %) injection solution Performing Provider: Dariela Collier MD Performing [place] [facility] Administered by: Erlinda Vale RN on 06/10/25 08:49 Dose Route Admin Location Dispensed Lot Number Expiration Date [facility] Canal Superintendent 1 mL Infiltration right knee 2 mL [id number] 03/18/27 99745-482-25 FR [employer] KAB[employer] Total Dispensed Waste 2 mL 50 % Kenalog 40 mg/mL suspension for injection Performing Provider: Dariela Collier MD Performing Location: [facility] Administered by: Erlinda Vale RN on 06/10/25 08:49 Dose Route Admin Location Dispensed Lot Number Expiration Date [facility] Canal Superintendent 40 mg intra-articular right knee 1 mL [id number] 04/18/26 [address]- 1 [employer] Total Dispensed Waste 1 mL 0 % lidocaine (PF) 10 mg/mL (1 %) injection solution Performing Provider: Dariela Collier MD Performing Location: [facility] Administered by: Erlinda Vale RN on 06/10/25 08:49 Dose Route Admin Location Dispensed Lot Number Expiration Date [facility] Canal Superintendent 1 mL Infiltration left knee 2 mL [id number] 03/18/27 49006-982-26 MANDA SENIUS KABI Total Dispensed Waste 2 mL 50 % Kenalog 40 mg/mL suspension for injection Performing Provider: Dariela Collier MD Performing Location: [facility] Administered by: Erlinda Vale RN on 06/10/25 08:49 Dose Route Admin Location Dispensed Lot Number Expiration Date [facility] Canal Superintendent 40 mg intra-articular left knee 1 mL [id number] 04/18/26 [address]-8 [employer] Total Dispensed Waste 1 mL 0 % Results Reviewed Results Reviewed: Laboratory Tests 06/05/25 09:25 WBC 6.7 RBC 4.55 Hgb 12.7 Hct 37.2 Plt Count 399 ESR 10 Sodium 138 Potassium 4.2 Chloride 109 H Carbon Dioxide 23 BUN 10 Creatinine 0.61 AST 18 ALT 22 Alkaline Phosphatase 73 C-Reactive Protein 0.50 25-OH Vitamin D Total 34.8 Laboratory Tests 07/11/20 01/10/23 09:27 10:00 Rheumatoid Factor < 15.0 Cycl Citrul Peptide IgG <16 NEGRITA Screen NEGATIVE SS-A/Ro Antibody <1.0 NEG SS-B/La Antibody <1.0 NEG Sm (Tirado) Antibody <1.0 NEG SM/EMERGENCY COMMUNICATIONS OPERATOR IgG Antibody <1.0 NEG Double Strand DNA Ab <1 Anti-ds DNA (Crithidia) Negative Complement C3 131 Complement C4 34 HLA-B27 Negative Infectious serologies 01/22/25 10:41 Hepatitis A IgM Ab Nonreactive Hep Bs Antigen Negative Hep Bs Antibody REACTIVE Hep B Core Total Ab Nonreactive Hepatitis C Ab (EIA) Nonreactive TB Test (T-Spot) Com Negative Assessment & Plan Assessment & Plan (1) Seronegative arthritis: Comment: dx 02/07 MTX caused rash Enbrel 06/09 effective Code(s): M13.80 - Other specified arthritis, unspecified site Category: Medical Plan: #Seronegative RA Patient is a 44-year-old female with seronegative rheumatoid arthritis here today for follow up. Patient is still having achiness even after increasing the Enbrel back to once a week. Had a very long discussion with patient about potentially trying another medication versus continue with Enbrel given that I do not see any active synovitis and her inflammatory markers have improved. I think it is worth us trying Humira to see if the additional TNF blockade that of Humira provides is helpful. Plan - Stop Enbrel - Start Humira 40mg SC every 2 weeks - RTC 4 months - Labs before visit: CBC, CMP, ESR, CRP (2) Encounter for monitoring of etanercept therapy: Code(s): Z51.81 - Encounter for therapeutic drug level monitoring; Z79.620 - terminal system operator (current) use of immunosuppressive biologic Plan: #Long-term Use of TNF Inhibitors: Etanercept Discussed with the patient the benefits and risks of TNF inhibitors for the management of the rheumatic condition Benefits include reduce pain, maintenance of remission and reduction of flares as well as ?progression of the disease Risks include injection sites/infusion reactions, serious infections (such as bacterial infections, opportunistic infections), malignancy, delaminating s yndromes, autoimmune phenomena, CHF exacerbations, palmar plantar psoriasis and cytopenias Recommended rotating injection sites, and holding medication during and for up to 1 week after resolution of a febrile illness or open skin wound (3) Polyarticular osteoarthritis: Code(s): M15.9 - Polyosteoarthritis, unspecified Plan: #Polyarticular OA Patient with polyarticular osteoarthritis affecting her knees, hands and likely feet. Status post bilateral steroid injection today to the knees We will get updated x-rays Plan - Bilateral knee and feet XRs - s/p bilateral steroid injections Plan I spent 25 minutes reviewing the record and labs, taking a history, examining the patient, discussing the treatment plan, ordering diagnostic work up and documenting in the medical record Orders: Orders AMB Joint Injection/Aspiration Today M17.0 - Bilateral primary osteoarthritis of knee XR foot RT min 3V Today M13.80 - Other specified arthritis, unspecified site XR knee RT 3V Today M13.80 - Other specified arthritis, unspecified site XR knee LT 3V Today M13.80 - Other specified arthritis, unspecified site AMB Joint Injection/Aspiration Today M17.0 - Bilateral primary osteoarthritis of knee XR foot LT min 3V Today M13.80 - Other specified arthritis, unspecified site Medications: New adalimumab-adaz 40 mg (0.4 mL) subcut Q2W 0.8 mL 5RF M13.80 - Other specified arthritis, unspecified site Discontinued Enbrel Mini (etanercept) Discontinued Reason: Doctor's Order 50 mg subcut QWEEK 4 mL 4RF NS M13.80 - Other specified arthritis, unspecified site Coding Level of Care Code Est Pt Level 3 (22412) Complex EM visit Add On G2211 Diagnoses Seronegative arthritis M13.80 Encounter for monitoring of etanercept therapy Z51.81; Z79.620 Polyarticular osteoarthritis M15.9 CPT Codes Coding - 98001 Large joint: 37743 - Large joint (1723497951) Coding - 22932 Large joint: 55467 - Large joint ([id number])
--- OUTSIDE RECORDS SUMMARY | 2025-06-10 07:57 | XMS_ITS | Patient Health Record ---
Author Organization [facility] Address [address] [place] [address] Care Team Providers Care R Programmer Name Role Phone Mariah Abbott MD Primary Care Provider Vin Royalmie Unavailable [phone] Allergies Allergen (clinical drug ingredient) Drug/Non Drug [...] W/U Status Risk Notes Problem Rheumatoid arthritis (00728871) Rheumatoid arthritis without rheumatoid factor, 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) Active confirmed Problem Localized, primary osteoarthritis of the ankle and/or foot (832865941) Primary osteoarthritis, right ankle and foot (M19.071) Active confirmed Problem Localized, primary osteoarthritis of the ankle and/or foot (990370190) Primary osteoarthritis, left ankle and foot (M19.072) Active confirmed Problem Rheumatoid arthritis (12674798) Rheumatoid arthritis involving multiple sites with positive rheumatoid factor (M05.79) Active confirmed Problem Seronegative arthritis (987433556) Seronegative arthritis (M13.80) Active confirmed Plan Of Treatment Pending Test Test Name Order Date MRI : Foot, right 10/24/2020 *Uric Acid, Serum 10/22/2022 *Sedimentation Rate-Westergren 2 *Sedimentation Rate-Westergren 0 Rheumatoid Arthritis Factor 07/11/2020 NEGRITA w/Reflex 10/22/2022 NEGRITA Comprehensive Panel 07/11/2020 X ray : Foot, left 3V 07/23/2019 90493 I&D ABSCESS- SIMPLE,SINGLE 021 , [id number]/INJECT, JOINT/BURSA 1 ,[id number] TENDON SHEATH/LIGAMENT 0 07/23/201930072,Q5403-ILI TENDON SHEATH/LIGAMENT 1 CRP 07/11/2020 Insurance Providers Payer Name Payer Address Payer Phone Subscriber Number Group Number Insured Name Patient Relationship to Insured Coverage Start Date Coverage End Date [facility] [address] [place] [address] [id number] Valerie Barron Self - patient is the insured Medical (General) History Medical History History ICD Code Hypertension asthma Seasonal allergies Bipolar disorder Plantar fasciitis back pain migraines GERD chicken pox Surgical History Surgery Date(Month/Year) hernia age 7 adenoids/tonsils age 15 right bunion surgeries 2x
--- OUTSIDE RECORDS SUMMARY | 2025-06-10 07:58 | XMS_ITS | Clinical Summary ---
Author Organization [facility] [address] [facility] Address [address] [place] [address] Phone Care Team Providers Care Horse Doctor Name Role Phone Mariah Abbott MD Primary Care Provider [phone] Allergies Active Allergy Reactions Criticality Noted Date [...] [address] [place] [address] Mariah Mcconnell MD from Last [...] PM EDT Office Visit [facility] [address] [place] [phone] Valerie Braswell MD [address] [place] [address] Health Maintenance Due Date Last Done Comments Breast Cancer Screening 1980 Hepatitis B Vaccines (1 of 3 - 19+ 3-dose series) 1999 Pneumococcal Vaccine: Pediatrics (0 to 5 Years) and At-Risk Patients (6 to 49 Years) (1 of 2 - PCV) 1999 Cervical Cancer Screening: Pap Smear 2001 DTaP,Tdap,and Td Vaccines (2 - Td or Tdap) 06/05/2022 06/05/2012 Cholesterol Screening (Lipid Panel) 10/27/2022 HIV Screening 10/27/2022 Hepatitis C Screening 10/27/2022 Social Influencers of Health Screening 10/27/2022 Hypertension/CHF/CAD Annual BMP Blood Test 11/03/2022 COVID-19 Vaccine ( season) 2024 10/04/2021, 12/13/2020, 11/22/2020 Depression Screening 11/18/2024 Influenza Vaccine (#1) 2025 , 08/14/2023, 08/18/2018, [...] patient's age to complete this topic Insurance [facility] [[email or web address]] Care Teams Horse Doctor Relationship Specialty Start Date End Date Mariah Abbott MD PCP - General 04/06/11
--- OUTSIDE RECORDS SUMMARY | 2025-06-10 07:58 | XMS_ITS | Data Portability ---
Author Organization [facility] [facility], [facility] Address [address] [place] [address] Assessment Encounter Date Assessment Date Assessment LastModified [...] improve ROM and PS strength as tolerated. [email or web address] Not available 03/09/2025 20:39:36 03/16/2025 03/16/2025 Assessment: Patient demonstrates ongoing weakness in PS strength. Pt able to reach full PROM in all directions but mild tightness in flexion and ER AROM remains. Plan: Review HEP for d/c next visit. Recheck with MD for updated orders. [email or web address] Not available 03/16/2025 19:28:02 03/23/2025 03/23/2025 Assessment: [...] Name and Address Organization Details Recorded Time 03/23/20 [id number] Therapeutic Exercise (1:1) completed William Licea PTA [address], [place], [address], [facility] 03/23/2025 17:37:33 03/23/20 79791: Manual therapy completed William Licea PTA [address], [place], [address], [facility] 03/23/2025 17:37:33 03/16/20 50102 Therapeutic Exercise (1:1) completed Bill Arias DPT [address], [place], [address], [facility] 03/16/2025 19:28:18 03/16/20 56098: Manual therapy completed Bill Arias DPT [address], [place], [address], [facility] 03/16/2025 19:28:21 03/09/20 20727 Therapeutic Exercise (1:1) completed Bill Arias DPT [address], [place], [address], [facility] 03/09/2025 20:36:59 03/09/20 22424: Manual therapy completed Bill Arias DPT [address], [place], [address], [facility] 03/08/2025 20:33:33 03/02/20 58570 Therapeutic Exercise (1:1) completed William Licea PTA [address], [place], [address], [facility] 03/02/2025 18:40:05 03/02/20 61949: Hot or Cold Pack completed William Licea [facility] [address], [place], [address], [facility] 03/02/2025 18:40:15 03/02/20 33315: Manual therapy completed William Licea, [facility] [address], [place], [address], [facility] 03/02/2025 18:40:05 02/26/20 01172 Therapeutic Exercise (1:1) completed Bill Arias DPT [address], [place], [address], [facility] 02/24/2025 19:59:36 02/26/20 13300: Hot or Cold Pack completed Bill Arias DPT [address], [place], [address], [facility] 02/24/2025 19:59:36 02/26/20 14725: Manual therapy completed Bill Arias DPT [address], [place], [address], [facility] 02/24/2025 19:59:37 02/17/20 27869 Therapeutic Exercise (1:1) completed William Licea, [facility] [address], [place], [address], [facility] 02/16/2025 18:41:55 02/17/20 09843: Hot or Cold Pack completed William Licea, [facility] [address], [place], [address], [facility] 02/16/2025 18:41:55 02/17/20 02874: Manual therapy completed William Licea, [facility] [address], [place], [address], [facility] 02/16/2025 18:41:55 02/12/20 06489 Therapeutic Exercise (1:1) completed William Licea, [facility] [address], [place], [address], [facility] 02/11/2025 18:29:12 02/12/20 66644: Hot or Cold Pack completed William Quachri, [facility] [address], [place], [address], [facility] 02/11/2025 18:29:11 02/12/20 18786: Manual therapy completed William Licea, [facility] [address], [place], [address], [facility] 02/11/2025 18:29:12 02/10/20 28099 Therapeutic Exercise (1:1) completed William Licea, [facility] [address], [place], [address], [facility] 02/09/2025 17:16:36 02/10/20 91245: Hot or Cold Pack completed William Licea, [facility] [address], [place], [address], [facility] 02/09/2025 17:15:32 02/10/20 76303: Manual therapy completed William Licea, [facility] [address], [place], [address], [facility] 02/09/2025 17:16:45 02/05/20 97736 Therapeutic Exercise (1:1) completed Bill Arias DPT [address], [place], [address], [facility] 02/03/2025 19:45:26 02/05/20 26523: Hot or Cold Pack completed SAVANNAH IrizarryT [address], [place], [address], [facility] 02/03/2025 19:45:26 02/05/20 83675: Manual therapy completed SAVANNAH IrizarryT [address], [place], [address], [facility] 02/03/2025 19:45:26 02/03/20 14262 Therapeutic Exercise (1:1) completed Bill Arias DPT [address], [place], [address], [facility] 02/01/2025 19:15:56 02/03/20 18297: Hot or Cold Pack completed Bill Arias, DPT [address], [place], [address], [facility] 02/01/2025 19:15:56 02/03/20 89070: Manual therapy completed Bill Arias DPT [address], [place], [address], [facility] 02/01/2025 19:15:56 01/29/20 77732 Therapeutic Exercise (1:1) completed William Licea, [facility] [address], [place], [address], [facility] 01/28/2025 18:14:43 01/29/20 09782: Hot or Cold Pack completed William Licea, [facility] [address], [place], [address], [facility] 01/28/2025 18:14:43 01/29/20 14866: Manual therapy completed William Licea, [facility] [address], [place], [address], [facility] 01/28/2025 18:14:43 01/27/20 55608 Therapeutic Exercise (1:1) completed Bill Arias DPT [address], [place], [address], [facility] 01/25/2025 20:39:15 01/27/20 82412: Hot or Cold Pack completed Bill Arias, DPT [address], [place], [address], [facility] 01/25/2025 20:39:15 01/27/20 25 06772: Manual therapy completed Bill Arias DPT [address], [place], [address], [facility] 01/25/2025 20:39:15 01/22/20 63198 Therapeutic Exercise (1:1) completed Bill Arias DPT [address], [place], [address], [facility] 01/20/2025 14:43:06 01/22/20 25 97195: Hot or Cold Pack completed Bill Arias DPT [address], [place], [address], [facility] 01/20/2025 14:43:06 01/22/20 25 05963: Manual therapy completed Bill Arias DPT [address], [place], [address], [facility] 01/20/2025 14:43:06 01/20/20 25 55129 Therapeutic Exercise (1:1) completed Bill Arias DPT [address], [place], [address], [facility] 01/15/2025 20:52:42 01/20/20 25 05120: Hot or Cold Pack completed Bill Arias DPT [address], [place], [address], [facility] 01/15/2025 20:52:42 01/20/20 25 78674: Manual therapy completed Bill Arias DPT [address], [place], [address], [facility] 01/15/2025 20:52:42 01/14/20 59646 Therapeutic Exercise (1:1) completed Bill Arias DPT [address], [place], [address], [facility] 01/13/2025 12:56:32 01/14/20 25 40670: Hot or Cold Pack completed Bill Arias DPT [address], [place], [address], [facility] 01/13/2025 12:56:32 01/14/20 86080: Manual therapy completed Bill Arias DPT [address], [place], [address], [facility] 01/13/2025 12:56:32 01/12/20 21484 Therapeutic Exercise (1:1) completed Bill Arias DPT [address], [place], [address], [facility] 01/08/2025 23:07:38 01/12/20 38612: Hot or Cold Pack completed Bill Arias DPT [address], [place], [address], [facility] 01/08/2025 23:07:38 01/12/20 74983: Manual therapy completed Bill Arias DPT [address], [place], [address], [facility] 01/08/2025 23:07:38 01/07/20 72593 Therapeutic Exercise (1:1) completed Bill Arias DPT [address], [place], [address], [facility] 01/06/2025 22:27:22 01/07/20 58192: Hot or Cold Pack completed Bill Arias DPT [address], [place], [address], [facility] 01/06/2025 22:27:22 01/07/20 29908: Manual therapy completed Bill Arias DPT [address], [place], [address], [facility] 01/06/2025 22:27:22 01/05/20 07622 Therapeutic Exercise (1:1) completed Bill Arias DPT [address], [place], [address], [facility] 01/04/2025 08:41:39 01/05/20 79160: Hot or Cold Pack completed Bill Arias, DPT [address], [place], [address], [facility] 01/05/2025 14:41:10 01/05/20 47279: Manual therapy completed Bill Arias DPT [address], [place], [address], [facility] 01/04/2025 08:41:39 12/31/19 47737 Therapeutic Exercise (1:1) completed William Scafuri, [facility] [address], [place], [address], [facility] 12/31/2024 13:59:54 12/31/19 18526: Hot or Cold Pack completed William Enriquetafuri, [facility] [address], [place], [address], [facility] 12/31/2024 13:59:54 12/31/19 44750: Manual therapy completed William Enriquetafuri, [facility] [address], [place], [address], [facility] 12/31/2024 13:59:54 12/29/19 81721 Therapeutic Exercise (1:1) completed William Robisonfuri, [facility] [address], [place], [address], [facility] 12/29/2024 15:22:29 12/29/19 68237: Hot or Cold Pack completed William Scafuri, [facility] [address], [place], [address], [facility] 12/29/2024 15:22:29 12/29/19 50999: Manual therapy completed William Scafuri, [facility] [address], [place], [address], [facility] 12/29/2024 15:22:29 12/17/19 60577 Therapeutic Exercise (1:1) completed Bill Arias DPT [address], [place], [address], [facility] 12/16/2024 20:56:16 12/17/19 62461: Hot or Cold Pack completed SAVANNAH IrizarryT [address], [place], [address], [facility] 12/16/2024 20:56:16 12/17/19 84440: Manual therapy completed SAVANNAH IrizarryT [address], [place], [address], [facility] 12/16/2024 20:56:16 12/15/19 52638 Therapeutic Exercise (1:1) completed Bill Arias DPT [address], [place], [address], [facility] 12/14/2024 19:51:57 12/15/19 97493: Hot or Cold Pack completed SAVANNAH IrizarryT [address], [place], [address], [facility] 12/14/2024 19:51:57 12/15/19 10054: Manual therapy completed SAVANNAH IrizarryT [address], [place], [address], [facility] 12/14/2024 19:51:57 12/10/19 39867 Therapeutic Exercise (1:1) completed William Licea, [facility] [address], [place], [address], [facility] 12/10/2024 14:34:05 12/10/19 25 04782: Hot or Cold Pack completed William Licea, [facility] [address], [place], [address], [facility] 12/10/2024 14:34:05 12/10/19 08493: Manual therapy completed William Licea, [facility] [address], [place], [address], [facility] 12/10/2024 14:34:05 12/08/19 25 15581 Therapeutic Exercise (1:1) completed William Licea [facility] [address], [place], [address], [facility] 12/08/2024 14:46:08 12/08/19 25 36087: Hot or Cold Pack completed William Licea [facility] [address], [place], [address], [facility] 12/08/2024 14:45:19 12/08/19 25 15744: Manual therapy completed William Licea PTA [address], [place], [address], [facility] 12/08/2024 14:45:19 12/02/19 25 24856 Therapeutic Exercise (1:1) completed Bill Arias DPT [address], [place], [address], [facility] 12/01/2024 09:25:05 12/02/19 25 00185: Hot or Cold Pack completed Bill Arias DPT [address], [place], [address], [facility] 12/01/2024 09:25:05 12/02/19 25 04414: Manual therapy completed Bill Arias DPT [address], [place], [address], [facility] 12/01/2024 09:25:05 11/30/19 25 69023 Therapeutic Exercise (1:1) completed Bill Arias DPT [address], [place], [address], [facility] 11/26/2024 17:05:21 11/30/19 25 53625: Hot or Cold Pack completed Bill Arias DPT [address], [place], [address], [facility] 11/26/2024 17:05:21 11/30/19 25 46639: Manual therapy completed Bill Arias, DPT [address], [place], [address], [facility] 11/30/2024 16:26:03 11/26/19 20004 Therapeutic Exercise (1:1) completed William Scafuri, [facility] [address], [place], [address], [facility] 11/26/2024 14:13:18 11/26/19 25 46048: Hot or Cold Pack completed William Scafuri, [facility] [address], [place], [address], [facility] 11/26/2024 14:13:18 11/26/19 38550: Manual therapy completed William Robisonfuri, [facility] [address], [place], [address], [facility] 11/26/2024 14:13:18 11/24/19 55982 Therapeutic Exercise (1:1) completed William Robisonfuri, [facility] [address], [place], [address], [facility] 11/24/2024 13:22:01 11/24/19 11695: Hot or Cold Pack completed William Scafuri, [facility] [address], [place], [address], [facility] 11/24/2024 13:22:01 11/24/19 10922: Manual therapy completed William Scafuri, [facility] [address], [place], [address], [facility] 11/24/2024 13:22:01 11/19/19 75719 Therapeutic Exercise (1:1) completed Rosa Loo, [facility] [address], [place], [address], [facility] 11/19/2024 08:40:57 11/19/19 49418: Hot or Cold Pack completed Rosa Loo, [facility] [address], [place], [address], [facility] 11/19/2024 08:40:57 11/19/19 83045: Manual therapy completed Rosa Loo, [facility] [address], [place], [address], [facility] 11/19/2024 08:40:57 11/16/20 23781 Therapeutic Exercise (1:1) completed William Licea, [facility] [address], [place], [address], [facility] 11/16/2024 13:06:18 11/16/20 89581: Hot or Cold Pack completed William Licea, [facility] [address], [place], [address], [facility] 11/16/2024 13:06:18 11/16/20 37140: Manual therapy completed William Licea, [facility] [address], [place], [address], [facility] 11/16/2024 13:06:18 11/12/20 77483 Therapeutic Exercise (1:1) completed Bill Arias DPT [address], [place], [address], [facility] 11/09/2024 21:04:41 11/12/20 73033: Hot or Cold Pack completed SAVANNAH IrizarryT [address], [place], [address], [facility] 11/09/2024 21:04:41 11/12/20 65487: Manual therapy completed SAVANNAH IrizarryT [address], [place], [address], [facility] 11/09/2024 21:04:41 11/09/20 68938 Therapeutic Exercise (1:1) completed Hongshin Hugo, DPT [address], [place], [address], [facility] 11/09/2024 20:28:20 11/09/20 24 07710: Hot or Cold Pack completed Bill Arias DPT [address], [place], [address], [facility] 11/06/2024 12:16:12 11/09/20 24 19228: Manual therapy completed SAVANNAH IrizarryT [address], [place], [address], [facility] 11/06/2024 12:16:12 11/05/20 24 19501 Therapeutic Exercise (1:1) completed William Licea, [facility] [address], [place], [address], [facility] 11/05/2024 12:45:16 11/05/20 61013: Hot or Cold Pack completed William Licea, [facility] [address], [place], [address], [facility] 11/05/2024 09:49:30 11/05/20 19050: Manual therapy completed William Licea, [facility] [address], [place], [address], [facility] 11/05/2024 12:45:21 11/03/20 24 02864 Therapeutic Exercise (1:1) completed SAVANNAH IrizarryT [address], [place], [address], [facility] 10/30/2024 16:22:55 11/03/20 24 20680: Hot or Cold Pack completed SAVANNAH IrizarryT [address], [place], [address], [facility] 10/30/2024 16:22:55 11/03/20 24 07787: Manual therapy completed SAVANNAH IrizarryT [address], [place], [address], [facility] 10/30/2024 16:22:55 10/29/20 24 52156 Therapeutic Exercise (1:1) completed Bill Arias DPT [address], [place], [address], [facility] 10/28/2024 19:22:26 10/29/20 24 16296: Hot or Cold Pack completed Bill Arias DPT [address], [place], [address], [facility] 10/28/2024 19:22:26 10/29/20 24 85552: Manual therapy completed Bill Arias DPT [address], [place], [address], [facility] 10/28/2024 19:22:26 10/27/20 24 89925 Therapeutic Exercise (1:1) completed William Licea [facility] [address], [place], [address], [facility] 10/27/2024 15:30:08 10/27/20 24 15895: Hot or Cold Pack completed William Licea PTA [address], [place], [address], [facility] 10/27/2024 15:30:08 10/27/20 24 86353: Manual therapy completed William Licea PTA [address], [place], [address], [facility] 10/27/2024 15:30:08 10/22/20 24 32164 Therapeutic Exercise (1:1) completed Bill Arias DPT [address], [place], [address], [facility] 10/22/2024 10:03:31 10/22/20 24 54673: Hot or Cold Pack completed Bill Arias DPT [address], [place], [address], [facility] 10/22/2024 10:08:01 10/22/20 24 71457: Manual therapy completed SAVANNAH IrizarryT [address], [place], [address], [facility] 10/22/2024 10:08:27 10/21/20 24 59677 Therapeutic Exercise (1:1) completed SAVANNAH IrizarryT [address], [place], [address], [facility] 10/21/2024 18:35:14 10/21/20 24 25694: Low complexity PT Eval completed Bill Arias DPT [address], [place], [address], [facility] 10/21/2024 18:34:13 10/07/20 24 arthroscopic repair of rotator cuff completed ALICE CUEVAS [facility] 10/23/2024 09:41:17 Ankle/Foot Surgery completed ALICE CUEVAS [facility] 07/06/2024 08:22:45 Imaging Results None recorded. Procedure Notes None recorded. Medical Equipment None Reported. Allergies Allergen ID Allergen Name Allergen Category Reaction Reaction Severity Criticality Documentation Date Start Date Code Code System Note Provider Name and Address Organization Details Recorded Time 823914 methotrex ate medicatio n rash Not available Not available 07/06/20242022 6851 RxNorm ALICE CUEVAS [facility] 4 08:22:43 409547 erythromy nate medicatio n Not available Not available Not available 07/06/2024 4053 RxNorm ALICE CUEVAS [facility] 4 08:22:43 203046 adhesive tape environme nt,medica tion rash Not available Not available 07/06/2024 93205 UNK ALICE CUEVAS [facility] 4 08:22:43 658658 latex environme nt,medica tion rash Not available Not available 07/06/2024 94364 91 RxNorm ALICE CUEVAS [facility] 4 08:22:43 398574 peach food Not available Not available Not available 07/06/2024 40570 UNK ALICE khan [place] [facility] 4 13:23:12 Medications Name Sig Start Date [...] Relief 50 mcg/actuati on nasal spray,suspe nsion [place] 1 spray every day by nasal route. [...] Updated DateTime 04/05/2025 165.1 cm 29.1 kg/m2 97043.66 g ALICE MASON [facility] 04/05/2025 16:32:28 Social History Question Answer Notes LastModified by Organizat ion Details LastModified Time Tobacco Smoking Status Former Smoker ALICE MOCTEZUMAKELSI khan [facility] 07/06/2024 08:22:45 When Did You Quit Smoking? [...] Trouble N Gastrointestinal Disease N Heart Attack ([place]) N Cholesterol N Diabetes N Autoimmune disease [...] SNOMED-CT Code Diagnosis ICD10 Code Diagnosis Note [id number] MD Richard Tripp [address] [place] [address] 07/06/2024 08:07:35 07/29/2024 10:56:47 Pain of left shoulder joint 6059305234 8371230 M25.512 Full thick ness rotator cuff tear 648549794 M75.140 [id number] MD Richard Tripp [address] [place] [address] 09/28/2024 14:16:14 10/27/2024 13:58:38 Calcific tendinitis of right shoulder 7805394183 97576 M75.31 Pain of ri ght shoulder joint 2508923951 8791664 M25.430 [id number] Vida Banks MD [facility] [address] [place] [address] 10/23/2024 09:28:22 11/23/2024 13:51:40 Follow-up orthopedic assessment [id number] Z47.89 [id number] Bill Arias DPT [facility] [address] [place] [address] 10/21/2024 13:59:00 10/21/2024 17:48:15 Rupture of rotator cuff of left shoulder [id number] M75.647 [id number] Bill Arias DPT [facility] [address] [place] [address] 10/22/2024 09:13:39 10/22/2024 10:53:09 Rupture of rotator cuff of left shoulder 9741061426 [id number] M75.999 [id number] William Licea PTA [facility] [address] [place] [address] 10/27/2024 12:56:20 10/27/2024 13:36:14 Rupture of rotator cuff of left shoulder 3495369613 [id number] M75.707 [id number] Bill Arias DPT [facility] [address] [place] [address] 10/29/2024 13:53:37 10/29/2024 15:02:35 Rupture of rotator cuff of left shoulder 4037751451 [id number] M75.166 [id number] Bill Arias, DPT [facility] [address] [place] [address] 11/03/2024 09:59:16 11/03/2024 10:22:20 Rupture of rotator cuff of left shoulder 3197775097 [id number] M75.785 [id number] William Licea, [facility] [address] [place] [address] 11/05/2024 11:54:53 11/05/2024 12:39:09 Rupture of rotator cuff of left shoulder 4951450597 [id number] M75.758 [id number] Bill Arias DPT [facility] [address] [place] [address] 11/09/2024 12:52:41 11/10/2024 06:45:35 Rupture of rotator cuff of left shoulder 4855684791 1159917 M75.863 [id number] Bill Arias DPT [facility] [address] [place] [address] 11/12/2024 09:30:37 11/12/2024 10:06:41 Rupture of rotator cuff of left shoulder 1705254583 0129005 M75.250 [id number] William Licea, [facility] [address] [place] [address] 11/16/2024 11:27:35 11/16/2024 12:04:35 Rupture of rotator cuff of left shoulder 8279487914 [id number] M75.995 [id number] Rosa Loo, [facility] [address] [place] [address] 11/19/2024 16:23:31 11/19/2024 17:25:05 Rupture of rotator cuff of left shoulder 5877571737 [id number] M75.866 [id number] William Quachdurga, [facility] [address] [place] [address] 11/24/2024 12:57:06 11/24/2024 13:50:31 Rupture of rotator cuff of left shoulder 4885408445 [id number] M75.284 [id number] William Licea, [facility] [address] [place] [address] 11/26/2024 12:56:44 11/26/2024 15:27:05 Rupture of rotator cuff of left shoulder 4498335098 [id number] M75.545 [id number] Bill Arias, DPT [facility] [address] [place] [address] 11/30/2024 13:57:12 11/30/2024 14:33:54 Rupture of rotator cuff of left shoulder 8618795964 [id number] M75.114 [id number] Bill Arias, DPT [facility] [address] [place] [address] 12/02/2024 13:54:45 12/02/2024 14:23:50 Rupture of rotator cuff of left shoulder 9922058061 [id number] M75.287 [id number] William Licea, [facility] [address] [place] [address] 12/08/2024 12:56:05 12/08/2024 14:10:47 Rupture of rotator cuff of left shoulder 8685033021 [id number] M75.703 [id number] CLIFFORD [facility] [place] [address] 12/10/2024 08:59:46 01/08/2025 14:13:45 Nontraumatic complete rupture of rotator cuff of left shoulder 2049631957 [id number] M75.286 [id number] William Licea, [facility] [address] [place] [address] 12/10/2024 12:53:13 12/10/2024 13:39:28 Rupture of rotator cuff of left shoulder 3286654137 [id number] M75.088 [id number] Bill Arias, DPT [facility] [address] [place] [address] 12/15/2024 12:56:10 12/15/2024 13:36:17 Rupture of rotator cuff of left shoulder 0609908373 [id number] M75.133 [id number] Bill Arias, DPT [facility] [address] [place] [address] 12/17/2024 12:57:10 12/17/2024 14:54:40 Rupture of rotator cuff of left shoulder 5308753600 [id number] M75.627 [id number] William Licea, [facility] [address] [place] [address] 12/29/2024 15:54:21 12/29/2024 17:03:39 Rupture of rotator cuff of left shoulder 4494441517 [id number] M75.633 [id number] William Licea, [facility] [address] [place] [address] 12/31/2024 11:29:42 12/31/2024 12:20:10 Rupture of rotator cuff of left shoulder 7201606447 [id number] M75.554 [id number] Bill Arias, DPT [facility] [address] [place] [address] 01/05/2025 11:59:37 01/05/2025 12:37:14 Rupture of rotator cuff of left shoulder 4232211772 [id number] M75.814 [id number] Bill Arias, DPT [facility] [address] [place] [address] 01/07/2025 11:57:40 01/07/2025 12:46:00 Rupture of rotator cuff of left shoulder 5445112366 [id number] M75.573 [id number] Bill Arias DPT [facility] [address] [place] [address] 01/12/2025 16:26:27 01/12/2025 17:13:57 Rupture of rotator cuff of left shoulder 5315565109 [id number] M75.859 [id number] Bill Arias, DPT [facility] [address] [place] [address] 01/14/2025 17:52:56 01/15/2025 06:20:32 Rupture of rotator cuff of left shoulder [id number] M75.840 [id number] Bill Arias, DPT [facility] [address] [place] [address] 01/19/2025 16:29:48 01/19/2025 17:07:55 Rupture of rotator cuff of left shoulder 0586251104 [id number] M75.752 [id number] MD [facility] [address] [place] [address] 02/01/2025 13:02:24 02/15/2025 08:27:03 Follow-up orthopedic assessment [id number] Z47.89 [id number] Bill Arias DPTiffany [facility] [address] [place] [address] 01/21/2025 16:28:46 01/21/2025 16:59:25 Rupture of rotator cuff of left shoulder 7478236129 [id number] M75.604 [id number] Bill Arias DPT [facility] [address] [place] [address] 01/26/2025 17:27:24 01/26/2025 17:52:33 Rupture of rotator cuff of left shoulder 3553574326 [id number] M75.472 [id number] William Licea, [facility] [address] [place] [address] 01/28/2025 16:54:48 01/28/2025 17:56:53 Rupture of rotator cuff of left shoulder 4781152955 [id number] M75.925 [id number] Bill Arias DPT [facility] [address] [place] [address] 02/02/2025 16:25:29 02/02/2025 17:08:37 Rupture of rotator cuff of left shoulder [id number] M75.974 [id number] Hongshin Hugo, DPT [facility] [address] [place] [address] 02/04/2025 16:26:14 02/04/2025 17:41:37 Rupture of rotator cuff of left shoulder [id number] M75.743 [id number] William Licea, [facility] [address] [place] [address] 02/09/2025 16:28:36 02/09/2025 17:22:04 Rupture of rotator cuff of left shoulder 9283799096 [id number] M75.790 [id number] William Licea, [facility] [address] [place] [address] 02/11/2025 16:43:03 02/11/2025 17:01:17 Rupture of rotator cuff of left shoulder 8828741605 [id number] M75.491 [id number] William Licea, [facility] [address] [place] [address] 02/16/2025 16:20:54 02/16/2025 17:12:58 Rupture of rotator cuff of left shoulder [id number] M75.073 [id number] William Licea, [facility] [address] [place] [address] 02/25/2025 17:53:37 02/25/2025 18:07:56 Rupture of rotator cuff of left shoulder 1075555895 [id number] M75.215 [id number] William Licea, [facility] [address] [place] [address] 03/02/2025 17:27:50 03/02/2025 18:00:47 Rupture of rotator cuff of left shoulder 1591898992 [id number] M75.751 [id number] Bill Arias, DPT [facility] [address] [place] [address] 03/09/2025 17:53:23 03/09/2025 20:33:52 Rupture of rotator cuff of left shoulder [id number] M75.657 [id number] Bill Arias, DPT [facility] [address] [place] [address] 03/16/2025 16:55:19 03/17/2025 06:41:06 Rupture of rotator cuff of left shoulder [id number] M75.868 [id number] William Licea, [facility] [address] [place] [address] 03/23/2025 16:32:06 03/23/2025 17:56:49 Rupture of rotator cuff of left shoulder 6767515506 [id number] M75.426 [id number] MD [facility] [address] [place] [address] 04/05/2025 16:03:04 04/13/2025 15:24:44 Follow-up orthopedic assessment [id number] Z47.89 Health Concerns Section Related Observation LastModified by Organization Detai ls LastModified Time None Recorded Concern Status LastModified by Organization Details LastModified Time None Recorded Advance Directives Directive None Recorded Payers Insurance Date Sequence Insurance Name Policy Number Policy Iraheta Covered Member ID Iraheta Member ID Guarantor Name 04/13/2025 1 [facility]: [facility] [place] [place] [id number] Don Barron [id number] Valerie Barron Notes Date Note Type Note Provider Name and Address Organization Details Recorded Time 03/02/2025 text/html Pt reports 0/10 shld pain William Licea, [facility] [address], [place], [address], [facility] 03/02/2025 18:41:42 03/09/2025 text/html Pt arrives reporting feeling exhausted after work. No pain in her shoulder. Bill Arias, SAVANNAHT [address], [place], [address], [facility] 03/09/2025 20:40:10 03/16/2025 text/html Pt reports feeling very tired after work today but feeling good with her shoulder.Pains 0/10 at rest. Bill Arias, DPT [address], [place], [address], [facility] 03/16/2025 19:28:35 03/23/2025 text/html Pt reports 0/10 pain. Feeling much better. William Licea, [facility] [address], [place], [address], [facility] 03/23/2025 17:42:31 04/05/2025 text/html Surgery: Left shoulder [...] and well perfused. 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 [facility] speech recognition pot fireman software was used to create portions of this document. An attempt at proofreading has been made to minimize errors. Please call for corrections. Vida Banks MD [facility] [address], [place], [address], [facility] 04/05/2025 16:59:09 OBGyn Episode No OBEpisode recorded.
== END 2025-06-10 08:49 | disposition home or self-care (01) ==
LOC: HO.RHE 07:55
PROVIDERS: PCP Internal Medicine; Visit Provider Student in an Organized Health Care Education/Training Program
DX: M15.9 Polyosteoarthritis, unspecified (principal); Z51.81 Encounter for therapeutic drug level monitoring; Z79.620 Long term (current) use of immunosuppressive biologic
CPT/HCPCS: 20610; 99214

== ENCOUNTER → 2025-06-10 08:59 | Outpatient (BNV) | payer BC, SELFPAY | PROVIDERS: PCP Internal Medicine; Visit Provider Radiology Diagnostic Radiology | DX: M17.0 Bilateral primary osteoarthritis of knee (principal); M77.32 Calcaneal spur, left foot; M19.071 Primary osteoarthritis, right ankle and foot | CPT/HCPCS: 73562; 73630 ==

== ENCOUNTER 2025-06-23 08:21 | Outpatient (AMB) | payer BC, SELFPAY ==
--- NOTE | 2025-06-23 08:26 | MHC.OFFVIS ---
Vital Signs 06/23/25 08:27 Height 5 ft 5 in Weight 178 lb BMI 29.6 BP 128/76 Blood Pressure Location Lt brachial Position Sitting Pulse 75 Intake Visit Reasons: diarrhea, rectal bleeding 2 mo f/u Intake Note: Valerie presents in the office as a follow up for 2 month follow up. CC: She states that her stomach a mess and lots of reflux. She states that pepcid is not doing much and all the same symptoms. Clinical Pharmacy Coordinator Required: No Allergies methotrexate Allergy (Intermediate, Verified 06/23/25 08:28) Rash adhesive Allergy (Unknown, Verified 06/23/25 08:28) Rash erythromycin base (ERYTHROMYCIN BASE) Allergy (Unknown, Verified 06/23/25 08:28) Hives peach Allergy (Unknown, Verified 06/23/25 08:28) Anaphylaxis latex Adverse Reaction (Verified 06/23/25 08:28) Hives lisinopril Adverse Reaction (Verified 06/23/25 08:28) Cough HPI Comments Details: 44 y.o F with PMH of IBS, fam hx CRC who is here to re-establish care. Pt was prev established with [facility] and had a colonoscopy 2 years ago. At that time was told re diverticulosis, hemorrhoids. Also has heartburn. DOes nto think had colon bx done to r/o microscopic colitis. Reports has had issues with rectal bleeding for many years now but more recently feels like happening almost every time. CBC remains stable. BMs are solid and in small lumps fluctuates with mushy BMs. Has to go frequently. No rectal pressure, palpable lump. 06/23/25: Patient seen in follow-up today. Reports improvement in rectal bleeding, occurs maybe once or twice a month now, last episode was last week, lasted 2 days. Does not report significant bleeding. Frequency has reduced. H&H trend stable. In terms of frequent stool, that is persistent. Stool is on all was watery, mostly formed, but frequent. This morning alone, she has already had 5 bowel movements, and anticipates 2-3 more bowel movements during the day. Labs reviewed and negative for celiac, chronic inflammatory process. Last colonoscopy 2021 (Dr. Mcconnell): Good prep. To the TI. No polyps. No inflammation. Diverticulosis. Hemorrhoids. Next interval given for 10 years. Main complaint today is reflux symptoms. Has been on famotidine since March, with minimal response. Has reflux every day, mostly during the day, takes famotidine at nighttime. Not related to food intake or food type. Laboratory Tests 01/22/25 03/13/25 03/13/25 10:41 08:40 09:57 Hgb Hct Plt Count Sodium Potassium Chloride Carbon Dioxide BUN Creatinine AST ALT C-Reactive Protein 25-OH Vitamin D Total TSH Stool Calprotectin 30 IgA 287 Hep Bs Antigen Negative Hep B Core Total Ab Nonreactive Hepatitis C Ab (EIA) Nonreactive TB Test (T-Spot) Com Negative 06/05/25 09:25 Hgb 12.7 Hct 37.2 Plt Count 399 Sodium 138 Potassium 4.2 Chloride 109 H Carbon Dioxide 23 BUN 10 Creatinine 0.61 AST 18 ALT 22 C-Reactive Protein 0.50 25-OH Vitamin D Total 34.8 TSH 1.51 Stool Calprotectin IgA Hep Bs Antigen Hep B Core Total Ab Hepatitis C Ab (EIA) TB Test (T-Spot) Com [facility] Medical History Diverticulosis Tinnitus of left ear FHx: colonic polyps Annual physical exam Hydronephrosis of right kidney Migraine Anxiety Seasonal allergies Chronic asthma HTN (hypertension) Surgical History History of shoulder surgery Hx of tonsillectomy Hx of adenoidectomy History of bunionectomy H/O breast biopsy Family History (Updated 06/23/25 @ 08:29 by SETH Byrne) Father HTN (hypertension) Substance use disorder Pancreatic cancer Mother Breast cancer Bladder cancer Cancer of kidney Mental health disorder Colon polyp Maternal Grandmother Colon cancer, Onset Age: 80 Daughter Andrzej's thyroiditis Sister Colon polyp Social History Housing: House Alcohol intake: current Alcohol intake frequency: holidays/special occasions only Patient Tobacco Use Status: Former Tobacco user e-Cigarette/Vaping Use: Never Used service: No Current occupational status: employed 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 Cognitive needs: No Hearing needs: No Vision needs: Yes Physical Exam Exam Exam: No apparent distress Nonicteric Abdomen soft, nondistended Alert and oriented x3, normal gait Vital Signs: Last Vital Signs Pulse 75 06/23/25 08:27 BP 128/76 06/23/25 08:27 BMI result Body Mass Index 29.6 Assessment & Plan Assessment & Plan (1) Chronic diarrhea: Code(s): K52.9 - Noninfective gastroenteritis and colitis, unspecified Category: Medical (2) GERD (gastroesophageal reflux disease): Code(s): K21.9 - Gastro-esophageal reflux disease without esophagitis Category: Medical (3) Bright red rectal bleeding: Code(s): K62.5 - Hemorrhage of anus and rectum Category: Medical (4) Irritable bowel syndrome with diarrhea: Code(s): K58.0 - Irritable bowel syndrome with diarrhea Category: Medical Plan 1. Blood work and stool testing reviewed. Previous colonoscopy reviewed. At this time, consistent with previously known IBS, although now more diarrhea predominant. Advise avoidance of high FODMAP diet, handout provided. Also reviewed fiber intake. Patient has minimal global symptoms, main nuisance is frequency of stools. 2. Rectal bleeding likely secondary to hemorrhoids as has been previously determined. This is already improved 3. GERD: Longstanding issue. Minimal response to famotidine so far. Will switch to high-dose PPI. Reflux noted on barium swallow, no hiatal hernia noted, no esophagitis or gastritis noted. Plan: -stop famotidine -start esomeprazole 40 mg once daily -patient to report over the portal, if minimal response despite 8 week of therapy, in which case an EGD will be indicated Follow-up in 4 months Medications: New esomeprazole magnesium 40 mg PO DAILY 90 caps 1RF Discontinued famotidine Discontinued Reason: Doctor's Order 20 mg PO BEDTIME 90 tabs 1RF Coding Level of Care Code Est Pt Level 4 (24085) Diagnoses Chronic diarrhea K52.9 GERD (gastroesophageal reflux disease) K21.9 Bright red rectal bleeding K62.5 Irritable bowel syndrome with diarrhea K58.0
[2025-06-23 08:27] VITALS: BP 128/76; PULSE 75; BMI 29.6
--- OUTSIDE RECORDS SUMMARY | 2025-06-23 08:27 | XMS_ITS | Patient Health Record ---
[facility] Address [address] [place] [address] Care Team Providers Care Operator And Truck Driver Name Role Phone Mariah Abbott MD Primary Care Provider Vin Royalmie Unavailable [phone] Allergies Allergen (clinical drug ingredient) Drug/Non Drug [...] W/U Status Risk Notes Problem Rheumatoid arthritis (07659035) Rheumatoid arthritis without rheumatoid factor, 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) Active confirmed Problem Localized, primary osteoarthritis of the ankle and/or foot (180980939) Primary osteoarthritis, right ankle and foot (M19.071) Active confirmed Problem Localized, primary osteoarthritis of the ankle and/or foot (886668441) Primary osteoarthritis, left ankle and foot (M19.072) Active confirmed Problem Rheumatoid arthritis (86494109) Rheumatoid arthritis involving multiple sites with positive rheumatoid factor (M05.79) Active confirmed Problem Seronegative arthritis (900844712) Seronegative arthritis (M13.80) Active confirmed Plan Of Treatment Pending Test Test Name Order Date MRI : Foot, right 10/24/2020 *Uric Acid, Serum 10/22/2022 *Sedimentation Rate-Westergren 2 *Sedimentation Rate-Westergren 0 Rheumatoid Arthritis Factor 07/11/2020 NEGRITA w/Reflex 10/22/2022 NEGRITA Comprehensive Panel 07/11/2020 X ray : Foot, left 3V 07/23/2019 82759 I&D ABSCESS- SIMPLE,SINGLE 021 , [id number]/[id number], JOINT/BURSA 1 ,[id number] TENDON SHEATH/LIGAMENT 0 07/23/201932220,[id number] TENDON SHEATH/LIGAMENT 1 CRP 07/11/2020 Insurance Providers Payer Name Payer Address Payer Phone Subscriber Number Group Number Insured Name Patient Relationship to Insured Coverage Start Date Coverage End Date [facility] [address] [place] [address] [id number] Valerie Barron Self - patient is the insured Medical (General) History Medical History History ICD Code Hypertension asthma Seasonal allergies Bipolar disorder Plantar fasciitis back pain migraines GERD chicken pox Surgical History Surgery Date(Month/Year) hernia age 7 adenoids/tonsils age 15 right bunion surgeries 2x
--- OUTSIDE RECORDS SUMMARY | 2025-06-23 08:27 | XMS_ITS | Clinical Summary ---
Author Organization [facility] [address] [facility] Address [address] [place] [address] Phone Care Team Providers Care Patrol Driver Name Role Phone Mariah Abbott MD Primary Care Provider [phone] Allergies Active Allergy Reactions Criticality Noted Date [...] 03/31/2025 Telephone Gastroenterology - [address] [place] [address] Mariah Mcconnell MD from Last 3 Months Surgical History Surgery Date Site/Laterality Comments OTHER SURGICAL HISTORY 04/10/2019 Right PROCEDURE: BREAST MASS CORE BIOPSY SPCMN PATHOLGY EXAM; COMMENT: benign TONSILLECTOMY PROCEDURE: HISTORICAL TONSILLECTOMY; COMMENT: and adenoidectomy FOOT SURGERY PROCEDURE: HISTORICAL FOOT SURGERY; COMMENT: bunerasto Medical History Medical History Date Comments Hypertension [...] PM EDT Office Visit [facility] [address] [place] [address] Valerie Braswell MD [address] [place] [address] Health Maintenance Due Date Last Done Comments [...] patient's age to complete this topic Insurance [facility] Care Teams Patrol Driver Relationship Specialty Start Date End Date Mariah Abbott MD PCP - General 04/06/11
== END 2025-06-23 09:00 | disposition home or self-care (01) ==
LOC: HO.HGI 08:22
PROVIDERS: PCP Internal Medicine; Visit Provider Internal Medicine
DX: K52.9 Noninfective gastroenteritis and colitis, unspecified (principal); K21.9 Gastro-esophageal reflux disease without esophagitis; K62.5 Hemorrhage of anus and rectum
CPT/HCPCS: 99214

== ENCOUNTER 2025-07-10 08:13 | Outpatient (REF) | payer BC, SELFPAY ==
[2025-07-10 11:08] LABS: MANUAL DIFF FLAG NO
[2025-07-10 11:14] LABS: Hematocrit 38.6 % (37.0-47.0); Hemoglobin 12.9 g/dl (12.0-16.0); Imm Gran Abs Auto 0.01 X10*3/uL (0.00-0.03); Imm Gran Pct Auto 0.1 % (0.0-0.4); Lymphocytes Absolute Auto 2.7 X10*3/uL (1.2-4.9); Mean Corpuscular HGB Conc 33.4 g/dl (31.0-35.0); Mean Corpuscular Hemoglobin 28.0 pg (27.0-33.0); Mean Corpuscular Volume 83.7 fL (80.0-98.0); NRBC Abs Auto 0.000 X10*3/uL (0.0-0.012); NRBC Pct Auto 0.0 /100WBC (0.0-0.2); Platelet Count 412 X10*3/uL (160-400); Red Blood Count 4.61 X10*6/uL (4.20-5.50); White Blood Count 7.1 X10*3/uL (4.8-10.8)
[2025-07-10 12:03] LABS: Alanine Aminotransferase 14 U/L (0-31); Albumin Level 4.2 g/dL (3.5-5.0); Alkaline Phosphatase 79 U/L (39-117); Anion Gap 11 (12-20); Aspartate Amino Transferase 19 U/L (5-31); Blood Urea Nitrogen 14 mg/dL (9-16); Calcium 8.9 mg/dL (8.4-10.2); Carbon Dioxide 25 mmol/L (22-29); Chloride 108 mmol/L (96-108); Cholesterol 166 mg/dL (<200); Estimated Glomerular Filt Rate > 60; HDL Cholesterol 42 mg/dL (>40); Potassium 4.0 mmol/L (3.3-5.1); Sodium 140 mmol/L (135-145); Total Protein 7.1 g/dL (6.5-8.0); Triglycerides 67 mg/dL (<150)
== END 2025-07-10 08:14 | disposition home or self-care (01) ==
LOC: HO.HMGCLDS 08:13
PROVIDERS: PCP Internal Medicine; Visit Provider Internal Medicine
DX: Z00.00 Encounter for general adult medical examination without abnormal findings (principal); I10 Essential (primary) hypertension
CPT/HCPCS: 36415; 80053; 80061; 85025

== ENCOUNTER 2025-07-12 14:09 | Outpatient (AMB) | payer BC, SELFPAY ==
--- NOTE | 2025-07-12 14:34 | MHC.PC.OV ---
Vital Signs 07/12/25 14:35 07/12/25 15:10 Height 5 ft 5 in Weight 182 lb BMI 30.3 BP 122/88 120/80 Blood Pressure Location Rt brachial Rt brachial Position Sitting Standing Respiration 16 Pulse 86 Pulse Source Pulse Oximeter Pulse Oximetry (%) 98 Oxygen Delivery Method Room Air Intake Visit Reasons: PE Business Functional Analyst Required: No Accompanied by: Self / Same As Patient Allergies methotrexate Allergy (Intermediate, Verified 07/12/25 14:36) Rash adhesive Allergy (Unknown, Verified 07/12/25 14:36) Rash erythromycin base (ERYTHROMYCIN BASE) Allergy (Unknown, Verified 07/12/25 14:36) Hives peach Allergy (Unknown, Verified 07/12/25 14:36) Anaphylaxis latex Adverse Reaction (Verified 07/12/25 14:36) Hives lisinopril Adverse Reaction (Verified 07/12/25 14:36) Cough Medication List - Last Reconciled 07/12/25 by Mariah Abbott MD adalimumab-adaz 40 mg (0.4 mL) subcut Q2W albuterol sulfate 90 mcg/actuation (ProAir HFA) 2 puffs inhalation Q4-6H PRN albuterol sulfate 2.5 mg (0.5 mL) inhalation Q6H PRN alcaftadine 0.25% (Lastacaft Once Daily Relief) 1 drp ophthalmic (eye) DAILY PRN amlodipine 2.5 mg PO DAILY cetirizine (Zyrtec) 10 mg PO DAILY PRN cyclosporine 0.05% (Restasis) 1 drp ophthalmic (eye) Q12H drospirenone (contraceptive) (Slynd) 1 tab PO DAILY escitalopram oxalate (Lexapro) 5 mg PO DAILY esomeprazole magnesium 40 mg PO DAILY estradiol transdermal hydrocortisone 2.5% 1 appl GA BEDTIME PRN 14 days Tobacco use date assessed: 07/12/25 Dental Screening Dental Screen Date: 07/12/25 Did you have a dental visit in the last 12 months?: Yes Did you have a dental problem in the last 6 months where you did not have access to dental care?: No Was dental information given to patient?: Patient has dentist HPI PE HPI Details Pt presents for PE. She complains of anxiety. Patient is established with a counselor and prescriber. She has started taking 5 mg of Lexapro. Patient complains of hot flashes and is established with community relations advisor started on very low dose of estradiol patch with some relief PFSH Medical History Diverticulosis Tinnitus of left ear FHx: colonic polyps Annual physical exam Hydronephrosis of right kidney Migraine Anxiety Seasonal allergies Chronic asthma HTN (hypertension) Surgical History History of shoulder surgery Hx of tonsillectomy Hx of adenoidectomy History of bunionectomy H/O breast biopsy Family History Father HTN (hypertension) Substance use disorder Pancreatic cancer Mother Breast cancer Bladder cancer Cancer of kidney Mental health disorder Colon polyp Maternal Grandmother Colon cancer, Onset Age: 80 Daughter Andrzej's thyroiditis Sister Colon polyp Social History Housing: House Alcohol intake: current Alcohol intake frequency: holidays/special occasions only Patient Tobacco Use Status: Former Tobacco user e-Cigarette/Vaping Use: Never Used service: No Current occupational status: employed 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 1. Little interest or pleasure in doing things: several days 2. Feeling down, depressed, or hopeless: several days 3. Trouble falling or staying asleep, or sleeping too much: nearly every day 4. Feeling tired or having little energy: several days 5. Poor appetite or overeating: not at all 6. Feeling bad about yourself - or that you are a failure or have let yourself or your family down: not at all 7. Trouble concentrating on things, such as reading the newspaper or watching television: not at all 8. Moving or speaking so slowly that other people could have noticed. Or the opposite - being so fidgety or restless that you have been moving around a lot more than usual: not at all 9. Thoughts that you would be better off or of hurting yourself in some way: not at all Total score: 6 Depression Screening Interpretation: Negative Depression Screening Done: Yes 93817 - PHQ-9 Billing: Yes Source: Developed by Drs. Anish Montanez, Linda Nathan, Gustavo Gramajo and colleagues, with an educational tonny from [employer]. Thrive Questionnaire Date Thrive assessed: 06/02/24 I am a: Patient What is your living situation today?: I have a steady place to live Within the past 12 months, did the food you bought not last and you didn't have the money to get more?: Never true Within the past 12 months, did you worry whether your food would run out before you got money to buy more?: Never true Do you have trouble paying for medicines?: No Do you have trouble getting transportation to medical appointments?: No Do you have trouble paying your heating and electricity bill?: No Do you have trouble taking care of your child, family member or friend?: No Do you have trouble with day-to-day activities such as bathing, preparing meals, shopping, managing finances, etc.?: No Are you currently unemployed and looking for a job?: No Are you interested in more education?: No Please select the resources that you would like help with: None Currently or been in a relationship where the following occur: No concerns reported THRIVE Score: 0 AUDIT C Alcohol Use Questionnaire (AUDIT-C) 1. How often do you have a drink containing alcohol?: Monthly or less 2. How many drinks containing alcohol do you have on a typical day when you are drinking?: 1 or 2 3. How often do you have six or more drinks on one occasion?: Never Total Score: 1 MARLO-7 AMB Questionnaire MARLO-7 Date MARLO - 7 assessed: 07/12/25 Feeling nervous, anxious, or on edge: 2 = More than half the days Not being able to stop or control worryin = More than half the days Worrying too much about different things: 2 = More than half the days Trouble relaxin = More than half the days Being so restless that it is hard to sit still: 0 = Not at all Becoming easily annoyed or irritable: 3 = Nearly every day Feeling afraid as if something awful might happen: 1 = Several days Total MARLO-7 score (0-4 normal; 5-9 mild; 10-14 moderate; 15-21 severe): 12 Source: Developed by Drs. Anish Montanez, Linda Nathan, Gustavo Gramajo and colleagues, with an educational tonny from [employer]. Review of Systems Const All systems reviewed & are unremarkable except as noted in HPI and below Reports no additional complaints Eyes Reports no additional complaints ENT Reports no additional complaints Card Reports no additional complaints Resp Reports no additional complaints GI Reports no additional complaints Reports no additional complaints Physical exam (Primary Care) Vital Signs: Last Vital Signs Pulse 86 07/12/25 14:35 Resp 16 07/12/25 14:35 BP 122/88 07/12/25 14:35 Pulse Ox 98 07/12/25 14:35 Oxygen Delivery Method Room Air 07/12/25 14:35 BMI result Body Mass Index 30.3 Tobacco/Smoking Status: Tobacco use Status Tobacco use date assessed 07/12/25 07/12/25 14:41 Patient Tobacco Use Status Former Tobacco user 07/12/25 14:36 e-Cigarette/Vaping Use Never Used 07/12/25 14:36 PHQ-9: PHQ-9 Score PHQ-9: Total score 6 07/12/25 14:41 Depression Screening Interpretation: Negative Thrive Assessment: Date of Thrive Assessment Date Thrive assessed 06/02/24 07/12/25 14:36 Currently or been in a relationship where the following occur: No concerns reported Const General: no acute distress HENMT Ears: hearing grossly normal bilaterally Mouth: Normal oral and palatal mucosa present Eyes General: appearance normal, both eyes and all related structures Neck Neck: Yes no lymphadenopathy and Yes supple Resp Effort & Inspection: normal respiratory effort Auscultation: clear to auscultation bilaterally Cardio Rhythm: regular rhythm Heart sounds: S1 normal heart sound present and S2 normal heart sound present GI Inspection: Yes normal to inspection Palpation (GI): Soft to palpation Percussion: Yes normal to percussion Auscultation: normal bowel sounds Coding Level of Care Code Est Pt Prev Care 40-64y(48796) Diagnoses HTN (hypertension) I10 Anxiety F41.9 Annual physical exam Z00.00 Seronegative arthritis M13.80 Additional Codes PHQ-9 - 17450 - PHQ-9 Billing: Yes ([id number]) Assessment & Plan Assessment & Plan (1) HTN (hypertension): Comment: BP goal less than 130/80 Code(s): I10 - Essential (primary) hypertension Category: Medical Plan: Continue amlodipine, increase physical activity and low-sodium diet discussed with the patient follow-up in 6 months (2) Anxiety: Comment: Established with a counselor and a prescriber Code(s): F41.9 - Anxiety disorder, unspecified Category: Medical Plan: Continue current medication and a counselling (3) Annual physical exam: Code(s): Z00.00 - Encounter for general adult medical examination without abnormal findings Category: Medical Plan: Well-balanced diet regular physical activity discussed with the patient she is up-to-date with the Pap smear by community relations advisor we will have a mammogram. Patient had negative colonoscopy 2 years ago (4) Seronegative arthritis: Comment: dx 02/07 MTX caused rash Enbrel 06/09 ineffective, started Humira 2024 Code(s): M13.80 - Other specified arthritis, unspecified site Category: Medical Plan: Follow-up with rheumatology
[2025-07-12 14:35] VITALS: BP 122/88; PULSE 86; RESP 16; O2SAT 98; BMI 30.3
[2025-07-12 15:10] VITALS: BP 120/80
--- OUTSIDE RECORDS SUMMARY | 2025-07-12 15:36 | XMS_ITS | Clinical Summary ---
Author Organization [facility] [address] [facility] Address [address] [place] [address] Phone Care Team Providers Care Chest Painting And Sealing Supervisor Name Role Phone Maraih Abbott MD Primary Care Provider [phone] Allergies Active Allergy Reactions Criticality Noted Date [...] 4:00 PM EDT Office Visit Breast Care [facility] [address] [place] [address] Valerie Braswell MD [address] [address] Health Maintenance Due Date Last Done Comments [...] Annual BMP Blood Test 11/03/2022 COVID-19 Vaccine () 07/19/2024 10/04/2021, 12/13/2020, 11/22/2020 Depression Screening 11/18/2024 Influenza [...] age to complete this topic Insurance [facility] Care Teams Chest Painting And Sealing Supervisor Relationship Specialty Start Date End Date Mariah Abbott MD PCP - General 04/06/11
--- OUTSIDE RECORDS SUMMARY | 2025-07-12 15:36 | XMS_ITS | Patient Health Record ---
[facility] Address [address] [facility] [facility] [address] [place] [address] Care Team Providers Care Emt Dispatcher Name Role Phone Mariah Abbott MD Primary Care Provider Vin Royalmie Unavailable [phone] Allergies Allergen (clinical drug ingredient) Drug/Non Drug [...] W/U Status Risk Notes Problem Rheumatoid arthritis (22945935) Rheumatoid arthritis without rheumatoid factor, 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) Active confirmed Problem Localized, primary osteoarthritis of the ankle and/or foot (961089489) Primary osteoarthritis, right ankle and foot (M19.071) Active confirmed Problem Localized, primary osteoarthritis of the ankle and/or foot (563597816) Primary osteoarthritis, left ankle and foot (M19.072) Active confirmed Problem Rheumatoid arthritis (24529595) Rheumatoid arthritis involving multiple sites with positive rheumatoid factor (M05.79) Active confirmed Problem Seronegative arthritis (130236327) Seronegative arthritis (M13.80) Active confirmed Plan Of Treatment Pending Test Test Name Order Date MRI : Foot, right 10/24/2020 *Uric Acid, Serum 10/22/2022 *Sedimentation Rate-Westergren 2 *Sedimentation Rate-Westergren 0 Rheumatoid Arthritis Factor 07/11/2020 NEGRITA w/Reflex 10/22/2022 NEGRITA Comprehensive Panel 07/11/2020 X ray : Foot, left 3V 07/23/2019 48821 I&D ABSCESS- SIMPLE,SINGLE 021 , [id number]/INJECT, JOINT/BURSA 1 ,[id number] TENDON SHEATH/LIGAMENT 0 07/23/201931215,[id number] TENDON SHEATH/LIGAMENT 1 CRP 07/11/2020 Insurance Providers Payer Name Payer Address Payer Phone Subscriber Number Group Number Insured Name Patient Relationship to Insured Coverage Start Date Coverage End Date [facility] [address] [place] [address] [id number] Valerie Barron Self - patient is the insured Medical (General) History Medical History History ICD Code Hypertension asthma Seasonal allergies Bipolar disorder Plantar fasciitis back pain migraines GERD chicken pox Surgical History Surgery Date(Month/Year) hernia age 7 adenoids/tonsils age 15 right bunion surgeries 2x
== END 2025-07-12 15:20 | disposition home or self-care (01) ==
LOC: HO.HMCC 14:10
PROVIDERS: PCP Internal Medicine; Visit Provider Internal Medicine
DX: I10 Essential (primary) hypertension (principal); F41.9 Anxiety disorder, unspecified; Z00.00 Encounter for general adult medical examination without abnormal findings; M13.80 Other specified arthritis, unspecified site

== ENCOUNTER → 2025-07-12 14:09 | Outpatient (BNVA) | payer BC, SELFPAY | PROVIDERS: PCP Internal Medicine; Visit Provider Internal Medicine | DX: Z00.00 Encounter for general adult medical examination without abnormal findings (principal); I10 Essential (primary) hypertension; F41.9 Anxiety disorder, unspecified; M13.80 Other specified arthritis, unspecified site; Z79.899 Other long term (current) drug therapy | CPT/HCPCS: 96127 ==

== ENCOUNTER 2025-08-27 07:56 | Outpatient (AMB) | payer BC, SELFPAY ==
--- NOTE | 2025-08-27 08:14 | A.OFFPC_ITS ---
Vital Signs 08/27/25 08:15 Height 5 ft 5 in Weight 181 lb BMI 30.1 BP 124/80 Blood Pressure Location Lt brachial Position Sitting Respiration 18 Pulse 91 Pulse Source Pulse Oximeter Temp 98.0 F Temp Source Oral Pulse Oximetry (%) 99 Oxygen Delivery Method Room Air Intake Visit Reasons: Itching on both feet, dysuria Intake Note: Pt is here today for a sick visit. Pt c/o itching in tingling in her feet. Allergies methotrexate Allergy (Intermediate, Verified 08/27/25 08:17) Rash adhesive Allergy (Unknown, Verified 08/27/25 08:17) Rash erythromycin base (ERYTHROMYCIN BASE) Allergy (Unknown, Verified 08/27/25 08:17) Hives peach Allergy (Unknown, Verified 08/27/25 08:17) Anaphylaxis latex Adverse Reaction (Verified 08/27/25 08:17) Hives lisinopril Adverse Reaction (Verified 08/27/25 08:17) Cough Medication List - Last Reconciled 08/27/25 by Mariah Abbott MD adalimumab-adaz 40 mg (0.4 mL) subcut Q2W albuterol sulfate 90 mcg/actuation (ProAir HFA) 2 puffs inhalation Q4-6H PRN albuterol sulfate 2.5 mg (0.5 mL) inhalation Q6H PRN alcaftadine 0.25% (Lastacaft Once Daily Relief) 1 drp ophthalmic (eye) DAILY PRN amlodipine 2.5 mg PO DAILY cetirizine (Zyrtec) 10 mg PO DAILY PRN cyclosporine 0.05% (Restasis) 1 drp ophthalmic (eye) Q12H drospirenone (contraceptive) (Slynd) 1 tab PO DAILY escitalopram oxalate (Lexapro) 5 mg PO DAILY estradiol 1 patch transdermal 2XW hydrocortisone 2.5% 1 appl [place] BEDTIME PRN 14 days omeprazole 40 mg PO DAILY 90 days Tobacco use date assessed: 07/12/25 Dental Screening Dental Screen Date: 07/12/25 HPI Itching on both feet, dysuria HPI Details Patient presents complaining of itching and tingling sensation of the plantar aspects of her both feet for 2 weeks. She denies any rash. She has been using body lotion. The symptom keeps the patient awake. She also reports bilateral feet pain when walking for long time but denies any swelling or joint tenderness. Patient has been wearing comfortable shoes. Patient has started Humira recently for rheumatoid arthritis. She also has been taking Lexapro 5 mg daily for the last few weeks for chronic anxiety. Patient is established with a counselor and a prescriber. She is grieving her father's . Patient also complains of difficulty emptying her bladder usually at night or early in the morning on and off for last 2 weeks. Patient denies dysuria back pain abdominal pain hematuria fever or chills. [facility] Medical History (Updated 08/27/25 @ 09:11 by Mariah Abbott MD) Pruritus Diverticulosis Tinnitus of left ear FHx: colonic polyps Annual physical exam Hydronephrosis of right kidney Migraine Anxiety Seasonal allergies Chronic asthma HTN (hypertension) Surgical History History of shoulder surgery Hx of tonsillectomy Hx of adenoidectomy History of bunionectomy H/O breast biopsy Family History Father HTN (hypertension) Substance use disorder Pancreatic cancer Mother Breast cancer Bladder cancer Cancer of kidney Mental health disorder Colon polyp Maternal Grandmother Colon cancer, Onset Age: 80 Daughter Andrzej's thyroiditis Sister Colon polyp Social History Housing: House Alcohol intake: current Alcohol intake frequency: holidays/special occasions only Patient Tobacco Use Status: Former Tobacco user e-Cigarette/Vaping Use: Never Used service: No Current occupational status: employed 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 1. Little interest or pleasure in doing things: several days 2. Feeling down, depressed, or hopeless: several days 3. Trouble falling or staying asleep, or sleeping too much: nearly every day 4. Feeling tired or having little energy: several days 5. Poor appetite or overeating: not at all 6. Feeling bad about yourself - or that you are a failure or have let yourself or your family down: not at all 7. Trouble concentrating on things, such as reading the newspaper or watching television: not at all 8. Moving or speaking so slowly that other people could have noticed. Or the opposite - being so fidgety or restless that you have been moving around a lot more than usual: not at all 9. Thoughts that you would be better off or of hurting yourself in some way: not at all Total score: 6 Depression Screening Interpretation: Negative Depression Screening Done: Yes Source: Developed by Drs. Anish Montanez, Linda Nathan, Gustavo Gramajo and colleagues, with an educational tonny from [employer]. Thrive Questionnaire Date Thrive assessed: 07/12/25 I am a: Patient What is your living situation today?: I have a steady place to live Within the past 12 months, did the food you bought not last and you didn't have the money to get more?: Never true Within the past 12 months, did you worry whether your food would run out before you got money to buy more?: Never true Do you have trouble paying for medicines?: No Do you have trouble getting transportation to medical appointments?: No Do you have trouble paying your heating and electricity bill?: No Do you have trouble taking care of your child, family member or friend?: No Do you have trouble with day-to-day activities such as bathing, preparing meals, shopping, managing finances, etc.?: No Are you currently unemployed and looking for a job?: No Are you interested in more education?: No Please select the resources that you would like help with: None Currently or been in a relationship where the following occur: No concerns reported THRIVE Score: 0 MARLO-7 AMB Questionnaire MARLO-7 Date MARLO - 7 assessed: 07/12/25 Feeling nervous, anxious, or on edge: 2 = More than half the days Not being able to stop or control worryin = More than half the days Worrying too much about different things: 2 = More than half the days Trouble relaxin = More than half the days Being so restless that it is hard to sit still: 0 = Not at all Becoming easily annoyed or irritable: 3 = Nearly every day Feeling afraid as if something awful might happen: 1 = Several days Total MARLO-7 score (0-4 normal; 5-9 mild; 10-14 moderate; 15-21 severe): 12 Source: Developed by Drs. Anish Montanez, Linda Nathan, Gustavo Gramajo and colleagues, with an educational tonny from [employer]. Physical exam (Primary Care) Vital Signs: Last Vital Signs Temp 98.0 F 08/27/25 08:15 Pulse 91 08/27/25 08:15 Resp 18 08/27/25 08:15 BP 124/80 08/27/25 08:15 Pulse Ox 99 08/27/25 08:15 Oxygen Delivery Method Room Air 08/27/25 08:15 BMI result Body Mass Index 30.1 Tobacco/Smoking Status: Tobacco use Status Tobacco use date assessed 07/12/25 08/27/25 08:21 Patient Tobacco Use Status Former Tobacco user 08/27/25 08:21 e-Cigarette/Vaping Use Never Used 08/27/25 08:21 PHQ-9: PHQ-9 Score PHQ-9: Total score 6 08/27/25 08:21 Depression Screening Interpretation: Negative Thrive Assessment: Date of Thrive Assessment Date Thrive assessed 07/12/25 08/27/25 08:21 Currently or been in a relationship where the following occur: No concerns reported Const General: no acute distress HENMT Face and sinus: Yes normal facial exam Eyes General: appearance normal, both eyes and all related structures Resp Effort & Inspection: normal respiratory effort Auscultation: clear to auscultation bilaterally Cardio Rhythm: regular rhythm Heart sounds: S1 normal heart sound present and S2 normal heart sound present Coding Level of Care Code Est Pt Level 4 (04574) Diagnoses Urinary retention R33.9 Pruritus L29.9 HTN (hypertension) I10 Assessment & Plan Assessment & Plan (1) Urinary retention: Code(s): R33.9 - Retention of urine, unspecified Category: Medical Plan: Check UA and culture and obtain bladder scan to rule out urinary retention (2) Pruritus: Comment: feet Code(s): L29.9 - Pruritus, unspecified Category: Medical Plan: Check vitamin B12 level. Patient was advised to use Zostrix cream if her symptoms persist gabapentin will be tried. (3) HTN (hypertension): Comment: BP goal less than 130/80 Code(s): I10 - Essential (primary) hypertension Category: Medical Plan: Continue amlodipine Orders: Orders US bladder Today R33.9 - Retention of urine, unspecified UA w Microscopic Today R33.9 - Retention of urine, unspecified Urine Culture Today R33.9 - Retention of urine, unspecified Vitamin B12 and Folate Today R33.9 - Retention of urine, unspecified Vitamin D 25-OH Total Today R33.9 - Retention of urine, unspecified
[2025-08-27 08:15] VITALS: BP 124/80; PULSE 91; RESP 18; TEMP 36.7; O2SAT 99; BMI 30.1
== END 2025-08-27 09:13 | disposition home or self-care (01) ==
LOC: HO.HMCC 07:57
PROVIDERS: PCP Internal Medicine; Visit Provider Internal Medicine
DX: R33.9 Retention of urine, unspecified (principal); L29.9 Pruritus, unspecified; I10 Essential (primary) hypertension

== ENCOUNTER 2025-08-27 07:56 | Outpatient (REF) | payer BC, SELFPAY ==
--- NOTE | ~2025-08-27 | US_ITS ---
EXAMINATION: US BLADDER HISTORY: R33.9 - Retention of urine, unspecified COMPARISON: There are no prior studies available for comparison. FINDINGS: Sonographic examination of the urinary bladder was performed before and after voiding. Before voiding, the urinary bladder measured 11.1 x 8.5 x 9.2, for an estimated volume of 451 mL. After voiding, the urinary bladder measured 5.0 x 2.8 x 6.6, for an estimated volume of 48 mL. No intrinsic bladder abnormality is identified. Bilateral ureteral jets were not identified. US/US bladder IMPRESSION: No bladder abnormality is identified. Post void bladder residual of 48 mL. Electronically signed by: Anish Dillon MD 08/27/2025 03:20 PM EDT
[2025-08-27 11:07] LABS: Folate 7.6 ng/mL (> or = 4.0); Vitamin B12 285 pg/mL (200-900)
== END 2025-08-27 07:57 | disposition home or self-care (01) ==
LOC: HO.HMGCLDS 07:56
PROVIDERS: PCP Internal Medicine; Visit Provider Internal Medicine
DX: R33.9 Retention of urine, unspecified (principal); L29.9 Pruritus, unspecified; I10 Essential (primary) hypertension
CPT/HCPCS: 36415; 76857; 82306; 82607; 82746; 87086; 96127

== ENCOUNTER → 2025-08-27 09:30 | Outpatient (BNV) | payer BC, SELFPAY | PROVIDERS: PCP Internal Medicine; Visit Provider Radiology Diagnostic Radiology | DX: R33.9 Retention of urine, unspecified (principal) | CPT/HCPCS: 76857 ==

== ENCOUNTER 2025-10-02 07:45 | Outpatient (REF) | payer BC, SELFPAY ==
--- OUTSIDE RECORDS SUMMARY | 2025-10-02 07:47 | XMS_ITS | Patient Health Record ---
[facility] Address [address] [place] [address] Care Team Providers Care Tester Electronic Scale Name Role Phone Mariah Abbott MD Primary Care Provider Vin Royalmie Unavailable [phone] Allergies Allergen (clinical drug ingredient) Drug/Non Drug [...] W/U Status Risk Notes Problem Rheumatoid arthritis (59004069) Rheumatoid arthritis without rheumatoid factor, 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) Active confirmed Problem Localized, primary osteoarthritis of the ankle and/or foot (540462041) Primary osteoarthritis, right ankle and foot (M19.071) Active confirmed Problem Localized, primary osteoarthritis of the ankle and/or foot (013202679) Primary osteoarthritis, left ankle and foot (M19.072) Active confirmed Problem Rheumatoid arthritis (00393111) Rheumatoid arthritis involving multiple sites with positive rheumatoid factor (M05.79) Active confirmed Problem Seronegative arthritis (866329650) Seronegative arthritis (M13.80) Active confirmed Plan Of Treatment Pending Test Test Name Order Date MRI : Foot, right 10/24/2020 *Uric Acid, Serum 10/22/2022 *Sedimentation Rate-Westergren 2 *Sedimentation Rate-Westergren 0 Rheumatoid Arthritis Factor 07/11/2020 NEGRITA w/Reflex 10/22/2022 NEGRITA Comprehensive Panel 07/11/2020 X ray : Foot, left 3V 07/23/2019 [id number] I&D ABSCESS- SIMPLE,SINGLE 021 , [id number]/INJECT, JOINT/BURSA 1 ,[id number] TENDON SHEATH/LIGAMENT 0 07/23/[id number] TENDON SHEATH/LIGAMENT 1 CRP 07/11/2020 Insurance Providers Payer Name Payer Address Payer Phone Subscriber Number Group Number Insured Name Patient Relationship to Insured Coverage Start Date Coverage End Date [facility] [address] [place] [address] [phone] [id number] Valerie Barron Self - patient is the insured Medical (General) History Medical History History ICD Code Hypertension asthma Seasonal allergies Bipolar disorder Plantar fasciitis back pain migraines GERD chicken pox Surgical History Surgery Date(Month/Year) hernia age 7 adenoids/tonsils age 15 right bunion surgeries 2x
--- OUTSIDE RECORDS SUMMARY | 2025-10-02 07:48 | XMS_ITS | Continuity of Care Document ---
Author Organization [facility], [place] 2nd floor Address [address] [place] [address] Assessment No assessment recorded. Plan of Treatment Reminders Order Date Submit [...] Name and Address Organization Details Recorded Time 09/27/20 Sports Shoulder completed Vida Banks MD [address], [place], [address], [facility] 09/27/2025 17:13:35 03/23/20 25 32839 Therapeutic Exercise (1:1) completed William Licea PTA [address], [place], [address], [facility] 03/23/2025 17:37:33 03/23/20 25 14105: Manual therapy completed William Licea PTA [address], [place], [address], [facility] 03/23/2025 17:37:33 03/16/20 25 59264 Therapeutic Exercise (1:1) completed Bill Arias DPT [address], [place], [address], [facility] 03/16/2025 19:28:18 03/16/20 25 39243: Manual therapy completed SAVANNAH IrizarryT [address], [place], [address], [facility] 03/16/2025 19:28:21 03/09/20 24998 Therapeutic Exercise (1:1) completed SAVANNAH IrizarryT [address], [place], [address], [facility] 03/09/2025 20:36:59 03/09/20 42258: Manual therapy completed Bill Arias DPT [address], [place], [address], [facility] 03/08/2025 20:33:33 03/02/20 55000 Therapeutic Exercise (1:1) completed William Licea, PURSE FRAMER [address], [place], [address], [facility] 03/02/2025 18:40:05 03/02/20 11093: Hot or Cold Pack completed William Licea, PURSE FRAMER [address], [place], [address], [facility] 03/02/2025 18:40:15 03/02/20 43613: Manual therapy completed William Licea, PURSE FRAMER [address], [place], [address], [facility] 03/02/2025 18:40:05 02/26/20 84523 Therapeutic Exercise (1:1) completed SAVANNAH IrizarryT [address], [place], [address], [facility] 02/24/2025 19:59:36 02/26/20 39862: Hot or Cold Pack completed Bill Arias DPT [address], [place], [address], [facility] 02/24/2025 19:59:36 02/26/20 68852: Manual therapy completed Bill Arias DPT [address], [place], [address], [facility] 02/24/2025 19:59:37 02/17/20 81105 Therapeutic Exercise (1:1) completed William Scafuri, PURSE FRAMER [address], [place], [address], [facility] 02/16/2025 18:41:55 02/17/20 59428: Hot or Cold Pack completed William Scafuri, PURSE FRAMER [address], [place], [address], [facility] 02/16/2025 18:41:55 02/17/20 20861: Manual therapy completed William Scafuri, PURSE FRAMER [address], [place], [address], [facility] 02/16/2025 18:41:55 02/12/20 31331 Therapeutic Exercise (1:1) completed William Scafuri, PURSE FRAMER [address], [place], [address], [facility] 02/11/2025 18:29:12 02/12/20 54673: Hot or Cold Pack completed William Scafuri, PURSE FRAMER [address], [place], [address], [facility] 02/11/2025 18:29:11 02/12/20 32238: Manual therapy completed William Scafuri, PURSE FRAMER [address], [place], [address], [facility] 02/11/2025 18:29:12 02/10/20 83910 Therapeutic Exercise (1:1) completed William Scafuri, PURSE FRAMER [address], [place], [address], [facility] 02/09/2025 17:16:36 02/10/20 65097: Hot or Cold Pack completed William Scafuri, PURSE FRAMER [address], [place], [address], [facility] 02/09/2025 17:15:32 02/10/20 79822: Manual therapy completed William Licea PURSE FRAMER [address], [place], [address], [facility] 02/09/2025 17:16:45 02/05/20 43242 Therapeutic Exercise (1:1) completed Bill Arias DPT [address], [place], [address], [facility] 02/03/2025 19:45:26 02/05/20 19993: Hot or Cold Pack completed Bill Arias DPT [address], [place], [address], [facility] 02/03/2025 19:45:26 02/05/20 80080: Manual therapy completed Bill Arias DPT [address], [place], [address], [facility] 02/03/2025 19:45:26 02/03/20 49711 Therapeutic Exercise (1:1) completed Bill Arias DPT [address], [place], [address], [facility] 02/01/2025 19:15:56 02/03/20 14869: Hot or Cold Pack completed Bill Arias DPT [address], [place], [address], [facility] 02/01/2025 19:15:56 02/03/20 76395: Manual therapy completed Bill Arias DPT [address], [place], [address], [facility] 02/01/2025 19:15:56 01/29/20 20001 Therapeutic Exercise (1:1) completed William Licea PURSE [employer]AMER [address], [place], [address], [facility] 01/28/2025 18:14:43 01/29/20 26878: Hot or Cold Pack completed William Licea, PURSE FRAMER [address], [place], [address], [facility] 01/28/2025 18:14:43 01/29/20 29973: Manual therapy completed William Licea, PURSE FRAMER [address], [place], [address], [facility] 01/28/2025 18:14:43 01/27/20 74397 Therapeutic Exercise (1:1) completed Bill Arias DPT [address], [place], [address], [facility] 01/25/2025 20:39:15 01/27/20 27563: Hot or Cold Pack completed SAVANNAH IrizarryT [address], [place], [address], [facility] 01/25/2025 20:39:15 01/27/20 15714: Manual therapy completed Bill Arias DPT [address], [place], [address], [facility] 01/25/2025 20:39:15 01/22/20 43459 Therapeutic Exercise (1:1) completed Bill Arias DPT [address], [place], [address], [facility] 01/20/2025 14:43:06 01/22/20 17923: Hot or Cold Pack completed Bill Arias DPT [address], [place], [address], [facility] 01/20/2025 14:43:06 01/22/20 26273: Manual therapy completed SAVANNAH IrizarryT [address], [place], [address], [facility] 01/20/2025 14:43:06 01/20/20 26808 Therapeutic Exercise (1:1) completed Bill Arias DPT [address], [place], [address], [facility] 01/15/2025 20:52:42 01/20/20 09439: Hot or Cold Pack completed Bill Arias DPT [address], [place], [address], [facility] 01/15/2025 20:52:42 01/20/20 41001: Manual therapy completed Bill Arias DPT [address], [place], [address], [facility] 01/15/2025 20:52:42 01/14/20 14168 Therapeutic Exercise (1:1) completed Bill Arias DPT [address], [place], [address], [facility] 01/13/2025 12:56:32 01/14/20 43984: Hot or Cold Pack completed Bill Arias DPT [address], [place], [address], [facility] 01/13/2025 12:56:32 01/14/20 42332: Manual therapy completed Bill Arias DPT [address], [place], [address], [facility] 01/13/2025 12:56:32 01/12/20 46948 Therapeutic Exercise (1:1) completed Bill Arias DPT [address], [place], [address], [facility] 01/08/2025 23:07:38 01/12/20 70945: Hot or Cold Pack completed Bill Arias DPT [address], [place], [address], [facility] 01/08/2025 23:07:38 01/12/20 40473: Manual therapy completed Bill Arias DPT [address], [place], [address], [facility] 01/08/2025 23:07:38 01/07/20 65661 Therapeutic Exercise (1:1) completed Bill Arias DPT [address], [place], [address], [facility] 01/06/2025 22:27:22 01/07/20 73593: Hot or Cold Pack completed Bill Arias DPT [address], [place], [address], [facility] 01/06/2025 22:27:22 01/07/20 48087: Manual therapy completed Bill Arias DPT [address], [place], [address], [facility] 01/06/2025 22:27:22 01/05/20 42923 Therapeutic Exercise (1:1) completed Bill Arias DPT [address], [place], [address], [facility] 01/04/2025 08:41:39 01/05/20 68228: Hot or Cold Pack completed Bill Arias DPT [address], [place], [address], [facility] 01/05/2025 14:41:10 01/05/20 49066: Manual therapy completed Bill Arias DPT [address], [place], [address], [facility] 01/04/2025 08:41:39 12/31/19 84228 Therapeutic Exercise (1:1) completed William Licea PURSE FRAMER [address], [place], [address], [facility] 12/31/2024 13:59:54 12/31/19 58993: Hot or Cold Pack completed William Licea PURSE FRAMER [address], [place], [address], [facility] 12/31/2024 13:59:54 12/31/19 79449: Manual therapy completed William Licea, PURSE FRAMER [address], [place], [address], [facility] 12/31/2024 13:59:54 12/29/19 42043 Therapeutic Exercise (1:1) completed William Licea, PURSE FRAMER [address], [place], [address], [facility] 12/29/2024 15:22:29 12/29/19 36660: Hot or Cold Pack completed William Lciea, PURSE FRAMER [address], [place], [address], [facility] 12/29/2024 15:22:29 12/29/19 80211: Manual therapy completed William Licea, PURSE FRAMER [address], [place], [address], [facility] 12/29/2024 15:22:29 12/17/19 43866 Therapeutic Exercise (1:1) completed Bill Arias DPT [address], [place], [address], [facility] 12/16/2024 20:56:16 12/17/19 53007: Hot or Cold Pack completed SAVANNAH IrizarryT [address], [place], [address], [facility] 12/16/2024 20:56:16 12/17/19 98302: Manual therapy completed SAVANNAH IrizarryT [address], [place], [address], [facility] 12/16/2024 20:56:16 12/15/19 26736 Therapeutic Exercise (1:1) completed Bill Arias DPT [address], [place], [address], [facility] 12/14/2024 19:51:57 12/15/19 57433: Hot or Cold Pack completed Bill Arias, DPT [address], [place], [address], [facility] 12/14/2024 19:51:57 12/15/19 56196: Manual therapy completed Bill Arias DPT [address], [place], [address], [facility] 12/14/2024 19:51:57 12/10/19 25 11381 Therapeutic Exercise (1:1) completed William Scafuri, PURSE FRAMER [address], [place], [address], [facility] 12/10/2024 14:34:05 12/10/19 29627: Hot or Cold Pack completed William Enriquetafuri, PURSE FRAMER [address], [place], [address], [facility] 12/10/2024 14:34:05 12/10/19 88860: Manual therapy completed William Robisonfuri, PURSE FRAMER [address], [place], [address], [facility] 12/10/2024 14:34:05 12/08/19 47370 Therapeutic Exercise (1:1) completed William Robisonfuri, PURSE FRAMER [address], [place], [address], [facility] 12/08/2024 14:46:08 12/08/19 28308: Hot or Cold Pack completed William Scafuri, PURSE FRAMER [address], [place], [address], [facility] 12/08/2024 14:45:19 12/08/19 25 60161: Manual therapy completed William Scafuri, PURSE FRAMER [address], [place], [address], [facility] 12/08/2024 14:45:19 12/02/19 25 37340 Therapeutic Exercise (1:1) completed Bill Arias, DPT [address], [place], [address], [facility] 12/01/2024 09:25:05 12/02/19 25 34648: Hot or Cold Pack completed Bill Arias DPT [address], [place], [address], [facility] 12/01/2024 09:25:05 12/02/19 25 10679: Manual therapy completed Bill Arias DPT [address], [place], [address], [facility] 12/01/2024 09:25:05 11/30/19 25 24992 Therapeutic Exercise (1:1) completed Bill Arias DPT [address], [place], [address], [facility] 11/26/2024 17:05:21 11/30/19 25 28221: Hot or Cold Pack completed Bill Arias DPT [address], [place], [address], [facility] 11/26/2024 17:05:21 11/30/19 25 67552: Manual therapy completed Bill Arias DPT [address], [place], [address], [facility] 11/30/2024 16:26:03 11/26/19 25 01205 Therapeutic Exercise (1:1) completed William Licea PURSE FRAMER [address], [place], [address], [facility] 11/26/2024 14:13:18 11/26/19 25 01646: Hot or Cold Pack completed William Licea PURSE FRAMER [address], [place], [address], [facility] 11/26/2024 14:13:18 11/26/19 25 91342: Manual therapy completed William Licea PURSE FRAMER [address], [place], [address], [facility] 11/26/2024 14:13:18 11/24/19 25 43035 Therapeutic Exercise (1:1) completed Willima Licea, PURSE FRAMER [address], [place], [address], [facility] 11/24/2024 13:22:01 11/24/19 25 53747: Hot or Cold Pack completed William Quachri, PURSE FRAMER [address], [place], [address], [facility] 11/24/2024 13:22:01 11/24/19 25 00276: Manual therapy completed William Licea, PURSE FRAMER [address], [place], [address], [facility] 11/24/2024 13:22:01 11/19/19 25 01996 Therapeutic Exercise (1:1) completed Rosa Loo, PURSE FRAMER [address], [place], [address], [facility] 11/19/2024 08:40:57 11/19/19 25 19403: Hot or Cold Pack completed Rosa Loo, PURSE FRAMER [address], [place], [address], [facility] 11/19/2024 08:40:57 11/19/19 25 53177: Manual therapy completed Rosa Loo, PURSE FRAMER [address], [place], [address], [facility] 11/19/2024 08:40:57 11/16/20 24 00211 Therapeutic Exercise (1:1) completed William Quachri, PURSE FRAMER [address], [place], [address], [facility] 11/16/2024 13:06:18 11/16/20 24 18025: Hot or Cold Pack completed William Quachri, PURSE FRAMER [address], [place], [address], [facility] 11/16/2024 13:06:18 11/16/20 81702: Manual therapy completed William Licea PURSE FRAMER [address], [place], [address], [facility] 11/16/2024 13:06:18 11/12/20 50377 Therapeutic Exercise (1:1) completed SAVANNAH IrizarryT [address], [place], [address], [facility] 11/09/2024 21:04:41 11/12/20 89158: Hot or Cold Pack completed SAVANNAH IrizarryT [address], [place], [address], [facility] 11/09/2024 21:04:41 11/12/20 10200: Manual therapy completed SAVANNAH IrizarryT [address], [place], [address], [facility] 11/09/2024 21:04:41 11/09/20 72889 Therapeutic Exercise (1:1) completed Bill Arias DPT [address], [place], [address], [facility] 11/09/2024 20:28:20 11/09/20 38278: Hot or Cold Pack completed Bill Arias DPT [address], [place], [address], [facility] 11/06/2024 12:16:12 11/09/20 65951: Manual therapy completed Bill Arias DPT [address], [place], [address], [facility] 11/06/2024 12:16:12 11/05/20 52921 Therapeutic Exercise (1:1) completed William Licea, PURSE FRAMER [address], [place], [address], [facility] 11/05/2024 12:45:16 11/05/20 23849: Hot or Cold Pack completed William Licea, PURSE FRAMER [address], [place], [address], [facility] 11/05/2024 09:49:30 11/05/20 15857: Manual therapy completed William Licea, PURSE FRAMER [address], [place], [address], [facility] 11/05/2024 12:45:21 11/03/20 28396 Therapeutic Exercise (1:1) completed SAVANNAH IrizarryT [address], [place], [address], [facility] 10/30/2024 16:22:55 11/03/20 50920: Hot or Cold Pack completed SAVANNAH IrizarryT [address], [place], [address], [facility] 10/30/2024 16:22:55 11/03/20 83298: Manual therapy completed Bill Arias DPT [address], [place], [address], [facility] 10/30/2024 16:22:55 10/29/20 01291 Therapeutic Exercise (1:1) completed Bill Arias DPT [address], [place], [address], [facility] 10/28/2024 19:22:26 10/29/20 24 51586: Hot or Cold Pack completed Bill Arias DPT [address], [place], [address], [facility] 10/28/2024 19:22:26 10/29/20 24 02904: Manual therapy completed Bill Arias DPT [address], [place], [address], [facility] 10/28/2024 19:22:26 10/27/20 24098 Therapeutic Exercise (1:1) completed William Licea PURSE [employer]AMER [address], [place], [address], [facility] 10/27/2024 15:30:08 10/27/20 24 09733: Hot or Cold Pack completed William Licea PURSE [employer]AMER [address], [place], [address], [facility] 10/27/2024 15:30:08 10/27/20 24 07641: Manual therapy completed William Licea PTA [address], [place], [address], [facility] 10/27/2024 15:30:08 10/22/20 24 15854 Therapeutic Exercise (1:1) completed Bill Arias DPT [address], [place], [address], [facility] 10/22/2024 10:03:31 10/22/20 28395: Hot or Cold Pack completed Bill Arias DPT [address], [place], [address], [facility] 10/22/2024 10:08:01 10/22/20 85232: Manual therapy completed Bill Arias DPT [address], [place], [address], [facility] 10/22/2024 10:08:27 10/21/20 62568 Therapeutic Exercise (1:1) completed Bill Arias DPT [address], [place], [address], [facility] 10/21/2024 18:35:14 10/21/20 01201: Low complexity PT Eval completed Bill Arias DPT [address], [place], [address], [facility] 10/21/2024 18:34:13 10/07/20 24 arthroscopic repair of rotator cuff completed ALICE CUEVAS [facility] 10/23/2024 09:41:17 Ankle/Foot Surgery completed ALICE CUEVAS [facility] 07/06/2024 08:22:45 Imaging Results None recorded. Procedure Notes None recorded. Medical Equipment None Reported. Allergies Allergen ID Allergen Name Allergen Category Reaction Reaction Severity Criticality Documentation Date Start Date Code Code System Note Provider Name and Address Organization Details Recorded Time 936886 methotrex ate medicatio n rash Not available Not available 07/06/20242022 6851 RxNorm ALICE MOCTEZUMAEIRO billReplaced by [facility] 4 08:22:43 233122 erythromy nate medicatio n Not available Not available Not available 07/06/2024 4053 RxNorm ALICE CUEVAS [facility] 4 08:22:43 353476 adhesive tape environme nt,medica tion rash Not available Not available 07/06/2024 ALICE MOCTEZUMAEIRO billReplaced by [facility] 4 08:22:43 299307 latex environme nt,medica tion rash Not available Not available 07/06/2024 66284 91 RxNorm ALICE khanReplaced by [facility] 4 08:22:43 405783 peach food Not available Not available Not available 07/06/2024 ALICE STINSONRO billReplaced by [facility] 4 13:23:12 Medications Name Sig Start Date Stop Date Status Note LastModified by Organization Details LastModified Time prednisone 10 mg tablet PLEASE SEE ATTACHED FOR DETAILED DIRECTION S 07/06 completed Not Available Not Available Not Available trazodone 50 mg tablet TAKE 1 TABLET BY MOUTH AT BEDTIME NEEDED FOR INSOMNIA active Not Available Not Available No t Available aspirin 325 mg tablet TAKE 1 [...] Not Available Not Available No t Available estradiol 0.05 mg/24 hr semiweekly transdermal patch 1 patch twice a week by transderm . route. active Not Available Not Available No t Available sulfamethox azole 800 mg-trimetho prim 160 mg tablet TAKE 1 TABLET BY MOUTH TWICE A DAY FOR 7 DAYS active Not Available Not Available No t Available omeprazole 40 mg capsule,del ayed release TAKE 1 CAPSULE BY MOUTH DAILY FOR 90 DAYS active Not Available Not Available No t Available ondansetron 8 mg disintegrat ing tablet DISSOLVE 1 TABLET IN MOUTH THREE TIMES DAILY NEEDED FOR NAUSEA 02/01 completed Not Available Not Available Not Available dexamethaso ne 0.5 mg/5 mL oral solution RINSE MOUTH WITH 5 MLS FOR 2 MINUTES 3 TIMES A DAY THEN SPIT OUT. active Not Available Not Available No t Available hydrocortis one 2.5 % topical cream with perineal applicator APPLY RECTALLY AT BEDTIME NEEDED FOR HEMORRHOI DS FOR 14 DAYS active Not Available Not Available No t Available hydromorpho ne 2 mg tablet TAKE 1 TABLET BY MOUTH EVERY 4 HOURS FOR 7 DAYS 02/01 completed Not Available Not Available Not Available famotidine 20 mg tablet TAKE 1 TABLET BY MOUTH AT BEDTIME active Not Available Not Available No t Available esomeprazol e magnesium 40 mg capsule,del ayed release TAKE 1 CAPSULE BY MOUTH DAILY active Not Available Not [...] completed Not Available Not Available Not Available hydroxyzine HCl 25 mg tablet TAKE 1 TABLET BY MOUTH TWICE A DAY NEEDED FOR ANXIETY active Not Available Not Available No t [...] completed Not Available Not Available Not Available omeprazole ER 40 mg capsule,ext ended release 1 capsule every day by oral route. active Not Available Not Available No t Available amoxicillin 875 mg-potassiu m clavulanate 125 mg tablet TAKE 1 TABLET BY MOUTH TWICE A DAY 02/01 completed Not Available Not Available Not Available estradiol 0.025 mg/24 hr semiweekly transdermal patch APPLY 1 PATCH TRANSDERM ALLY TWICE A WEEK 03/31 completed Not Available Not Available Not Available escitalopra m 10 mg tablet 1 tablet every day by oral route. active Not Available Not Available No t Available amoxicillin -potassium clavulanate 1,000 mg-62.5 mg tablet,ext. rel 12hr 07/06 completed Not Available Not Available Not Available Restasis 0.05 % eye drops in a dropperette INSTILL 1 DROP INTO BOTH EYES TWICE A DAY active Not Available Not Available No t Available escitalopra m 5 mg tablet TAKE 1 TABLET BY MOUTH DAILY active Not Available Not Available No t Available Pain Relief Extra Strength (acetaminop hen) 500 mg tablet TAKE 2 TABLETS BY MOUTH 3 TIMES A DAY 02/01 completed Not Available Not Available Not Available Humira Pen 40 mg/0.8 mL subcutaneou s kit 1 dose pk every 2 weeks by sub-q route. active Not Available Not Available No t Available Zyrtec 10 mg capsule 1 capsule every day by oral route. active Not Available Not Available No t Available Flonase Allergy Relief 50 mcg/actuati on nasal spray,suspe nsion Mosca 1 spray every day by nasal route. 02/01 completed Not Available Not Available Not Available Enbrel Mini 50 mg/mL (1 mL) subcutaneou s cartridge active Not Available Not Available Not Available Brittani 0.0375 mg/24 hr transdermal patch APPLY 1 PATCH BY TRANSDERM AL ROUTE TWICE A WEEK active Not Available Not Available No t Available Slynd 4 mg (28) tablet TAKE 1 TABLET BY MOUTH EVERY DAY FOR 84 DAYS active Not Available Not Available No t Available Vitals Date Recorded Body height Body mass index (BMI) Body weight Provider Name and Address Organization Details Last Updated DateTime 09/27/2025 165.1 cm 29.1 kg/m2 87257.66 g Rafael Galan [facility] 09/27/2025 16:23:07 Social History Question Answer Notes LastModified by [employer] Details LastModified Time Tobacco Smoking Status Former Smoker ALICE MOCTEZUMAKELSI khan [facility] 07/06/2024 08:22:45 When Did You Quit Smoking? 16+yearssinc elastcigaret te Information not available 07/06/2024 What Is Your Relationship Status? Information not available 07/06/2024 Sex: Unknown Functional Status Question Answer Note LastModified by [employer] Details LastModified Time How many times per [...] Disease N Heart Trouble N Heart Attack ([place]) N Gastrointestinal Disease N Cholesterol N Diabetes [...] Diagnosis SNOMED-CT Code Diagnosis ICD10 Code Diagnosis IMO Codes Diagnosis Note [id number] MD [facility] [address] [place] [address] 09/27/2025 15:51:35 09/27/2025 17:13:48 Bursitis of left shoulder [id number] M75.52 [id number] Health Concerns Section Related Observation LastModified by Organization Detai ls LastModified Time None Recorded Concern Status LastModified by Organization Details LastModified Time None Recorded Payers Encounter Date Sequence Insurance Name Policy Number Policy Iraheta Covered Member ID Iraheta Member ID Guarantor Name 09/27/2025 1 [facility] [place] [id number] Don Weathers Beatrice [id number] Beatrice Notes Date Note Type Note Provider Name and Address Organization Details Recorded Time 09/27/2025 text/html Surgery: Left shoulder calcium excision with subsequent 1+1 double row supraspinatus repair, [facility], 10/07/2024 Interval History: The patient returns today in follow-up now nearly a year out from surgery as above. I last saw her at 6 months postop, at which point she was doing fairly well. She has been back at work with a 15-20lb lifting restriction. She notes that she was doing fine, with no pain in the shoulder, until about 3 weeks ago when pain came on somewhat out of the blue, waking her up from sleep one night. Has remained sore over the past 3 weeks, only slightly better now. Has been using lidocaine patches and taking ibuprofen and tylenol for this. Pain is felt over the lateral brachium primarily, some pain anteriorly and less posteriorly. Aware of crepitus, but this is unchanged from last visit. Past family, medical, social history and review of systems have been reviewed and updated on the medical history sheet saved to the patient's chart. A 12-point review of systems is negative x12 except as noted above and/or on the medical history sheet. Examination: Pleasant 45-year-old woman in no acute distress. On exam of the Left upper extremity, arthroscopic portal incisions are nicely healed. No significant swelling or bruising. No evidence for Eris deformity. Active forward elevation 175, passive 175; passive ER 70 with negative ER lag; IR L2. Mildly positive impingement signs. 5/5 with ER, 5/5 with IR and empty can. Mild pain with resisted external rotation, less so with empty can. Negative Yergason's. Sensation intact in axillary and LABC distributions. Fires EPL, FPL and intrinsics. Hand is warm and well perfused. 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 Exam today notable for shoulder irritability, but with good strength and minimal pain with rotator cuff testing, which is reassuring. Plan: Reviewed with the patient that I suspect were dealing with an issue of inflammation here. Will go forward with a cortisone injection today which will hopefully help the subside more quickly. For occasional aches and pains, the patient can take qpzr-lni-gisfsul medication such as Tylenol or anti-inflammatories as needed; risks and benefits of medication discussed. Should call with more persistent pain. We will leave follow up open ended at this point. However should symptoms worsen or fail to improve to the patient's satisfaction, she is encouraged to give the office a call to be seen back for further evaluation and management. [facility] [employer] [facility] speech recognition oil and gas specialist software was used to create portions of this document. An attempt at proofreading has been made to minimize errors. Please call for corrections. Vida Banks MD [address] [place], [place] [address], [place], [address], [facility] 09/27/2025 17:13:48 OBGyn Episode No OBEpisode recorded.
--- OUTSIDE RECORDS SUMMARY | 2025-10-02 07:48 | XMS_ITS | Clinical Summary ---
Author Organization [facility] [address] [facility] Address [address] [place] [address] Phone Care Team Providers Care Salesperson [employer] Equipment Name Role Phone Mariah Abbott MD Primary Care Provider [phone] Allergies Active Allergy Reactions Criticality Noted Date Comments Adhesive Tape-Silicones 04/22/2019 No reaction documented Erythromycin 01/16/2010 No reaction documented Methotrexate 03/27/2023 Medications ALBUTEROL SULFATE INHL Inhale into the lungs. Active amLODIPine (NORVASC) 5 mg tablet Take 1 tablet (5 mg total) by mouth 1 (one) time each day. 03/09/2020 Active cetirizine (ZyrTEC) 10 mg tablet Take 1 tablet (10 mg total) by mouth. 02/22/2021 Active drospirenone, contraceptive, (Slynd) 4 mg (28) tablet Take by mouth. Active etanercept (EnbreL Mini) 50 mg/mL (1 mL) injection cartridge 12/27/2023 Active estradioL (VIVELLE-DOT) 0.025 mg/[address] 1 patch on the skin 2 (two) times a week. 12/15/2024 Active adalimumab (HUMIRA) 40 mg/0.8 mL syringe Inject 0.8 mL (40 mg total) under the skin every 14 (fourteen) days. Active escitalopram (LEXAPRO) 5 mg tablet Take 1 tablet (5 mg total) by mouth 1 (one) time each day. Active Active Problems Problem Noted Date Diagnosed Date Asthma 09/07/2024 Hypertension 09/07/2024 Kidney stones 09/07/2024 Migraine, unspecified, not i ntractable, without status migrainosus 06/14/2016 Esophageal reflux 01/23/2016 Lumbar radiculopathy 01/26/2013 Allergic rhinitis 09/05/2011 Encounters Date Type Department Care Team Description 08/04/2025 4:00 PM EDT Office Visit [address] [address] Valerie Braswell MD At high risk for breast cancer (Primary Dx); Family history of breast cancer in first degree relative; Dense breast tissue from Last 3 Months Surgical History Surgery Date Site/Laterality Comments OTHER SURGICAL HISTORY 04/10/2019 Right PROCEDURE: BREAST MASS CORE BIOPSY SPCMN PATHOLGY EXAM; COMMENT: benign TONSILLECTOMY PROCEDURE: HISTORICAL TONSILLECTOMY; COMMENT: and adenoidectomy FOOT SURGERY PROCEDURE: HISTORICAL FOOT SURGERY; COMMENT: bunearsto Medical History Medical History Date Comments Hypertension [...] Years Used Date Smoking Tobacco: Former Cigarettes 0 Q uit: 11/18/2005 Smokeless Tobacco: Never Alcohol [...] Sign Reading Time Taken Comments Blood Pressure 133/80 08/04/2025 4:22 PM EDT Pulse 76 08/04/2025 4:22 PM EDT Temperature 36.4 C (97.6 F) 08/04/2025 4:22 PM EDT Respiratory Rate - - Oxygen Saturation - - Inhaled Oxygen Concentration - - Weight 78.9 kg (174 lb) 03/27/2023 4:11 PM EDT Height - - Body Mass Index - - Plan of Treatment Upcoming Encounters Date Type Department Care Team (Late st Contact Info) Description 02/02/2026 4:00 PM EDT Office Visit Breast Care [address] [id number] Valerie Braswell MD [address] [place] [phone] Health Maintenance Due Date Last Done Comments Breast Cancer Screening 1980 Hepatitis B Vaccines (1 of 3 - 19+ 3-dose series) 1999 Pneumococcal Vaccine: Pediatrics (0 to 5 Years) and At-Risk Patients (6 to 49 Years) (1 of 2 - PCV) 1999 Cervical Cancer Screening: Pap Smear 2001 HPV Vaccines (1 - 3-dose SCDM series) 2007 DTaP,Tdap,and Td Vaccines (2 - Td or Tdap) 06/05/2022 06/05/2012 Cholesterol Screening (Lipid Panel) 10/27/2022 HIV Screening 10/27/2022 Hepatitis C Screening 10/27/2022 Social Influencers of Health Screening 10/27/2022 Hypertension/CHF/CAD Annual BMP Blood Test 11/03/2022 Depression Screening 11/18/2024 COVID-19 Vaccine ( season) 2025 10/04/2021, 12/13/2020, 11/22/2020 Influenza Vaccine (#1) 2025 , 08/14/2023, 08/18/2018, Additional history exists Colorectal Cancer Screening: Colonoscopy 09/11/2032 09/11/2022 RSV Immunization Adult Patients (1 - 1-dose 75+ series) 2055 HIB Vaccines Aged Out No longer eligi [...] Procedure Name Priority Date/Time Associated Diagnosis Comments CBC AND DIFFERENTIAL Routine 07/27/2025 3:07 PM EDT EXTERNAL COLONOSCOPY REPORT Routine 09/11/2022 3:01 PM EDT from Last 3 Months or Most Recently Relevant to Health Maintenance Results * CBC and differential (07/27/2025 3:07 PM EDT) Blood Venous blood specimen / Unknown us Historical Provider LAB BLOOD ORDERABLES Emi l Result * External Colonoscopy Report (09/11/2022 3:01 PM EDT) Anatomical Region Laterality Modality Endoscopy us Historical Provider GI~PROCEDURE ORDERABLES F inal Result from Last 3 Months or Most Recently Relevant to Health Maintenance Insurance [facility] Care Teams Salesperson Stereo Equipment Relationship Specialty Start Date End Date Mariah Abbott MD PCP - General 04/06/11
--- OUTSIDE RECORDS SUMMARY | 2025-10-02 07:48 | XMS_ITS | Data Portability ---
Author Organization [facility] Camilo Melo [facility], [facility] Address [address] [place] [address] Assessment Encounter Date Assessment Date Assessment LastModified by Organization Details LastModified Time 03/09/2025 03/09/2025 Assessment: Patient continues to demonstrate mild tightness in flexion and ER ROM. Quick fatigues with strengthening exercises. Plan: Continue PT @ 1-2x/wk to improve ROM and PS strength as tolerated. [email or web address] Not available 03/09/2025 20:39:36 03/16/2025 03/16/2025 Assessment: Patient demonstrates ongoing weakness in PS strength. Pt able to reach full PROM in all directions but mild tightness in flexion and ER AROM remains. Plan: Review HEP for d/c next visit. Recheck with for updated orders. [email or web address] Not available 03/16/2025 19:28:02 03/23/2025 03/23/2025 Assessment: Full AROM. Minor L flexion/ Lower Trap strength vs R Plan: Reviewed L shld flexion and lower Trap weakness and advised exercises for pt to continue at home. Good results with PT. [email or web address] Not available 03/23/2025 17:40:32 Plan of Treatment [...] and Address Organization Details Recorded Time 09/27/20 25 Sports Shoulder completed Vida Banks MD [address], [place], [address], [facility] 09/27/2025 17:13:35 03/23/20 01922 Therapeutic Exercise (1:1) completed William Licea PTA [address], [place], [address], [facility] 03/23/2025 17:37:33 03/23/20 [id number]: Manual therapy completed William Licea PTA [address], [place], [address], [facility] 03/23/2025 17:37:33 03/16/20 [id number] Therapeutic Exercise (1:1) completed Bill Arias DPT [address], [place], [address], [facility] 03/16/2025 19:28:18 03/16/20 62873: Manual therapy completed Bill Arias DPT [address], [place], [address], [facility] 03/16/2025 19:28:21 03/09/20 22996 Therapeutic Exercise (1:1) completed Bill Arias DPT [address], [place], [address], [facility] 03/09/2025 20:36:59 03/09/20 17783: Manual therapy completed Bill Arias DPT [address], [place], [address], [facility] 03/08/2025 20:33:33 03/02/20 [id number] Therapeutic Exercise (1:1) completed William Licea PTA [address], [place], [address], [facility] 03/02/2025 18:40:05 03/02/20 25 [id number]: Hot or Cold Pack completed William Licea HAND CLOTH FOLDER [address], [place], [address], [facility] 03/02/2025 18:40:15 03/02/20 00918: Manual therapy completed William Licea, HAND CLOTH FOLDER [address], [place], [address], [facility] 03/02/2025 18:40:05 02/26/20 88282 Therapeutic Exercise (1:1) completed Bill Arisa DPT [address], [place], [address], [facility] 02/24/2025 19:59:36 02/26/20 26693: Hot or Cold Pack completed SAVANNAH IrizarryT [address], [place], [address], [facility] 02/24/2025 19:59:36 02/26/20 71565: Manual therapy completed SAVANNAH IrizarryT [address], [place], [address], [facility] 02/24/2025 19:59:37 02/17/20 22371 Therapeutic Exercise (1:1) completed William Quachri, HAND CLOTH FOLDER [address], [place], [address], [facility] 02/16/2025 18:41:55 02/17/20 03514: Hot or Cold Pack completed William Licea, HAND CLOTH FOLDER [address], [place], [address], [facility] 02/16/2025 18:41:55 02/17/20 71568: Manual therapy completed William Robisonfuri, HAND CLOTH FOLDER [address], [place], [address], [facility] 02/16/2025 18:41:55 02/12/20 15374 Therapeutic Exercise (1:1) completed William Enriquetafuri, HAND CLOTH FOLDER [address], [place], [address], [facility] 02/11/2025 18:29:12 02/12/20 70778: Hot or Cold Pack completed William Scafuri, HAND CLOTH FOLDER [address], [place], [address], [facility] 02/11/2025 18:29:11 02/12/20 72638: Manual therapy completed William Scafuri, HAND CLOTH FOLDER [address], [place], [address], [facility] 02/11/2025 18:29:12 02/10/20 07827 Therapeutic Exercise (1:1) completed William Scafuri, HAND CLOTH FOLDER [address], [place], [address], [facility] 02/09/2025 17:16:36 02/10/20 84224: Hot or Cold Pack completed William Scafuri, HAND CLOTH FOLDER [address], [place], [address], [facility] 02/09/2025 17:15:32 02/10/20 20687: Manual therapy completed William Scafuri, HAND CLOTH FOLDER [address], [place], [address], [facility] 02/09/2025 17:16:45 02/05/20 17067 Therapeutic Exercise (1:1) completed Bill Arias DPT [address], [place], [address], [facility] 02/03/2025 19:45:26 02/05/20 00998: Hot or Cold Pack completed SAVANNAH IrizarryT [address], [place], [address], [facility] 02/03/2025 19:45:26 02/05/20 06575: Manual therapy completed SAVANNAH IrizarryT [address], [place], [address], [facility] 02/03/2025 19:45:26 02/03/20 59045 Therapeutic Exercise (1:1) completed Hongshin Hugo, DPT [address], [place], [address], [facility] 02/01/2025 19:15:56 02/03/20 25 87771: Hot or Cold Pack completed Bill Arias DPT [address], [place], [address], [facility] 02/01/2025 19:15:56 02/03/20 25 48898: Manual therapy completed SAVANNAH IrizarryT [address], [place], [address], [facility] 02/01/2025 19:15:56 01/29/20 76173 Therapeutic Exercise (1:1) completed William Licea, HAND CLOTH FOLDER [address], [place], [address], [facility] 01/28/2025 18:14:43 01/29/20 99820: Hot or Cold Pack completed William Licea, HAND CLOTH FOLDER [address], [place], [address], [facility] 01/28/2025 18:14:43 01/29/20 48449: Manual therapy completed William Licea, HAND CLOTH FOLDER [address], [place], [address], [facility] 01/28/2025 18:14:43 01/27/20 35325 Therapeutic Exercise (1:1) completed Bill Arias DPT [address], [place], [address], [facility] 01/25/2025 20:39:15 01/27/20 25 35027: Hot or Cold Pack completed SAVANNAH IrizarryT [address], [place], [address], [facility] 01/25/2025 20:39:15 01/27/20 25 42009: Manual therapy completed Bill Arias DPT [address], [place], [address], [facility] 01/25/2025 20:39:15 01/22/20 37096 Therapeutic Exercise (1:1) completed Bill Arias DPT [address], [place], [address], [facility] 01/20/2025 14:43:06 01/22/20 25 61796: Hot or Cold Pack completed Bill Arias DPT [address], [place], [address], [facility] 01/20/2025 14:43:06 01/22/20 49565: Manual therapy completed Bill Arias DPT [address], [place], [address], [facility] 01/20/2025 14:43:06 01/20/20 60596 Therapeutic Exercise (1:1) completed Bill Arias DPT [address], [place], [address], [facility] 01/15/2025 20:52:42 01/20/20 25 87420: Hot or Cold Pack completed Bill Arias DPT [address], [place], [address], [facility] 01/15/2025 20:52:42 01/20/20 25 22701: Manual therapy completed Bill Arias DPT [address], [place], [address], [facility] 01/15/2025 20:52:42 01/14/20 22308 Therapeutic Exercise (1:1) completed Bill Arias DPT [address], [place], [address], [facility] 01/13/2025 12:56:32 01/14/20 25 70819: Hot or Cold Pack completed Bill Arias DPT [address], [place], [address], [facility] 01/13/2025 12:56:32 01/14/20 32861: Manual therapy completed Bill Arias DPT [address], [place], [address], [facility] 01/13/2025 12:56:32 01/12/20 49961 Therapeutic Exercise (1:1) completed Bill Arias DPT [address], [place], [address], [facility] 01/08/2025 23:07:38 01/12/20 92729: Hot or Cold Pack completed Bill Arias DPT [address], [place], [address], [facility] 01/08/2025 23:07:38 01/12/20 15096: Manual therapy completed Bill Arias DPT [address], [place], [address], [facility] 01/08/2025 23:07:38 01/07/20 83714 Therapeutic Exercise (1:1) completed Bill Arias DPT [address], [place], [address], [facility] 01/06/2025 22:27:22 01/07/20 90266: Hot or Cold Pack completed Bill Arias DPT [address], [place], [address], [facility] 01/06/2025 22:27:22 01/07/20 09358: Manual therapy completed Bill Arias DPT [address], [place], [address], [facility] 01/06/2025 22:27:22 01/05/20 33826 Therapeutic Exercise (1:1) completed Bill Arias DPT [address], [place], [address], [facility] 01/04/2025 08:41:39 01/05/20 77007: Hot or Cold Pack completed SAVANNAH IrizarryT [address], [place], [address], [facility] 01/05/2025 14:41:10 01/05/20 92499: Manual therapy completed Bill Arias DPT [address], [place], [address], [facility] 01/04/2025 08:41:39 12/31/19 84409 Therapeutic Exercise (1:1) completed William Robisonfuri, HAND CLOTH FOLDER [address], [place], [address], [facility] 12/31/2024 13:59:54 12/31/19 37983: Hot or Cold Pack completed William Licea, HAND CLOTH FOLDER [address], [place], [address], [facility] 12/31/2024 13:59:54 12/31/19 01727: Manual therapy completed William Licea, HAND CLOTH FOLDER [address], [place], [address], [facility] 12/31/2024 13:59:54 12/29/19 63247 Therapeutic Exercise (1:1) completed William Licea, HAND CLOTH FOLDER [address], [place], [address], [facility] 12/29/2024 15:22:29 12/29/19 57142: Hot or Cold Pack completed William Enriquetafuri, HAND CLOTH FOLDER [address], [place], [address], [facility] 12/29/2024 15:22:29 12/29/19 27805: Manual therapy completed William Robisonfuri, HAND CLOTH FOLDER [address], [place], [address], [facility] 12/29/2024 15:22:29 12/17/19 51804 Therapeutic Exercise (1:1) completed Bill Arias DPT [address], [place], [address], [facility] 12/16/2024 20:56:16 12/17/19 00517: Hot or Cold Pack completed Bill Arias DPT [address], [place], [address], [facility] 12/16/2024 20:56:16 12/17/19 26602: Manual therapy completed Bill Arias DPT [address], [place], [address], [facility] 12/16/2024 20:56:16 12/15/19 13069 Therapeutic Exercise (1:1) completed Bill Arias DPT [address], [place], [address], [facility] 12/14/2024 19:51:57 12/15/19 30766: Hot or Cold Pack completed Bill Arias DPT [address], [place], [address], [facility] 12/14/2024 19:51:57 12/15/19 87028: Manual therapy completed Bill Arias DPT [address], [place], [address], [facility] 12/14/2024 19:51:57 12/10/19 74339 Therapeutic Exercise (1:1) completed William Licea PTA [address], [place], [address], [facility] 12/10/2024 14:34:05 12/10/19 25 44271: Hot or Cold Pack completed William Licea HAND CLOTH FOLDER [address], [place], [address], [facility] 12/10/2024 14:34:05 12/10/19 25 12581: Manual therapy completed William Licea HAND CLOTH FOLDER [address], [place], [address], [facility] 12/10/2024 14:34:05 12/08/19 25 39871 Therapeutic Exercise (1:1) completed William Licea, HAND CLOTH FOLDER [address], [place], [address], [facility] 12/08/2024 14:46:08 12/08/19 25 33970: Hot or Cold Pack completed William Licea, HAND CLOTH FOLDER [address], [place], [address], [facility] 12/08/2024 14:45:19 12/08/19 25 68645: Manual therapy completed William Licea, HAND CLOTH FOLDER [address], [place], [address], [facility] 12/08/2024 14:45:19 12/02/19 38607 Therapeutic Exercise (1:1) completed Bill Arias DPT [address], [place], [address], [facility] 12/01/2024 09:25:05 12/02/19 25 21059: Hot or Cold Pack completed Bill Arias DPT [address], [place], [address], [facility] 12/01/2024 09:25:05 12/02/19 98741: Manual therapy completed Bill Arias DPT [address], [place], [address], [facility] 12/01/2024 09:25:05 11/30/19 25 13055 Therapeutic Exercise (1:1) completed Bill Arias DPT [address], [place], [address], [facility] 11/26/2024 17:05:21 11/30/19 25 88505: Hot or Cold Pack completed Bill Arias DPT [address], [place], [address], [facility] 11/26/2024 17:05:21 11/30/19 25 79284: Manual therapy completed Bill Arias, DPT [address], [place], [address], [facility] 11/30/2024 16:26:03 11/26/19 16870 Therapeutic Exercise (1:1) completed William Scafuri, HAND CLOTH FOLDER [address], [place], [address], [facility] 11/26/2024 14:13:18 11/26/19 25 91270: Hot or Cold Pack completed William Scafuri, HAND CLOTH FOLDER [address], [place], [address], [facility] 11/26/2024 14:13:18 11/26/19 84836: Manual therapy completed William Robisonfuri, HAND CLOTH FOLDER [address], [place], [address], [facility] 11/26/2024 14:13:18 11/24/19 46205 Therapeutic Exercise (1:1) completed William Scafuri, HAND CLOTH FOLDER [address], [place], [address], [facility] 11/24/2024 13:22:01 11/24/19 25 40563: Hot or Cold Pack completed William Scafuri, HAND CLOTH FOLDER [address], [place], [address], [facility] 11/24/2024 13:22:01 11/24/19 25 83549: Manual therapy completed William Scafuri, HAND CLOTH FOLDER [address], [place], [address], [facility] 11/24/2024 13:22:01 11/19/19 25 87025 Therapeutic Exercise (1:1) completed Rosa Loo, HAND CLOTH FOLDER [address], [place], [address], [facility] 11/19/2024 08:40:57 11/19/19 25 36272: Hot or Cold Pack completed Rosa Loo, HAND CLOTH FOLDER [address], [place], [address], [facility] 11/19/2024 08:40:57 11/19/19 37433: Manual therapy completed Rosa Loo, HAND CLOTH FOLDER [address], [place], [address], [facility] 11/19/2024 08:40:57 11/16/20 17443 Therapeutic Exercise (1:1) completed William Licea, HAND CLOTH FOLDER [address], [place], [address], [facility] 11/16/2024 13:06:18 11/16/20 51873: Hot or Cold Pack completed William Licea, HAND CLOTH FOLDER [address], [place], [address], [facility] 11/16/2024 13:06:18 11/16/20 43470: Manual therapy completed William Licea, HAND CLOTH FOLDER [address], [place], [address], [facility] 11/16/2024 13:06:18 11/12/20 32765 Therapeutic Exercise (1:1) completed Bill Arias DPT [address], [place], [address], [facility] 11/09/2024 21:04:41 11/12/20 34113: Hot or Cold Pack completed Bill Arias DPT [address], [place], [address], [facility] 11/09/2024 21:04:41 11/12/20 04109: Manual therapy completed Bill Arias DPT [address], [place], [address], [facility] 11/09/2024 21:04:41 11/09/20 63239 Therapeutic Exercise (1:1) completed Bill Arias DPT [address], [place], [address], [facility] 11/09/2024 20:28:20 11/09/20 31312: Hot or Cold Pack completed SAVANNAH IrizarryT [address], [place], [address], [facility] 11/06/2024 12:16:12 11/09/20 24 95535: Manual therapy completed SAVANNAH IrizarryT [address], [place], [address], [facility] 11/06/2024 12:16:12 11/05/20 24 19704 Therapeutic Exercise (1:1) completed William Licea HAND CLOTH FOLDER [address], [place], [address], [facility] 11/05/2024 12:45:16 11/05/20 63089: Hot or Cold Pack completed William Licea HAND CLOTH FOLDER [address], [place], [address], [facility] 11/05/2024 09:49:30 11/05/20 82934: Manual therapy completed William Licea HAND CLOTH FOLDER [address], [place], [address], [facility] 11/05/2024 12:45:21 11/03/20 24 47206 Therapeutic Exercise (1:1) completed Bill Arias DPT [address], [place], [address], [facility] 10/30/2024 16:22:55 11/03/20 24 68891: Hot or Cold Pack completed Bill Arias DPT [address], [place], [address], [facility] 10/30/2024 16:22:55 11/03/20 24 15009: Manual therapy completed Bill Arias DPT [address], [place], [address], [facility] 10/30/2024 16:22:55 12/12/20 24 57664 Therapeutic Exercise (1:1) completed SAVANNAH IrizarryT [address], [place], [address], [facility] 10/28/2024 19:22:26 10/29/20 19493: Hot or Cold Pack completed Bill Arias DPT [address], [place], [address], [facility] 10/28/2024 19:22:26 10/29/20 55253: Manual therapy completed Bill Arias DPT [address], [place], [address], [facility] 10/28/2024 19:22:26 10/27/20 24728 Therapeutic Exercise (1:1) completed William Licea, HAND CLOTH FOLDER [address], [place], [address], [facility] 10/27/2024 15:30:08 10/27/20 59560: Hot or Cold Pack completed William Licea, HAND CLOTH FOLDER [address], [place], [address], [facility] 10/27/2024 15:30:08 10/27/20 73205: Manual therapy completed William Licea, HAND CLOTH FOLDER [address], [place], [address], [facility] 10/27/2024 15:30:08 10/22/20 01578 Therapeutic Exercise (1:1) completed Bill Arias DPT [address], [place], [address], [facility] 10/22/2024 10:03:31 10/22/20 22887: Hot or Cold Pack completed Bill Arias DPT [address], [place], [address], [facility] 10/22/2024 10:08:01 10/22/20 35643: Manual therapy completed SAVANNAH IrizarryT [address], [place], [address], [facility] 10/22/2024 10:08:27 10/21/20 24 56711 Therapeutic Exercise (1:1) completed Bill Arias DPT [address], [place], [address], [facility] 10/21/2024 18:35:14 10/21/20 24 56575: Low complexity PT Eval completed Bill Arias DPT [address], [place], [address], [facility] 10/21/2024 18:34:13 10/07/20 24 arthroscopic repair of rotator cuff completed ALICE CUEVAS [facility] 10/23/2024 09:41:17 Ankle/Foot Surgery completed ALICE CUEVAS [facility] 07/06/2024 08:22:45 Imaging Results None recorded. Procedure Notes None recorded. Medical Equipment None Reported. Allergies Allergen ID Allergen Name Allergen Category Reaction Reaction Severity Criticality Documentation Date Start Date Code Code System Note Provider Name and Address Organization Details Recorded Time 713378 methotrex ate medicatio n rash Not available Not available 07/06/20242022 6851 RxNorm ALICE CUEVAS [facility] 4 08:22:43 437676 erythromy nate medicatio n Not available Not available Not available 07/06/2024 4053 RxNorm ALICE CUEVAS [facility] 4 08:22:43 444186 adhesive tape environme nt,medica tion rash Not available Not available 07/06/2024 ALICE CUEVAS [facility] 4 08:22:43 [id number] latex environme nt,medica tion rash Not available Not available 07/06/2024 69759 91 RxNorm ALICE CUEVAS [facility] 4 08:22:43 [id number] peach food Not available Not available Not available 07/06/2024 ALICE khan [place] [facility] [place] [facility] 13:23:12 Medications Name Sig Start [...] Relief 50 mcg/actuati on nasal spray,suspe nsion [place] 1 spray every day by nasal route. [...] Updated DateTime 04/05/2025 165.1 cm 29.1 kg/m2 44136.66 g ALICE CUEVAS [facility] 04/05/2025 16:32:28 Date Recorded Body height Body mass index (BMI) Body weight Provider Name and Address Organization Details Last Updated DateTime 09/27/2025 165.1 cm 29.1 kg/m2 59957.66 g Rafael Galan [facility] 09/27/2025 16:23:07 Social History Question Answer Notes LastModified by Organizat ion Details LastModified Time Tobacco Smoking Status Former Smoker ALICE khan [facility] 07/06/2024 [...] Response Allergies/Hayfever Y Coronary Artery Disease N Anxiety/Depression Y Breathing or lung disorders N Emphysema N Nerve Disorders N Thyroid Problems N COPD N Pacemaker N Anemia N Kidney/Bladder Problems N Vascular Disease N Heart Trouble N Heart Attack ([place]) N Gastrointestinal Disease N Cholesterol N Diabetes [...] ICD10 Code Diagnosis IMO Codes Diagnosis Note [id number] MD Richard [facility] [address] [place] [address] 07/06/2024 08:07:35 07/29/2024 10:56:47 Pain of left shoulder joint 1581979146 [id number] M25.512 Full thick ness rotator cuff tear 917167864 M75.230 [id number] MD Richard [facility] 2[address] floor [address] [place] [address] 09/28/2024 14:16:14 10/27/2024 13:58:38 Calcific tendinitis of right shoulder [id number] 75253 M75.31 [id number] Pain of ri ght shoulder joint 4350813132 [id number] M25.511 [id number] MD M[facility] [address] [place] [address] 10/23/2024 09:28:22 11/23/2024 13:51:40 Follow-up orthopedic assessment [id number] Z47.89 [id number] Bill Arias DPT [facility] [address] [place] [address] 10/21/2024 13:59:00 10/21/2024 17:48:15 Rupture of rotator cuff of left shoulder [id number] M75.525 [id number] Bill Arias DPT [facility] [address] [place] [address] 10/22/2024 09:13:39 10/22/2024 10:53:09 Rupture of rotator cuff of left shoulder 0815814498 [id number] M75.348 [id number] William Licea [facility] [address] [place] [address] 10/27/2024 12:56:20 10/27/2024 13:36:14 Rupture of rotator cuff of left shoulder 0970837725 [id number] M75.323 [id number] Bill Arias DPT [facility] [address] [place] [address] 10/29/2024 13:53:37 10/29/2024 15:02:35 Rupture of rotator cuff of left shoulder 0266375804 [id number] M75.573 [id number] Bill Arias DPT [facility] [address] [place] [address] 11/03/2024 09:59:16 11/03/2024 10:22:20 Rupture of rotator cuff of left shoulder 9307208553 [id number] M75.023 [id number] William Licea [facility] [address] [place] [address] 11/05/2024 11:54:53 11/05/2024 12:39:09 Rupture of rotator cuff of left shoulder 3359307546 [id number] M75.889 [id number] Hongshin Hugo, DPT [facility] [address] [place] [address] 11/09/2024 12:52:41 11/10/2024 06:45:35 Rupture of rotator cuff of left shoulder 2709968008 [id number] M75.401 [id number] Bill Arias, DPT [facility] [address] [place] [address] 11/12/2024 09:30:37 11/12/2024 10:06:41 Rupture of rotator cuff of left shoulder 4069628973 [id number] M75.326 [id number] William Quachdurga, [facility] [address] [place] [address] 11/16/2024 11:27:35 11/16/2024 12:04:35 Rupture of rotator cuff of left shoulder 1179007772 [id number] M75.685 [id number] Rosa Loo, HAND [facility] F[facility] [address] [place] [address] 11/19/2024 16:23:31 11/19/2024 17:25:05 Rupture of rotator cuff of left shoulder 5402064692 [id number] M75.516 [id number] William Robisonaguila, [facility] [address] [place] [address] 11/24/2024 12:57:06 11/24/2024 13:50:31 Rupture of rotator cuff of left shoulder 8237357805 [id number] M75.033 [id number] William Robisonaguila, [facility] [address] [place] [address] 11/26/2024 12:56:44 11/26/2024 15:27:05 Rupture of rotator cuff of left shoulder 0828942128 [id number] M75.594 [id number] Bill Arias, DPT [facility] [address] [place] [address] 11/30/2024 13:57:12 11/30/2024 14:33:54 Rupture of rotator cuff of left shoulder 5124033217 [id number] M75.731 [id number] Hongshin Hugo, DPT [facility] [address] [place] [address] 12/02/2024 13:54:45 12/02/2024 14:23:50 Rupture of rotator cuff of left shoulder 7502486881 [id number] M75.213 [id number] William Licea, [facility] [address] [place] [address] 12/08/2024 12:56:05 12/08/2024 14:10:47 Rupture of rotator cuff of left shoulder 6854772442 [id number] M75.485 [id number] [facility] [address] [place] [address] 12/10/2024 08:59:46 01/08/2025 14:13:45 Nontraumatic complete rupture of rotator cuff of left shoulder 4865867647 776546 M75.122 [id number] William Licea, [facility] [address] [place] [address] 12/10/2024 12:53:13 12/10/2024 13:39:28 Rupture of rotator cuff of left shoulder 3587011889 [id number] M75.984 [id number] Bill Arias, DPT [facility] [address] [place] [address] 12/15/2024 12:56:10 12/15/2024 13:36:17 Rupture of rotator cuff of left shoulder 6393338438 [id number] M75.424 [id number] Bill Arias, DPT [facility] [address] [place] [address] 12/17/2024 12:57:10 12/17/2024 14:54:40 Rupture of rotator cuff of left shoulder 2944808034 [id number] M75.305 [id number] William Quachdurga, [facility] F[facility] [address] [place] [address] 12/29/2024 15:54:21 12/29/2024 17:03:39 Rupture of rotator cuff of left shoulder 4561822763 [id number] M75.921 [id number] William Licea, [facility] [address] [place] [address] 12/31/2024 11:29:42 12/31/2024 12:20:10 Rupture of rotator cuff of left shoulder 6265578953 [id number] M75.913 [id number] Bill Arias, DPT [facility] [address] [place] [address] 01/05/2025 11:59:37 01/05/2025 12:37:14 Rupture of rotator cuff of left shoulder [id number] [id number] M75.506 [id number] Bill Arias DPT [facility] [address] [place] [address] 01/07/2025 11:57:40 01/07/2025 12:46:00 Rupture of rotator cuff of left shoulder 8364290757 [id number] M75.671 [id number] Bill Arias DPT [facility] [address] [place] [address] 01/12/2025 16:26:27 01/12/2025 17:13:57 Rupture of rotator cuff of left shoulder 9139112647 [id number] M75.427 [id number] Bill Arias DPT [facility] [address] [place] [address] 01/14/2025 17:52:56 01/15/2025 06:20:32 Rupture of rotator cuff of left shoulder 9156916884 [id number] M75.921 [id number] Bill Arisa DPT [facility] [address] [place] [address] 01/19/2025 16:29:48 01/19/2025 17:07:55 Rupture of rotator cuff of left shoulder 8434216079 [id number] M75.394 [id number] Vida Banks MD [facility] [address] [place] [address] 02/01/2025 13:02:24 02/15/2025 08:27:03 Follow-up orthopedic assessment 844966676 Z47.89 [id number] Bill Arias, DPT [facility] [address] [place] [address] 01/21/2025 16:28:46 01/21/2025 16:59:25 Rupture of rotator cuff of left shoulder 1073561522 [id number] M75.514 [id number] Bill Arias, DPT [facility] [address] [place] [address] 01/26/2025 17:27:24 01/26/2025 17:52:33 Rupture of rotator cuff of left shoulder 1188962704 [id number] M75.302 [id number] William Licea, [facility] [address] [place] [address] 01/28/2025 16:54:48 01/28/2025 17:56:53 Rupture of rotator cuff of left shoulder 0398311230 [id number] M75.826 [id number] Bill Arias, DPT [facility] [address] [place] [address] 02/02/2025 16:25:29 02/02/2025 17:08:37 Rupture of rotator cuff of left shoulder 0674926876 [id number] M75.115 [id number] Bill Arias, DPT [facility] [address] [place] [address] 02/04/2025 16:26:14 02/04/2025 17:41:37 Rupture of rotator cuff of left shoulder 7947885638 [id number] M75.013 [id number] William Licea, [facility] [address] [place] [address] 02/09/2025 16:28:36 02/09/2025 17:22:04 Rupture of rotator cuff of left shoulder 7941015072 [id number] M75.424 [id number] William Licea, [facility] [address] [place] [address] 02/11/2025 16:43:03 02/11/2025 17:01:17 Rupture of rotator cuff of left shoulder 0213934092 [id number] M75.372 [id number] William Licea, HAND [facility] [address] [place] [address] 02/16/2025 16:20:54 02/16/2025 17:12:58 Rupture of rotator cuff of left shoulder 0999639123 [id number] M75.681 [id number] William Licea, [facility] [address] [place] [address] 02/25/2025 17:53:37 02/25/2025 18:07:56 Rupture of rotator cuff of left shoulder 8288307398 [id number] M75.093 [id number] William Licea, [facility] [address] [place] [address] 03/02/2025 17:27:50 03/02/2025 18:00:47 Rupture of rotator cuff of left shoulder [id number] M75.085 [id number] Bill Arias, DPT [facility] [address] [place] [address] 03/09/2025 17:53:23 03/09/2025 20:33:52 Rupture of rotator cuff of left shoulder 0783096851 [id number] M75.311 [id number] Bill Arias, DPT [facility] [address] [place] [address] 03/16/2025 16:55:19 03/17/2025 06:41:06 Rupture of rotator cuff of left shoulder 9320869717 [id number] M75.873 [id number] William Licea, HAND [facility] [address] [place] [address] 03/23/2025 16:32:06 03/23/2025 17:56:49 Rupture of rotator cuff of left shoulder 5051606726 [id number] M75.756 [id number] MD [facility] 2[address] floor [address] [place] [address] 04/05/2025 16:03:04 04/13/2025 15:24:44 Follow-up orthopedic assessment 441211594 Z47.89 [id number] MD [facility] 2[address] floor [address] [place] [address] 09/27/2025 15:51:35 09/27/2025 17:13:48 Bursitis of left shoulder 7861126004 88814 M75.52 [id number] Health Concerns Section Related Observation LastModified by Organization Detai ls LastModified Time None Recorded Concern Status LastModified by Organization Details LastModified Time None Recorded Advance Directives Directive None Recorded Payers Insurance Date Sequence Insurance Name Policy Number Policy Iraheta Covered Member ID Iraheta Member ID Guarantor Name 09/24/2025 1 [facility] [id number] Don Barron [id number] Valerie Barron Notes Date Note Type Note Provider Name and Address Organization Details Recorded Time 03/09/2025 text/html Pt arrives reporting feeling exhausted after work. No pain in her shoulder. Bill Arias DPT [address], [place], [address], [facility] 03/09/2025 20:40:10 03/16/2025 text/html Pt reports feeling very tired after work today but feeling good with her shoulder.Pains 0/10 at rest. Bill Arias DPT [address], [place], [address], [facility] 03/16/2025 19:28:35 03/23/2025 text/html Pt reports 0/10 pain. Feeling much better. William Licea PTA [address], [place], [address], [facility] 03/23/2025 17:42:31 04/05/2025 [...] and well perfused. 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 [facility] speech recognition family practice medical doctor software was used to create portions of this document. An attempt at proofreading has been made to minimize errors. Please call for corrections. Vida Banks MD [address] [facility] [address], [place], [address], [facility] 04/05/2025 16:59:09 09/27/2025 text/html Surgery: Left shoulder calcium excision with subsequent 1+1 double row supraspinatus repair, [facility], 10/07/2024 Interval History: The patient returns today [...] and well perfused. 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 Should call with more persistent pain. We will leave follow up open ended at this point. However should symptoms worsen or fail to improve to the patient's satisfaction, she is encouraged to give the office a call to be seen back for further evaluation and management. [facility] speech recognition family practice medical doctor software was used to create portions of this document. An attempt at proofreading has been made to minimize errors. Please call for corrections. Vida Banks MD [facility] [address], [place], [address], [facility] 09/27/2025 17:13:48 OBGyn Episode No OBEpisode recorded.
[2025-10-02 11:43] LABS: MANUAL DIFF FLAG NO
[2025-10-02 11:52] LABS: Hematocrit 39.4 % (37.0-47.0); Hemoglobin 13.1 g/dl (12.0-16.0); Imm Gran Abs Auto 0.03 X10*3/uL (0.00-0.03); Imm Gran Pct Auto 0.4 % (0.0-0.4); Lymphocytes Absolute Auto 2.7 X10*3/uL (1.2-4.9); Mean Corpuscular HGB Conc 33.2 g/dl (31.0-35.0); Mean Corpuscular Hemoglobin 27.8 pg (27.0-33.0); Mean Corpuscular Volume 83.5 fL (80.0-98.0); NRBC Abs Auto 0.000 X10*3/uL (0.0-0.012); NRBC Pct Auto 0.0 /100WBC (0.0-0.2); Platelet Count 463 X10*3/uL (160-400); Red Blood Count 4.72 X10*6/uL (4.20-5.50); White Blood Count 7.8 X10*3/uL (4.8-10.8)
[2025-10-02 12:41] LABS: Alanine Aminotransferase 22 U/L (0-31); Albumin Level 4.4 g/dL (3.5-5.0); Alkaline Phosphatase 71 U/L (39-117); Anion Gap 13 (12-20); Aspartate Amino Transferase 25 U/L (5-31); Blood Urea Nitrogen 11 mg/dL (9-16); Calcium 9.1 mg/dL (8.4-10.2); Carbon Dioxide 23 mmol/L (22-29); Chloride 108 mmol/L (96-108); Estimated Glomerular Filt Rate > 60; Potassium 4.6 mmol/L (3.3-5.1); Sodium 139 mmol/L (135-145); Total Protein 7.4 g/dL (6.5-8.0)
== END 2025-10-02 07:46 | disposition home or self-care (01) ==
LOC: HO.HMGCLDS 07:45
PROVIDERS: PCP Internal Medicine; Visit Provider Student in an Organized Health Care Education/Training Program
DX: M13.80 Other specified arthritis, unspecified site (principal)
CPT/HCPCS: 36415; 80053; 85025; 85652; 86140

== ENCOUNTER 2025-10-05 07:24 | Outpatient (AMB) | payer BC, SELFPAY ==
--- NOTE | 2025-10-05 07:44 | A.OFFVIS_ITS ---
Vital Signs 10/05/25 07:50 Height 5 ft 5 in Weight 182 lb BMI 30.3 BP 115/68 Blood Pressure Location Lt brachial Position Sitting Pulse 85 Pulse Source Pulse Oximeter Pulse Oximetry (%) 98 Oxygen Delivery Method Room Air Intake Visit Reasons: f/u RA Intake Note: Patient presents for RA follow up. Allergies methotrexate Allergy (Intermediate, Verified 10/05/25 07:48) Rash adhesive Allergy (Unknown, Verified 10/05/25 07:48) Rash erythromycin base (ERYTHROMYCIN BASE) Allergy (Unknown, Verified 10/05/25 07:48) Hives peach Allergy (Unknown, Verified 10/05/25 07:48) Anaphylaxis latex Adverse Reaction (Verified 10/05/25 07:48) Hives lisinopril Adverse Reaction (Verified 10/05/25 07:48) Cough Medication List - Last Reconciled 10/05/25 by Dariela Collier MD adalimumab-adaz 40 mg (0.4 mL) subcut Q2W albuterol sulfate 90 mcg/actuation (ProAir HFA) 2 puffs inhalation Q4-6H PRN albuterol sulfate 2.5 mg (0.5 mL) inhalation Q6H PRN alcaftadine 0.25% (Lastacaft Once Daily Relief) 1 drp ophthalmic (eye) DAILY PRN amlodipine 2.5 mg PO DAILY cetirizine (Zyrtec) 10 mg PO DAILY PRN cyclosporine 0.05% (Restasis) 1 drp ophthalmic (eye) Q12H drospirenone (contraceptive) (Slynd) 1 tab PO DAILY escitalopram oxalate (Lexapro) 5 mg PO DAILY estradiol 1 patch transdermal 2XW hydrocortisone 2.5% 1 appl TX BEDTIME PRN 14 days omeprazole 40 mg PO DAILY 90 days HPI Comments Details: Patient is a 45-year-old female with asthma, hypertension, migraine headaches, IBS, polyarticular osteoarthritis, and seronegative inflammatory arthritis here today for follow up. Interval History: Patient last seen 06/10/25 with me - On Enbrel 50mg SC weekly - Does not feel that increasing the Enbrel back to weekly was much more effective - Still complains of achy joints involving hands, knees and feet - Does note the AM stiffness has gotten better but overall still feels achy - She attibuted some of this to starting work again - Unsure if during the period of 05/2023 - 09/2023 if she had good relief from the Enbrel - Enbrel changed to Humira - Received bilateral knee injections for knee OA Today - On Adalimumab-adaz 40mg SC every 2 weeks - Knees responded well to the injection. Left knee is doing well but the right knee is starting to get ahcy again within the last few 2 weeks - Complaining of right hip pain - Has not seen much difference in the efficacy compared to the Enbrel: still gets aches in hands and feet - Also has injection site bruising with this injection that she did not have with the other medication Rheumatologic History: Seronegative rheumatoid arthritis dx 02/07 MTX caused rash Enbrel 06/09 effective Initial history: This is a 42-year-old female with a past medical history of hypertension, asthma presents for evaluation of multiple joint pains. Condition started 2-3 years ago with bilateral foot pain. In the interim patient broke 1 of her metatarsal bones of her right foot when she accidentally stubbed her toe running after her dog. Her foot was in a boot for some time. However patient also had plantar fasciitis s/p multiple steroid injections. She also had spontaneous Achilles tendinitis affecting her left ankle. She denies any preceding trauma. This was treated with ibuprofen and Voltaren gel. She mentions getting numerous imaging studies of her ankles and feet by her broadband installer. Patient continues to have bilateral ankle and foot pain mostly at her MTPs. Over the last few months she has been having pain in both hands usually at the MCPs the pain is generally worse at night but is also worse in the morning when she wakes up. Over the last couple of months she noticed some puffiness of her fingers, difficulty putting her rings on. Also over the last few months she has been having pain in her tailbone worse with activity. She has been taking ibuprofen about 600 mg nightly mostly to treat her back pain. She denies any skin rashes, no history of psoriasis. No history of uveitis or IBD. She had a colonoscopy in 2021 which showed diverticulosis, unremarkable otherwise. Recent labs showed borderline positive rheumatoid factor. Current Rheumatology Medication(s): Adalimumab-adaz 40mg every 2 weeks SC [facility] Medical History (Updated 08/27/25 @ 09:11 by Mariah Abbott MD) Pruritus Diverticulosis Tinnitus of left ear FHx: colonic polyps Annual physical exam Hydronephrosis of right kidney Migraine Anxiety Seasonal allergies Chronic asthma HTN (hypertension) Surgical History History of shoulder surgery Hx of tonsillectomy Hx of adenoidectomy History of bunionectomy H/O breast biopsy Family History Father HTN (hypertension) Substance use disorder Pancreatic cancer Mother Breast cancer Bladder cancer Cancer of kidney Mental health disorder Colon polyp Maternal Grandmother Colon cancer, Onset Age: 80 Daughter Andrzej's thyroiditis Sister Colon polyp Social History Housing: House Alcohol intake: current Alcohol intake frequency: holidays/special occasions only Patient Tobacco Use Status: Former Tobacco user e-Cigarette/Vaping Use: Never Used service: No Current occupational status: employed 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 Cognitive needs: No Hearing needs: No Vision needs: Yes Review of Systems Narrative Review of Systems Constitutional: Denies fever, chills, weight loss ENT: Denies vision changes, eye pain or eye redness, dental caries, dry mouth GI: Denies nausea, vomiting, diarrhea, abdominal pain, change in BM Pulm: Denies SOB, [place], hemoptysis, wheezing Cards: Denies chest pain, palpitations Skin: Denies Raynaud's, rash, nail changes, photosensitivity, FINANCIAL AIDS OFFICER: Denies headaches, weakness, paresthesias, recurrent falls MSK: as per HPI All other systems reviewed and are unremarkable except noted above Physical Exam Exam Exam: Vital signs reviewed Physical Examination CONSTITUITIONAL Patient alert and cooperative. Well appearing and in no apparent painful distress MSK Hands * Right Hand: Able to make a fist. No swelling. TTP of the 3rd DIP, 2nd and 3rd PIP and 2nd and 3rd MCPs * Left Hand: Able to make a fist. No swelling. TTP of the 2nd MCP Wrists * Right Wrist: Full ROM to flexion and extension. No swelling or TTP * Left Wrist: Full ROM to flexion and extension. No swelling or TTP Elbows * Right Elbow: Full ROM. No swelling or TTP. No TTP of the medial epicondyle. No TTP of the lateral epicondyle * Left Elbow: Full ROM. No swelling or TTP. No TTP of the medial epicondyle. No TTP of the lateral epicondyle Shoulders * Right shoulder: Full ROM. No swelling noted. No TTP of the AC joint. No TTP of the subacromial bursa. No TTP of the posterior shoulder * Left shoulder: Full ROM. No swelling noted. TTP of the AC joint. No TTP of the subacromial bursa. No TTP of the posterior shoulder Hip bursa: TTP of the right hip bursa Knees * Right knee: Full ROM. No swelling noted. TTP of the knee joint line. No TTP of pes anserine bursa * Left knee: Full ROM. No swelling noted. No TTP of the knee joint line. No TTP of pes anserine bursa. Ankles * Right ankle: Good ankle dorsiflexion and plantar flexion. No swelling. No TTP of the ankle joint * Left ankle: Good ankle dorsiflexion and plantar flexion. No swelling. No TTP of the ankle joint Feet * Right foot: TTP of the 1st MTP and 4th MTP * Left foot: TTP of the 3rd MTP Tender points? * No tenderness to palpation of the bilateral trapezius, supraspinatus, anterior costochondral junctions, bilateral suboccipital muscle insertions SKIN No rashes Vital Signs: Last Vital Signs Pulse 85 10/05/25 07:50 BP 115/68 10/05/25 07:50 Pulse Ox 98 10/05/25 07:50 Oxygen Delivery Method Room Air 10/05/25 07:50 BMI result Body Mass Index 30.3 Office Procedures AMB Joint Injection/Aspiration Joint Injection/Aspiration Details: Procedure was explained to the patient and informed consent was obtained. ? Risks associated with the procedure were discussed with the patient including but not limited to bleeding, infection, drug reactions and reactions to the topical anesthetic. Patient made aware of signs to look out for infectious complications. The area of interest was identified and confirmed with patient. ?This was subsequently cleaned with chlorhexidine x 2. ? The area was then anesthetized using ethyl chloride spray. 40 mg Kenalog with 1 cc 1% lidocaine was injected without issue. ?Minimal to no bleeding. ?Patient tolerated procedure. Primary Site: Right Trochanteric Bursa Prep: site was prepped using aseptic technique and ethochloride spray was applied Injected: 40 mg of, Kenalog, with 1 mL of and 1% plain Lidocaine Coding 34726 - Glenohumeral/Tronchanteric Bursa/Intraarticular Procedure code (CPT) selection complete Office Meds lidocaine (PF) 10 mg/mL (1 %) injection solution Performing Provider: Dariela Collier MD Performing Location: [facility] [place] [facility] Administered by: Dariela Collier MD on 10/05/25 08:55 Dose Route Admin Location Dispensed Lot Number Expiration Date [place] [employer] 1 mL Infiltration right hip bursa 2 mL [id number] 02/15/27 12304-590- 04 [employer] Total Dispensed Waste 2 mL 50 % Kenalog 40 mg/mL suspension for injection Performing Provider: Dariela Collier MD Performing Location: [facility] [place] [facility] Administered by: Dariela Collier MD on 10/05/25 08:55 Dose Route Admin Location Dispensed Lot Number Expiration Date [facility] [employer] 40 mg intrabursal right hip bursa 1 mL [id number] 05/17/27 [address] -1 [employer] Total Dispensed Waste 1 mL 0 % Results Reviewed Results Reviewed: Laboratory Tests 06/05/25 08/27/25 10/02/25 09:25 08:43 08:04 WBC 7.8 RBC 4.72 Hgb 13.1 Hct 39.4 Plt Count 463 H ESR 13 Sodium 139 Potassium 4.6 Chloride 108 Carbon Dioxide 23 BUN 11 Creatinine 0.61 AST 25 ALT 22 C-Reactive Protein 0.50 0.75 H 25-OH Vitamin D Total 24.4 L Laboratory Tests 01/22/25 10:41 Hepatitis A IgM Ab Nonreactive Hep Bs Antigen Negative Hep Bs Antibody REACTIVE Hep B Core Total Ab Nonreactive Hepatitis C Ab (EIA) Nonreactive TB Test (T-Spot) Com Negative XR Bilateral Knees 05/2025 FINDINGS (Left): No fracture, dislocation, or suspicious bone lesion. Normal bone mineralization. Normal alignment. Mild joint space narrowing medial and patellofemoral compartments. Normal patellar alignment without abnormal patellar tilt. No significant joint effusion. Soft tissues appear normal. IMPRESSION: 1. No acute bony abnormalities of the left knee. 2. Mild degenerative arthritis medial and patellofemoral compartments. FINDINGS (Right): No fracture, dislocation, or suspicious bone lesion. Normal bone mineralization. Normal alignment. Minimal joint space narrowing medial and patellofemoral compartments. Normal patellar alignment without abnormal patellar tilt. No significant joint effusion. Soft tissues appear normal. IMPRESSION: 1. No acute bony abnormalities of the right knee. 2. Very mild degenerative arthritis medial and patellofemoral compartments. XR Bilateral Feet 05/2025 FINDINGS (Right): No fracture, dislocation, or suspicious bone lesion. Normal bone mineralization. Normal alignment. Mild to moderate changes of osteoarthrosis in the first MTP joint, with probable changes of prior bunionectomy. Normal plantar arch. There is a tiny plantar calcaneal spur. Soft tissues appear normal. IMPRESSION: 1. No acute findings of the right foot. 2. Mild to moderate changes of osteoarthrosis in the first MTP joint, with probable changes of prior bunionectomy. FINDINGS (Left): No fracture, dislocation, or suspicious bone lesion. Normal bone mineralization. Normal alignment. Joint spaces are preserved. No significant arthropathy. Normal plantar arch. There is a large plantar calcaneal spur. Soft tissues appear normal. IMPRESSION: 1. No acute findings of the left foot. 2. Large plantar calcaneal spur. Assessment & Plan Assessment & Plan (1) Seronegative arthritis: Comment: dx 02/07 MTX caused rash Enbrel 06/09 ineffective, started Humira 2024 Code(s): M13.80 - Other specified arthritis, unspecified site Category: Medical Plan: #Seronegative RA Patient is a 45-year-old female with seronegative rheumatoid arthritis here today for follow up. Elevated CRP and persistent tender joints on Humira for 4 months Not in remission or low disease activity. Still with moderate disease activity Plan - Stop Adalimumab - Start Actemra 162mg SC every 2 weeks - RTC 4 months - Labs before visit: CBC, CMP, ESR, CRP, lipid panel, hep B& C, T spot (2) Greater trochanteric bursitis of right hip: Code(s): M70.61 - Trochanteric bursitis, right hip Plan: #Right greater trochanteric bursitis s/p steroid injection today (3) Polyarticular osteoarthritis: Code(s): M15.9 - Polyosteoarthritis, unspecified Plan: #Polyarticular OA Patient with polyarticular osteoarthritis affecting her knees, hands and feet. Confirmed on XRs Knees stable today. But having worsening pain in her right knee Since she is having right trochanteric bursa injection today we will delay right knee steroid injection. Patient is to contact the office if things get worse (4) Encounter for monitoring tocilizumab therapy: Code(s): Z51.81 - Encounter for therapeutic drug level monitoring; Z79.620 - termite helper (current) use of immunosuppressive biologic Plan: #Long-term Use of IL 6 Inhibitors: Tocilizumab/Sarilumab Discussed the risks and benefits of IL6 inhibitors with the management of this patient's rheumatic condition. Benefits include decreased pain, improved mortality, improved quality of life Risks include LFT abnormalities, elevated triglycerides, GI perforations Contraindicated in a patient with history of diverticulitis Monitoring: CBC, CMP, triglycerides Plan I spent 35 minutes reviewing the record and labs, taking a history, examining the patient, discussing the treatment plan, ordering diagnostic work up and documenting in the medical record Orders: Orders Complete Blood Count Auto Diff 4 Months Z79.899 - Other intermediate accountant (current) drug therapy C Reactive Protein 4 Months Z79.899 - Other intermediate accountant (current) drug therapy Erythrocyte Sedimentation Rate 4 Months Z79.899 - Other intermediate accountant (current) drug therapy Hepatitis B,C Profile 4 Months Z79.899 - Other intermediate accountant (current) drug therapy T Spot TB 4 Months Z79.899 - Other jail (current) drug therapy AMB Joint Injection/Aspiration Today M70.61 - Trochanteric bursitis, right hip, M70.62 - Trochanteric bursitis, left hip Comprehensive Met. Panel 4 Months Z79.899 - Other jail (current) drug therapy Lipid Panel 4 Months Z79.899 - Other intermediate accountant (current) drug therapy Medications: New tocilizumab (Actemra) 162 mg (0.9 mL) subcut Q2W 1.8 mL 5RF M06.9 - Rheumatoid arthritis, unspecified Discontinued adalimumab-adaz Discontinued Reason: Doctor's Order 40 mg (0.4 mL) subcut Q2W 0.8 mL 5RF M13.80 - Other specified arthritis, unspecified site Coding Level of Care Code Est Pt Level 4 (06892) Complex EM visit Add On G2211 Diagnoses Seronegative arthritis M13.80 Greater trochanteric bursitis of right hip M70.61 Polyarticular osteoarthritis M15.9 Encounter for monitoring tocilizumab therapy Z51.81; Z79.620 CPT Codes Coding - Joint 7: 22299 - Glenohumeral/Tronchanteric Bursa/Intraarticular ([id number])
[2025-10-05 07:50] VITALS: BP 115/68; PULSE 85; O2SAT 98; BMI 30.3
== END 2025-10-05 08:29 | disposition home or self-care (01) ==
PROVIDERS: PCP Internal Medicine; Visit Provider Student in an Organized Health Care Education/Training Program
DX: M70.61 Trochanteric bursitis, right hip (principal); M15.9 Polyosteoarthritis, unspecified; Z51.81 Encounter for therapeutic drug level monitoring; Z79.620 Long term (current) use of immunosuppressive biologic; M70.62 Trochanteric bursitis, left hip
CPT/HCPCS: 20610; 99214

== ENCOUNTER → 2025-10-05 07:24 | Outpatient (BNVA) | payer BC, SELFPAY | PROVIDERS: PCP Internal Medicine; Visit Provider Student in an Organized Health Care Education/Training Program | DX: M13.80 Other specified arthritis, unspecified site (principal); M70.61 Trochanteric bursitis, right hip; Z79.620 Long term (current) use of immunosuppressive biologic | CPT/HCPCS: 20610; J2003; J3301 ==

== ENCOUNTER 2025-11-13 09:08 | Outpatient (AMB) | payer BC, SELFPAY ==
[2025-11-13 09:10] VITALS: BP 136/88; PULSE 91; RESP 16; TEMP 36.8; O2SAT 98; BMI 31.6
--- NOTE | 2025-11-13 09:10 | AM.OFFWIN_ITS ---
Intake Vital Signs 11/13/25 09:10 Height 5 ft 5 in Weight 190 lb BMI 31.6 BP 136/88 Blood Pressure Location Rt brachial Position Sitting Respiration 16 Pulse 91 Pulse Source Pulse Oximeter Temp 98.2 F Temp Source Oral Pulse Oximetry (%) 98 Oxygen Delivery Method Room Air Intake Visit Reasons: EP Left ear pain, cough, congestion Intake Note: Pt is here today c/o Lt ear pain,cough and congestion x1.5 weeks Patient Tobacco Use Status: Former Tobacco user [employer] Required: No Allergies methotrexate Allergy (Intermediate, Verified 12/06/25 07:44) Rash adhesive Allergy (Unknown, Verified 12/06/25 07:44) Rash erythromycin base (ERYTHROMYCIN BASE) Allergy (Unknown, Verified 12/06/25 07:44) Hives peach Allergy (Unknown, Verified 12/06/25 07:44) Anaphylaxis latex Adverse Reaction (Verified 12/06/25 07:44) Hives lisinopril Adverse Reaction (Verified 12/06/25 07:44) Cough HPI EP Left ear pain, cough, congestion HPI Details 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 No COVID or flu viral testing done at home. Patient denies fever or chills, nausea vomiting or diarrhea, severe headache, coughing fits or shortness of breath, chest pain, purulent phlegm produced, weakness dizziness or vertigo, loss of hearing significantly, sore throat, or other significant associated symptoms. [facility] Medical History (Updated 12/06/25 @ 08:13 by Yenny Demarco NP) Herpes zoster ophthalmicus Pruritus Diverticulosis Tinnitus of left ear FHx: colonic polyps Annual physical exam Hydronephrosis of right kidney Migraine Anxiety Seasonal allergies Chronic asthma HTN (hypertension) Surgical History History of shoulder surgery Hx of tonsillectomy Hx of adenoidectomy History of bunionectomy H/O breast biopsy Family History Father HTN (hypertension) Substance use disorder Pancreatic cancer Mother Breast cancer Bladder cancer Cancer of kidney Mental health disorder Colon polyp Maternal Grandmother Colon cancer, Onset Age: 80 Daughter Andrzej's thyroiditis Sister Colon polyp Social History Housing: House Alcohol intake: current Alcohol intake frequency: holidays/special occasions only Patient Tobacco Use Status: Former Tobacco user e-Cigarette/Vaping Use: Never Used service: No Current occupational status: employed 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 Cognitive needs: No Hearing needs: No Vision needs: Yes Review of Systems Const All systems reviewed & are unremarkable except as noted in HPI and below Physical Exam Vital Signs: Last Vital Signs Temp 98.2 F 11/13/25 09:10 Pulse 91 11/13/25 09:10 Resp 16 11/13/25 09:10 BP 136/88 11/13/25 09:10 Pulse Ox 98 11/13/25 09:10 Oxygen Delivery Method Room Air 11/13/25 09:10 BMI result Body Mass Index 31.6 Const General: cooperative, healthy appearing, comfortable, no acute distress, alert, awake, Physically active and well groomed; No anxious, diaphoretic, intoxicated appearing, poor hygiene or tired appearing Nutritional Appearance: average body habitus Orientation/consciousness: oriented to person Limitations: no limitations HEENT Head: Yes normal to inspection, Yes normocephalic and Yes atraumatic Ears: hearing grossly normal bilaterally, external ears normal, EAC's normal and TM abnormal wth effusion and with fluid behind the TM; not bulging, not bullous, not obstructed by cerumen and not perforated General nose exam: Normal external nose present, Normal septum present, Abnormal mucous membranes and turbinates present and Nasal discharge present Face and sinus: Yes normal facial exam, Yes sinuses nontender and Yes face symmetric Mouth: Normal oral and palatal mucosa present, lip normal and tongue normal Throat: Yes posterior oropharynx normal, Yes uvula midline, No peritonsillar mass, No uvular edema and No cobblestoning Eyes General: appearance normal, both eyes and all related structures Neck Neck: Yes normal visual inspection, Yes no lymphadenopathy, Yes trachea midline, Yes supple and No anterior neck swelling Resp Effort & Inspection: normal respiratory effort, able to speak in complete sentences, no audible wheezes, no cough, no grunting, not labored, no nasal flaring, no retractions and symmetric chest movement Auscultation: clear to auscultation bilaterally, no crackles, no rales, no rhonchi, no wheezes, lung sounds not diminished and No rub present Cardio Rate: regular rate Skin Other: Good color, warm and dry Neuro General: oriented to person Assessment & Plan Assessment & Plan (1) URI (upper respiratory infection): Code(s): J06.9 - Acute upper respiratory infection, unspecified Qualifiers: URI type: unspecified viral URI Qualified Code(s): J06.9 - Acute upper respiratory infection, unspecified (2) Serous otitis media: Code(s): H65.90 - Unspecified nonsuppurative otitis media, unspecified ear Qualifiers: Chronicity: acute Laterality: left Recurrence: non-recurrent Qualified Code(s): H65.02 - Acute serous otitis media, left ear Plan Patient is a 45-year-old female with upper respiratory infection, that has started to involve the left ear, with serous otitis developing on the left side. 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 Pending flu COVID and RSV results. We discussed doing warm heat to the ear, massage, increase fluid intake, and she can take [id number] medication for congestion or inflammation as needed. I wrote her for high-dose ibuprofen to decrease inflammation, and hopefully facilitate drainage of the fluid. She knows to closely monitor symptoms and follow up if she begins to experience worsening pain in the ear, hearing loss, burning or warmth sensation, fever or chills, sinus pressure or swelling, worsening cough or congestion, or other significant associated symptoms. She is also aware of when to go to the emergency department with worrisome symptoms. Orders: Orders SARS-CoV2/FLU/RSV 11/13/25 J06.9 - Acute upper respiratory infection, unspecified Medications: New ibuprofen 800 mg PO Q8H PRN 30 tabs 0RF pain Coding Level of Care Code Est Pt Level 4 (53829) Diagnoses Viral upper respiratory tract infection J06.9 URI type: unspecified viral URI Non-recurrent acute serous otitis media of left ear H65.02 Chronicity: acute Laterality: left Recurrence: non-recurrent
--- OUTSIDE RECORDS SUMMARY | 2025-11-13 09:12 | XMS_ITS | Data Portability ---
Author Organization [facility] Camilo Melo [facility], [facility] Panther Address [address] [place] [address] Support Name Relationship Address Phone HÉCTOR BARRON self [address] [place] [address] Assessment Encounter Date Assessment Date Assessment LastModified by Organization Details LastModified Time 03/09/2025 03/09/2025 Assessment: Patient continues to demonstrate mild tightness in flexion and ER ROM. Quick fatigues with strengthening exercises. Plan: Continue PT @ 1-2x/wk to improve ROM and PS strength as tolerated. [email or web address] Not available 03/09/2025 20:39:36 03/16/2025 03/16/2025 Assessment: Patient demonstrates ongoing weakness in PS strength. Pt able to reach full PROM in all directions but mild tightness in flexion and ER AROM remains. Plan: Review HEP for d/c next visit. Recheck with MD for updated orders. [email or web address] Not available 03/16/2025 19:28:02 03/23/2025 03/23/2025 Assessment: Full AROM. Minor L flexion/ Lower Trap strength vs R Plan: Reviewed L shld flexion and lower Trap weakness and advised exercises for pt to continue at home. Good results with PT. [email or web address] Not available 03/23/2025 17:40:32 Plan of Treatment Reminders Order Date Submit Date Provider Name Organization Details Last Modified By Last Modified Time Details Appointments None record ed. Lab None record ed. Referral None record ed. Procedures None record ed. Surgeries None record ed. Imaging None record ed. MedicationOrders None record ed. VaccineOrders None record ed. Patient TargetsNo targets recorded. Patient InstructionsNo instructions recorded. Reason for Referral None Reported. Procedures Surgical History Date Name Laterality Status Provider Name and Address Organization Details Recorded Time 09/27/20 Sports Shoulder completed Vida Banks MD [address], [place], [address], [facility] 09/27/2025 17:13:35 03/23/20 37111 Therapeutic Exercise (1:1) completed William Licea PTA [address], [place], [address], [facility] 03/23/2025 17:37:33 03/23/20 58217: Manual therapy completed William Licea PTA [address], [place], [address], [facility] 03/23/2025 17:37:33 03/16/20 87279 Therapeutic Exercise (1:1) completed Bill Arias DPT [address], [place], [address], [facility] 03/16/2025 19:28:18 03/16/20 54561: Manual therapy completed Bill Arias DPT [address], [place], [address], [facility] 03/16/2025 19:28:21 03/09/20 79741 Therapeutic Exercise (1:1) completed Bill Arias DPT [address], [place], [address], [facility] 03/09/2025 20:36:59 03/09/20 83283: Manual therapy completed Bill Arias DPT [address], [place], [address], [facility] 03/08/2025 20:33:33 03/02/20 50202 Therapeutic Exercise (1:1) completed William Licea PTA [address], [place], [address], [facility] 03/02/2025 18:40:05 03/02/20 64304: Hot or Cold Pack completed William Enriquetafuri, WIRE [employer] [address], [place], [address], [facility] 03/02/2025 18:40:15 03/02/20 69319: Manual therapy completed William Enriquetafuri, WIRE [employer] [address], [place], [address], [facility] 03/02/2025 18:40:05 02/26/20 85038 Therapeutic Exercise (1:1) completed Bill Arias DPT [address], [place], [address], [facility] 02/24/2025 19:59:36 02/26/20 05772: Hot or Cold Pack completed Bill Arias DPT [address], [place], [address], [facility] 02/24/2025 19:59:36 02/26/20 82945: Manual therapy completed Bill Arias DPT [address], [place], [address], [facility] 02/24/2025 19:59:37 02/17/20 67487 Therapeutic Exercise (1:1) completed William Robisonfuri, WIRE [employer] [address], [place], [address], [facility] 02/16/2025 18:41:55 02/17/20 00360: Hot or Cold Pack completed William Enriquetafuri, WIRE [employer]ATER [address], [place], [address], [facility] 02/16/2025 18:41:55 02/17/20 24589: Manual therapy completed William Enriquetafuri, WIRE [employer] [address], [place], [address], [facility] 02/16/2025 18:41:55 02/12/20 25257 Therapeutic Exercise (1:1) completed William Scafuri, WIRE [employer]ATER [address], [place], [address], [facility] 02/11/2025 18:29:12 02/12/20 41360: Hot or Cold Pack completed William Mainri, WIRE [employer]ATER [address], [place], [address], [facility] 02/11/2025 18:29:11 02/12/20 14047: Manual therapy completed William Licea, WIRE [employer] [address], [place], [address], [facility] 02/11/2025 18:29:12 02/10/20 08367 Therapeutic Exercise (1:1) completed William Licea, WIRE [employer] [address], [place], [address], [facility] 02/09/2025 17:16:36 02/10/20 34970: Hot or Cold Pack completed William Licea, WIRE [employer]ATER [address], [place], [address], [facility] 02/09/2025 17:15:32 02/10/20 22082: Manual therapy completed William Licea, WIRE [employer]ATER [address], [place], [address], [facility] 02/09/2025 17:16:45 02/05/20 97330 Therapeutic Exercise (1:1) completed Bill Arias DPT [address], [place], [address], [facility] 02/03/2025 19:45:26 02/05/20 80793: Hot or Cold Pack completed Bill Arias DPT [address], [place], [address], [facility] 02/03/2025 19:45:26 02/05/20 36105: Manual therapy completed Bill Arias DPT [address], [place], [address], [facility] 02/03/2025 19:45:26 02/03/20 35081 Therapeutic Exercise (1:1) completed Bill Arias DPT [address], [place], [address], [facility] 02/01/2025 19:15:56 02/03/20 95941: Hot or Cold Pack completed SAVANNAH IrizarryT [address], [place], [address], [facility] 02/01/2025 19:15:56 02/03/20 11082: Manual therapy completed Bill Arias DPT [address], [place], [address], [facility] 02/01/2025 19:15:56 01/29/20 29836 Therapeutic Exercise (1:1) completed William Licea [employer] [address], [place], [address], [facility] 01/28/2025 18:14:43 01/29/20 93613: Hot or Cold Pack completed William Licea [employer]IRE [employer] [address], [place], [address], [facility] 01/28/2025 18:14:43 01/29/20 44279: Manual therapy completed William Licea PTA [address], [place], [address], [facility] 01/28/2025 18:14:43 01/27/20 26681 Therapeutic Exercise (1:1) completed Bill Arias DPT [address], [place], [address], [facility] 01/25/2025 20:39:15 01/27/20 03925: Hot or Cold Pack completed Bill Arias DPT [address], [place], [address], [facility] 01/25/2025 20:39:15 01/27/20 32860: Manual therapy completed Bill Arias DPT [address], [place], [address], [facility] 01/25/2025 20:39:15 01/22/20 31895 Therapeutic Exercise (1:1) completed Bill Arias DPT [address], [place], [address], [facility] 01/20/2025 14:43:06 01/22/20 35647: Hot or Cold Pack completed Bill Arias DPT [address], [place], [address], [facility] 01/20/2025 14:43:06 01/22/20 32940: Manual therapy completed Bill Arias DPT [address], [place], [address], [facility] 01/20/2025 14:43:06 01/20/20 51580 Therapeutic Exercise (1:1) completed Bill Arias DPT [address], [place], [address], [facility] 01/15/2025 20:52:42 01/20/20 69214: Hot or Cold Pack completed Bill Arias DPT [address], [place], [address], [facility] 01/15/2025 20:52:42 01/20/20 24800: Manual therapy completed Bill Arias DPT [address], [place], [address], [facility] 01/15/2025 20:52:42 01/14/20 71028 Therapeutic Exercise (1:1) completed Bill Arias DPT [address], [place], [address], [facility] 01/13/2025 12:56:32 01/14/20 84934: Hot or Cold Pack completed Bill Arias DPT [address], [place], [address], [facility] 01/13/2025 12:56:32 01/14/20 37321: Manual therapy completed Bill Arias DPT [address], [place], [address], [facility] 01/13/2025 12:56:32 01/12/20 85692 Therapeutic Exercise (1:1) completed Bill Arias DPT [address], [place], [address], [facility] 01/08/2025 23:07:38 01/12/20 59310: Hot or Cold Pack completed Bill Arias DPT [address], [place], [address], [facility] 01/08/2025 23:07:38 01/12/20 53072: Manual therapy completed Bill Arias DPT [address], [place], [address], [facility] 01/08/2025 23:07:38 01/07/20 05319 Therapeutic Exercise (1:1) completed Bill Arias DPT [address], [place], [address], [facility] 01/06/2025 22:27:22 01/07/20 00533: Hot or Cold Pack completed Bill Arias DPT [address], [place], [address], [facility] 01/06/2025 22:27:22 01/07/20 99979: Manual therapy completed Bill Arias DPT [address], [place], [address], [facility] 01/06/2025 22:27:22 01/05/20 33307 Therapeutic Exercise (1:1) completed Bill Arias DPT [address], [place], [address], [facility] 01/04/2025 08:41:39 01/05/20 78682: Hot or Cold Pack completed Bill Arias DPT [address], [place], [address], [facility] 01/05/2025 14:41:10 01/05/20 85878: Manual therapy completed Bill Arias DPT [address], [place], [address], [facility] 01/04/2025 08:41:39 12/31/19 58041 Therapeutic Exercise (1:1) completed William Quachri, W[employer] [address], [place], [address], [facility] 12/31/2024 13:59:54 12/31/19 82717: Hot or Cold Pack completed William Robisonfuri, WIRE [employer] [address], [place], [address], [facility] 12/31/2024 13:59:54 12/31/19 65879: Manual therapy completed William Licea, W[employer] [address], [place], [address], [facility] 12/31/2024 13:59:54 12/29/19 58297 Therapeutic Exercise (1:1) completed William Enriquetafuri, WIRE [employer] [address], [place], [address], [facility] 12/29/2024 15:22:29 12/29/19 67893: Hot or Cold Pack completed William Scafuri, WIRE [employer] [address], [place], [address], [facility] 12/29/2024 15:22:29 12/29/19 25 80340: Manual therapy completed William Scafuri, W[employer] [address], [place], [address], [facility] 12/29/2024 15:22:29 12/17/19 03326 Therapeutic Exercise (1:1) completed Bill Arias DPT [address], [place], [address], [facility] 12/16/2024 20:56:16 12/17/19 10507: Hot or Cold Pack completed Bill Arias DPT [address], [place], [address], [facility] 12/16/2024 20:56:16 12/17/19 13095: Manual therapy completed Bill Arias DPT [address], [place], [address], [facility] 12/16/2024 20:56:16 12/15/19 70507 Therapeutic Exercise (1:1) completed Bill Arias DPT [address], [place], [address], [facility] 12/14/2024 19:51:57 12/15/19 27539: Hot or Cold Pack completed Bill Arias DPT [address], [place], [address], [facility] 12/14/2024 19:51:57 12/15/19 62878: Manual therapy completed Bill Arias DPT [address], [place], [address], [facility] 12/14/2024 19:51:57 12/10/19 41062 Therapeutic Exercise (1:1) completed William Licea [employer] [address], [place], [address], [facility] 12/10/2024 14:34:05 12/10/19 30954: Hot or Cold Pack completed William Licea WIRE [employer] [address], [place], [address], [facility] 12/10/2024 14:34:05 01/23/20 25 97897: Manual therapy completed William Licea, W[employer] [address], [place], [address], [facility] 12/10/2024 14:34:05 12/08/19 35866 Therapeutic Exercise (1:1) completed William Licea, WIRE [employer] [address], [place], [address], [facility] 12/08/2024 14:46:08 12/08/19 25 58932: Hot or Cold Pack completed William Licea, WIRE [employer] [address], [place], [address], [facility] 12/08/2024 14:45:19 12/08/19 11028: Manual therapy completed William Licea, WIRE [employer] [address], [place], [address], [facility] 12/08/2024 14:45:19 12/02/19 82927 Therapeutic Exercise (1:1) completed Bill Arias DPT [address], [place], [address], [facility] 12/01/2024 09:25:05 12/02/19 25 00539: Hot or Cold Pack completed Bill Arias DPT [address], [place], [address], [facility] 12/01/2024 09:25:05 12/02/19 25 56530: Manual therapy completed SAVANNAH IrizarryT [address], [place], [address], [facility] 12/01/2024 09:25:05 11/30/19 25 34027 Therapeutic Exercise (1:1) completed Bill Arias DPT [address], [place], [address], [facility] 11/26/2024 17:05:21 11/30/19 25 88720: Hot or Cold Pack completed Hongshin Hugo, DPT [address], [place], [address], [facility] 11/26/2024 17:05:21 11/30/19 25 88731: Manual therapy completed Bill Arias, DPT [address], [place], [address], [facility] 11/30/2024 16:26:03 11/26/19 25 17088 Therapeutic Exercise (1:1) completed William Scafuri, WIRE [employer] [address], [place], [address], [facility] 11/26/2024 14:13:18 11/26/19 25 49568: Hot or Cold Pack completed Williamzachary Robisonfuri, WIRE [employer]ATER [address], [place], [address], [facility] 11/26/2024 14:13:18 11/26/19 25 13520: Manual therapy completed William Robisonfuri, WIRE [employer] [address], [place], [address], [facility] 11/26/2024 14:13:18 11/24/19 25 19260 Therapeutic Exercise (1:1) completed William Robisonfuri, WIRE [employer] [address], [place], [address], [facility] 11/24/2024 13:22:01 11/24/19 25 94648: Hot or Cold Pack completed William Scafuri, WIRE [employer] [address], [place], [address], [facility] 11/24/2024 13:22:01 11/24/19 25 67192: Manual therapy completed William Scafuri, WIRE [employer] [address], [place], [address], [facility] 11/24/2024 13:22:01 11/19/19 25 51449 Therapeutic Exercise (1:1) completed Rosa Loo, WIRE [employer] [address], [place], [address], [facility] 11/19/2024 08:40:57 11/19/19 00556: Hot or Cold Pack completed Rosa Loo, WIRE [employer]ATER [address], [place], [address], [facility] 11/19/2024 08:40:57 11/19/19 60250: Manual therapy completed Rosa Loo [employer] [address], [place], [address], [facility] 11/19/2024 08:40:57 11/16/20 61670 Therapeutic Exercise (1:1) completed William Licea, WIRE [employer] [address], [place], [address], [facility] 11/16/2024 13:06:18 11/16/20 83900: Hot or Cold Pack completed William Licea WIRE [employer] [address], [place], [address], [facility] 11/16/2024 13:06:18 11/16/20 42593: Manual therapy completed William Licea WIRE [employer] [address], [place], [address], [facility] 11/16/2024 13:06:18 11/12/20 24 16709 Therapeutic Exercise (1:1) completed Bill Arias DPT [address], [place], [address], [facility] 11/09/2024 21:04:41 11/12/20 24 33336: Hot or Cold Pack completed Bill Arias DPT [address], [place], [address], [facility] 11/09/2024 21:04:41 11/12/20 24 38642: Manual therapy completed Bill Arias DPT [address], [place], [address], [facility] 11/09/2024 21:04:41 11/09/20 04617 Therapeutic Exercise (1:1) completed SAVANNAH IrizarryT [address], [place], [address], [facility] 11/09/2024 20:28:20 11/09/20 27999: Hot or Cold Pack completed SAVANNAH IrizarryT [address], [place], [address], [facility] 11/06/2024 12:16:12 11/09/20 26563: Manual therapy completed SAVANNAH IrizarryT [address], [place], [address], [facility] 11/06/2024 12:16:12 11/05/20 77409 Therapeutic Exercise (1:1) completed William Licea, WIRE [employer] [address], [place], [address], [facility] 11/05/2024 12:45:16 11/05/20 91910: Hot or Cold Pack completed William Licea, WIRE [employer] [address], [place], [address], [facility] 11/05/2024 09:49:30 11/05/20 43635: Manual therapy completed William Licea, WIRE [employer] [address], [place], [address], [facility] 11/05/2024 12:45:21 11/03/20 36748 Therapeutic Exercise (1:1) completed SAAVNNAH IrizarryT [address], [place], [address], [facility] 10/30/2024 16:22:55 11/03/20 33675: Hot or Cold Pack completed Bill Arias DPT [address], [place], [address], [facility] 10/30/2024 16:22:55 11/03/20 92931: Manual therapy completed SAVANNAH IrizarryT [address], [place], [address], [facility] 10/30/2024 16:22:55 10/29/20 24 61657 Therapeutic Exercise (1:1) completed SAVANNAH IrizarryT [address], [place], [address], [facility] 10/28/2024 19:22:26 10/29/20 48083: Hot or Cold Pack completed SAVANNAH IrizarryT [address], [place], [address], [facility] 10/28/2024 19:22:26 10/29/20 57483: Manual therapy completed SAVANNAH IrizarryT [address], [place], [address], [facility] 10/28/2024 19:22:26 10/27/20 96480 Therapeutic Exercise (1:1) completed William Licea, WIRE [employer] [address], [place], [address], [facility] 10/27/2024 15:30:08 10/27/20 24 48574: Hot or Cold Pack completed William Licea, WIRE [employer] [address], [place], [address], [facility] 10/27/2024 15:30:08 10/27/20 24 73288: Manual therapy completed William Licea, WIRE [employer] [address], [place], [address], [facility] 10/27/2024 15:30:08 10/22/20 24 10166 Therapeutic Exercise (1:1) completed SAVANNAH IrizarryT [address], [place], [address], [facility] 10/22/2024 10:03:31 10/22/20 24 35297: Hot or Cold Pack completed SAVANNAH IrizarryT [address], [place], [address], [facility] 10/22/2024 10:08:01 10/22/20 24 06715: Manual therapy completed Bill Arias DPT [address], [place], [address], [facility] 10/22/2024 10:08:27 10/21/20 24 19892 Therapeutic Exercise (1:1) completed Bill Arias DPT [address], [place], [address], [facility] 10/21/2024 18:35:14 10/21/20 41969: Low complexity PT Eval completed Bill Arias DPT [address], [place], [address], [facility] 10/21/2024 18:34:13 10/07/20 arthroscopic repair of rotator cuff completed ALICE CUEVAS [facility] 10/23/2024 09:41:17 Ankle/Foot Surgery completed ALICE CUEVAS [facility] 07/06/2024 08:22:45 Imaging Results None recorded. Procedure Notes None recorded. Medical Equipment None Reported. Allergies Allergen ID Allergen Name Allergen Category Reaction Reaction Severity Criticality Documentation Date Start Date Code Code System Note Provider Name and Address Organization Details Recorded Time 489388 methotrex ate medicatio n rash Not available Not available 07/06/20242022 6851 RxNorm ALICE CUEVAS [facility] 4 08:22:43 [id number] erythromy nate medicatio n Not available Not available Not available 07/06/2024 4053 RxNorm [facility]ICE [facility] 4 08:22:43 [id number] adhesive tape environme nt,medica tion rash Not available Not available 07/06/2024 ALICE [facility] 4 08:22:43 [id number] latex environme nt,medica tion rash Not available Not available 07/06/2024 [id number] 91 RxNorm ALICE [facility] 4 08:22:43 [id number] peach food Not available Not available Not available 07/06/2024 ALICE [facility] 4 13:23:12 Medications Name Authored On Sig Start Date Stop Date Status Note Indication Fill Status Repeat Number Dispense Quantity LastModified by Organization Details LastModified Time Zyrte c 10 mg capsu le 4 08:22:44 1 caps ule ever y day by oral esperanza e. active Not Available Not availab le 0 Not Available [facility] 07/06/2024 08:22:44 amoxi cilli n-pot assiu m clavu lanat e 1,000 mg-62 .5 mg table t,ext .rel 12hr 4 08:22:44 07/06 aborted Not Available Not availab le 0 Not Available [facility] 07/06/2024 08:52:25 predn isone 10 mg table t 4 08:08:10 PLEA SE SEE BENNIE CHED FOR DETA ILED DIRE CTIO NS 07/06 aborted Not Available Not availab le 0 Not Available ALICE [facility] 07/06/2024 08:52:29 predn isone 20 mg table t 4 08:08:10 TAKE 2 TABL ETS BY SABINA Haddad EVER Y DAY 07/06 aborted Not Available Not availab le 0 Not Available [facility] 07/06/2024 08:52:34 doxyc yclin e hycla te 100 mg table t 4 05:57:47 TAKE 1 TABL ET BY SABINA Haddad TWGORAN E A DAY 09/28 aborted Not Available Not availab le 0 Not Available [facility] 09/28/2024 14:34:21 sulfa metho xazol e 800 mg-tr imeth oprim 160 mg table t 4 15:55:06 TAKE 1 TABL ET BY MOUT H TWIC E A DAY FOR 7 DAYS active Not Available Not availab le 0 Not Available Not Available [facility] 10/18/2024 15:55:06 dicyc lomin e 10 mg capsu le 5 06:07:32 active Not Available Not availab le 0 Not Available Not Available [facility] 01/19/2025 06:07:32 amoxi cilli n 875 mg-po tassi um clavu lanat e 125 mg table t 5 06:07:32 TAKE 1 TABL ET BY MOUT H TWIC E A DAY 02/01 aborted Not Available Not availab le 0 Not Available [facility] 02/01/2025 13:06:54 albut althea sulfa te HFA 90 mcg/a ctuat ion aeros ol inhal er 4 08:08:10 INHA LE 2 PUFF S EVER Y 4 TO 6 HOUR S NEED ED FOR SHOR TNES S OF PB TH OR FOR WHEE ZE 02/01 aborted Not Available Not availab le 0 Not Available [facility] 02/01/2025 13:06:57 aspir in 325 mg table t 4 15:55:06 TAKE 1 TABL ET BY MOUT H EVER Y DAY FOR 14 DAYS 02/01 aborted Not Available Not availab le 0 Not Available [facility] 02/01/2025 13:07:00 docus ate sodiu m 100 mg capsu le 4 15:55:06 TAKE 1 CAPS ULE BY MOUT H EVER Y DAY NEED ED 02/01 aborted Not Available Not availab le 0 Not Available [facility] 02/01/2025 13:07:06 Flona se Aller gy Relie f 50 mcg/a ctuat ion nasal spray ,susp ensio n 4 08:22:44 Spra y 1 spra y ever y day by dar hernandez 02/01 aborted Not Available Not availab le 0 Not Available [facility] 02/01/2025 13:07:12 fluco nazol e 150 mg table t 4 08:08:10 02/01 aborted Not Available Not availab le 0 Not Available [facility] 02/01/2025 13:07:16 hydro morph one 2 mg table t 4 15:55:06 TAKE 1 TABL ET BY MOUT H EVER Y 4 HOUR S FOR 7 DAYS 02/01 aborted Not Available Not availab le 0 Not Available [facility] 02/01/2025 13:07:18 levof loxac in 750 mg table t 4 08:08:10 02/01 aborted Not Available Not availab le 0 Not Available [facility] 02/01/2025 13:07:21 napro xen 500 mg table t 4 15:55:06 TAKE 1 TABL ET BY MOUT H TWIC E A DAY FOR 5 DAYS 02/01 aborted Not Available Not availab le 0 Not Available [facility] 02/01/2025 13:07:26 ondan setro n 8 mg disin tegra ting table t 4 15:55:06 DISS OLVE 1 TABL ET IN MOUT H THRE E TIME S MARY Y NEED ED FOR NAUS EA 02/01 aborted Not Available Not availab le 0 Not Available [facility] 02/01/2025 13:07:30 penic illin V potas sium 500 mg table t 4 15:55:06 TAKE 1 TABL ET BY MOUT H TWIC E A DAY FOR 7 DAYS 02/01 aborted Not Available Not availab le 0 Not Available [facility] 02/01/2025 13:07:33 scopo preston e 1 mg over 3 days trans derma l patch 4 15:55:06 APPL Y 1 PATC H EVER Y 72 HOUR S PRESSLEY SDER MALL Y NEED ED, FOR NAUS EA. 02/01 aborted Not Available Not availab le 0 Not Available [facility] 02/01/2025 13:07:39 Pain Relie f Extra Stren gth (acet amino phen) 500 mg table t 4 15:55:06 TAKE 2 TABL ETS BY MOUT H 3 TIME S A DAY 02/01 aborted Not Available Not availab le 0 Not Available [facility] 02/01/2025 13:07:44 hydro corti sone 2.5 % topic al cream with perin eal appli cator 5 05:57:31 APPL Y RECT [facility] NEED ED FOR HEMO RRHO IDS FOR 14 DAYS active Not Available Not availab le 0 Not Available Not Available puma - External Data Service - prod 03/02/2025 05:57:31 estra diol 0.025 mg/24 hr semiw eekly trans derma l patch 5 04:38:44 APPL Y 1 PATC H PRESSLEY SDER MALL Y TWIC E A WEEK 03/31 aborted Not Available Not availab le 0 Not Available [facility] 04/05/2025 16:32:19 metro nidaz ole 0.75 % topic al cream 5 04:38:44 03/31 aborted Not Available Not availab le 0 Not Available [facility] 04/05/2025 16:32:20 sertr jeannie 25 mg table t 4 05:57:47 TAKE 1 TABL ET BY MOUT H EVER Y DAY 03/31 aborted Not Available Not availab le 0 Not Available [facility] 04/05/2025 16:32:20 Resta sis 0.05 % eye drops in a dropp erett e 5 16:11:38 INST ILL 1 DROP INTO BOTH EYES TWIC E A DAY active Not Available Not availab le 0 Not Available Not Available puma - External Data Service - prod 09/24/2025 16:11:38 Slynd 4 mg (28) table t 5 16:11:38 TAKE 1 TABL ET BY MOUT H EVER Y DAY FOR 84 DAYS active Not Available Not availab le 0 Not Available Not Available puma - External Data Service - prod 09/24/2025 16:11:38 amlod ipine 2.5 mg table t 5 16:11:39 TAKE 1 TABL ET BY MOUT H EVER Y DAY active Not Available Not availab le 0 Not Available Not Available puma - External Data Service - prod 09/24/2025 16:11:39 dexam ethas one 0.5 mg/5 mL oral solut ion 16:11:39 RINS E MOUT H WITH 5 MLS FOR 2 EMILIO ALESSANDRO 3 TIME S A DAY THEN SPIT OUT. active Not Available Not availab le 0 Not Available Not Available puma - External Data Service - prod 09/24/2025 16:11:39 escit alopr am 5 mg table t 5 16:11:39 TAKE 1 TABL ET BY MOUT H MARY Y active Not Available Not availab le 0 Not Available Not Available puma - External Data Service - prod 09/24/2025 16:11:39 hydro xyzin e HCl 25 mg table t 5 16:11:39 TAKE 1 TABL ET BY MOUT H TWIC E A DAY NEED ED FOR ANXI ETY active Not Available Not availab le 0 Not Available Not Available puma - External Data Service - prod 09/24/2025 16:11:39 omepr azole 40 mg capsu le,de layed relea se 5 16:11:39 TAKE 1 CAPS ULE BY MOUT H MARY Y FOR 90 DAYS active Not Available Not availab le 0 Not Available Not Available puma - External Data Service - prod 09/24/2025 16:11:39 trazo done 50 mg table t 5 16:11:39 TAKE 1 TABL ET BY MOUT H AT [facility] NEED ED FOR INSO MNIA active Not Available Not availab le 0 Not Available Not Available puma - External Data Service - prod 09/24/2025 16:11:39 Brittani 0.037 5 mg/24 hr trans derma l patch 5 16:11:40 APPL Y 1 PATC H BY PRESSLEY SDER MAL ROUT E TWIC E A WEEK active Not Available Not availab le 0 Not Available Not Available puma - External Data Service - prod 09/24/2025 16:11:40 Enbre l Mini 50 mg/mL (1 mL) subcu taneo us cartr idge 5 16:11:40 active Not Available Not availab le 0 Not Available Not Available puma - External Data Service - prod 09/24/2025 16:11:40 esome prazo le magne sium 40 mg capsu le,de layed relea se 5 16:11:40 TAKE 1 CAPS ULE BY MOUT H MARY Y active Not Available Not availab le 0 Not Available Not Available puma - External Data Service - prod 09/24/2025 16:11:40 famot idine 20 mg table t 5 16:11:40 TAKE 1 TABL ET BY MOUT H AT [facility] active Not Available Not availab le 0 Not Available Not Available puma - External Data Service - prod 09/24/2025 16:11:40 escit alopr am 10 mg table t 5 16:11:12 1 tabl et ever y day by oral rout e. active Not Available Not availab le 0 Not Available [facility] 09/27/2025 16:11:12 estra diol 0.05 mg/24 hr semiw eekly trans derma l patch 5 16:11:12 1 patc h twic e a week by pressley lele m. rout e. active Not Available Not availab le 0 Not Available Rafael [facility] 09/27/2025 16:11:12 Humir a Pen 40 mg/0. 8 mL subcu taneo us kit 5 16:11:12 1 dose pk ever y 2 week s by sub- q rout e. active Not Available Not availab le 0 Not Available [facility] 09/27/2025 16:11:12 omepr azole ER 40 mg capsu le,ex tende d relea se 16:11:12 1 caps ule ever y day by oral rout sherman. active Not Available Not availab le 0 Not Available Rafael Galan [facility] 09/27/2025 16:11:12 Vitals Date Recorded Body height Body mass index (BMI) Body weight Provider Name and Address Organization Details Last Updated DateTime 04/05/2025 165.1 cm 29.1 kg/m2 59367.66 g ALICE CUEVAS [facility] 04/05/2025 16:32:28 Date Recorded Body height Body mass index (BMI) Body weight Provider Name and Address Organization Details Last Updated DateTime 09/27/2025 165.1 cm 29.1 kg/m2 68462.66 g Rafael Galan [facility] 09/27/2025 16:23:07 Social History Question Answer Notes LastModified by [email or web address] ion Details LastModified Time Tobacco Smoking Status Former Smoker ALICE CUEVAS [facility] 07/06/2024 08:22:45 How Many Times Per Week Do You Consume Alcohol? Less Than 1 Time Per Week ALICE CUE[facility] 07/06/2024 08:22:45 What is your relationship status? ALICE CUEVAS [facility] 07/06/2024 08:22:45 When did you quit smoking? 16+ years since last cigarette ALICE CUE[facility] 07/06/2024 08:22:45 Social History Observation Description Date Observed Sex Unknown 10/22/2025 Legal Sex Female No social history survey screeners recorded No social history SDOH screeners recorded Functional Status Question Answer Note LastModified by Organizat ion Details LastModified Time Do you or have you ever used any other forms of tobacco or nicotine? No ALICE CUE[facility] 07/06/2024 08:22:45 Do you or have you ever used e-cigarettes or vape? Never used electronic cigarettes ALICE CUE[facility] 07/06/2024 08:22:45 How many times per week do you consume alcohol? Less than 1 time per week ALICE [facility] 07/06/2024 08:22:45 Do you use any illicit or recreational drugs? No ALICE CUE[facility] 07/06/2024 08:22:45 Date Assessment Value LastModified by Organization Details LastModified Time 10/21/2024 Quick DASH Bill Arias DPT [place] [facility]he[facility] 10/21/2024 18:32:54 No Functional SDOH screeners recorded Mental Status None recorded. No Mental Screening assessment recorded No Mental SDOH screeners recorded Family History Nothing Reported. Medical History Condition Response Allergies/Hayfever Y Coronary Artery Disease N Breathing or lung disorders N Anxiety/Depression Y Emphysema N Nerve Disorders N Thyroid Problems N COPD N Pacemaker N Kidney/Bladder Problems N Anemia N Vascular Disease N Heart Trouble N Heart Attack ([place]) N Gastrointestinal Disease N Cholesterol N Diabetes [...] ICD10 Code Diagnosis IMO Codes Diagnosis Note [id number] MD [facility] [address] [place] [address] 07/06/2024 08:07:35 07/29/2024 10:56:47 Pain of left shoulder joint [id number] M25.512 Full thick ness rotator cuff tear 185404183 M75.739 [id number] MD [facility] [address] [place] [address] 09/28/2024 14:16:14 10/27/2024 13:58:38 Calcific tendinitis of right shoulder 0721418517 78539 M75.31 [id number] Pain of ri ght shoulder joint 5940483238 3176547 M25.511 [id number] MD M[facility] [address] [place] [address] 10/23/2024 09:28:22 11/23/2024 13:51:40 Follow-up orthopedic assessment 554541551 Z47.89 [id number] Bill Arias DPT [facility] [address] [place] [address] 10/21/2024 13:59:00 10/21/2024 17:48:15 Rupture of rotator cuff of left shoulder 1449721250 [id number] M75.680 [id number] Bill Arias DPT [facility] [address] [place] [address] 10/22/2024 09:13:39 10/22/2024 10:53:09 Rupture of rotator cuff of left shoulder 3118727668 [id number] M75.008 [id number] William Licea [employer] [facility] [address] [place] [address] 10/27/2024 12:56:20 10/27/2024 13:36:14 Rupture of rotator cuff of left shoulder 7777936596 [id number] M75.074 [id number] Bill Arias DPT [facility] [address] [place] [address] 10/29/2024 13:53:37 10/29/2024 15:02:35 Rupture of rotator cuff of left shoulder [id number] M75.087 [id number] Bill Arias DPT [facility] [address] [place] [address] 11/03/2024 09:59:16 11/03/2024 10:22:20 Rupture of rotator cuff of left shoulder 0887031403 [id number] M75.741 [id number] William Licea [employer] [facility] [address] [place] [address] 11/05/2024 11:54:53 11/05/2024 12:39:09 Rupture of rotator cuff of left shoulder 0985533749 [id number] M75.302 [id number] Bill Arias, DPT [facility] [address] [place] [address] 11/09/2024 12:52:41 11/10/2024 06:45:35 Rupture of rotator cuff of left shoulder 0133096597 [id number] M75.216 [id number] Bill Arias, DPT [facility] [address] [place] [address] 11/12/2024 09:30:37 11/12/2024 10:06:41 Rupture of rotator cuff of left shoulder 5526841457 [id number] M75.542 [id number] William Licea, [employer] [facility] [address] [place] [address] 11/16/2024 11:27:35 11/16/2024 12:04:35 Rupture of rotator cuff of left shoulder 3910262690 [id number] M75.346 [id number] Rosa Loo, W[employer] [facility] [address] [place] [address] 11/19/2024 16:23:31 11/19/2024 17:25:05 Rupture of rotator cuff of left shoulder 8160125548 [id number] M75.958 [id number] William Anuja, [employer] [facility] [address] [place] [address] 11/24/2024 12:57:06 11/24/2024 13:50:31 Rupture of rotator cuff of left shoulder 5120647169 [id number] M75.941 [id number] William Anuja, [employer] [facility] [address] [place] [address] 11/26/2024 12:56:44 11/26/2024 15:27:05 Rupture of rotator cuff of left shoulder 1346903763 [id number] M75.861 [id number] Bill Arias, DPT [facility] [address] [place] [address] 11/30/2024 13:57:12 11/30/2024 14:33:54 Rupture of rotator cuff of left shoulder 7053423220 [id number] M75.037 [id number] Bill Arias DPT [facility] [address] [place] [address] 12/02/2024 13:54:45 12/02/2024 14:23:50 Rupture of rotator cuff of left shoulder 8226581931 [id number] M75.646 [id number] William Quachdurga, [employer] [facility] [address] [place] [address] 12/08/2024 12:56:05 12/08/2024 14:10:47 Rupture of rotator cuff of left shoulder 4392061227 [id number] M75.449 [id number] CLIFFORD [facility] [place] [address] 12/10/2024 08:59:46 01/08/2025 14:13:45 Nontraumatic complete rupture of rotator cuff of left shoulder 9770812107 890440 M75.122 [id number] William Robisonaguila, [employer] [facility] [address] [place] [address] 12/10/2024 12:53:13 12/10/2024 13:39:28 Rupture of rotator cuff of left shoulder 9368250011 [id number] M75.232 [id number] Bill Arias DPT [facility] [address] [place] [address] 12/15/2024 12:56:10 12/15/2024 13:36:17 Rupture of rotator cuff of left shoulder 0690147318 [id number] M75.559 [id number] Bill Arias, DPT [facility] [address] [place] [address] 12/17/2024 12:57:10 12/17/2024 14:54:40 Rupture of rotator cuff of left shoulder [id number] M75.518 [id number] Williamzachary Robisonaguila, [employer] [facility] [address] [place] [address] 12/29/2024 15:54:21 12/29/2024 17:03:39 Rupture of rotator cuff of left shoulder 9616516026 [id number] M75.510 [id number] William Quachdurga, [employer] [facility] [address] [place] [address] 12/31/2024 11:29:42 12/31/2024 12:20:10 Rupture of rotator cuff of left shoulder 0415991535 [id number] M75.595 [id number] Bill Arias, DPT [facility] [address] [place] [address] 01/05/2025 11:59:37 01/05/2025 12:37:14 Rupture of rotator cuff of left shoulder 8630856571 [id number] M75.780 [id number] Bill Arias DPT [facility] [address] [place] [address] 01/07/2025 11:57:40 01/07/2025 12:46:00 Rupture of rotator cuff of left shoulder 6164553486 [id number] M75.797 [id number] Bill Arias DPT [facility] [address] [place] [address] 01/12/2025 16:26:27 01/12/2025 17:13:57 Rupture of rotator cuff of left shoulder 5832343732 [id number] M75.765 [id number] Bill Arias DPT [facility] [address] [place] [address] 01/14/2025 17:52:56 01/15/2025 06:20:32 Rupture of rotator cuff of left shoulder [id number] [id number] M75.544 [id number] Bill Arias DPT [facility] [address] [place] [address] 01/19/2025 16:29:48 01/19/2025 17:07:55 Rupture of rotator cuff of left shoulder 7398941840 [id number] M75.638 [id number] Vida Banks MD [facility] [address] [place] [address] 02/01/2025 13:02:24 02/15/2025 08:27:03 Follow-up orthopedic assessment [id number] Z47.89 [id number] Bill Arias, DPT [facility] [address] [place] [address] 01/21/2025 16:28:46 01/21/2025 16:59:25 Rupture of rotator cuff of left shoulder 9834952045 [id number] M75.227 [id number] Bill Arias DPCarolina [facility] [address] [place] [address] 01/26/2025 17:27:24 01/26/2025 17:52:33 Rupture of rotator cuff of left shoulder [id number] [id number] M75.166 [id number] William Licea [employer] [facility] [address] [place] [address] 01/28/2025 16:54:48 01/28/2025 17:56:53 Rupture of rotator cuff of left shoulder [id number] M75.086 [id number] Bill Arias DPT [facility] [address] [place] [address] 02/02/2025 16:25:29 02/02/2025 17:08:37 Rupture of rotator cuff of left shoulder [id number] M75.018 [id number] Bill Arias DPT [facility] [address] [place] [address] 02/04/2025 16:26:14 02/04/2025 17:41:37 Rupture of rotator cuff of left shoulder [id number] M75.705 [id number] William Licea, [employer] [facility] [address] [place] [address] 02/09/2025 16:28:36 02/09/2025 17:22:04 Rupture of rotator cuff of left shoulder [id number] M75.969 [id number] William Licea, [employer] [facility] [address] [place] [address] 02/11/2025 16:43:03 02/11/2025 17:01:17 Rupture of rotator cuff of left shoulder [id number] M75.734 [id number] William Quachri, [employer] [facility] [address] [place] [address] 02/16/2025 16:20:54 02/16/2025 17:12:58 Rupture of rotator cuff of left shoulder [id number] M75.898 [id number] William Licea, [employer] [facility] [address] [place] [address] 02/25/2025 17:53:37 02/25/2025 18:07:56 Rupture of rotator cuff of left shoulder [id number] M75.697 [id number] William Licea, [employer] [facility] [address] [place] [address] 03/02/2025 17:27:50 03/02/2025 18:00:47 Rupture of rotator cuff of left shoulder [id number] M75.048 [id number] Bill Arias, DPT [facility] [address] [place] [address] 03/09/2025 17:53:23 03/09/2025 20:33:52 Rupture of rotator cuff of left shoulder [id number] M75.661 [id number] Bill Arias, DPT [facility] [address] [place] [address] 03/16/2025 16:55:19 03/17/2025 06:41:06 Rupture of rotator cuff of left shoulder [id number] M75.517 [id number] William Licea, [employer] [facility] [address] [place] [address] 03/23/2025 16:32:06 03/23/2025 17:56:49 Rupture of rotator cuff of left shoulder [id number] [id number] M75.034 [id number] MD [facility] [address] [place] [address] 04/05/2025 16:03:04 04/13/2025 15:24:44 Follow-up orthopedic assessment [id number] Z47.89 [id number] MD [facility] [address] [place] [address] 09/27/2025 15:51:35 10/06/2025 09:25:42 Bursitis of left shoulder [id number] M75.52 [id number] Health Concerns Section Related Observation LastModified by Organization Detai ls LastModified Time None Recorded Concern Status LastModified by Organization Details LastModified Time None Recorded SDOH Concern Status LastModified by Organization Detai LastModified Time None Recorded Advance Directives Directive None Recorded Payers Insurance Date Sequence Insurance Name Policy Number Policy Iraheta Covered Member ID Iraheta Member ID Guarantor Name 10/06/[address] [facility] [id number] Don Barron [id number] Héctor Barron Notes Date Note Type Note Provider Name and Address Organization Details Recorded Time 03/09/2025 text/html Pt arrives reporting feeling exhausted after work. No pain in her shoulder. Bill Arias DPT [address], [place], [address], [facility] 03/09/2025 20:40:10 03/16/2025 text/html Pt reports feeling very tired after work today but feeling good with her shoulder.Pains 0/10 at rest. SAVANNAH IrizarryT [address], [place], [address], [facility] 03/16/2025 19:28:35 03/23/2025 text/html Pt reports 0/10 pain. Feeling much better. William Licea, W[employer] [address], [place], [address], [place] [facility] 03/23/2025 17:42:31 04/05/2025 text/html Surgery: Left shoulder calcium excision with subsequent 1+1 double row supraspinatus repair, KATI DCE, 10/07/2024 Interval History: The patient returns [...] and well perfused. 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 [facility] speech recognition sewing machinist software was used to create portions of this document. An attempt at proofreading has been made to minimize errors. Please call for corrections. Vida Banks MD [address], [place], [address], [facility] 04/05/2025 16:59:09 09/27/2025 text/html Surgery: Left shoulder calcium excision with subsequent 1+1 double row supraspinatus repair, [facility], 10/07/2024 Interval History: The patient returns today [...] and well perfused. 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 Should call with more persistent pain. We will leave follow up open ended at this point. However should symptoms worsen or fail to improve to the patient's satisfaction, she is encouraged to give the office a call to be seen back for further evaluation and management. [facility] sewing machinist software was used to create portions of this document. An attempt at proofreading has been made to minimize errors. Please call for corrections. Vida Banks MD [address] [place], [place] [address], [place], [address], [facility] 09/27/2025 17:13:48 Care Team Name Role Member ID Specialty Address Phone None Recorded. OBGyn Episode No OBEpisode recorded.
--- OUTSIDE RECORDS SUMMARY | 2025-11-13 09:12 | XMS_ITS | Patient Health Record ---
[facility] Address [address] [place] [address] Care Team Providers Care Senior Catering Sales Manager Name Role Phone Mariah Abbott MD Primary Care Provider Vin Royalmie Unavailable [phone] Allergies Allergen (clinical drug ingredient) Drug/Non Drug [...] W/U Status Risk Notes Problem Rheumatoid arthritis (31239694) Rheumatoid arthritis without rheumatoid factor, 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) Active confirmed Problem Localized, primary osteoarthritis of the ankle and/or foot (968218784) Primary osteoarthritis, right ankle and foot (M19.071) Active confirmed Problem Localized, primary osteoarthritis of the ankle and/or foot (907704328) Primary osteoarthritis, left ankle and foot (M19.072) Active confirmed Problem Rheumatoid arthritis (43418563) Rheumatoid arthritis involving multiple sites with positive rheumatoid factor (M05.79) Active confirmed Problem Seronegative arthritis (410394776) Seronegative arthritis (M13.80) Active confirmed Plan Of Treatment Pending Test Test Name Order Date MRI : Foot, right 10/24/2020 *Uric Acid, Serum 10/22/2022 *Sedimentation Rate-Westergren 2 *Sedimentation Rate-Westergren 0 Rheumatoid Arthritis Factor 07/11/2020 [facility] w/Reflex 10/22/2022 [facility] Comprehensive Panel 07/11/2020 X ray : Foot, left 3V 07/23/2019 41262 I&D ABSCESS- SIMPLE,SINGLE 021 , [id number]/INJECT, JOINT/BURSA 1 ,[id number] TENDON SHEATH/LIGAMENT 0 07/23/201921592,N6161-[facility] TENDON SHEATH/LIGAMENT 1 CRP 07/11/2020 Insurance Providers Payer Name Payer Address Payer Phone Subscriber Number Group Number Insured Name Patient Relationship to Insured Coverage Start Date Coverage End Date [facility] [address] [place] [address] [phone] [id number] Valerie Barron Self - patient is the insured Medical (General) History Medical History History ICD Code Hypertension asthma Seasonal allergies Bipolar disorder Plantar fasciitis back pain migraines GERD chicken pox Surgical History Surgery Date(Month/Year) hernia age 7 adenoids/tonsils age 15 right bunion surgeries 2x
--- OUTSIDE RECORDS SUMMARY | 2025-11-13 09:12 | XMS_ITS | Clinical Summary ---
Author Organization [facility] [address] [facility] Address [address] [place] [address] Phone Care Team Providers Care Psych Tech Name Role Phone Mariah Abbott MD Primary Care Provider [phone] Allergies Active Allergy Reactions Criticality Noted Date [...] on file Sexual Orientation Not on file Last Filed Vital Signs Vital Sign Reading [...] PM EDT Office Visit [facility] [address] [id number] Valerie Braswell MD [address] [place] [phone] Health Maintenance Due Date Last Done Comments [...] 10/04/2021, 12/13/2020, 11/22/2020 Influenza Vaccine (#1) 2025 4, 08/14/2023, 08/18/2018, Additional history exists Colorectal Cancer [...] Procedure Name Priority Date/Time Associated Diagnosis Comments EXTERNAL COLONOSCOPY REPORT Routine 09/11/2022 3:01 PM EDT from Last 3 Months or Most Recently Relevant to Health Maintenance Results * External Colonoscopy Report (09/11/2022 3:01 PM EDT) Anatomical Region Laterality Modality Endoscopy Historical Provider GI~PROCEDURE ORDERABLES F inal Result from Last 3 Months or Most Recently Relevant to Health Maintenance Insurance [facility] Care Teams Psych Tech Relationship Specialty Start Date End Date Mariah Abbott MD PCP - General 04/06/11
--- OUTSIDE RECORDS SUMMARY | 2025-11-13 09:12 | XMS_ITS | Continuity of Care Document ---
Author Organization [facility], [place] Ramos 2nd floor Address [address] [place] [address] Support Name Relationship Address Phone HÉCTOR [place]ARRON [place] [address] [place] [address] Assessment No assessment recorded. Plan of Treatment [...] Banks MD [address], [place], [address], [facility] 09/27/2025 17:13:35 03/23/20 25 [id number] Therapeutic Exercise (1:1) completed William Licea PTA [address], [place], [address], [facility] 03/23/2025 17:37:33 03/23/20 25 89189: Manual therapy completed William Licea KNUCKLER [address], [place], [address], [facility] 03/23/2025 17:37:33 03/16/20 25 56572 Therapeutic Exercise (1:1) completed Hongshin Hugo, DPT [address], [place], [address], [facility] 03/16/2025 19:28:18 03/16/20 54499: Manual therapy completed Bill Arias DPT [address], [place], [address], [facility] 03/16/2025 19:28:21 03/09/20 50802 Therapeutic Exercise (1:1) completed Bill Arias DPT [address], [place], [address], [facility] 03/09/2025 20:36:59 03/09/20 24974: Manual therapy completed Bill Arias DPT [address], [place], [address], [facility] 03/08/2025 20:33:33 03/02/20 57005 Therapeutic Exercise (1:1) completed William Licea KNUCKLER [address], [place], [address], [facility] 03/02/2025 18:40:05 03/02/20 25 79040: Hot or Cold Pack completed William Licea KNUCKLER [address], [place], [address], [facility] 03/02/2025 18:40:15 03/02/20 25 69333: Manual therapy completed William Licea KNUCKLER [address], [place], [address], [facility] 03/02/2025 18:40:05 02/26/20 56885 Therapeutic Exercise (1:1) completed Bill Arias DPT [address], [place], [address], [facility] 02/24/2025 19:59:36 02/26/20 25 77291: Hot or Cold Pack completed Bill Arias DPT [address], [place], [address], [facility] 02/24/2025 19:59:36 02/26/20 26492: Manual therapy completed SAVANNAH IrizarryT [address], [place], [address], [facility] 02/24/2025 19:59:37 02/17/20 27236 Therapeutic Exercise (1:1) completed William Scafuri, KNUCKLER [address], [place], [address], [facility] 02/16/2025 18:41:55 02/17/20 40790: Hot or Cold Pack completed William Scafuri, KNUCKLER [address], [place], [address], [facility] 02/16/2025 18:41:55 02/17/20 83175: Manual therapy completed William Scafuri, KNUCKLER [address], [place], [address], [facility] 02/16/2025 18:41:55 02/12/20 52371 Therapeutic Exercise (1:1) completed William Scafuri, KNUCKLER [address], [place], [address], [facility] 02/11/2025 18:29:12 02/12/20 54361: Hot or Cold Pack completed William Scafuri, KNUCKLER [address], [place], [address], [facility] 02/11/2025 18:29:11 02/12/20 98597: Manual therapy completed William Scafuri, KNUCKLER [address], [place], [address], [facility] 02/11/2025 18:29:12 02/10/20 53806 Therapeutic Exercise (1:1) completed William Scafuri, KNUCKLER [address], [place], [address], [facility] 02/09/2025 17:16:36 02/10/20 41848: Hot or Cold Pack completed William Licea, KNUCKLER [address], [place], [address], [facility] 02/09/2025 17:15:32 02/10/20 41056: Manual therapy completed William Licea KNUCKLER [address], [place], [address], [facility] 02/09/2025 17:16:45 02/05/20 68749 Therapeutic Exercise (1:1) completed SAVANNAH IrizarryT [address], [place], [address], [facility] 02/03/2025 19:45:26 02/05/20 74396: Hot or Cold Pack completed SAVANNAH IrizarryT [address], [place], [address], [facility] 02/03/2025 19:45:26 02/05/20 64681: Manual therapy completed SAVANNAH IrizarryT [address], [place], [address], [facility] 02/03/2025 19:45:26 02/03/20 47237 Therapeutic Exercise (1:1) completed Bill Arias DPT [address], [place], [address], [facility] 02/01/2025 19:15:56 02/03/20 87256: Hot or Cold Pack completed Bill Arias DPT [address], [place], [address], [facility] 02/01/2025 19:15:56 02/03/20 03977: Manual therapy completed SAVANNAH IrizarryT [address], [place], [address], [facility] 02/01/2025 19:15:56 01/29/20 93847 Therapeutic Exercise (1:1) completed William Licea, KNUCKLER [address], [place], [address], [facility] 01/28/2025 18:14:43 01/29/20 41212: Hot or Cold Pack completed William Licea, KNUCKLER [address], [place], [address], [facility] 01/28/2025 18:14:43 01/29/20 94511: Manual therapy completed William Licea, KNUCKLER [address], [place], [address], [facility] 01/28/2025 18:14:43 01/27/20 82366 Therapeutic Exercise (1:1) completed Bill Arias DPT [address], [place], [address], [facility] 01/25/2025 20:39:15 01/27/20 74607: Hot or Cold Pack completed Bill Arias DPT [address], [place], [address], [facility] 01/25/2025 20:39:15 01/27/20 34231: Manual therapy completed Bill Arias DPT [address], [place], [address], [facility] 01/25/2025 20:39:15 01/22/20 94332 Therapeutic Exercise (1:1) completed Bill Arias DPT [address], [place], [address], [facility] 01/20/2025 14:43:06 01/22/20 25 04547: Hot or Cold Pack completed Bill Arias DPT [address], [place], [address], [facility] 01/20/2025 14:43:06 01/22/20 50715: Manual therapy completed Bill Arias DPT [address], [place], [address], [facility] 01/20/2025 14:43:06 01/20/20 75382 Therapeutic Exercise (1:1) completed Bill Arias DPT [address], [place], [address], [facility] 01/15/2025 20:52:42 01/20/20 42242: Hot or Cold Pack completed Bill Arias DPT [address], [place], [address], [facility] 01/15/2025 20:52:42 01/20/20 02409: Manual therapy completed Bill Arias DPT [address], [place], [address], [facility] 01/15/2025 20:52:42 01/14/20 02700 Therapeutic Exercise (1:1) completed Bill Arias DPT [address], [place], [address], [facility] 01/13/2025 12:56:32 01/14/20 24550: Hot or Cold Pack completed Bill Arias DPT [address], [place], [address], [facility] 01/13/2025 12:56:32 01/14/20 70205: Manual therapy completed Bill Arias DPT [address], [place], [address], [facility] 01/13/2025 12:56:32 01/12/20 20290 Therapeutic Exercise (1:1) completed Bill Arias DPT [address], [place], [address], [facility] 01/08/2025 23:07:38 01/12/20 85712: Hot or Cold Pack completed Bill Arias DPT [address], [place], [address], [facility] 01/08/2025 23:07:38 01/12/20 93395: Manual therapy completed Bill Arias DPT [address], [place], [address], [facility] 01/08/2025 23:07:38 01/07/20 86663 Therapeutic Exercise (1:1) completed Bill Arias DPT [address], [place], [address], [facility] 01/06/2025 22:27:22 01/07/20 22491: Hot or Cold Pack completed Bill Arias DPT [address], [place], [address], [facility] 01/06/2025 22:27:22 01/07/20 81858: Manual therapy completed Bill Arias DPT [address], [place], [address], [facility] 01/06/2025 22:27:22 01/05/20 41768 Therapeutic Exercise (1:1) completed Bill Arias DPT [address], [place], [address], [facility] 01/04/2025 08:41:39 01/05/20 36446: Hot or Cold Pack completed Bill Arias DPT [address], [place], [address], [facility] 01/05/2025 14:41:10 01/05/20 97723: Manual therapy completed Bill Arias DPT [address], [place], [address], [facility] 01/04/2025 08:41:39 12/31/19 34480 Therapeutic Exercise (1:1) completed William Licea, KNUCKLER [address], [place], [address], [facility] 12/31/2024 13:59:54 12/31/19 21807: Hot or Cold Pack completed William Scafuri, KNUCKLER [address], [place], [address], [facility] 12/31/2024 13:59:54 12/31/19 74846: Manual therapy completed William Scafuri, KNUCKLER [address], [place], [address], [facility] 12/31/2024 13:59:54 12/29/19 16521 Therapeutic Exercise (1:1) completed William Scafuri, KNUCKLER [address], [place], [address], [facility] 12/29/2024 15:22:29 12/29/19 16918: Hot or Cold Pack completed William Scafuri, KNUCKLER [address], [place], [address], [facility] 12/29/2024 15:22:29 12/29/19 42894: Manual therapy completed William Scafuri, KNUCKLER [address], [place], [address], [facility] 12/29/2024 15:22:29 12/17/19 17955 Therapeutic Exercise (1:1) completed Bill Arias DPT [address], [place], [address], [facility] 12/16/2024 20:56:16 12/17/19 21871: Hot or Cold Pack completed SAVANNAH IrizarryT [address], [place], [address], [facility] 12/16/2024 20:56:16 12/17/19 20124: Manual therapy completed Bill Arias DPT [address], [place], [address], [facility] 12/16/2024 20:56:16 12/15/19 73725 Therapeutic Exercise (1:1) completed Hongshin Hugo, DPT [address], [place], [address], [facility] 12/14/2024 19:51:57 12/15/19 36471: Hot or Cold Pack completed Bill Arias, DPT [address], [place], [address], [facility] 12/14/2024 19:51:57 12/15/19 02216: Manual therapy completed Bill Arias, DPT [address], [place], [address], [facility] 12/14/2024 19:51:57 12/10/19 01668 Therapeutic Exercise (1:1) completed William Scafuri, KNUCKLER [address], [place], [address], [facility] 12/10/2024 14:34:05 12/10/19 41032: Hot or Cold Pack completed William Scafuri, KNUCKLER [address], [place], [address], [facility] 12/10/2024 14:34:05 12/10/19 56872: Manual therapy completed William Licea, KNUCKLER [address], [place], [address], [facility] 12/10/2024 14:34:05 12/08/19 08342 Therapeutic Exercise (1:1) completed William Scafuri, KNUCKLER [address], [place], [address], [facility] 12/08/2024 14:46:08 12/08/19 68863: Hot or Cold Pack completed William Scafuri, KNUCKLER [address], [place], [address], [facility] 12/08/2024 14:45:19 12/08/19 68506: Manual therapy completed William Scafuri, KNUCKLER [address], [place], [address], [facility] 12/08/2024 14:45:19 12/02/19 25 91074 Therapeutic Exercise (1:1) completed Bill Arias DPT [address], [place], [address], [facility] 12/01/2024 09:25:05 12/02/19 25 78937: Hot or Cold Pack completed Bill Arias DPT [address], [place], [address], [facility] 12/01/2024 09:25:05 12/02/19 25 32194: Manual therapy completed Bill Arias DPT [address], [place], [address], [facility] 12/01/2024 09:25:05 11/30/19 25 [id number] Therapeutic Exercise (1:1) completed Bill Arias DPT [address], [place], [address], [facility] 11/26/2024 17:05:21 11/30/19 25 57664: Hot or Cold Pack completed Bill Arias DPT [address], [place], [address], [facility] 11/26/2024 17:05:21 11/30/19 25 27318: Manual therapy completed Bill Arias DPT [address], [place], [address], [facility] 11/30/2024 16:26:03 11/26/19 25 13447 Therapeutic Exercise (1:1) completed William Licea KNUCKLER [address], [place], [address], [facility] 11/26/2024 14:13:18 11/26/19 25 33693: Hot or Cold Pack completed William Licea KNUCKLER [address], [place], [address], [facility] 11/26/2024 14:13:18 11/26/19 25 91001: Manual therapy completed William Scafuri, KNUCKLER [address], [place], [address], [facility] 11/26/2024 14:13:18 11/24/19 25 95447 Therapeutic Exercise (1:1) completed William Scafuri, KNUCKLER [address], [place], [address], [facility] 11/24/2024 13:22:01 11/24/19 25 82905: Hot or Cold Pack completed William Scafuri, KNUCKLER [address], [place], [address], [facility] 11/24/2024 13:22:01 11/24/19 25 47939: Manual therapy completed William Scafuri, KNUCKLER [address], [place], [address], [facility] 11/24/2024 13:22:01 11/19/19 25 59864 Therapeutic Exercise (1:1) completed Damieana Fudge, KNUCKLER [address], [place], [address], [facility] 11/19/2024 08:40:57 11/19/19 25 59684: Hot or Cold Pack completed Damieana Fudge, KNUCKLER [address], [place], [address], [facility] 11/19/2024 08:40:57 11/19/19 25 36240: Manual therapy completed Damieana Fudge, KNUCKLER [address], [place], [address], [facility] 11/19/2024 08:40:57 11/16/20 24 25312 Therapeutic Exercise (1:1) completed William Scafuri, KNUCKLER [address], [place], [address], [facility] 11/16/2024 13:06:18 11/16/20 24 65575: Hot or Cold Pack completed William Scafuri, KNUCKLER [address], [place], [address], [facility] 11/16/2024 13:06:18 11/16/20 42515: Manual therapy completed William Licea, KNUCKLER [address], [place], [address], [facility] 11/16/2024 13:06:18 11/12/20 85944 Therapeutic Exercise (1:1) completed Bill Arias DPT [address], [place], [address], [facility] 11/09/2024 21:04:41 11/12/20 00201: Hot or Cold Pack completed Bill Arias DPT [address], [place], [address], [facility] 11/09/2024 21:04:41 11/12/20 30551: Manual therapy completed Bill Arias DPT [address], [place], [address], [facility] 11/09/2024 21:04:41 11/09/20 12411 Therapeutic Exercise (1:1) completed Bill Arias DPT [address], [place], [address], [facility] 11/09/2024 20:28:20 11/09/20 65068: Hot or Cold Pack completed Bill Arias DPT [address], [place], [address], [facility] 11/06/2024 12:16:12 11/09/20 21926: Manual therapy completed Bill Arias DPT [address], [place], [address], [facility] 11/06/2024 12:16:12 11/05/20 03164 Therapeutic Exercise (1:1) completed William Licea, KNUCKLER [address], [place], [address], [facility] 11/05/2024 12:45:16 11/05/20 24 74713: Hot or Cold Pack completed William Licea KNUCKLER [address], [place], [address], [facility] 11/05/2024 09:49:30 11/05/20 24 44152: Manual therapy completed William Licea KNUCKLER [address], [place], [address], [facility] 11/05/2024 12:45:21 11/03/20 24 96626 Therapeutic Exercise (1:1) completed Bill Arias DPT [address], [place], [address], [facility] 10/30/2024 16:22:55 11/03/20 24 03048: Hot or Cold Pack completed Bill Arias DPT [address], [place], [address], [facility] 10/30/2024 16:22:55 11/03/20 24 72909: Manual therapy completed Bill Arias DPT [address], [place], [address], [facility] 10/30/2024 16:22:55 10/29/20 24 18712 Therapeutic Exercise (1:1) completed Bill Arias DPT [address], [place], [address], [facility] 10/28/2024 19:22:26 10/29/20 24 12507: Hot or Cold Pack completed Bill Arias DPT [address], [place], [address], [facility] 10/28/2024 19:22:26 10/29/20 24 73064: Manual therapy completed Bill Arias DPT [address], [place], [address], [facility] 10/28/2024 19:22:26 10/27/20 24 33761 Therapeutic Exercise (1:1) completed William Licea, KNUCKLER [address], [place], [address], [facility] 10/27/2024 15:30:08 10/27/20 24 40722: Hot or Cold Pack completed William Licea, KNUCKLER [address], [place], [address], [facility] 10/27/2024 15:30:08 10/27/20 36574: Manual therapy completed William Licea, KNUCKLER [address], [place], [address], [facility] 10/27/2024 15:30:08 10/22/20 84742 Therapeutic Exercise (1:1) completed Bill Arias DPT [address], [place], [address], [facility] 10/22/2024 10:03:31 10/22/20 24 89649: Hot or Cold Pack completed Bill Arias DPT [address], [place], [address], [facility] 10/22/2024 10:08:01 10/22/20 78550: Manual therapy completed Bill Arias DPT [address], [place], [address], [facility] 10/22/2024 10:08:27 10/21/20 81529 Therapeutic Exercise (1:1) completed Bill Arias DPT [address], [place], [address], [facility] 10/21/2024 18:35:14 10/21/20 43603: Low complexity PT Eval completed Bill Arias DPT [address], [place], [address], [facility] 10/21/2024 18:34:13 10/07/20 24 arthroscopic repair of rotator cuff completed ALICE CUEVAS [facility] 10/23/2024 09:41:17 Ankle/Foot Surgery completed ALICE MASON [facility] 07/06/2024 08:22:45 Imaging Results None recorded. Procedure Notes None recorded. Medical Equipment None Reported. Allergies Allergen ID Allergen Name Allergen Category Reaction Reaction Severity Criticality Documentation Date Start Date Code Code System Note Provider Name and Address Organization Details Recorded Time 993597 methotrex ate medicatio n rash Not available Not available 07/06/20242022 6851 RxNorm ALICE MOCTEZUMAEIRO [facility] 4 08:22:43 430100 erythromy nate medicatio n Not available Not available Not available 07/06/2024 4053 RxNorm ALICE MOCTEZUMAEIRO [facility] 4 08:22:43 757253 adhesive tape environme nt,medica tion rash Not available Not available 07/06/2024 ALICE CUEVAS [facility] 4 08:22:43 757164 latex environme nt,medica tion rash Not available Not available 07/06/2024 17006 91 RxNorm ALICE STINSONRO [facility] 4 08:22:43 173092 peach food Not available Not available Not available 07/06/2024 ALICE MOCTEZUMAEIRO [facility] 4 13:23:12 Medications Name Authored On Sig Start Date Stop Date Status Note Indication Fill Status Repeat Number Dispense Quantity LastModified by Organization Details LastModified Time Zyrte c 10 mg capsu le 4 08:22:44 1 caps ule ever y day by oral rout e. active Not Available Not availab le 0 Not Available ALICE CUEVAS [facility] 07/06/2024 08:22:44 amoxi cilli n-pot assiu m clavu lanat e 1,000 mg-62 .5 mg table t,ext .rel 12hr 4 08:22:44 07/06 aborted Not Available Not availab le 0 Not Available ALICE CUEVAS [facility] 07/06/2024 08:52:25 predn isone 10 mg table t 4 08:08:10 PLEA SE SEE BENNIE CHED FOR DETA ILED DIRE CTIO NS 07/06 aborted Not Available Not availab le 0 Not Available ALICE CUEVAS [facility] 07/06/2024 08:52:29 predn isone 20 mg table t 4 08:08:10 TAKE 2 TABL ETS BY MOUT H EVER Y DAY 07/06 aborted Not Available Not availab le 0 Not Available ALICE CUEVAS [facility] 07/06/2024 08:52:34 doxyc yclin e hycla te 100 mg table t 4 05:57:47 TAKE 1 TABL ET BY MOUT H TWIC E A DAY 09/28 aborted Not Available Not availab le 0 Not Available [facility] 09/28/2024 14:34:21 sulfa metho xazol e 800 mg-tr imeth oprim 160 mg table t 4 15:55:06 TAKE 1 TABL ET BY MOUT H TWIC E A DAY FOR 7 DAYS active Not Available Not availab le 0 Not Available Not Available [facility] 10/18/2024 15:55:06 dicyc lomin e 10 mg capsu le 5 06:07:32 active Not Available Not availab le 0 Not Available Not Available [facility] 01/19/2025 06:07:32 amoxi cilli n 875 mg-po tassi um clavu lanat e 125 mg table t 5 06:07:32 TAKE 1 TABL ET BY MOUT H TWIC E A DAY 02/01 aborted Not Available Not availab le 0 Not Available [facility] 02/01/2025 13:06:54 albut althea sulfa te HFA 90 mcg/a ctuat ion aeros ol inhal er 4 08:08:10 INHA LE 2 PUFF S EVER Y 4 TO 6 HOUR S NEED ED FOR SHOR TNES S OF PB TH OR FOR WHEE ZE 02/01 aborted Not Available Not availab le 0 Not Available [facility] 02/01/2025 13:06:57 aspir in 325 mg table t 4 15:55:06 TAKE 1 TABL ET BY MOUT H EVER Y DAY FOR 14 DAYS 02/01 aborted Not Available Not availab le 0 Not Available [facility] 02/01/2025 13:07:00 docus ate sodiu m 100 mg capsu le 4 15:55:06 TAKE 1 CAPS ULE BY MOUT H EVER Y DAY NEED ED 02/01 aborted Not Available Not availab le 0 Not Available [facility] 02/01/2025 13:07:06 Flona se Aller gy Relie f 50 mcg/a ctuat ion nasal spray ,susp ensio n 4 08:22:44 Spra y 1 spra y ever y day by nasa l rout e. 02/01 aborted Not Available Not availab le 0 Not Available [facility] 02/01/2025 13:07:12 fluco nazol e 150 mg table t 4 08:08:10 02/01 aborted Not Available Not availab le 0 Not Available [facility] 02/01/2025 13:07:16 hydro morph one 2 mg table t 4 15:55:06 TAKE 1 TABL ET BY MOUT H EVER Y 4 HOUR S FOR 7 DAYS 02/01 aborted Not Available Not availab le 0 Not Available [facility] 02/01/2025 13:07:18 levof loxac in 750 mg table t 4 08:08:10 02/01 aborted Not Available Not availab le 0 Not Available [facility] 02/01/2025 13:07:21 napro xen 500 mg table t 4 15:55:06 TAKE 1 TABL ET BY MOUT H TWIC E A DAY FOR 5 DAYS 02/01 aborted Not Available Not availab le 0 Not Available [facility] 02/01/2025 13:07:26 ondan setro n 8 mg disin tegra ting table t 4 15:55:06 DISS OLVE 1 TABL ET IN MOUT H THRE E TIME S MARY Y NEED ED FOR NAUS EA 02/01 aborted Not Available Not availab le 0 Not Available [facility] 02/01/2025 13:07:30 penic illin V potas sium 500 mg table t 4 15:55:06 TAKE 1 TABL ET BY MOUT H TWIC E A DAY FOR 7 DAYS 02/01 aborted Not Available Not availab le 0 Not Available [facility]ICE STINSONRO [facility] 02/01/2025 13:07:33 scopo preston e 1 mg over 3 days trans derma l patch 4 15:55:06 APPL Y 1 PATC H EVER Y 72 HOUR S PRESSLEY SDER MALL Y NEED ED, FOR NAUS EA. 02/01 aborted Not Available Not availab le 0 Not Available [facility] 02/01/2025 13:07:39 Pain Relie f Extra Stren gth (acet amino phen) 500 mg table t 4 15:55:06 TAKE 2 TABL ETS BY MOUT H 3 TIME S A DAY 02/01 aborted Not Available Not availab le 0 Not Available [facility] STINSONRO [facility] 02/01/2025 [...] Not availab le 0 Not Available ALICE MOCTEZUMAEIRO [facility] 04/05/2025 16:32:19 metro nidaz ole 0.75 % topic al cream 5 04:38:44 03/31 aborted Not Available Not availab le 0 Not Available ALICE MASON MD - [facility] 04/05/2025 16:32:20 sertr jeannie 25 mg table t 4 05:57:47 TAKE 1 TABL ET BY MOUT H EVER Y DAY 03/31 aborted Not Available Not availab le 0 Not Available ALICE MOCTEZUMAEIRO [facility] 04/05/2025 [...] one 0.5 mg/5 mL oral solut ion 5 16:11:39 RINS E MOUT H WITH 5 [...] 5 16:11:40 TAKE 1 TABL ET BY SABINA H AT [facility] [place] active Not Available Not availab le 0 Not Available Not Available puma - External Data Service - prod 09/24/2025 16:11:40 escit alopr am 10 mg table t 5 16:11:12 1 tabl et ever y day by oral rout e. active Not Available Not availab le 0 Not Available [facility] 09/27/2025 16:11:12 estra diol 0.05 mg/24 hr semiw eekly trans derma l patch 16:11:12 1 patc h twic e a week by yossi mata e. active Not Available Not availab le 0 Not Available Rafael [facility] 09/27/2025 16:11:12 Humir a Pen 40 mg/0. 8 mL subcu taneo us kit 5 16:11:12 1 dose pk ever y 2 week s by sub- q rout e. active Not Available Not availab le 0 Not Available [facility] 09/27/2025 16:11:12 omepr azole ER 40 mg capsu le,ex tende d relea se 5 16:11:12 1 caps ule ever y day by oral rout e. active Not Available Not availab le 0 Not Available [facility] 09/27/2025 16:11:12 Vitals Date Recorded Body height Body mass index (BMI) Body weight Provider Name and Address Organization Details Last Updated DateTime 09/27/2025 165.1 cm 29.1 kg/m2 74402.66 g Rafael [facility] 09/27/2025 16:23:07 Social History Question Answer Notes LastModified by Organizat ion Details LastModified Time Tobacco Smoking Status Former Smoker [facility] 07/06/2024 08:22:45 How Many Times Per Week Do You Consume Alcohol? Less Than 1 Time Per Week [facility] 07/06/2024 08:22:45 What is your relationship status? [facility] 07/06/2024 08:22:45 When did you quit smoking? 16+ years since last cigarette [facility] 07/06/2024 08:22:45 Social History Observation Description Date Observed Sex Unknown 09/27/2025 Legal Sex Female No social history survey screeners recorded No social history SDOH screeners recorded Functional Status Question Answer Note LastModified by Organizat ion Details LastModified Time Do you or have you ever used any other forms of tobacco or nicotine? No ALCIE CUEVAS [facility] 07/06/2024 08:22:45 Do you or have you ever used e-cigarettes or vape? Never used electronic cigarettes ALICEROBERT CUEVAS [facility] 07/06/2024 08:22:45 How many times per week do you consume alcohol? Less than 1 time per week [facility] 07/06/2024 08:22:45 Do you use any illicit or recreational drugs? No ALICEROBERT CUEVAS [facility] 07/06/2024 08:22:45 Date Assessment Value LastModified by Organization Details LastModified Time 10/21/2024 Quick DASH Bill Arais DPT MD Micheline Il bowen [facility] 10/21/2024 18:32:54 No Functional SDOH screeners [...] Disease N Heart Trouble N Heart Attack (PR) N Gastrointestinal Disease N Cholesterol N Diabetes [...] ICD10 Code Diagnosis IMO Codes Diagnosis Note [id number] MD [facility] [address] [place] [id number] 09/27/2025 15:51:35 10/06/2025 09:25:42 Bursitis of left shoulder [id number] M75.52 [id number] Health Concerns Section Related Observation LastModified by Organization Detai ls LastModified Time None Recorded Concern Status LastModified by Organization Details LastModified Time None Recorded SDOH Concern Status LastModified by Organization Detai ls LastModified Time None Recorded Payers Encounter Date Sequence Insurance Name Policy Number Policy Iraheta Covered Member ID Iraheta Member ID Guarantor Name 09/27/2025 1 [facility]: [facility] [id number] Don Barron [id number] Héctor Barron Notes Date Note Type Note Provider Name and Address Organization Details Recorded Time 09/27/2025 text/html Surgery: Left shoulder calcium excision with subsequent 1+1 double row supraspinatus repair, KATI GARCIA, 10/07/2024 Interval History: The patient returns today [...] and well perfused. 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 Should call with more persistent pain. We will leave follow up open ended at this point. However should symptoms worsen or fail to improve to the patient's satisfaction, she is encouraged to give the office a call to be seen back for further evaluation and management. [facility] speech recognition plant cytologist software was used to create portions of this document. An attempt at proofreading has been made to minimize errors. Please call for corrections. Vida Banks MD [facility] [address], [place], [address], [place] MD - [facility] 09/27/2025 17:13:48 Care Team Name Role Member ID Specialty Address Phone None Recorded. OBGyn Episode No OBEpisode recorded.
== END 2025-11-13 10:00 | disposition home or self-care (01) ==
PROVIDERS: PCP Internal Medicine; Visit Provider Physician Assistant Medical
DX: J06.9 Acute upper respiratory infection, unspecified (principal); H65.02 Acute serous otitis media, left ear